=== PATIENT | female | born 1950 | race Caucasian/White ===

== ENCOUNTER → 2017-08-20 11:18 | Outpatient (CLI) | payer MEDICARE, OTHER, SELFPAY ==
[2017-08-20 12:37] LABS: Absolute Lymphocyte Count 1.17 X10^3/ul (0.83-4.51); Absolute Neutrophil Count 3.1 X10^3/uL (2.0-7.7); Basophil# 0.04 X10^3/uL; Basophil% 0.8 % (0-1); Eosinophil# 0.12 X10^3/uL; Eosinophils% 2.5 % (0-5); Hematocrit 42.3 % (37-47); Hemoglobin 14.3 g/dl (12.0-15.0); Lymphocyte # 1.17 X10^3/ul (4.0); Lymphocyte % 24.5 % (19-41); Mean Corp Hgb Conc 33.8 g/gl (32-36); Mean Corpuscular Hgb 32.6 pg (27.0-32.0); Mean Corpuscular Volume 96.6 fL (81-99); Mean Platelet Vol. 11.1 fl (6.2-12.0); Monocyte# 0.38 X10^3/uL; Neutrophil # 3.06 X10^3/uL (2.7-7.7); Neutrophil % 64.2 % (47-70); Platelet Count 208 K/mm3 (150-450); RBC Distribution Width CV 13.8 % (11.6-14.6); RBC Distribution Width SD 47.5 fl (35.1-43.9); Red Blood Count 4.38 M/mm3 (4.2-5.4); White Blood Count 4.8 K/mm3 (4.4-11.0)
[2017-08-20 12:38] LABS: POSITIVE COUNT NO; POSITIVE DIFFERENTIAL NO; POSITIVE MORPHOLOGY NO
[2017-08-20 12:58] LABS: ALB/GLOB Ratio 1.2 RATIO (0.9-2.4); AST(SGOT) 17 U/L (15-37); Alanine Aminotransfer ALT/SGPT 22 U/L (13-56); Albumin, Serum 3.9 g/dL (3.2-5.0); Alkaline Phosphatase 60 U/L (45-117); Anion Gap 8 (5-15); BUN 15 mg/dL (7-18); BUN/Creat Ratio 17.4 RATIO (10-20); Calcium,Total 8.6 mg/dL (8.5-10.1); Chloride 108 mmol/L (98-107); Creatinine, Serum 0.86 mg/dL (0.55-1.02); EST Glomerular Filtration Rate 70 mL/min (>60); Est Glom Filt Rate - Afr Amer 85 mL/min (>60); Globulin 3.2 g/dL (2.2-4.2); Glucose 78 mg/dL (74-106); Potassium 3.8 mmol/L (3.5-5.1); Protein, Total 7.1 g/dL (6.4-8.2); Sodium Level 143 mmol/L (136-145); Thyroid Stim Hormone (TSH) 0.45 uIU/mL (0.358-3.74)
[2017-08-20 13:10] LABS: Vitamin D,25 Hydroxy 81.1 ng/mL (29.95-100.01)
[2017-08-21 11:06] LABS: Hep C Antibodies <0.1 s/co ratio (0.0-0.9)
== END ==
PROVIDERS: Family Provider Family Medicine Geriatric Medicine; PCP Family Medicine Geriatric Medicine; Visit Provider Family Medicine Geriatric Medicine
DX: I10 Essential (primary) hypertension (principal); E55.9 Vitamin D deficiency, unspecified; Z13.89 Encounter for screening for other disorder
CPT/HCPCS: 36415; 80053; 82306; 84443; 85025; 86803

== ENCOUNTER → 2017-08-23 10:54 | Outpatient (CLI) | payer MEDICARE, OTHER, SELFPAY ==
--- NOTE | 2017-08-23 11:02 | BD_ITS ---
STUDY: DUAL ENERGY X-RAY ABSORPTIOMETRY / DXA REASON FOR EXAM: Female, 66 years old. The patient is postmenopausal. Loss of height. TECHNIQUE: Bone Mineral Density (BMD) measurements of lumbar spine and bilateral hips were obtained. COMPARISON: Comparison is made with prior examination dated January 05, 2011. FINDINGS: Lumbar Spine (L1-L4): g/cm2 (1.288) / T-score (0.7) / Z-score (2.3) Findings are suggestive of normal bone density with a low fracture risk. Left Femur Total: g/cm2 (0.747) / T-score (-2.1) / Z-score (-0.6) Left Femoral Neck: g/cm2 (0.751) / T-score (-2.1) / Z-score (0.6) Right Femur Total: g/cm2 (0.873) / T-score (-1.1) / Z-score (0.2) Right Femoral Neck: g/cm2 (0.859) / T-score (-1.3) / Z-score (0.2) There is approximately 60% loss of height of the L1 vertebrae. The T-Scores on the most recent prior examination were: Lumbar Spine (L1-L4): There has been improvement of bone density since the previous examination. Left Femur Total: which represents a worsening of 6.6%. Right Femur Total: which represents a worsening of 3.5%. BD/DXA BONE DENS W/VERT FX ASMT IMPRESSION: The patient is considered osteopenic as outlined below according to World Haim Organization (WHO) criteria with a moderate fracture risk. There has been worsening of bone density since the previous examination. Reference Information: The T-score is the number of standard deviations above or below the standard which is normal for young adults at their peak bone mineral density. The World Health Organization (WHO) interprets the T-scores as follows: Above -1 Normal bone density Between -1 and -2.5 Osteopenia Equal to / or below -2.5 Osteoporosis As a practical clinical guideline, osteopenia may be graded as follows: Mild -1 through -1.5 Moderate -1.6 through -2.0 Severe -2.1 through -2.4 The Z-score is the number of standard deviations above or below age-matched controls. A Z-score of less than -1.5 would be considered abnormal. References: 1. NIH Osteoporosis and Related Bone Diseases http://www.osteo.org 2. International Society for Clinical Densitometry http://www.iscd.org 3. National Osteoporosis Foundation http://www.nof.org Electronically Signed: Eddie Friedman MD at 9:24 EDT Tel [phone], Service support ,
== END ==
PROVIDERS: Family Provider Family Medicine Geriatric Medicine; PCP Family Medicine Geriatric Medicine; Visit Provider Family Medicine Geriatric Medicine
DX: Z78.0 Asymptomatic menopausal state (principal)
CPT/HCPCS: 77085

== ENCOUNTER 2017-11-05 10:47 | Day surgery (SDC) | payer MEDICARE, OTHER, SELFPAY ==
--- NOTE | 2017-11-05 | COLBX_PTH ---
PATIENT: XENA MESSER LOC: EN U#:[id number] AGE/SX: 66/F ROOM: RE11/05/[address]: Dr. Murray Lai MD : 1950 BED: DIS: 11/05/2017 SPEC #: [id number] RECD: 11/05/17 15:12 STATUS: JAMES RERandal #: [id number] NANDINI: 11/05/17 00:[address]: Murray Lai DEPT: SURGICAL PATHOLOGY RECD BY: Danilo Paniagua ENTERED: 11/06/17 08:21 SP TYPE: COLON BX OTHR DR: Dr. Clyde Sahu MD Tissues: COLON BIOPSY Procedures: Surgery Specimen Level IV HEADER OPERATION: Colonoscopy PRE-OP DIAGNOSIS: History colon polyps, hemorrhoids, diverticula of colon TISSUE SUBMITTED: Hepatic flexure polyp MICROSCOPIC DIAGNOSIS Hepatic flexure polyp, biopsy: Cauterized fragments of colonic mucosa with changes suggestive of hyperplastic polyp. SJ:gillian 11/07/17 COMMENT Correlation with clinical, endoscopic findings and appropriate follow up are necessary. MICROSCOPIC DESCRIPTION Slides are reviewed. GROSS DESCRIPTION Received in fixative is one container labeled with the patient's name and designated polyp at hepatic flexure. The specimen consists of multiple irregular fragments of light cary soft tissue mixed with fecal material that in aggregate measure 1 x 0.2 x 0.1 cm. The specimen is totally submitted in one cassette. / MATTHEW:gillian 11/06/17 TC:5 CPT: 76982
--- NOTE | 2017-11-05 06:56 | HP.PCM_ITS ---
History and Physical Date of Admission: 11/05/17 HISTORY AND PHYSICAL ? Kimmie Garcia [place] 1950 ? REFERRING PHYSICIAN: ~~Negar Mckeon,* ? CHIEF COMPLAINT: ~~colon consult ? HPI: The patient is a 66 year old female referred for endoscopy. ~Kimmie notes a personal history of colon polyps removed during her last colonoscopy on , and is due for 5-year repeat colonoscopy. ~She denies any change in bowel habits, weight changes, blood in stools, black tarry stools or abdominal pain. The patient ~notes no history of upper GI complaints. ? Patient's past medical history is significant for cervical dystonia. ~Of significant note patient was also found during last colonoscopy to have a very tortuous colon per Dr. Flanagan's operative note. ~The entire colon was visualized but this was with difficulty and patient notes recall and discomfort from that procedure. ? ? PAST MEDICAL HISTORY PAST MEDICAL HISTORY Diagnosis Date ? 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 treated in [place] by Dr. Baldomero Tesfaye ? Benign neoplasm of colon ? ? Disorder of bone and cartilage, unspecified ? ? Diverticulosis of colon (without mention of hemorrhage) ? ? Goiter, specified as simple ? ? Personal history of colonic polyps ? ? Colon polyps ? PMH - PAST MEDICAL HISTORY OF ? ? GI BLEED ? PMH - PAST MEDICAL HISTORY OF ? ? RLQ PAIN ? Unspecified hemorrhoids without mention of complication ? ? Hemorrhoids ? ? PAST SURGICAL HISTORY PAST SURGICAL HISTORY Procedure Laterality Date ? COLONOS W/REM POLYP SNARE ? 09/19/05 ? COLONOS W/REM POLYP SNARE ? 05/24/09 ? COLONOSCOP W/ OR W/O [facility] SPEC ? 06/14/2004 ? Colonoscopy ? ECHO GUIDE FOR BIOPSY ? 06/09/05 ? left- 10clock and 12oclock ? PAST SURGICAL HISTORY OF ? 1990 ? bladder tack ? THYROIDECTOMY ? CURRENT MEDICATIONS ? Current Outpatient Prescriptions: HYDROcodone-acetaminophen (NORCO) 5-325 mg per tablet Take 1 tablet by mouth. levothyroxine (LEVOXYL) 100 mcg tablet Take 1 tablet by mouth once daily. CLONAZEPAM 1 MG TAB Take 2-3 tabs ~as needed. MULTIVITAMIN TAB Take one(1) tablet daily. Cholecalciferol, Vitamin D3, 1,000 unit cap Takes 1 tablet daily. (Patient not taking: Reported on 08/22/2017 ) duloxetine hcl(CYMBALTA 60 MG CAP) Take one(1) capsule daily. HYDROCHLOROTHIAZIDE 25 MG TAB Take one(1) tablet daily. (Patient not taking: No sig reported) risedronate sodium(ACTONEL 35 MG TAB) take one tablet each week as directed (Patient not taking: No sig reported) GXMHOQNP-QBZCONRJAY-QE GLYCN-C 500 MG-400 MG CAP Take one(1) tablet two(2) times daily. evening primrose oil(EVENING PRIMROSE 500 MG CAP) Take one(1) tablet two(2) times daily. oxycodone hcl/acetaminophen(PERCOCET 5 MG-325 MG TAB) as necessary SOY ISOFLAVONE 100 MG CAP Take one(1) tablet two(2) times daily. ubidecarenone(COQ-10 100 MG CAP) Take two (2) by mouth once daily. RED YEAST RICE EXTRACT 600 MG CAP One tablet twice daily BLACK COHOSH 200 MG CAP Take one(1) tablet daily. CALCIUM 500 MG TAB Take one(1) tablet three times daily. FLAXSEED OIL 1,000 MG CAP Take one(1) tablet daily. ? No current facility-administered medications for this visit. ? ALLERGIES: Hayfever [Homeopathic Products]; Macrobid [Nitrofurantoin Monohyd/M- Cryst] ? PERSONAL HISTORY: SOCIAL HISTORY Social History ~~Marital status: ~~~~~~~~~~~~Spouse name: Garland Alvarez ~~~~~~~~ ~~Years of education: ~~~~~~~~~~~~~~~~Number of children: 1 ~~~~~~~~ ? 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 Social History Main Topics ~~Smoking status: Former Smoker ~~~~~~~~~~~~~~~~~~~~~~~~~~~~~~~~~~~~~~~~~~~~~~~~ ~~~~~~~~ ~~~~~Packs/day: 0.00 ~~~~~Years: 0.00 ~~~ ~~Alcohol use: Yes ~~~~~~~~ ~~~~~Comment: very rare ? FAMILY HISTORY: FAMILY HISTORY FAMILY HISTORY Problem Relation Age of Onset ? Cancer Father ? ? ? TESTICULAR ? Colon Cancer Paternal Grandfather ? ? Diabetes Paternal Grandmother ? ? Alzheimer's Disease Maternal Grandmother ? ? REVIEW OF SYMPTOMS: ~~The review of systems data was entered by the nurse and reviewed by me ? Nursing Notes: Regina Ling LPN ~08/22/2017 ~1:47 PM ~Signed REVIEW OF SYSTEMS: ~~~~~General:~~~The patient denies fatigue, denies weight loss, denies weight gain, denies feeling hot, and denies feelings of cold. ~~~~~Eyes: ~The patient denies glaucoma, denies eye injury/surgery, does not wear glasses or contacts. ~~~~~Ear/Nose/Throat: ~The patient denies allergies, denies hayfever, denies ear infections, and denies bloody noses. ~~~~~Cardiovascular: ~The patient denies chest pain, denies heart disease, denies high blood pressure,denies cardiac stent, denies prior heart attack, denies irregular heart beat, denies high cholesterol, ~denies poor circulation, denies heart failure, other cardiac issues, denies claudication, denies cold feet, denies peripheral arterial stent. ~~~~~Respiratory: ~The patient denies tuberculosis, denies pneumonia, denies frequent cough, denies pulmonary embolism, denies shortness of breath, and denies coughing up blood. ~~~~~Gastrointestinal: ~The patient denies difficulty swallowing, denies acid reflux, denies ulcers, denies vomiting, denies jaundice/hepatitis, denies gallbladder problems, denies black or tarry stools, denies hemorrhoids, denies bleeding from rectum, denies diverticulitis, denies constipation, denies diarrhea, denies loss of stool control, and denies hernias. ~~~~~Kidney/Bladder: ~The patient denies kidney stones, denies urine infections , and denies bloody urine. ~~~~~Skin: ~The patient denies a history of skin cancer, denies bleeding/ changing moles, and denies a history of skin rash. ~~~~~Neurologic: ~The patient denies a history of epilepsy/convulsions, denies headaches, denies head/spinal injuries, and denies stroke/TIA. ~~~~~Psychiatric: ~The patient denies psychiatric medications, denies depression , and denies voices, denies substance abuse. ~~~~~Endocrine: ~The patient denies thyroid disorders, denies diabetes, and denies hormonal problems. ~~~~~Hematologic: ~The patient denies a history of bruising, denies bleeding, and denies anemia, denies blood clots. ~~~~~Infections: ~The patient denies a history of measles and mumps, denies rheumatic fever, and denies sexually transmitted diseases. ~~~~~Musculoskeletal: ~The patient denies back pain/injury, denies back problems , denies sciatica, denies knee/foot trouble, denies arthritis, or denies gout. ? ? When was patient's last Mammogram screening? 04/2017 ? ~Last Colonoscopy: ~08/2012 ? Regina Ling LPN~ Angely Gage PA-C ? ~ PHYSICAL EXAMINATION: ? General: ~The patient is 66 year old female, well nourished, well hydrated in no acute distress. ~The patient is oriented to time, place, and person. ? VITALS: Blood pressure 152/70, pulse 88, height 168.9 cm (5' 6.5), weight 70.8 kg (156 lb).~Body mass index is 24.8 kg/m?.~ ? HEENT: ~Normal cephalic, ataumatic, pupils are equally round, sclera are anicteric, mucous membranes are moist, oropharynx is clear. ~Neck has no masses , asymmetry or lymphadenopathy. ~ ? Respiratory: ~Clear to auscultation and percussion. ~Normal respiratory excursion and pattern. ? Cardiac: ~Examination is regular rate and rhythm. ? Abdominal exam: ~Soft, nontender, ~with no palpable masses. ~No hepatosplenomegaly. ~No palpable hernias. ? Rectal exam: exam deferred ? Extremities: ~no clubbing, cyanosis or edema. ~No adenopathy. ? Other: ? LABORATORY VALUES: As Noted ? RADIOLOGIC STUDIES: ~As Noted ? ? Assessment ~ IMPRESSION: encounter for screening colonoscopy, tortuous/looping colon-plan for MAC ? PLAN: ~We will plan for screening colonoscopy with Monitored Anesthetic Care.~~~ We discussed the risks and benefits of the planned endoscopy. ~I have informed the patient that complications can occur including failure to complete the endoscopy and perforation. ~The patient had the opportunity to ask questions concerning the planned endoscopy. ~My staff has also explained the procedure to the patient in understandable terms and has given the patient printed material concerning the procedure. ~The patient freely consents to surgery. ? I plan to use golytely bowel preparation for endoscopy ? The patient has recall from their previous endoscopy performed under conscious sedation. ~I therefore plan to perform the procedure under monitored anesthetic care. ? Diagnoses: (Z12.11) Encounter for screening for malignant neoplasm of colon ~( primary encounter diagnosis) (Q43.8) Tortuous colon (Z86.010) Personal history of colonic polyps ? My findings have been communicated to Dr. Mckeon~via shared medical record. ~ This note will be forwarded to Dr. Clyde Sahu MD. ~~ Return to Clinic: The patient is instructed to follow-up with me 1 week post operatively. ? Angely Gage PA-C
[2017-11-05 11:20] VITALS: BP 141/98; PULSE 100; RESP 18; TEMP 36.4; O2SAT 100; BMI 24.3
--- NOTE | 2017-11-05 12:34 | OP.PCM_ITS ---
Report of Operation Date of Procedure: 11/05/17 Pre-Operative Diagnosis: PERSONAL HISTORY OF COLON POLYPS Post-Operative Diagnosis: COLON POLYP AT HEPATIC FLEXURE, OTHERWISE NORMAL Surgery/Procedure Performed:: COLONOSCOPY WITH SNARE POLYPECTOMY refrigerator cabinetmaker: None Type of Anesthesia:: MAC Anesthesiologist: Sujit Huynh - ASA2 Specimen's removed: HEPATIC FLEXURE POLYP - SMALL Description of Procedure: The patient was brought to the endoscopy suite. Sign in was performed verifying patient, site, planned procedure, critical nursing information, the patient was monitored with cardiac, pulse oximetric, and blood pressure monitoring devices. Monitored anesthetic care was provided for sedation. Following IV sedation the patient was positioned for colonoscopy. A digital rectal exam was performed which revealed no palpable abnormalities The video colonoscope was inserted and advanced to the cecum as verified by the ileocecal valve, cecal base anatomic features and palpation. the cecum, ascending colon appeared unremarkable. There was a small polyp at hepatic flexure. This was removed via snare polypectomy. The remainder of the transverse colon, splenic flexure, descending colon, rectosigmoid all appeared normal. The scope was retroflexed in the colon and this was unremarkable. The patient tolerated the procedure well and was brought to recovery in stable condition
[2017-11-05 12:35] VITALS: BP 123/70; BP 141/98; PULSE 85; RESP 16; TEMP 36.2; O2SAT 99
[2017-11-05 12:40] VITALS: BP 124/74; BP 141/98; PULSE 85; RESP 16; O2SAT 99
[2017-11-05 12:53] VITALS: BP 122/73; BP 141/98; PULSE 87; RESP 16; TEMP 36.2; O2SAT 99
[2017-11-05 13:25] VITALS: BP 141/98
== END 2017-11-05 13:26 | disposition home or self-care (01) ==
LOC: EN 10:48 → AC 10:49
PROVIDERS: Family Provider Family Medicine Geriatric Medicine; PCP Family Medicine Geriatric Medicine; Visit Provider Surgery
PROC: 0DJD8ZZ Inspection of Lower Intestinal Tract, Via Natural or Artificial Opening Endoscopic (ICD-10-PCS; CPT 45378; principal; 2017-11-05 11:55)
DX: Z12.11 Encounter for screening for malignant neoplasm of colon (principal); K63.5 Polyp of colon; Q43.8 Other specified congenital malformations of intestine; Z86.010 Personal history of colon polyps; Z87.891 Personal history of nicotine dependence
CPT/HCPCS: 45380; 88305; J7120

== ENCOUNTER → 2018-05-27 09:53 | Outpatient (CLI) | payer MEDICARE, OTHER, SELFPAY ==
--- NOTE | 2018-05-27 09:57 | BI_ITS ---
MAMMOGRAPHY - BILATERAL SCREENING REASON FOR EXAM: Female, 67 years old. Routine annual screening examination. PERTINENT HISTORY: Aunt with breast cancer. TECHNIQUE: Digital bilateral breast handy (3D mammographic acquisition) in the CC and MLO projections. 2-D mediolateral oblique (MLO) and craniocaudad (CC) views of both breasts were obtained. CAD: Full Field Digital Mammography with Computer Added Detection was performed. COMPARISON: Comparison is made with prior study dated 2017 and March 10, 2016. FINDINGS: Breast Composition: The breasts are heterogeneously dense, which may obscure small masses. There are no dominant masses or suspicious calcifications. No other significant abnormalities are identified. There has been no significant change since the prior study. BI/SCREENING MAMM (CAD), BILAT IMPRESSION: Stable bilateral screening mammogram. Yearly follow-up mammogram recommended. (A) ASSESSMENT CATEGORY: BIRADS Category 1: Negative. A letter regarding these results will be sent to the patient by the facility within 30 days. Approximately 10% of breast cancers are not detected by mammography. A normal mammogram should not delay biopsy of a clinically suspicious abnormality. [id number] Electronically Signed: Eddie Friedman MD at 12:53 EST , Service support ,
== END ==
PROVIDERS: Family Provider Family Medicine Geriatric Medicine; PCP Family Medicine Geriatric Medicine; Referring Provider Family Medicine Geriatric Medicine; Visit Provider Family Medicine Geriatric Medicine
DX: Z12.31 Encounter for screening mammogram for malignant neoplasm of breast (principal)
CPT/HCPCS: 77063; 77067

== ENCOUNTER → 2018-08-19 11:40 | Outpatient (CLI) | payer MEDICARE, OTHER, SELFPAY ==
[2018-07-11 11:54] VITALS: BMI 24.3
[2018-08-19 15:29] LABS: Absolute Lymphocyte Count 1.79 X10^3/ul (0.83-4.51); Absolute Neutrophil Count 2.9 X10^3/uL (2.0-7.7); Basophil# 0.04 X10^3/uL; Basophil% 0.8 % (0-1); Eosinophil# 0.17 X10^3/uL; Eosinophils% 3.2 % (0-5); Hematocrit 43.8 % (37-47); Hemoglobin 14.3 g/dl (12.0-15.0); Lymphocyte # 1.79 X10^3/ul (4.0); Mean Corp Hgb Conc 32.6 g/gl (32-36); Mean Corpuscular Hgb 30.4 pg (27.0-32.0); Mean Corpuscular Volume 93.2 fL (81-99); Monocyte# 0.39 X10^3/uL; Monocyte% 7.4 % (0-10); Neutrophil # 2.86 X10^3/uL (2.7-7.7); Neutrophil % 54.4 % (47-70); Platelet Count 244 K/mm3 (150-450); White Blood Count 5.3 K/mm3 (4.4-11.0)
[2018-08-19 15:37] LABS: POSITIVE COUNT NO; POSITIVE DIFFERENTIAL NO; POSITIVE MORPHOLOGY NO
[2018-08-19 15:40] LABS: ALB/GLOB Ratio 1.2 RATIO (0.9-2.4); AST(SGOT) 18 U/L (15-37); Alanine Aminotransfer ALT/SGPT 26 U/L (13-56); Albumin, Serum 3.7 g/dL (3.2-5.0); Alkaline Phosphatase 69 U/L (45-117); Anion Gap 6 (5-15); BUN 13 mg/dL (7-18); BUN/Creat Ratio 14.9 RATIO (10-20); Chloride 107 mmol/L (98-107); Cholesterol 138 mg/dL (200); Creatinine, Serum 0.87 mg/dL (0.55-1.02); EST Glomerular Filtration Rate 69 mL/min (>60); Est Glom Filt Rate - Afr Amer 84 mL/min (>60); Glucose 87 mg/dL (74-106); High Density Lipoprotein 40 mg/dL; Potassium 4.3 mmol/L (3.5-5.1); Protein, Total 6.7 g/dL (6.4-8.2); Sodium Level 140 mmol/L (136-145); Thyroid Stim Hormone (TSH) 1.06 uIU/mL (0.358-3.74); Triglycerides 78 mg/dL; Very Low Density Lipoprotein 16 mg/dL (5-40)
== END ==
PROVIDERS: Family Provider Family Medicine; PCP Family Medicine; Visit Provider Family Medicine
DX: E03.2 Hypothyroidism due to medicaments and other exogenous substances (principal); E55.9 Vitamin D deficiency, unspecified; E78.5 Hyperlipidemia, unspecified
CPT/HCPCS: 36415; 80053; 80061; 84443; 85025

== ENCOUNTER → 2019-05-28 11:30 | Outpatient (CLI) | payer MEDICARE, OTHER, SELFPAY ==
[2018-07-11 11:54] VITALS: BMI 24.3
--- NOTE | 2019-05-28 11:33 | BI_ITS ---
MAMMOGRAPHY - BILATERAL SCREENING REASON FOR EXAM: Female, 68 years old. Routine annual screening examination. PERTINENT HISTORY: Aunt with breast cancer. TECHNIQUE: Digital bilateral breast luz maria (3D mammographic acquisition) in the CC and MLO projections. 2-D mediolateral oblique (MLO) and craniocaudad (CC) views of both breasts were obtained. CAD: Full Field Digital Mammography with Computer Added Detection was performed. COMPARISON: Comparison is made with prior study dated May 27, 2018 and April 20, 2017. FINDINGS: Breast Composition: The breasts are heterogeneously dense, which may obscure small masses. There are no dominant masses or suspicious calcifications. No other significant abnormalities are identified. There has been no significant change since the prior study. BI/SCREEN MAMM (CAD) W/LUZ MARIA BILAT IMPRESSION: Stable bilateral screening mammogram. Yearly follow-up mammogram recommended. (A) ASSESSMENT CATEGORY: BIRADS Category 1: Negative. A letter regarding these results will be sent to the patient by the facility within 30 days. Approximately 10% of breast cancers are not detected by mammography. A normal mammogram should not delay biopsy of a clinically suspicious abnormality. [id number] Electronically Signed: Eddie Friedman, at 12:20 EST , Service support ,
== END ==
PROVIDERS: PCP Family Medicine; Referring Provider Family Medicine; Visit Provider Family Medicine
DX: Z12.31 Encounter for screening mammogram for malignant neoplasm of breast (principal)
CPT/HCPCS: 77063; 77067

== ENCOUNTER → 2019-09-10 10:34 | Outpatient (CLI) | payer MEDICARE, OTHER, SELFPAY ==
[2018-07-11 11:54] VITALS: BMI 24.3
[2019-09-10 12:52] LABS: Absolute Lymphocyte Count 1.32 X10^3/uL (0.83-4.51); Absolute Neutrophil Count 2.2 X10^3/uL (2.0-7.7); Basophil# 0.04 X10^3/uL; Eosinophil# 0.14 X10^3/uL; Eosinophils% 3.5 % (0-5); Hematocrit 39.7 % (37-47); Hemoglobin 12.9 g/dL (12.0-15.0); Lymphocyte # 1.32 X10^3/ul (4.0); Lymphocyte % 33.2 % (19-41); Mean Corp Hgb Conc 32.5 g/dL (32-36); Mean Corpuscular Hgb 31.4 pg (27.0-32.0); Mean Corpuscular Volume 96.6 fL (81-99); Mean Platelet Vol. 10.7 fl (6.2-12.0); Monocyte# 0.29 X10^3/uL; Monocyte% 7.3 % (0-10); NRBC Flagged by Analyzer 0 % (0-5); Neutrophil # 2.17 X10^3/uL (2.7-7.7); Neutrophil % 54.7 % (47-70); Platelet Count 213 K/mm3 (150-450); RBC Distribution Width CV 14.2 % (11.6-14.6); RBC Distribution Width SD 50.8 fl (35.1-43.9); Red Blood Count 4.11 M/mm3 (4.2-5.4)
[2019-09-10 13:53] LABS: ALB/GLOB Ratio 1.3 RATIO (0.9-2.4); AST(SGOT) 22 U/L (15-37); Alanine Aminotransfer ALT/SGPT 28 U/L (13-56); Albumin, Serum 3.6 g/dL (3.2-5.0); Alkaline Phosphatase 57 U/L (45-117); Anion Gap 8 (5-15); BUN 14 mg/dL (7-18); BUN/Creat Ratio 15.9 RATIO (10-20); Calcium,Total 8.7 mg/dL (8.5-10.1); Chloride 106 mmol/L (98-107); Cholesterol 175 mg/dL (200); Creatinine, Serum 0.88 mg/dL (0.55-1.02); EST Glomerular Filtration Rate 68 mL/min (>60); Est Glom Filt Rate - Afr Amer 83 mL/min (>60); Globulin 2.8 g/dL (2.2-4.2); Glucose 78 mg/dL (74-106); High Density Lipoprotein 62 mg/dL; Potassium 3.2 mmol/L (3.5-5.1); Protein, Total 6.4 g/dL (6.4-8.2); Sodium Level 140 mmol/L (136-145); Thyroid Stim Hormone (TSH) 0.29 uIU/mL (0.358-3.74); Triglycerides 60 mg/dL; Very Low Density Lipoprotein 12 mg/dL (5-40)
== END ==
LOC: LAB.FUTURE 10:35 → BFHLAB 10-23 14:36
PROVIDERS: PCP Family Medicine; Visit Provider Family Medicine
DX: E03.2 Hypothyroidism due to medicaments and other exogenous substances (principal); E55.9 Vitamin D deficiency, unspecified; E78.5 Hyperlipidemia, unspecified
CPT/HCPCS: 36415; 80053; 80061; 84443; 85025

== ENCOUNTER → 2019-10-27 15:21 | Outpatient (CLI) | payer MEDICARE, OTHER, SELFPAY ==
[2018-07-11 11:54] VITALS: BMI 24.3
== END ==
PROVIDERS: PCP Family Medicine; Visit Provider Family Medicine
DX: R19.7 Diarrhea, unspecified (principal)
CPT/HCPCS: 83630; 87177; 87209; 87493; 87506

== ENCOUNTER → 2019-12-11 10:23 | Outpatient (CLI) | payer MEDICARE, OTHER, SELFPAY ==
[2018-07-11 11:54] VITALS: BMI 24.3
[2019-12-11 12:44] LABS: Thyroid Stim Hormone (TSH) 0.16 uIU/mL (0.358-3.74)
== END ==
PROVIDERS: PCP Family Medicine; Visit Provider Family Medicine
DX: E03.2 Hypothyroidism due to medicaments and other exogenous substances (principal); T50.905A Adverse effect of unspecified drugs, medicaments and biological substances, initial encounter; R19.7 Diarrhea, unspecified
CPT/HCPCS: 36415; 84443

== ENCOUNTER → 2020-02-20 13:06 | Outpatient (CLI) | payer MEDICARE, OTHER, SELFPAY ==
[2018-07-11 11:54] VITALS: BMI 24.3
[2020-02-20 15:42] LABS: Free T3 2.3 pg/mL (2.18-3.98); Thyroid Stim Hormone (TSH) 0.46 uIU/mL (0.358-3.74)
== END ==
PROVIDERS: PCP Family Medicine; Visit Provider Family Medicine
DX: E03.9 Hypothyroidism, unspecified (principal)
CPT/HCPCS: 36415; 84439; 84443; 84481

== ENCOUNTER → 2020-05-31 13:43 | Outpatient (CLI) | payer MEDICARE, OTHER, SELFPAY ==
[2018-07-11 11:54] VITALS: BMI 24.3
--- NOTE | 2020-05-31 13:45 | BI_ITS ---
MAMMOGRAPHY - BILATERAL SCREENING REASON FOR EXAM: Female, 69 years old. Routine annual screening examination. PERTINENT HISTORY: Aunt with breast cancer. TECHNIQUE: Digital bilateral breast luz maria (3D mammographic acquisition) in the CC and MLO projections. 2-D mediolateral oblique (MLO) and craniocaudad (CC) views of both breasts were obtained. CAD: Full Field Digital Mammography with Computer Added Detection was performed. COMPARISON: Comparison is made with prior examination dated 05/28/2019 and 05/27/2018. FINDINGS: Breast Composition: The breasts are heterogeneously dense, which may obscure small masses. There are no dominant masses or suspicious calcifications. No other significant abnormalities are identified. There has been no significant change since the prior study. BI/SCRN MAMM (CAD)W/LUZ MARIA BILAT IMPRESSION: Stable bilateral screening mammogram. Yearly follow-up mammogram recommended. (A) ASSESSMENT CATEGORY: BIRADS Category 1: Negative. A letter regarding these results will be sent to the patient by the facility within 30 days. Approximately 10% of breast cancers are not detected by mammography. A normal mammogram should not delay biopsy of a clinically suspicious abnormality. [id number] Electronically Signed: Eddie Friedman MD at 14:35 EST , Service support ,
== END ==
PROVIDERS: PCP Family Medicine; Referring Provider Family Medicine; Visit Provider Family Medicine
DX: Z12.31 Encounter for screening mammogram for malignant neoplasm of breast (principal); Z80.3 Family history of malignant neoplasm of breast
CPT/HCPCS: 77063; 77067

== ENCOUNTER → 2020-09-09 12:18 | Outpatient (CLI) | payer MEDICARE, OTHER, SELFPAY ==
[2018-07-11 11:54] VITALS: BMI 24.3
[2020-09-09 15:21] LABS: Absolute Lymphocyte Count 1.39 X10^3/uL (0.83-4.51); Absolute Neutrophil Count 2.8 X10^3/uL (2.0-7.7); Basophil# 0.04 X10^3/uL; Basophil% 0.8 % (0-1); Eosinophil# 0.11 X10^3/uL; Eosinophils% 2.3 % (0-5); Hematocrit 41.9 % (37-47); Hemoglobin 13.5 g/dL (12.0-15.0); Lymphocyte # 1.39 X10^3/ul (0.83-4.51); Lymphocyte % 29.3 % (19-41); Mean Corp Hgb Conc 32.2 g/dL (32-36); Mean Corpuscular Volume 96.1 fL (81-99); Mean Platelet Vol. 10.7 fl (6.2-12.0); Monocyte# 0.36 X10^3/uL; Monocyte% 7.6 % (0-10); NRBC Flagged by Analyzer 0 % (0-5); Neutrophil # 2.84 X10^3/uL (2.7-7.7); Platelet Count 266 K/mm3 (150-450); RBC Distribution Width CV 14.2 % (11.6-14.6); RBC Distribution Width SD 50.3 fl (35.1-43.9); Red Blood Count 4.36 M/mm3 (4.2-5.4); White Blood Count 4.7 K/mm3 (4.4-11.0)
[2020-09-09 15:41] LABS: Vitamin D,25 Hydroxy 123.4 ng/mL
[2020-09-09 15:50] LABS: ALB/GLOB Ratio 1.2 RATIO (0.9-2.4); AST(SGOT) 17 U/L (15-37); Alanine Aminotransfer ALT/SGPT 25 U/L (13-56); Albumin, Serum 3.7 g/dL (3.2-5.0); Alkaline Phosphatase 59 U/L (45-117); Anion Gap 4 (5-15); BUN 20 mg/dL (7-18); BUN/Creat Ratio 23.7 RATIO (10-20); Chloride 109 mmol/L (98-107); Creatinine, Serum 0.84 mg/dL (0.55-1.02); EST Glomerular Filtration Rate 71 mL/min (>60); Est Glom Filt Rate - Afr Amer 86 mL/min (>60); Glucose 78 mg/dL (74-106); Protein, Total 6.7 g/dL (6.4-8.2); Sodium Level 140 mmol/L (136-145); T4 Free Direct 1.43 ng/dL (0.76-1.46); Thyroid Stim Hormone (TSH) 0.43 uIU/mL (0.358-3.74)
== END ==
PROVIDERS: PCP Family Medicine; Visit Provider Family Medicine
DX: E03.9 Hypothyroidism, unspecified (principal); E55.9 Vitamin D deficiency, unspecified; G24.9 Dystonia, unspecified
CPT/HCPCS: 36415; 80053; 82306; 84439; 84443; 85025

== ENCOUNTER 2021-05-13 00:47 | Inpatient (IN) | payer MEDICARE, OTHER, SELFPAY ==
[2021-05-13] VITALS (7 sets, daily range): BP systolic 113–139; BP diastolic 57–78; PULSE 85–94; RESP 15–18; TEMP 36.4–37.3; O2SAT 96–100; BMI 22.9
--- NOTE | 2021-05-13 00:55 | RAD_ITS ---
STUDY: X-RAY - PELVIS AND LEFT HIP REASON FOR EXAM: Female, 70 years old patient with acute fracture after unspecified trauma. TECHNIQUE: 3 views of the pelvis and hip. COMPARISON: Prior comparison studies are not available for review at this time. FINDINGS: There is a non-specific bowel gas pattern. There are multiple calcified phleboliths. There is diffuse demineralization of the osseous structures. The sacrum and iliac wings are obscured by bowel gas and/or stool. Normal bilateral superior and inferior pubic rami. There are degenerative changes of the pubic symphysis with articular narrowing and sclerosis. Normal bilateral ischial tuberosities. There is an acute displaced left subcapital femoral neck fracture. The distal fracture fragment is displaced proximally. Normal acetabulum. There is mild articular joint space narrowing of the hip. RAD/HIP, UNI W/ Pelvis 2-3 Views IMPRESSION: Acute displaced left-sided femoral neck fracture. Electronically Signed: Jenae Nam MD at 1:55 EST ,
--- NOTE | 2021-05-13 00:55 | RAD_ITS ---
STUDY: X-RAY CHEST REASON FOR EXAM: Female, 70 years old patient with chest injury after fall. TECHNIQUE: Single AP portable view of the chest. COMPARISON: Prior comparison studies are not available for review at this time. FINDINGS: The lungs are hyperexpanded. There is interstitial thickening present in both lungs. There is no demonstrated pleural abnormality. There is mild cardiac enlargement. Normal mediastinum and marilu. There is prominence of the pulmonary hilar arteries with peripheral pulmonary vascular congestion. There is atherosclerotic calcification of the aortic arch with tortuosity. Normal visualized thoracic spine. Normal visualized ribs, clavicles, and shoulders. There is no demonstrated abnormality of the visualized soft tissue structures of the upper abdomen. RAD/Chest 1 View (Portable) IMPRESSION: Cardiomegaly and mild pulmonary congestion. Electronically Signed: Jenae Nam MD at 1:52 EST ,
--- NOTE | 2021-05-13 00:56 | EKG12_ITS ---
Test Reason : FALL Blood Pressure : / mmHG Vent. Rate : 082 BPM Atrial Rate : 082 BPM P-R Int : 146 ms QRS Dur : 072 ms QT Int : 374 ms P-R-T Axes : 063 043 057 degrees QTc Int : 436 ms Normal sinus rhythm Normal ECG Confirmed by FRIEDA SANDOVAL, BORA ([id number]), visual effects editor JEWEL BAZAN ([id number]) on 05/16/2021 10:49:52 AM Referred By: Confirmed By:BORA MALAVE MD
--- NOTE | 2021-05-13 00:57 | EX.ED.DYSGE1 ---
HPI History of Present Illness Chief Complaint: Fall Informant: patient and EMS Narrative Narrative: 70-year-old female presenting to the emergency room with left hip pain. Patient states that she was doing her taxes and fell due to the paperwork. She states she is unable to bear weight on the left hip. She denies any other injuries. She has seen Dr. Conn in the past for rotator cuff repair. [facility] Medical History (Updated 05/13/21 @ 02:[address] Sanna Rea MD) Chronic insomnia Dystonia Former tobacco use History of goiter Hypothyroidism Home Medications clonazepam 2 mg PO QHS PRN PRN 11/01/17 [History Last Taken Unknown] levothyroxine 88 mcg PO DAILY 11/01/17 [History Last Taken 11/05/17 08:00 0800] multivitamin,hz-bbfk-[id number] 1 tab PO DAILY 07/11/18 [History Last Taken Unknown] Allergy/AdvReac Type Severity Reaction Status Date / Time nitrofurantoin Allergy Rash Verified 05/13/21 00:52 [From Macrobid] Family History (Updated 07/11/18 @ 11:38 by Ena Sepulveda) Father Cancer Brother Cancer Mother Alzheimer disease Surgical History (Updated 05/13/21 @ 01:[address] Sanna Rea MD) History of bladder surgery History of rotator cuff surgery History of thyroidectomy History of tonsillectomy History of tubal ligation Social History (Updated 05/13/21 @ 01:[address] Sanna Rea MD) housing: other details: Patient lives with her spouse who is wheelchair bound. She is his caregiver Smoking Status: Former smoker how long ago did patient quit smoking: Smoked age [age] years old, 1 ppd (15 pack year hx). alcohol intake: current alcohol intake frequency: holidays/special occasions only substance use type: does not use ROS ROS ED Constitutional Constitutional ED: Denies chills, fever(s) or weight loss Eyes Eyes: Denies change in vision or diplopia ENT ENT ED: Denies ear pain, rhinorrhea or sore throat Cardiovascular Cardiovascular: Denies chest pain, orthopnea, palpitations or racing heartbeat Respiratory/Chest Respiratory/Chest: Denies cough, dyspnea or orthopnea Gastrointestinal Gastrointestinal: Denies abdominal pain, diarrhea, nausea or vomiting Genitourinary Genitourinary ED: Denies dysuria, hematuria or urinary frequency Musculoskeletal Musculoskeletal: Denies arthralgias or myalgias Integumentary Denies abscess or rash Neurologic Neurologic: Denies headache(s) or weakness Psychiatric Psychiatric: Denies anxiety, depression, suicidal ideation or suicidal thoughts Endocrine Endocrinology: Denies polydipsia, polyphagia or polyuria Allergic/Immunologic Allergic/Immunologic ED: Denies mouth swelling, tongue swelling or urticaria EXAM Physical Exam Const Vital Signs: 05/13/21 00:49 05/13/21 00:53 Temperature 97.5 F L Temperature Source Temporal Pulse Rate 94 Respiratory Rate 16 Respiratory Effort Normal Non-Labored Blood Pressure 129/68 H Blood Pressure Mean 88 Pulse Ox 97 Oxygen Delivery Method Room Air Room Air Positive well nourished and well developed General Appearance ED: well developed HEENT Reports normocephalic, head/scalp atraumatic, TM's clear and moist mucous membranes Negative for trauma Tympanic Membrane ED: Yes TM's clear Eyes PERRL and EOMs intact bilaterally Neck no lymphadenopathy, supple and no JVD Resp normal respiratory effort and clear to auscultation bilaterally Cardio regular rate, regular rhythm and no murmurs GI normal to inspection, nondistended, normoactive bowel sounds and non-tender Palpation: soft Back/Spine no CVA tenderness and normal ROM Extremity Extremity Narrative: Left hip is tender to palpation. Positive logroll. Neurovascular intact distal. General Extremety ED: Negative for edema General Extremity: Negative for edema Neuro oriented x3 and CN's II-XII intact bilaterally Sensorium / Orientation: alert Motor Exam: strength 5/5 throughout Psych mental status grossly normal Mood & Affect: Negative for depressed or tearful Skin no rashes or lesions noted and no wounds MDM MDM MDM Narrative Medical decision making narrative: Patient received pain and nausea medications. My interpretation of the chest x-ray is no acute process. My interpretation of the left hip and pelvis films is an acute femoral neck fracture. Case will be discussed with orthopedics and with the hospitalist. Plan is admission. Lab Data Attestation: I reviewed the patient's lab results. Labs: Laboratory Results - last 24 hr 05/13/21 05/13/21 05/13/21 01:00 01:00 01:00 WBC 10.2 RBC 4.05 L Hgb 12.7 Hct 38.2 MCV 94.3 MCH 31.4 MCHC 33.2 RDW Std Deviation 51.1 H RDW Coeff of Deshawn 14.6 Plt Count 233 MPV 11.2 Immature Gran % (Auto) 0.300 Neut % (Auto) 81.7 H Lymph % (Auto) 12.0 L [place] % (Auto) 5.1 Eos % (Auto) 0.5 Baso % (Auto) 0.4 Absolute Neuts (auto) 8.3 H Absolute Lymphs (auto) 1.22 Nucleated RBC % 0 PT Cancelled INR Cancelled APTT Cancelled Sodium Cancelled Potassium Cancelled Chloride Cancelled Carbon Dioxide Cancelled Anion Gap Cancelled BUN Cancelled Creatinine Cancelled Estim Creat Clear Calc Cancelled Est GFR (MDRD) Af Amer Cancelled Est GFR (MDRD) Non-Af Cancelled BUN/Creatinine Ratio Cancelled Glucose Cancelled Calcium Cancelled Total Bilirubin Cancelled AST Cancelled ALT Cancelled Alkaline Phosphatase Cancelled Total Protein Cancelled Albumin Cancelled Globulin Cancelled Albumin/Globulin Ratio Cancelled 05/13/21 05/13/21 01:28 01:28 WBC RBC Hgb Hct MCV MCH MCHC RDW Std Deviation RDW Coeff of Deshawn Plt Count MPV Immature Gran % (Auto) Neut % (Auto) Lymph % (Auto) [place] % (Auto) Eos % (Auto) Baso % (Auto) Absolute Neuts (auto) Absolute Lymphs (auto) Nucleated RBC % PT 12.6 INR 1.0 APTT 25.0 Sodium 140 Potassium 3.5 Chloride 107 Carbon Dioxide 26.0 Anion Gap 7 BUN 22 H Creatinine 0.80 Estim Creat Clear Calc 69.36 Est GFR (MDRD) Af Amer 91 Est GFR (MDRD) Non-Af 75 BUN/Creatinine Ratio 27.4 H Glucose 98 Calcium 8.8 Total Bilirubin 0.60 AST 29 ALT 29 Alkaline Phosphatase 52 Total Protein 6.2 L Albumin 3.5 Globulin 2.7 Albumin/Globulin Ratio 1.3 Radiography Diagnostic Testing: Clinical Impression(s) from Imaging Studies Chest X-Ray 05/13/21 00:55 IMPRESSION: Cardiomegaly and mild pulmonary congestion. Electronically Signed: Jenae Nam MD at 1:52 EST Reading Location ID and State: [facility] / [place] , Service support , Hip/Pelvis X-Ray 05/13/21 00:55 IMPRESSION: Acute displaced left-sided femoral neck fracture. Electronically Signed: Jenae Nam MD at 1:55 EST , EKG Initial EKG: Attestation: I personally reviewed and interpreted this EKG as follows: Comments: Normal sinus rhythm with a ventricular rate of 82 bpm Discharge Plan Dx/Rx/DC Orders Clinical Impression: Fall, Closed fracture of neck of left femur Disposition Disposition: Acute Care [facility], [place]
[2021-05-13 01:09] LABS: Absolute Lymphocyte Count 1.22 X10^3/uL (0.83-4.51); Absolute Neutrophil Count 8.3 X10^3/uL (2.0-7.7); Basophil# 0.04 X10^3/uL; Basophil% 0.4 % (0-1); Eosinophil# 0.05 X10^3/uL; Eosinophils% 0.5 % (0-5); Hematocrit 38.2 % (37-47); Hemoglobin 12.7 g/dL (12.0-15.0); Lymphocyte # 1.22 X10^3/ul (0.83-4.51); Mean Corp Hgb Conc 33.2 g/dL (32-36); Mean Corpuscular Hgb 31.4 pg (27.0-32.0); Mean Corpuscular Volume 94.3 fL (81-99); Mean Platelet Vol. 11.2 fl (6.2-12.0); Monocyte# 0.52 X10^3/uL; Monocyte% 5.1 % (0-10); NRBC Flagged by Analyzer 0 % (0-5); Neutrophil # 8.32 X10^3/uL (2.7-7.7); Neutrophil % 81.7 % (47-70); Platelet Count 233 K/mm3 (150-450); RBC Distribution Width CV 14.6 % (11.6-14.6); RBC Distribution Width SD 51.1 fl (35.1-43.9); Red Blood Count 4.05 M/mm3 (4.2-5.4); White Blood Count 10.2 K/mm3 (4.4-11.0)
[2021-05-13] MEDS: Morphine 4 MG/ML Syringe IV (01:12)
[2021-05-13] MEDS: Ondansetron 4 MG/2 ML Vial IV (01:12)
[2021-05-13 01:42] LABS: Prothrombin Time (Protime)PT. 12.6 SECONDS (11.7-14.9)
--- NOTE | 2021-05-13 01:50 | HP.PCM.HOS_ITS ---
HPI - General General Date of Admission: 05/13/21 Date of Service: 05/13/21 Chief Complaint: Fall, L hip pain, intractable HPI Narrative The patient is a 70 y/o F w/ PMHx: Goiter s/p thyroidectomy with Hypothyroidism, Former tobacco use, Chronic insomnia, Hx Dystonia otherwise healthy and active who presents to the [facility] ED on 05/13/21 with history of working late on her taxes with several piles of paper on the floor and upon walking through the room she slipped on her tax papers and landed firmly on her left hip with immediately 10/10 pain, worse with movement, shorted and rotated prompting EMS call. She notes pain improved in the ED following pain regimen, currently rated 5/10. Work-up in the ED included T 97.5, heart rate 90, BP 120/78, respiratory rate 15, 97% room air, CBC with WBC 10.2, hemoglobin 12.7, platelet 233 with left shift, unremarkable coags, pending CMP upon presentation, pending type and screen per ED, chest x-ray with no acute cardiopulmonary findings however final read is pending, plain film of the left hip and pelvis with evidence of an acute left femoral neck fracture, EKG with sinus rhythm with no acute evidence of ischemia. In the ED patient ministered Zofran 4 mg IV x1 as well as morphine 4 mg IV x1. ED physician did contact patient's orthopedic surgeon, Dr. Conn. [facility] Medical History (Updated 05/13/21 @ 02:[address] Sanna Rea MD) Chronic insomnia Dystonia Former tobacco use History of goiter Hypothyroidism Home Medications clonazepam 2 mg PO QHS PRN PRN 11/01/17 [History Last Taken Unknown] levothyroxine 88 mcg PO DAILY 11/01/17 [History Last Taken 11/05/17 08:00 0800] multivitamin,[id number]-[id number] 1 tab PO DAILY 07/11/18 [History Last Taken Unknown] Allergy/AdvReac Type Severity Reaction Status Date / Time nitrofurantoin Allergy Rash Verified 05/13/21 00:52 [From Macrobid] Family History (Updated 07/11/18 @ 11:38 by Ena Sepulveda) Father Cancer Brother Cancer Mother Alzheimer disease Surgical History (Updated 05/13/21 @ 01:[address] Sanna Rea MD) History of bladder surgery History of rotator cuff surgery History of thyroidectomy History of tonsillectomy History of tubal ligation Social History (Updated 05/13/21 @ 01:[address] Sanna Rea MD) housing: other details: Patient lives with her spouse who is wheelchair bound. She is his caregiver Smoking Status: Former smoker how long ago did patient quit smoking: Smoked age [age] years old, 1 ppd (15 pack year hx). alcohol intake: current alcohol intake frequency: holidays/special occasions only substance use type: does not use ROS ROS Narrative Admission Review of Systems: CONSTITUTIONAL: No weight loss, fever, chills, + weakness or fatigue. HEENT: Eyes: No visual loss, blurred vision, double vision or yellow sclerae. Ears, Nose, Throat: No hearing loss, sneezing, congestion, runny nose or sore throat. SKIN: No rash or itching, lesions, wounds. CARDIOVASCULAR: No chest pain, chest pressure or chest discomfort, palpitations, edema, orthopnea, syncopal events. RESPIRATORY: No shortness of breath, cough or sputum, wheezing, hemoptysis. GASTROINTESTINAL: No anorexia, nausea, vomiting or diarrhea, abdominal pain, melena, BRBPR. GENITOURINARY: No dysuria, frequency, urgency or retention. NEUROLOGICAL: + Hx dystonia. No headache, dizziness, syncope, paralysis, ataxia, numbness or tingling in the extremities, focal weakness, change in bowel or bladder control, seizure. MUSCULOSKELETAL: + muscle, back pain, joint pain or stiffness. HEMATOLOGIC: No anemia, bleeding or bruising. LYMPHATICS: No enlarged nodes. No history of splenectomy. PSYCHIATRIC: No history of depression or anxiety. ENDOCRINOLOGIC: No reports of sweating, cold or heat intolerance. No polyuria or polydipsia. ALLERGIES: No history of asthma, hives, eczema or rhinitis. Vital Signs Vital Signs Vital Signs: 05/13/21 00:49 05/13/21 00:53 05/13/21 01:50 Temperature 97.5 F L 97.5 F L Temperature Source Temporal Temporal Pulse Rate 94 90 Respiratory Rate 16 15 Respiratory Effort Normal Non-Labored Blood Pressure 129/68 H 128/78 H Blood Pressure Mean 88 94 Pulse Ox 97 97 Oxygen Delivery Method Room Air Room Air Room Air Weight Weight: 155 lb 6.814 oz Body Mass Index (BMI) 22.9 Physical Exam Narrative Physical Examination: General: Awake, alert, oriented x 3 and cooperative, laying in the ED bed, notes pain improved following recent morphine. Skin: Normal color, normal turgor, no icterus, no cyanosis. HEENT: AT/NC, EOMI, PERRLA, MMM, no carotid bruits or JVD noted. Lungs: CTA bilaterally, moderate effort, mild decrease BL bases, no rales, ronchi or wheezing. Heart: Regular rate and rhythm; no gallop, rub audible. Abdomen: Soft, NTTP, ND, normal BS, no HSM. Extremities: No cyanosis, no clubbing, no edema, s/p fall with L hip fracture, externally rotated, shortened, peripheral pulses intact. Neurological: Patient awake, alert, oriented as noted, cognitive function intac t; pupils equally reactive to light and accommodation, cranial nerves II-XII grossly normal, moving all 4 extremities except limited LLE especially given fall w/ L hip fracture, accordingly strength severely globally decreased, sensation intact. Psychiatric: Affect appears fatigued, no acute evidence of depressive or anxiety feelings. Results Lab / Micro Data Result Diagrams: 05/13/21 01:00 05/13/21 01:28 Labs: Laboratory Results - last 24 hr 05/13/21 01:00: WBC 10.2, RBC 4.05 L, Hgb 12.7, Hct 38.2, MCV 94.3, MCH 31.4, MCHC 33.2, RDW Std Deviation 51.1 H, RDW Coeff of Deshawn 14.6, Plt Count 233, MPV 11.2, Immature Gran % (Auto) 0.300, Neut % (Auto) 81.7 H, Lymph % (Auto) 12.0 L, [place] % (Auto) 5.1, Eos % (Auto) 0.5, Baso % (Auto) 0.4, Absolute Neuts (auto) 8.3 H, Absolute Lymphs (auto) 1.22, Nucleated RBC % 0 05/13/21 01:00: PT Cancelled, INR Cancelled, APTT Cancelled 05/13/21 01:00: Sodium Cancelled, Potassium Cancelled, Chloride Cancelled, Carbon Dioxide Cancelled, Anion Gap Cancelled, BUN Cancelled, Creatinine Cancelled, Estim Creat Clear Calc Cancelled, Est GFR (MDRD) Af Amer Cancelled, Est GFR (MDRD) Non-Af Cancelled, BUN/Creatinine Ratio Cancelled, Glucose Cancelled, Calcium Cancelled, Total Bilirubin Cancelled, AST Cancelled, ALT Cancelled, Alkaline Phosphatase Cancelled, Total Protein Cancelled, Albumin Cancelled, Globulin Cancelled, Albumin/Globulin Ratio Cancelled 05/13/21 01:28: PT 12.6, INR 1.0, APTT 25.0 Assessment & Plan Assessment/Plan (1) Closed fracture of neck of left femur: QUALIFIERS: Encounter type: initial encounter Qualified Code(s): S72.002A - Fracture of unspecified part of neck of left femur, initial encounter for closed fracture (2) Fall: QUALIFIERS: Encounter type: initial encounter Qualified Code(s): W19.XXXA - Unspecified fall, initial encounter PLAN: The patient is a 70 y/o F w/ PMHx: Goiter s/p thyroidectomy with Hypothyroidism, Former tobacco use, Hx Dystonia otherwise healthy and active who presents to the [facility] ED on 05/13/21 with history of working late on her taxes with several piles of paper on the floor and upon walking through the room she slipped on her tax papers and landed firmly on her left hip with immediately 10/10 pain, worse with movement, shorted and rotated prompting EMS call. #1. General debility, L hip pain s/p mechanical fall w/ acute left femoral neck fracture: Orthopedic surgery consulted from ED. Will admit to [facility], maintain NPO afdter midnight for possible OR, continue gentle IVFs, umaña placement, monitor I/Os, frequent positioning, fall precautions, pain, anti-emetic regimen. PT/OT following operative intervention. CM consulted for discharge planning. Per NSQIP patient low risk for operative intervention given activity status, mi nimal medical history. EKG without acute findings. Agree with progression to OR. #2. Hx Dystonia: From records reported secondary to medications, but patient noted unclear etiology. #3. Hx Goiter s/p thyroidectomy w/ Hypothyroidism: Continue home synthroid regimen. #4. Former tobacco use: Encourage continued tobacco cessation. #5. Chronic insomnia: Will continue patient q HS klonopin; however, there are potentially better less addictive options, ie trazodone but will defer this to outpatient. #6. DVT Prophylaxis: SCDs, hold chemoprophylaxis for OR. Charges/Coding Visit Charges Inpatient E&M: 34010 Init Hosp L2
[2021-05-13 01:53] LABS: ALB/GLOB Ratio 1.3 RATIO (0.9-2.4); AST(SGOT) 29 U/L (15-37); Alanine Aminotransfer ALT/SGPT 29 U/L (13-56); Albumin, Serum 3.5 g/dL (3.2-5.0); Alkaline Phosphatase 52 U/L (45-117); Anion Gap 7 (5-15); BUN 22 mg/dL (7-18); BUN/Creat Ratio 27.4 RATIO (10-20); Calcium,Total 8.8 mg/dL (8.5-10.1); Chloride 107 mmol/L (98-107); EST Glomerular Filtration Rate 75 mL/min (>60); Est Glom Filt Rate - Afr Amer 91 mL/min (>60); Estimated Creatinine Clearance 69.36 ml/min; Globulin 2.7 g/dL (2.2-4.2); Glucose 98 mg/dL (74-106); Potassium 3.5 mmol/L (3.5-5.1); Protein, Total 6.2 g/dL (6.4-8.2); Sodium Level 140 mmol/L (136-145)
[2021-05-13] MEDS: 0.9% Normal Saline 1,000 ML 100 ML IV ×3 (05:05→22:11)
[2021-05-13 05:54] LABS: Absolute Lymphocyte Count 0.78 X10^3/uL (0.83-4.51); Basophil# 0.04 X10^3/uL; Basophil% 0.4 % (0-1); Eosinophil# 0.02 X10^3/uL; Eosinophils% 0.2 % (0-5); Hemoglobin 12.4 g/dL (12.0-15.0); Lymphocyte # 0.78 X10^3/ul (0.83-4.51); Lymphocyte % 8.4 % (19-41); Mean Corp Hgb Conc 33.5 g/dL (32-36); Mean Corpuscular Hgb 31.6 pg (27.0-32.0); Mean Corpuscular Volume 94.1 fL (81-99); Mean Platelet Vol. 10.7 fl (6.2-12.0); Monocyte# 0.51 X10^3/uL; Monocyte% 5.5 % (0-10); NRBC Flagged by Analyzer 0 % (0-5); Neutrophil # 7.96 X10^3/uL (2.7-7.7); Neutrophil % 85.2 % (47-70); Platelet Count 189 K/mm3 (150-450); RBC Distribution Width CV 14.6 % (11.6-14.6); RBC Distribution Width SD 51.1 fl (35.1-43.9); Red Blood Count 3.93 M/mm3 (4.2-5.4); White Blood Count 9.3 K/mm3 (4.4-11.0)
[2021-05-13 06:48] LABS: ALB/GLOB Ratio 1.3 RATIO (0.9-2.4); AST(SGOT) 20 U/L (15-37); Alanine Aminotransfer ALT/SGPT 25 U/L (13-56); Albumin, Serum 3.3 g/dL (3.2-5.0); Alkaline Phosphatase 50 U/L (45-117); Anion Gap 7 (5-15); BUN 17 mg/dL (7-18); BUN/Creat Ratio 23.7 RATIO (10-20); Calcium,Total 8.5 mg/dL (8.5-10.1); Chloride 107 mmol/L (98-107); Creatinine, Serum 0.72 mg/dL (0.55-1.02); EST Glomerular Filtration Rate 86 mL/min (>60); Est Glom Filt Rate - Afr Amer 104 mL/min (>60); Estimated Creatinine Clearance 47.78 ml/min; Globulin 2.6 g/dL (2.2-4.2); Glucose 132 mg/dL (74-106); Potassium 3.5 mmol/L (3.5-5.1); Protein, Total 5.9 g/dL (6.4-8.2); Sodium Level 139 mmol/L (136-145)
[2021-05-13 06:59] LABS: Thyroid Stim Hormone (TSH) 1.58 uIU/mL (0.358-3.74)
--- NOTE | 2021-05-13 07:12 | CON.PCM.OR_ITS ---
HPI Consult Data Date of Consult: 05/13/21 HPI Narrative HPI Narrative: XENA MESSER, is a 70 F who presents with left hip pain after a fall at home. She is a community, unassisted ambulator. She denies any antecedent hip pain or issues. She states that her hip did not start hurting until she hit the floor and broke it. She denies N/T/P. She denies LOC. [facility], [facility] Medical History Chronic insomnia Dystonia Former tobacco use History of goiter Hypothyroidism Home Medications clonazepam 2 mg PO QHS PRN PRN 11/01/17 [History Last Taken 05/12/21] levothyroxine 88 mcg PO DAILY 11/01/17 [History Last Taken 05/12/21] multivitamin,[id number]-eruf-utqiqrva 1 tab PO DAILY 07/11/18 [History Last Taken 05/12/21] Allergy/AdvReac Type Severity Reaction Status Date / Time nitrofurantoin Allergy Rash Verified 05/13/21 00:52 [From Macrobid] Family History (Updated 07/11/18 @ 11:38 by Ena Sepulveda) Father Cancer Brother Cancer Mother Alzheimer disease Surgical History History of bladder surgery History of rotator cuff surgery History of thyroidectomy History of tonsillectomy History of tubal ligation Social History (Updated 05/13/21 @ 01:[address] Sanna Rea MD) housing: other details: Patient lives with her spouse who is wheelchair bound. She is his caregiver Smoking Status: Former smoker how long ago did patient quit smoking: Smoked age [age] years old, 1 ppd (15 pack year hx). alcohol intake: current alcohol intake frequency: holidays/special occasions only substance use type: does not use Vital Signs Vital Signs Vital Signs: 05/13/21 00:49 05/13/21 00:53 05/13/21 01:50 Temperature 97.5 F L 97.5 F L Temperature Source Temporal Temporal Pulse Rate 94 90 Respiratory Rate 16 15 Respiratory Effort Normal Non-Labored Respiratory Depth Respiratory Pattern Blood Pressure 129/68 H 128/78 H Blood Pressure Mean 88 94 Blood Pressure Source Blood Pressure Position Blood Pressure Location Pulse Ox 97 97 Oxygen Delivery Method Room Air Room Air Room Air 05/13/21 02:36 05/13/21 02:52 Temperature 98.6 F Temperature Source Oral Pulse Rate 88 Respiratory Rate 18 Respiratory Effort Normal Non-Labored Respiratory Depth Normal Respiratory Pattern Normal Blood Pressure 113/57 L Blood Pressure Mean 75 Blood Pressure Source Monitor Blood Pressure Position Supine Blood Pressure Location Right Arm Pulse Ox 100 Oxygen Delivery Method Room Air Room Air Weight Weight: 138 lb 0.15 oz Body Mass Index (BMI) 22.9 Physical Exam Const alert, oriented x3 and no apparent distress General Appearance: cooperative HEENT head/scalp atraumatic Neck supple and no JVD Lymph Lymphatic: no lymphadenopathy noted Resp clear to auscultation bilaterally Cardio regular rate and regular rhythm Extremity normal capillary refill, no clubbing, cyanosis or edema and no calf tenderness Extremity Narrative: LLE painful at hip due to known fracture, slightly externally rotated Skin no rashes or lesions noted, no wounds and skin turgor normal Neuro no sensory deficits noted Lab / Micro Data Result Diagrams: 05/13/21 05:08 05/13/21 05:08 Labs: Laboratory Results - last 24 hr 05/13/21 01:00: WBC 10.2, RBC 4.05 L, Hgb 12.7, Hct 38.2, MCV 94.3, MCH 31.4, MCHC 33.2, RDW Std Deviation 51.1 H, RDW Coeff of Deshawn 14.6, Plt Count 233, MPV 11.2, Immature Gran % (Auto) 0.300, Neut % (Auto) 81.7 H, Lymph % (Auto) 12.0 L, [place] % (Auto) 5.1, Eos % (Auto) 0.5, Baso % (Auto) 0.4, Absolute Neuts (auto) 8.3 H, Absolute Lymphs (auto) 1.22, Nucleated RBC % 0 05/13/21 01:00: PT Cancelled, INR Cancelled, APTT Cancelled 05/13/21 01:00: Sodium Cancelled, Potassium Cancelled, Chloride Cancelled, Carbon Dioxide Cancelled, Anion Gap Cancelled, BUN Cancelled, Creatinine Cancelled, Estim Creat Clear Calc Cancelled, Est GFR (MDRD) Af Amer Cancelled, Est GFR (MDRD) Non-Af Cancelled, BUN/Creatinine Ratio Cancelled, Glucose Cancelled, Calcium Cancelled, Total Bilirubin Cancelled, AST Cancelled, ALT Cancelled, Alkaline Phosphatase Cancelled, Total Protein Cancelled, Albumin Cancelled, Globulin Cancelled, Albumin/Globulin Ratio Cancelled 05/13/21 01:00: Blood Type O NEGATIVE, Antibody Screen NEGATIVE 05/13/21 01:28: PT 12.6, INR 1.0, APTT 25.0 05/13/21 01:28: Sodium 140, Potassium 3.5, Chloride 107, Carbon Dioxide 26.0, Anion Gap 7, BUN 22 H, Creatinine 0.80, Estim Creat Clear Calc 69.36, Est GFR (MDRD) Af Amer 91, Est GFR (MDRD) Non-Af 75, BUN/Creatinine Ratio 27.4 H, Glucose 98, Calcium 8.8, Total Bilirubin 0.60, AST 29, ALT 29, Alkaline Ph osphatase 52, Total Protein 6.2 L, Albumin 3.5, Globulin 2.7, Albumin/Globulin Ratio 1.3 05/13/21 05:08: WBC 9.3, RBC 3.93 L, Hgb 12.4, Hct 37.0, MCV 94.1, MCH 31.6, MCHC 33.5, RDW Std Deviation 51.1 H, RDW Coeff of Deshawn 14.6, Plt Count 189, MPV 10.7, Immature Gran % (Auto) 0.300, Neut % (Auto) 85.2 H, Lymph % (Auto) 8.4 L, [place] % (Auto) 5.5, Eos % (Auto) 0.2, Baso % (Auto) 0.4, Absolute Neuts (auto) 8.0 H, Absolute Lymphs (auto) 0.78 L, Nucleated RBC % 0 05/13/21 05:08: Sodium 139, Potassium 3.5, Chloride 107, Carbon Dioxide 25.0, Anion Gap 7, BUN 17, Creatinine 0.72, Estim Creat Clear Calc 47.78, Est GFR (MDRD) Af Amer 104, Est GFR (MDRD) Non-Af 86, BUN/Creatinine Ratio 23.7 H, Glucose 132 H, Calcium 8.5, Total Bilirubin 0.80, AST 20, ALT 25, Alkaline Phosphatase 50, Total Protein 5.9 L, Albumin 3.3, Globulin 2.6, Albumin/Globulin Ratio 1.3 05/13/21 05:08: TSH 1.58 Micro: Microbiology 05/13/21 01:52 Nasal Secretion SARS-CoV-2 Antigen (Rapid) - Final Radiology Impression Chest X-Ray 05/13/21 00:55 IMPRESSION: Cardiomegaly and mild pulmonary congestion. Electronically Signed: Jenae Nam MD at 1:52 EST Reading Location ID and State: [facility] / [place] , Service support , Hip/Pelvis X-Ray 05/13/21 00:55 IMPRESSION: Acute displaced left-sided femoral neck fracture. Electronically Signed: Jenae Nam MD at 1:55 EST , Assessment & Plan Assessment/Plan (1) Fall: QUALIFIERS: Encounter type: initial encounter Qualified Code(s): W19.XXXA - Unspecified fall, initial encounter (2) Closed fracture of neck of left femur: QUALIFIERS: Encounter type: initial encounter Qualified Code(s): S72.002A - Fracture of unspecified part of neck of left femur, initial encounter for closed fracture PLAN: To OR at 7:30 AM on 05/14/2021 for hemiarthroplasty of the left hip. I reviewed the potential risks, benefits and complications of the surgery with her. She will likely need ECF/rehab placement afterwards.
[2021-05-13] MEDS: Levothyroxine 88 MCG Tablet PO (07:43)
--- NOTE | 2021-05-13 07:54 | PN.HOSP_ITS ---
Objective Data Objective Data Vital Signs: Vital Signs Temp Pulse Resp BP Pulse Ox 98.6 F 88 18 113/57 L 100 05/13/21 02:36 05/13/21 02:36 05/13/21 02:36 05/13/21 02:36 05/13/21 02:36 Oxygen Delivery Method Room Air Weight: 138 lb 0.15 oz Body Mass Index (BMI) 22.9 Intake & Output: Intake and Output for Last 24 Hours 05/11/21 05/12/21 05/13/21 23:59 23:59 23:59 Intake Total 0 / 0 Output Total 700 / 700 Balance -700 / -700 Lab / Micro Data Result Diagrams: 05/13/21 05:08 05/13/21 05:08 Labs: Laboratory Results - last 24 hr 05/13/21 01:00: WBC 10.2, RBC 4.05 L, Hgb 12.7, Hct 38.2, MCV 94.3, MCH 31.4, MCHC 33.2, RDW Std Deviation 51.1 H, RDW Coeff of Deshawn 14.6, Plt Count 233, MPV 11.2, Immature Gran % (Auto) 0.300, Neut % (Auto) 81.7 H, Lymph % (Auto) 12.0 L, Osborne % (Auto) 5.1, Eos % (Auto) 0.5, Baso % (Auto) 0.4, Absolute Neuts (auto) 8.3 H, Absolute Lymphs (auto) 1.22, Nucleated RBC % 0 05/13/21 01:00: PT Cancelled, INR Cancelled, APTT Cancelled 05/13/21 01:00: Sodium Cancelled, Potassium Cancelled, Chloride Cancelled, Carbon Dioxide Cancelled, Anion Gap Cancelled, BUN Cancelled, Creatinine Cancelled, Estim Creat Clear Calc Cancelled, Est GFR (MDRD) Af Amer Cancelled, Est GFR (MDRD) Non-Af Cancelled, BUN/Creatinine Ratio Cancelled, Glucose Cancelled, Calcium Cancelled, Total Bilirubin Cancelled, AST Cancelled, ALT Cancelled, Alkaline Phosphatase Cancelled, Total Protein Cancelled, Albumin Cancelled, Globulin Cancelled, Albumin/Globulin Ratio Cancelled 05/13/21 01:00: Blood Type O NEGATIVE, Antibody Screen NEGATIVE 05/13/21 01:28: PT 12.6, INR 1.0, APTT 25.0 05/13/21 01:28: Sodium 140, Potassium 3.5, Chloride 107, Carbon Dioxide 26.0, Anion Gap 7, BUN 22 H, Creatinine 0.80, Estim Creat Clear Calc 69.36, Est GFR (MDRD) Af Amer 91, Est GFR (MDRD) Non-Af 75, BUN/Creatinine Ratio 27.4 H, Glucose 98, Calcium 8.8, Total Bilirubin 0.60, AST 29, ALT 29, Alkaline Phosphatase 52, Total Protein 6.2 L, Albumin 3.5, Globulin 2.7, Albumin/Globulin Ratio 1.3 05/13/21 05:08: WBC 9.3, RBC 3.93 L, Hgb 12.4, Hct 37.0, MCV 94.1, MCH 31.6, MCHC 33.5, RDW Std Deviation 51.1 H, RDW Coeff of Deshawn 14.6, Plt Count 189, MPV 10.7, Immature Gran % (Auto) 0.300, Neut % (Auto) 85.2 H, Lymph % (Auto) 8.4 L, Osborne % (Auto) 5.5, Eos % (Auto) 0.2, Baso % (Auto) 0.4, Absolute Neuts (auto) 8.0 H, Absolute Lymphs (auto) 0.78 L, Nucleated RBC % 0 05/13/21 05:08: Sodium 139, Potassium 3.5, Chloride 107, Carbon Dioxide 25.0, Anion Gap 7, BUN 17, Creatinine 0.72, Estim Creat Clear Calc 47.78, Est GFR (MDRD) Af Amer 104, Est GFR (MDRD) Non-Af 86, BUN/Creatinine Ratio 23.7 H, Glucose 132 H, Calcium 8.5, Total Bilirubin 0.80, AST 20, ALT 25, Alkaline Phosphatase 50, Total Protein 5.9 L, Albumin 3.3, Globulin 2.6, Albumin/Globulin Ratio 1.3 05/13/21 05:08: TSH 1.58 Micro: Microbiology 05/13/21 01:52 Nasal Secretion SARS-CoV-2 Antigen (Rapid) - Final Radiography Diagnostic Testing: Radiology Impression Chest X-Ray 05/13/21 00:55 IMPRESSION: Cardiomegaly and mild pulmonary congestion. Electronically Signed: Jenae Nam MD at 1:52 EST Reading Location ID and State: [facility] / [place] , Service support , Hip/Pelvis X-Ray 05/13/21 00:55 IMPRESSION: Acute displaced left-sided femoral neck fracture. Electronically Signed: Jenae Nam MD at 1:55 EST , Assessment & Plan Assessment/Plan (1) Closed fracture of neck of left femur: QUALIFIERS: Encounter type: initial encounter Qualified Code(s): S72.002A - Fracture of unspecified part of neck of left femur, initial encounter for closed fracture (2) Fall: QUALIFIERS: Encounter type: initial encounter Qualified Code(s): W19.XXXA - Unspecified fall, initial encounter PLAN: The patient is a 70 y/o F with history of Goiter s/p thyroidectomy with Hypothyroidism, was admitted on 05/13/21 slip and fall resulting into left disability due to left hip fracture. #1. General debility, L hip pain s/p mechanical fall w/ acute left femoral neck fracture: Orthopedic surgery consulted from ED. Will admit to [facility], maintain NPO afdter midnight for possible OR, continue gentle IVFs, umaña placement, monitor I/Os, frequent positioning, fall precautions, pain, anti-emetic regimen. PT/OT following operative intervention. CM consulted for discharge planning. Per NSQIP patient low risk for operative intervention given activity status, minimal medical history. EKG without acute findings. Agree with progression to OR. #2. Hx Dystonia: From records reported secondary to medications, but patient n oted unclear etiology. #3. Hx Goiter s/p thyroidectomy w/ Hypothyroidism: Continue home synthroid regimen. #4. Former tobacco use: Encourage continued tobacco cessation. #5. Chronic insomnia: Will continue patient q HS klonopin; however, there are potentially better less addictive options, ie trazodone but will defer this to outpatient. #6. DVT Prophylaxis: SCDs, hold chemoprophylaxis for OR.
--- NOTE | 2021-05-13 08:51 | PCM.PN.HOSP ---
Documented by User: Elsy Day NP, MECHANICAL DESIGN ENGINEER [employer]ODUCTS-C 05/13/21 09:19 Subjective Subjective Patient seen and examined. Reports her pain is currently tolerable. Plan for OR in a.m. Denies other symptoms or complaints. Objective Data Objective Data Vital Signs: Vital Signs Temp Pulse Resp BP Pulse Ox 98.6 F 88 18 113/57 L 100 05/13/21 02:36 05/13/21 02:36 05/13/21 02:36 05/13/21 02:36 05/13/21 02:36 Oxygen Delivery Method Room Air Weight: 138 lb 0.15 oz Body Mass Index (BMI) 22.9 Intake & Output: Intake and Output for Last 24 Hours 05/11/21 05/12/21 05/13/21 23:59 23:59 23:59 Intake Total 0 / 0 Output Total 700 / 700 Balance -700 / -700 Lab / Micro Data Result Diagrams: 05/13/21 05:08 05/13/21 05:08 Labs: Laboratory Results - last 24 hr 05/13/21 01:00: WBC 10.2, RBC 4.05 L, Hgb 12.7, Hct 38.2, MCV 94.3, MCH 31.4, MCHC 33.2, RDW Std Deviation 51.1 H, RDW Coeff of Deshawn 14.6, Plt Count 233, MPV 11.2, Immature Gran % (Auto) 0.300, Neut % (Auto) 81.7 H, Lymph % (Auto) 12.0 L, [place] % (Auto) 5.1, Eos % (Auto) 0.5, Baso % (Auto) 0.4, Absolute Neuts (auto) 8.3 H, Absolute Lymphs (auto) 1.22, Nucleated RBC % 0 05/13/21 01:00: PT Cancelled, INR Cancelled, APTT Cancelled 05/13/21 01:00: Sodium Cancelled, Potassium Cancelled, Chloride Cancelled, Carbon Dioxide Cancelled, Anion Gap Cancelled, BUN Cancelled, Creatinine Cancelled, Estim Creat Clear Calc Cancelled, Est GFR (MDRD) Af Amer Cancelled, Est GFR (MDRD) Non-Af Cancelled, BUN/Creatinine Ratio Cancelled, Glucose Cancelled, Calcium Cancelled, Total Bilirubin Cancelled, AST Cancelled, ALT Cancelled, Alkaline Phosphatase Cancelled, Total Protein Cancelled, Albumin Cancelled, Globulin Cancelled, Albumin/Globulin Ratio Cancelled 05/13/21 01:00: Blood Type O NEGATIVE, Antibody Screen NEGATIVE 05/13/21 01:28: PT 12.6, INR 1.0, APTT 25.0 05/13/21 01:28: Sodium 140, Potassium 3.5, Chloride 107, Carbon Dioxide 26.0, Anion Gap 7, BUN 22 H, Creatinine 0.80, Estim Creat Clear Calc 69.36, Est GFR (MDRD) Af Amer 91, Est GFR (MDRD) Non-Af 75, BUN/Creatinine Ratio 27.4 H, Glucose 98, Calcium 8.8, Total Bilirubin 0.60, AST 29, ALT 29, Alkaline Phosphatase 52, Total Protein 6.2 L, Albumin 3.5, Globulin 2.7, Albumin/Globulin Ratio 1.3 05/13/21 05:08: WBC 9.3, RBC 3.93 L, Hgb 12.4, Hct 37.0, MCV 94.1, MCH 31.6, MCHC 33.5, RDW Std Deviation 51.1 H, RDW Coeff of Deshawn 14.6, Plt Count 189, MPV 10.7, Immature Gran % (Auto) 0.300, Neut % (Auto) 85.2 H, Lymph % (Auto) 8.4 L, [place] % (Auto) 5.5, Eos % (Auto) 0.2, Baso % (Auto) 0.4, Absolute Neuts (auto) 8.0 H, Absolute Lymphs (auto) 0.78 L, Nucleated RBC % 0 05/13/21 05:08: Sodium 139, Potassium 3.5, Chloride 107, Carbon Dioxide 25.0, Anion Gap 7, BUN 17, Creatinine 0.72, Estim Creat Clear Calc 47.78, Est GFR (MDRD) Af Amer 104, Est GFR (MDRD) Non-Af 86, BUN/Creatinine Ratio 23.7 H, Glucose 132 H, Calcium 8.5, Total Bilirubin 0.80, AST 20, ALT 25, Alkaline Phosphatase 50, Total Protein 5.9 L, Albumin 3.3, Globulin 2.6, Albumin/Globulin Ratio 1.3 05/13/21 05:08: TSH 1.58 Micro: Microbiology 05/13/21 01:52 Nasal Secretion SARS-CoV-2 Antigen (Rapid) - Final Radiography Diagnostic Testing: Radiology Impression Chest X-Ray 05/13/21 00:55 IMPRESSION: Cardiomegaly and mild pulmonary congestion. Electronically Signed: Jenae Nam MD at 1:52 EST Reading Location ID and State: [facility] / [place] , Service support , Hip/Pelvis X-Ray 05/13/21 00:55 IMPRESSION: Acute displaced left-sided femoral neck fracture. Electronically Signed: Jenae Nam MD at 1:55 EST , Physical Exam Const alert, oriented x3 and no apparent distress Orientation / Consciousness: awake, oriented to person, oriented to place and oriented to time HEENT normocephalic and moist oral mucous membranes Eyes PERRL, EOMs intact bilaterally and conjunctivae normal Neck no lymphadenopathy Resp normal respiratory effort and clear to auscultation bilaterally Cardio regular rate, regular rhythm and no murmurs Peripheral Pulses: pulses 2+ throughout GI normal to inspection, nondistended, normoactive bowel sounds, non-tender and non-distended Extremity normal to inspection Extremity Narrative: Left hip pain Skin no rashes or lesions noted Lesions: no lesions Rashes: no rashes Trauma: no lacerations or abrasions Neuro CN's II-XII intact bilaterally, no focal motor deficits, no sensory deficits noted and deep tendon reflexes 2+ bilaterally Psych mental status grossly normal and affect normal Assessment & Plan Assessment/Plan (1) Closed fracture of neck of left femur: QUALIFIERS: Encounter type: initial encounter Qualified Code(s): S72.002A - Fracture of unspecified part of neck of left femur, initial encounter for closed fracture PLAN: 1. Acute traumatic left femoral neck fracture secondary to mechanical fall with associated left hip pain and debility-patient cleared for OR. As needed pain regimen. PT/OT postoperatively. Case management consult for discharge planning. 2. History of dystonia-unclear etiology. 3. Hypothyroidism with history of goiter status post thyroidectomy-on Synthroid. 4. Former tobacco use-encouraged continued cessation. 5. Chronic insomnia-on Klonopin nightly. DVT prophylaxis-SCDs This patient was seen by JOSY Hinds under the supervision of Dr. Murcia. Documented by User: Dr. Dipak Murcia MD 05/13/21 15:41 Subjective Subjective Follow-up pain and disability due to left hip fracture. Patient complain of left hip pain mild 3-4/10 intensity. Left hip externally rotated. Objective Data Lab / Micro Data Result Diagrams: 05/13/21 05:08 05/13/21 05:08 Physical Exam Narrative General: Alert, Oriented x3, Cooperative HEENT: Atraumatic, PERRLA, EOMI, Normocephalic Oral: No Gingival or Mucosal Lesions/ Ulcerations Neck: Supple, No JVD, Negative Carotid Bruits Lungs: Air entry diminished in bilateral lung bases. No crepitation/rhonchi Cardiovascular: Regular rate, Regular Rhythm, Normal S1, Normal S2, No murmurs Abdomen: Bowel Sounds Present, Soft, Non Tender, Non-Distended : No renal angle tenderness. No suprapubic tenderness. Extremities: No edema, Capillary Refill Less than 3 Seconds Skin: No rashes, No breakdown Musculoskeletal: Left hip mild tenderness. Left hip externally rotated. ROM severely limited Neurological: Cranial nerves II-XII grossly intact, DTR 2+/4 Neuro grossly intact Psych/Mental Status: Normal Affect, Appropriate. Assessment & Plan Assessment/Plan (1) Closed fracture of neck of left femur: QUALIFIERS: Encounter type: initial encounter Qualified Code(s): S72.002A - Fracture of unspecified part of neck of left femur, initial encounter for closed fracture PLAN: This patient was seen in conjunction with MECHANICAL DESIGN ENGINEER PRODUCTSElsy. I have independently interviewed and examined the patient and reviewed pertinent history, examination findings, laboratory and plan of management. I have reviewed the note and agree with the documented findings with the few additional points. In brief, patient is admitted for left hip pain and disability due to left hip fracture. Patient is admitted to [facility]. Patient has closed left femoral neck fracture, most likely pathological, fall from standing height: Orthopedic surgeon is consulted. PT and OT. Incentive spirometry. Plan for surgery tomorrow AM. Perioperative surgical risk as per NSQIP low. EKG no acute finding. Patient has history of goiter status post thyroidectomy: Patient thyroid medication continued Patient that her comorbidities as mentioned above including dystonia, former tobacco use, chronic insomnia PT prophylaxis: On SCDs. Heparin 5000 subcutaneous 3 times daily I have discussed my assessment with Elsy RIOS and orders have been reviewed. Charges/Coding Visit Charges Inpatient E&M: 45544 Subs Hosp L2
[2021-05-13] MEDS: Multivitamins,Ther W-Minerals Tablet 1 TABLET PO (09:16)
[2021-05-13] MEDS: Famotidine 20 MG Tablet PO ×2 (09:16→23:27)
[2021-05-13] MEDS: Acetaminophen 325 MG Tablet 650 MG PO (09:16)
--- NOTE | 2021-05-13 10:15 | CASEMGMT ---
DELMA STRICKLAND Assessment: Face to Face with pt for initial transition planning/care coordination assessment. RN MARCO A introduced self and role at [facility], pt voices understanding and consents to assessment. Pt is A/O x4 and answers all questions appropriately at this time. Pt lying in bed, calm in no distress. Care providers, pharmacy, and demographics verified/updated. Admitting Dx: L hip fx PCP:Kian Sevilla Specialists:Brien neuro- pt states she has dystonia and she receives injections into her neck; rosales Conn [facility]erred [facility]acy: [facility] Insurance: MCR, Comm other Prescription Benefit: yes LW/HPOA: Pt denies having a LW/DPOA and denies need for info regarding AD. LNOK: Faisal Wei, Living Arrangements: Pt lives with in a two story house with 2 steps to enter in the front and none in the back. Pt reports she was I in ADL's prior to the fall. Transportation: Pt drives self and denies concerns with transportation. DME/HHC/SNF: She denies having any DME in the home for her, states her uses quite a bit. Denies previous HHC or SNF stays. Pt to have surgery at 0730 tomorrow. Pt states she is the primary cg for her . States he is dependent on her. He is working on getting assistance for himself. She did not know if he was calling family or private duty. Pt states discussed with her going to [facility] TCU unit or Rehab. She is open to this. Pt states no further concerns/needs. CM to follow. Advised pt to ask CM if any further question/concerns/needs arise, voices understanding. Pt Goal: [facility] TCU or Rehab, notified Karen BRAMBILA. Plan: [facility] TCU or Rehab
--- NOTE | 2021-05-13 11:04 | CASEMGMT ---
Social Work Note SW updated by RN CM that pt was spoken to about possibly TCU at discharge. PATTY placed a call to Anna with TCU/RU referral line and updated her. Anna would like to see how pt does with PT/OT after surgery. SW to contine to follow. Lala Brooke OPERATION SPECIALIST, BROKE BEATER OPERATOR
[2021-05-13] MEDS: Heparin Injection (Vial) 5,000 UNIT/ML VIAL 5000 UNIT SC (17:06)
[2021-05-13] MEDS: oxyCODONE 5 MG Tablet PO ×2 (17:44→22:10)
[2021-05-13] MEDS: clonazePAM 1 MG Tablet 2 MG PO (22:10)
[2021-05-14] MEDS: Cefazolin 2 GM in 0.9% Normal Saline 100 ML IV (07:56)
[2021-05-14] MEDS: TXA 1000mg in NS100 100ml (IVPB at Incision) 660 MG IV (08:12)
--- NOTE | 2021-05-14 08:12 | FEM_PTH ---
PATIENT: XENA MESSER LOC: [facility] U#:[id number] AGE/SX: 70/F ROOM: MO325 RE05/13/[address]: Dr. Maira Deluca DO : 1950 BED: 1 DIS: 05/16/2021 SPEC #: [id number] RECD: 05/16/21 10:20 STATUS: JAMES REQ #: [id number] NANDINI: 05/14/21 08:[address]: Chilango Conn DEPT: SURGICAL PATHOLOGY RECD BY: Skye Lam ENTERED: 05/16/21 10:51 SP TYPE: FEM HEAD OTHR DR: MD Dr. Elodia Slater MD Dr. Kathryn Lee, DO Dr. Michael Knapic, DO Tissues: Femoral region, NOS Procedures: Decalcification bone/plaque Surgery Specimen Level IV Comments: @ Ordering doctor for DEC edited from to DR.MKNAPI Carlisle by JEAN PIERRE at 05/17/21 0810 @ Ordering doctor for SUV edited from to DR.MKNAPI Carlisle by JEAN PIERRE at 05/17/21 0810 @ Submitting doctor edited from to DR.MKNAPI Carlisle by JEAN PIERRE at 05/17/21 0810 HEADER OPERATION: Left hip hemiarthroplasty PRE-OP DIAGNOSIS: Displaced subcapital fracture left hip TISSUE SUBMITTED: Left femoral head MICROSCOPIC DIAGNOSIS Left femoral head, total hip resection: Consistent with organizing fracture callus. AM:gillian 05/19/2021 MICROSCOPIC DESCRIPTION Slides are reviewed. GROSS DESCRIPTION Received is one container labeled with the patient's name and designated femoral head left. The specimen consists of a femoral head measuring 4 x 4 x 3.5 cm. The articular surface is smooth. Resection margin is irregular and hemorrhagic. Also present in the specimen container are multiple detached pieces of bone measuring in aggregate 6 x 5 x 2 cm. Also present in the container are multiple pieces of soft tissue measuring in aggregate 3 x 2.5 x 0.4 cm. Machine Spreader sections are submitted in three cassettes as follows: 1 - soft tissue, entirely submitted, 2 - detached pieces of bone, 3 - femoral head. Cassettes 2 & 3 are submitted after decalcification. / SJ:gillian 05/16/2021 TC:5 CPT: 44719, 04204
[2021-05-14] MEDS: TXA 1000mg in NS100 100ml (IVPB at Closure) 660 MG IV (09:01)
[2021-05-14] MEDS: Levothyroxine 88 MCG Tablet PO (11:30)
[2021-05-14] MEDS: Famotidine 20 MG Tablet PO ×2 (11:30→22:00)
[2021-05-14] MEDS: Acetaminophen 500 MG Tablet 1000 MG PO ×2 (14:00→22:00)
[2021-05-14] MEDS: Cefazolin 1 GM/50 ML BAG IV ×2 (15:00→23:00)
[2021-05-14] MEDS: Rivaroxaban 10 MG Tablet PO (17:00)
--- NOTE | 2021-05-14 17:44 | PN_ITS ---
SUBJECTIVE Patient seen and examined. Underwent OR this morning. Denies significant pain. Reports she feels tired. Amendable to rehab at discharge. 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 OBJECTIVE Physical Exam Const alert, oriented x3 and no apparent distress Orientation / Consciousness: awake, oriented to person, oriented to place and oriented to time HEENT normocephalic and moist oral mucous membranes Eyes PERRL, EOMs intact bilaterally and conjunctivae normal Neck no lymphadenopathy Resp normal respiratory effort and clear to auscultation bilaterally Cardio regular rate, regular rhythm and no murmurs Peripheral Pulses: pulses 2+ throughout GI normal to inspection, nondistended, normoactive bowel sounds, non-tender and non-distended Extremity normal to inspection Extremity Narrative: Left hip pain Skin no rashes or lesions noted Lesions: no lesions Rashes: no rashes Trauma: no lacerations or abrasions Neuro CN's II-XII intact bilaterally, no focal motor deficits, no sensory deficits noted and deep tendon reflexes 2+ bilaterally Psych mental status grossly normal and affect normal Vitals and lab data reviewed. Hemodynamically stable. ASSESSMENT/PLAN 1. Acute traumatic left femoral neck fracture secondary to mechanical fall with associated left hip pain and debility-S/P OR 05/14/21. As needed pain regimen. PT/OT. Case management consult for discharge planning. Ammendable to rehab at [place]. 2. History of dystonia-unclear etiology. 3. Hypothyroidism with history of goiter status post thyroidectomy-on Synthroid. 4. Former tobacco use-encouraged continued cessation. 5. Chronic insomnia-on Klonopin nightly. DVT prophylaxis-SCDs This patient was seen by JOSY Hinds under the supervision of Dr. Murcia. Patient denies any pain over the left hip joint. No chest pain or shortness of breath Physical exam findings: General: Alert, Oriented x3, Cooperative HEENT: Atraumatic, PERRLA, EOMI, Normocephalic Oral: No Gingival or Mucosal Lesions/ Ulcerations Neck: Supple, No JVD, Negative Carotid Bruits Lungs: Air entry equal in bilateral lung bases. No crepitation/rhonchi Cardiovascular: Regular rate, Regular Rhythm, Normal S1, Normal S2, No murmurs Abdomen: Bowel Sounds Present, Soft, Non Tender, Non-Distended : Dean catheter. Clear urine. No renal angle tenderness. No suprapubic tenderness. Extremities: No edema, Capillary Refill Less than 3 Seconds Skin: Left hip surgical dressing is dry. No hematoma Musculoskeletal: No Tenderness of left hip surgical site and other joints of Extremities Neurological: Cranial nerves II-XII grossly intact, DTR 2+/4 and Symmetrical, Neuro grossly intact Psych/Mental Status: Normal Affect, Appropriate. This patient was seen in conjunction with Elsy RIOS. I have independently interviewed and examined the patient and reviewed pertinent history, examination findings, laboratory and plan of management. I have reviewed the note and agree with the documented findings with the few additional points. In brief, patient is admitted for left femoral neck fracture from standing height probably pathological fracture. Patient had surgery on 05/14/2021. Pain management. DVT prophylaxis, Eliquis after 36 hours of surgery after adequate hemostasis. No hematoma palpable. Her comorbidities include dystonia, hypothyroidism and chronic insomnia as mentioned above. I have discussed my assessment with Elsy RIOS and orders have been reviewed. Total time of the visit includes total time spent in counseling or coordination of care, (more than 50% of the total time, spent in obtaining medical information from nurses and other ancillary care providers,explaining to the patient about labs, imaging, diagnosis and management), discussion with forestry consultant, review of labs and imaging is 30 minutes; I spent more than half time out of total time seen by PHOSPHORIC ACID SUPERVISOR and myself
[2021-05-14 19:04] LABS: Anion Gap 6 (5-15); BUN 12 mg/dL (7-18); BUN/Creat Ratio 17.5 RATIO (10-20); Calcium,Total 7.8 mg/dL (8.5-10.1); Chloride 114 mmol/L (98-107); Creatinine, Serum 0.69 mg/dL (0.55-1.02); EST Glomerular Filtration Rate 90 mL/min (>60); Est Glom Filt Rate - Afr Amer 109 mL/min (>60); Estimated Creatinine Clearance 47.78 ml/min; Glucose 103 mg/dL (74-106); Potassium 3.4 mmol/L (3.5-5.1); Sodium Level 144 mmol/L (136-145)
[2021-05-14 20:00] VITALS: BP 121/70; PULSE 92; RESP 16; TEMP 36.7; O2SAT 99
[2021-05-14 21:50] LABS: Absolute Neutrophil Count 4.9 X10^3/uL (2.0-7.7); Basophil# 0.04 X10^3/uL; Basophil% 0.6 % (0-1); Eosinophils% 1.5 % (0-5); Hematocrit 37.1 % (37-47); Hemoglobin 12.5 g/dL (12.0-15.0); Lymphocyte % 15.3 % (19-41); Mean Corp Hgb Conc 33.7 g/dL (32-36); Mean Corpuscular Hgb 31.7 pg (27.0-32.0); Mean Corpuscular Volume 94.2 fL (81-99); Monocyte# 0.51 X10^3/uL; Monocyte% 7.8 % (0-10); NRBC Flagged by Analyzer 0 % (0-5); Neutrophil # 4.89 X10^3/uL (2.7-7.7); Neutrophil % 74.6 % (47-70); Platelet Count 167 K/mm3 (150-450); RBC Distribution Width CV 14.8 % (11.6-14.6); Red Blood Count 3.94 M/mm3 (4.2-5.4); White Blood Count 6.6 K/mm3 (4.4-11.0)
[2021-05-14] MEDS: clonazePAM 1 MG Tablet 2 MG PO (22:00)
[2021-05-15] VITALS (7 sets, daily range): BP systolic 113–132; BP diastolic 63–83; PULSE 88–104; RESP 16–18; TEMP 36.7–37.2; O2SAT 95–99
[2021-05-15] MEDS: Acetaminophen 500 MG Tablet 1000 MG PO ×3 (05:34→21:20)
[2021-05-15] MEDS: Levothyroxine 88 MCG Tablet PO (05:34)
[2021-05-15] MEDS: Cefazolin 1 GM/50 ML BAG IV ×2 (06:07→07:00)
--- NOTE | 2021-05-15 06:25 | PN.ORTHO_ITS ---
Subjective Subjective Pt. reports feeling well with no pain. No N/T/P. Objective Data Objective Data Vital Signs: Vital Signs Temp Pulse Resp BP Pulse Ox 98.6 F 100 16 119/63 96 05/15/21 04:00 05/15/21 04:00 05/15/21 04:00 05/15/21 04:00 05/15/21 04:00 Oxygen Delivery Method Room Air Weight: 143 lb 4.807 oz Body Mass Index (BMI) 22.9 Intake & Output: Intake and Output for Last 24 Hours 05/13/21 05/14/21 05/15/21 23:59 23:59 23:59 Intake Total 2410.00 / 2410.00 0 / 0 Output Total 1250 / 1250 850 / 850 800 / 800 Balance 1160.00 / 1160.00 -850 / -850 -800 / -800 Lab / Micro Data Result Diagrams: 05/14/21 06:10 05/14/21 06:10 Labs: Laboratory Results - last 24 hr 05/14/21 06:10: WBC 6.6, RBC 3.94 L, Hgb 12.5, Hct 37.1, MCV 94.2, MCH 31.7, MCHC 33.7, RDW Std Deviation 52.0 H, RDW Coeff of Deshawn 14.8 H, Plt Count 167, MPV 10.0, Immature Gran % (Auto) 0.200, Neut % (Auto) 74.6 H, Lymph % (Auto) 15.3 L, [place] % (Auto) 7.8, Eos % (Auto) 1.5, Baso % (Auto) 0.6, Absolute Neuts (auto) 4.9, Absolute Lymphs (auto) 1.00, Nucleated RBC % 0 05/14/21 06:10: Sodium 144, Potassium 3.4 L, Chloride 114 H, Carbon Dioxide 24.0, Anion Gap 6, BUN 12, Creatinine 0.69, Estim Creat Clear Calc 47.78, Est GFR (MDRD) Af Amer 109, Est GFR (MDRD) Non-Af 90, BUN/Creatinine Ratio 17.5, Glucose 103, Calcium 7.8 L 05/14/21 06:50: APTT 30.0 Micro: Microbiology 05/13/21 01:52 Nasal Secretion SARS-CoV-2 Antigen (Rapid) - Final Physical Exam Const alert, oriented x3 and no apparent distress General Appearance: cooperative HEENT normocephalic Head and Scalp: atraumatic Extremity normal capillary refill, no clubbing, cyanosis or edema, no calf tenderness and no pedal edema Left Lower Extremity: hip joint inspection (WNL. Incision C/D/I) Neuro no sensory deficits noted Assessment & Plan Assessment/Plan (1) Closed fracture of neck of left femur: QUALIFIERS: Encounter type: initial encounter Qualified Code(s): S72.002A - Fracture of unspecified part of neck of left femur, initial encounter for closed fracture PLAN: Patient is POD #1 s/p hemiarthroplasty left hip and is stable. Will continue PT and case management for discharge planning
[2021-05-15 06:46] LABS: Absolute Lymphocyte Count 0.84 X10^3/uL (0.83-4.51); Absolute Neutrophil Count 5.2 X10^3/uL (2.0-7.7); Basophil# 0.03 X10^3/uL; Basophil% 0.4 % (0-1); Eosinophil# 0.08 X10^3/uL; Eosinophils% 1.2 % (0-5); Hematocrit 34.1 % (37-47); Hemoglobin 11.1 g/dL (12.0-15.0); Lymphocyte # 0.84 X10^3/ul (0.83-4.51); Lymphocyte % 12.5 % (19-41); Mean Corp Hgb Conc 32.6 g/dL (32-36); Mean Corpuscular Hgb 31.3 pg (27.0-32.0); Mean Corpuscular Volume 96.1 fL (81-99); Mean Platelet Vol. 10.4 fl (6.2-12.0); Monocyte# 0.57 X10^3/uL; Monocyte% 8.5 % (0-10); NRBC Flagged by Analyzer 0 % (0-5); Neutrophil # 5.17 X10^3/uL (2.7-7.7); Platelet Count 139 K/mm3 (150-450); RBC Distribution Width SD 53.1 fl (35.1-43.9); Red Blood Count 3.55 M/mm3 (4.2-5.4); White Blood Count 6.7 K/mm3 (4.4-11.0)
[2021-05-15 07:00] LABS: Anion Gap 4 (5-15); BUN 8 mg/dL (7-18); BUN/Creat Ratio 10.3 RATIO (10-20); Chloride 113 mmol/L (98-107); Creatinine, Serum 0.78 mg/dL (0.55-1.02); EST Glomerular Filtration Rate 78 mL/min (>60); Est Glom Filt Rate - Afr Amer 94 mL/min (>60); Estimated Creatinine Clearance 47.78 ml/min; Glucose 106 mg/dL (74-106); Potassium 3.4 mmol/L (3.5-5.1); Sodium Level 144 mmol/L (136-145)
--- NOTE | 2021-05-15 10:06 | PCM.PN.HOSP ---
Documented by User: Elsy Day NP, GAS APPLIANCE SERVICER HELPER-C 05/15/21 10:09 Subjective Subjective Patient seen and examined. Ambulating from bathroom to bed. Denies significant pain. Awaiting approval to TCU for rehab. Patient denies other symptoms or complaints. Objective Data Objective Data Vital Signs: Vital Signs Temp Pulse Resp BP Pulse Ox 98.0 F 88 18 113/69 99 05/15/21 08:00 05/15/21 08:00 05/15/21 08:00 05/15/21 08:00 05/15/21 08:00 Oxygen Delivery Method Room Air Weight: 143 lb 4.807 oz Body Mass Index (BMI) 22.9 Intake & Output: Intake and Output for Last 24 Hours 05/13/21 05/14/21 05/15/21 23:59 23:59 23:59 Intake Total 2410.00 / 2410.00 430 / 430 50 / 50 Output Total 1250 / 1250 850 / 850 800 / 800 Balance 1160.00 / 1160.00 -420 / -420 -750 / -750 Lab / Micro Data Result Diagrams: 05/15/21 06:24 05/15/21 06:24 Labs: Laboratory Results - last 24 hr 05/14/21 06:10: WBC 6.6, RBC 3.94 L, Hgb 12.5, Hct 37.1, MCV 94.2, MCH 31.7, MCHC 33.7, RDW Std Deviation 52.0 H, RDW Coeff of Deshawn 14.8 H, Plt Count 167, MPV 10.0, Immature Gran % (Auto) 0.200, Neut % (Auto) 74.6 H, Lymph % (Auto) 15.3 L, [place] % (Auto) 7.8, Eos % (Auto) 1.5, Baso % (Auto) 0.6, Absolute Neuts (auto) 4.9, Absolute Lymphs (auto) 1.00, Nucleated RBC % 0 05/14/21 06:10: Sodium 144, Potassium 3.4 L, Chloride 114 H, Carbon Dioxide 24.0, Anion Gap 6, BUN 12, Creatinine 0.69, Estim Creat Clear Calc 47.78, Est GFR (MDRD) Af Amer 109, Est GFR (MDRD) Non-Af 90, BUN/Creatinine Ratio 17.5, Glucose 103, Calcium 7.8 L 05/14/21 06:50: APTT 30.0 05/15/21 06:24: WBC 6.7, RBC 3.55 L, Hgb 11.1 L, Hct 34.1 L, MCV 96.1, MCH 31.3, MCHC 32.6, RDW Std Deviation 53.1 H, RDW Coeff of Deshawn 15.0 H, Plt Count 139 L, MPV 10.4, Immature Gran % (Auto) 0.400, Neut % (Auto) 77.0 H, Lymph % (Auto) 12.5 L, [place] % (Auto) 8.5, Eos % (Auto) 1.2, Baso % (Auto) 0.4, Absolute Neuts (auto) 5.2, Absolute Lymphs (auto) 0.84, Nucleated RBC % 0 05/15/21 06:24: Sodium 144, Potassium 3.4 L, Chloride 113 H, Carbon Dioxide 27.0, Anion Gap 4 L, BUN 8, Creatinine 0.78, Estim Creat Clear Calc 47.78, Est GFR (MDRD) Af Amer 94, Est GFR (MDRD) Non-Af 78, BUN/Creatinine Ratio 10.3, Glucose 106, Calcium 8.0 L Micro: Microbiology 05/13/21 01:52 Nasal Secretion SARS-CoV-2 Antigen (Rapid) - Final Physical Exam Const alert, oriented x3 and no apparent distress Orientation / Consciousness: awake, oriented to person, oriented to place and oriented to time HEENT normocephalic and moist oral mucous membranes Eyes PERRL, EOMs intact bilaterally and conjunctivae normal Neck no lymphadenopathy Resp normal respiratory effort and clear to auscultation bilaterally Cardio regular rate, regular rhythm and no murmurs Peripheral Pulses: pulses 2+ throughout GI normal to inspection, nondistended, normoactive bowel sounds, non-tender and non-distended Extremity normal to inspection Skin no rashes or lesions noted Lesions: no lesions Rashes: no rashes Trauma: no lacerations or abrasions Neuro CN's II-XII intact bilaterally, no focal motor deficits, no sensory deficits noted and deep tendon reflexes 2+ bilaterally Psych mental status grossly normal and affect normal Assessment & Plan Assessment/Plan (1) Closed fracture of neck of left femur: QUALIFIERS: Encounter type: initial encounter Qualified Code(s): S72.002A - Fracture of unspecified part of neck of left femur, initial encounter for closed fracture PLAN: 1. Acute traumatic left femoral neck fracture secondary to mechanical fall with associated left hip pain and debility-status post hemiarthroplasty left hip 05/14/2021. As needed pain regimen. PT/OT. Case management consult for discharge planning. Plan for TCU pending acceptance. On Xarelto for DVT prophylaxis per surgery. 2. History of dystonia-unclear etiology. 3. Hypothyroidism with history of goiter status post thyroidectomy-on Synthroid. 4. Former tobacco use-encouraged continued cessation. 5. Chronic insomnia-on Klonopin nightly. DVT prophylaxis-SCDs, Xarelto Discharge plan: Awaiting approval to TCU. This patient was seen by JOSY Hinds under the supervision of Dr. Murcia. Documented by User: Dr. Dipak Murcia MD 05/15/21 12:12 Subjective Subjective Seen and examined. Heart rate and blood pressure in normal range. Afebrile. No significant pain over operative site. Objective Data Lab / Micro Data Result Diagrams: 05/15/21 06:24 05/15/21 06:24 Physical Exam Narrative General: Alert, Oriented x3, Cooperative HEENT: Atraumatic, PERRLA, EOMI, Normocephalic Oral: No Gingival or Mucosal Lesions/ Ulcerations Neck: Supple, No JVD, Negative Carotid Bruits Lungs: Air entry diminished in bilateral lung bases. No crepitation/rhonchi Cardiovascular: Regular rate, Regular Rhythm, Normal S1, Normal S2, No murmurs Abdomen: Bowel Sounds Present, Soft, Non Tender, Non-Distended : No renal angle tenderness. No suprapubic tenderness. Extremities: No edema, Capillary Refill Less than 3 Seconds Skin: Left hip surgical wound dressing dry. Musculoskeletal: Left hip surgical dressing is dry. No hematoma or bleed. No significant tenderness. ROM restricted. Neurological: Cranial nerves II-XII grossly intact, DTR 2+/4 Neuro grossly intact Psych/Mental Status: Normal Affect, Appropriate. HEENT normocephalic and moist oral mucous membranes Eyes PERRL, EOMs intact bilaterally and conjunctivae normal Neck no lymphadenopathy Resp normal respiratory effort and clear to auscultation bilaterally Cardio regular rate, regular rhythm and no murmurs Peripheral Pulses: pulses 2+ throughout GI normal to inspection, nondistended, normoactive bowel sounds, non-tender and non-distended Extremity normal to inspection Skin no rashes or lesions noted Lesions: no lesions Rashes: no rashes Trauma: no lacerations or abrasions Neuro CN's II-XII intact bilaterally, no focal motor deficits, no sensory deficits noted and deep tendon reflexes 2+ bilaterally Psych mental status grossly normal and affect normal Assessment & Plan Assessment/Plan (1) Closed fracture of neck of left femur: QUALIFIERS: Encounter type: initial encounter Qualified Code(s): S72.002A - Fracture of unspecified part of neck of left femur, initial encounter for closed fracture PLAN: This patient was seen in conjunction with Elsy RIOS. I have independently interviewed and examined the patient and reviewed pertinent history, examination findings, laboratory and plan of management. I have reviewed the note and agree with the documented findings with the few additional points. In brief, patient is admitted for left femoral neck fracture from standing height probably pathological fracture. Patient had surgery on 05/14/2021. Pain management. DVT prophylaxis, No hematoma palpable or bruise/bleeding. Patient is started on rivaroxaban 10 mg daily Mild drop in hemoglobin 11.1 from 12.5 not appreciable for significant anemia. Mild anemia from acute blood loss. Her comorbidities include dystonia, hypothyroidism and chronic insomnia as mentioned above. Discharge plan: SNF, TCU I have discussed my assessment with Elsy RIOS and orders have been reviewed. Total time of the visit includes total time spent in counseling or coordination of care, (more than 50% of the total time, spent in obtaining medical information from nurses and other ancillary care providers,explaining to the patient about labs, imaging, diagnosis and management), discussion with marketing sales consultant, review of labs and imaging is 30 minutes; I spent more than half time out of total time seen by GAS APPLIANCE SERVICER HELPER and myself Charges/Coding Visit Charges Inpatient E&M: 21483 Subs Hosp L2
[2021-05-15] MEDS: Polyethylene Glycol 3350 17 GM PACKET PO (11:46)
[2021-05-15] MEDS: Multivitamins,Ther W-Minerals Tablet 1 TABLET PO (11:46)
[2021-05-15] MEDS: Famotidine 20 MG Tablet PO ×2 (11:47→21:20)
[2021-05-15] MEDS: Potassium Chloride Oral Tablet 20 MEQ PO (11:49)
[2021-05-15] MEDS: Bisacodyl 5 MG Tablet PO (11:49)
[2021-05-15] MEDS: Rivaroxaban 10 MG Tablet PO (14:18)
[2021-05-15] MEDS: 0.9% Saline Lock 10 ML Syringe IV (21:21)
[2021-05-16 04:21] VITALS: BP 123/65; PULSE 93; RESP 18; TEMP 36.7; O2SAT 97
[2021-05-16] MEDS: Levothyroxine 88 MCG Tablet PO (05:56)
[2021-05-16] MEDS: Acetaminophen 500 MG Tablet 1000 MG PO ×2 (05:56→13:15)
[2021-05-16 06:54] LABS: Absolute Lymphocyte Count 0.81 X10^3/uL (0.83-4.51); Absolute Neutrophil Count 5.4 X10^3/uL (2.0-7.7); Basophil# 0.03 X10^3/uL; Basophil% 0.4 % (0-1); Eosinophil# 0.13 X10^3/uL; Eosinophils% 1.8 % (0-5); Hematocrit 33.7 % (37-47); Lymphocyte # 0.81 X10^3/ul (0.83-4.51); Lymphocyte % 11.4 % (19-41); Mean Corp Hgb Conc 32.6 g/dL (32-36); Mean Corpuscular Hgb 31.3 pg (27.0-32.0); Mean Corpuscular Volume 95.7 fL (81-99); Mean Platelet Vol. 10.4 fl (6.2-12.0); Monocyte# 0.64 X10^3/uL; NRBC Flagged by Analyzer 0 % (0-5); Neutrophil # 5.44 X10^3/uL (2.7-7.7); Platelet Count 171 K/mm3 (150-450); RBC Distribution Width SD 53.4 fl (35.1-43.9); Red Blood Count 3.52 M/mm3 (4.2-5.4); White Blood Count 7.1 K/mm3 (4.4-11.0)
[2021-05-16 07:19] LABS: Anion Gap 4 (5-15); BUN 10 mg/dL (7-18); BUN/Creat Ratio 15.2 RATIO (10-20); Calcium,Total 8.1 mg/dL (8.5-10.1); Chloride 112 mmol/L (98-107); Creatinine, Serum 0.66 mg/dL (0.55-1.02); EST Glomerular Filtration Rate 95 mL/min (>60); Est Glom Filt Rate - Afr Amer 115 mL/min (>60); Estimated Creatinine Clearance 47.78 ml/min; Glucose 102 mg/dL (74-106); Potassium 3.5 mmol/L (3.5-5.1); Sodium Level 143 mmol/L (136-145)
[2021-05-16 08:01] VITALS: BP 128/57; PULSE 104; RESP 19; TEMP 36.6; O2SAT 100
[2021-05-16] MEDS: Multivitamins,Ther W-Minerals Tablet 1 TABLET PO (08:11)
[2021-05-16 09:44] VITALS: O2SAT 94
--- NOTE | 2021-05-16 10:15 | TREXTCAR_ITS ---
Diet 05/15/21 07:55 Diet: Regular - General Is pt able to select menu?: Yes Routine Orders/Code Status Enema Type: Fleetz Enema Frequency: Daily PRN Suppository Type: Dulcolax 10mg Suppository Frequency: Daily PRN Wound(s) Left Hip: Wound Type: Surgical Incision Suggestions for Active Care Change Position every (hours): 2 Times a day to sit in chair: 3 Therapies Weight Bearing: Weight bearing as tolerated Extremity Affected:: Left Lower Physical Therapy: Eval and Treat Occupational Therapy: Eval and Treat Problem/Diagnosis (1) Closed fracture of neck of left femur: Status: Acute Allergies/Procedures Done in Hospital Allergies nitrofurantoin [From Macrobid] Allergy (Verified 05/13/21 00:52) Rash Procedures: None Type of Care/Length of Stay Estimated LOS: Convalescent Care Less Than 30 days Type of Care Needed: Skilled Rehab Potential: Good Prognosis: Good Additional Orders/Day of Discharge H&P will serve as current which was dated: 05/13/21 Day of Discharge: 05/16/21 Discharge Plan Admission Admit Date/Time: 05/13/21 01:35 Primary Reason for Your Visit: Acute traumatic left femoral neck fracture Attending Provider: Maira Deluca Primary Care Provider: Elodia Sevilla Consulting Providers: Chilango Conn Discharge Orders/Prescriptions Prescriptions: New acetaminophen 500 mg Tablet 1,000 mg PO TID Qty: 0 RF: 0 oxycodone 5 mg Tablet 5 - 10 mg PO Q6H PRN PRN (Reason: Pain Score 1-10) Qty: 0 RF: 0 Xarelto 10 mg Tablet 10 mg PO DAILY@DINNER Qty: 0 RF: 0 Continued Complete Multivitamin tablet 1 tab PO DAILY RF: 0 clonazepam 1 MG tablet 2 mg PO QHS PRN PRN (Reason: Sleep) RF: 0 levothyroxine 100 MCG tablet 88 mcg PO DAILY RF: 0 Florajen Digestion 15 billion cell Capsule 1 cap PO QHS RF: 0 Referrals / Follow Up: Elodia Sevilla MD [Primary Care Provider] - In 1 Week Chilango Conn DO [STAFF PHYSICIAN] - Within 2 Weeks Disposition Disposition (needs filled in before D/C Order can be placed): Residential Facility
--- NOTE | 2021-05-16 10:26 | PCM.DC.SUM ---
Documented by User: Elsy Day NP, IOS SOFTWARE ENGINEER-C 05/16/21 10:31 Providers Date of Admission: 05/13/21 Date of Discharge: 05/16/21 Primary Care Physician: Dr. Elodia Sevilla MD Consultations 05/13/21 02:35 Consult: Orthopedics Routine Consulting Provider: Chilango Conn Reason for Consult: L hip fracture, fall EMERGENT Consult: No MD Notified: Yes Date Notified: 05/13/21 Time Notified: 01:49 Method of Notification: called per ED. Reason For Visit: LEFT HIP FRACTURE Diagnosis Discharge Diagnosis (1) Closed fracture of neck of left femur: Status: Acute Code(s): S72.002A - Fracture of unspecified part of neck of left femur, initial encounter for closed fracture Qualifiers: Encounter type: initial encounter Qualified Code(s): S72.002A - Fracture of unspecified part of neck of left femur, initial encounter for closed fracture Medications at Discharge Home Medications clonazepam 2 mg PO QHS PRN PRN 11/01/17 multivitamin,[id number] 1 tab PO DAILY 07/11/18 Florajen Digestion 1 cap PO QHS 05/13/21 acetaminophen 1,000 mg PO TID 05/16/21 levothyroxine 88 mcg PO DAILY 05/16/21 oxycodone 5 - 10 mg PO Q6H PRN PRN #0 tab 05/16/21 rivaroxaban [Xarelto] 10 mg PO DAILY@DINNER 05/16/21 Hospital Course Operations - (Left hip hemiarthroplasty) Procedures None Summary of Care Provided Hospital Course: Patient is a 70-year-old female admitted 05/13/2021 due to intractable left hip pain following fall. 1. Acute traumatic left femoral neck fracture secondary to mechanical fall with associated left hip pain and debility-status post hemiarthroplasty left hip 05/14/2021. As needed pain regimen. PT/OT. On Xarelto for DVT prophylaxis per surgery. TCU fpr rehab at [place]. Follow up with ortho in two weeks. 2. History of dystonia-unclear etiology. Resolved. 3. Hypothyroidism with history of goiter status post thyroidectomy-on Synthroid. 4. Former tobacco use-encouraged continued cessation. 5. Chronic insomnia-on Klonopin nightly. Physical Exam Const alert, oriented x3 and no apparent distress Orientation / Consciousness: awake, oriented to person, oriented to place and oriented to time HEENT normocephalic and moist oral mucous membranes Eyes PERRL, EOMs intact bilaterally and conjunctivae normal Neck no lymphadenopathy Resp normal respiratory effort and clear to auscultation bilaterally Cardio regular rate, regular rhythm and no murmurs Peripheral Pulses: pulses 2+ throughout GI normal to inspection, nondistended, normoactive bowel sounds, non-tender and non-distended Extremity normal to inspection Skin no rashes or lesions noted Lesions: no lesions Rashes: no rashes Trauma: no lacerations or abrasions Neuro CN's II-XII intact bilaterally, no focal motor deficits, no sensory deficits noted and deep tendon reflexes 2+ bilaterally Psych mental status grossly normal and affect normal Patient seen and examined prior to discharge. Physical assessment as noted above. Patient is stable for discharge with follow up recommendations as noted above. This patient was seen by JOSY Hinds under the supervision of Dr. Deluca. Weight / BMI Weight Weight: 140 lb 10.479 oz Body Mass Index (BMI) 22.9 ABG / Lab / Microbiology Data Result Diagrams: 05/16/21 06:16 05/16/21 06:16 Laboratory: Laboratory Results - last 24 hr 05/16/21 06:16: Sodium 143, Potassium 3.5, Chloride 112 H, Carbon Dioxide 27.0, Anion Gap 4 L, BUN 10, Creatinine 0.66, Estim Creat Clear Calc 47.78, Est GFR (MDRD) Af Amer 115, Est GFR (MDRD) Non-Af 95, BUN/Creatinine Ratio 15.2, Glucose 102, Calcium 8.1 L 05/16/21 06:16: WBC 7.1, RBC 3.52 L, Hgb 11.0 L, Hct 33.7 L, MCV 95.7, MCH 31.3, MCHC 32.6, RDW Std Deviation 53.4 H, RDW Coeff of Deshawn 15.0 H, Plt Count 171, MPV 10.4, Immature Gran % (Auto) 0.400, Neut % (Auto) 77.0 H, Lymph % (Auto) 11.4 L, [place] % (Auto) 9.0, Eos % (Auto) 1.8, Baso % (Auto) 0.4, Absolute Neuts (auto) 5.4, Absolute Lymphs (auto) 0.81 L, Nucleated RBC % 0 Microbiology: Microbiology 05/13/21 01:52 Nasal Secretion SARS-CoV-2 Antigen (Rapid) - Final Meaningful Use Info Meaningful Use Diagnoses (Choose all that apply): None applicable Discharge Plan Admission Admit Date/Time: 05/13/21 01:35 Primary Reason for Your Visit: Acute traumatic left femoral neck fracture Attending Provider: Maira Deluca Primary Care Provider: Elodia Sevilla Consulting Providers: Chilango Conn Discharge Orders/Prescriptions Prescriptions: New oxycodone 5 mg Tablet 5 - 10 mg PO Q6H PRN PRN (Reason: Pain Score 1-10) Qty: 0 RF: 0 Continued Complete Multivitamin tablet 1 tab PO DAILY RF: 0 clonazepam 1 MG tablet 2 mg PO QHS PRN PRN (Reason: Sleep) RF: 0 Florajen Digestion 15 billion cell Capsule 1 cap PO QHS RF: 0 No Action levothyroxine 88 mcg Tablet 88 mcg PO DAILY RF: 0 acetaminophen 500 mg tablet 1,000 mg PO TID RF: 0 Xarelto 10 mg tablet 10 mg PO DAILY@DINNER RF: 0 Referrals / Follow Up: Elodia Sevilla MD [Primary Care Provider] - In 1 Week Chilango Conn DO [STAFF PHYSICIAN] - Within 2 Weeks Disposition Disposition (needs filled in before D/C Order can be placed): Inpatient Rehab Unit/Facility Documented by User: Dr. Maira Deluca DO 05/16/21 16:48 Providers Date of Admission: 05/13/21 Reason For Visit: LEFT HIP FRACTURE Medications at Discharge Home Medications clonazepam 2 mg PO QHS PRN PRN 11/01/17 multivitamin,iw-ahpq-hhcrgxmd 1 tab PO DAILY 07/11/18 Florajen Digestion 1 cap PO QHS 05/13/21 acetaminophen 1,000 mg PO TID 05/16/21 levothyroxine 88 mcg PO DAILY 05/16/21 oxycodone 5 - 10 mg PO Q6H PRN PRN #0 tab 05/16/21 rivaroxaban [Xarelto] 10 mg PO DAILY@DINNER 05/16/21 Hospital Course Operations total hip replacement Summary of Care Provided Minutes Spent on Discharge: 41 Hospital Course: Mrs. Wei is a 70-year-old female who presented to the emergency department [facility] after suffering a mechanical fall where she slipped on her tax papers and landed firmly on her left hip. She reported that she immediately had 10 out of 10 pain in her hip that was worse with movement and her left hip was shortened and externally rotated which prompted an EMS call. In the emergency department her pain was improved. Her vital signs were stable and lab work-up was unremarkable. A plain film of her left hip and pelvis showed an acute left femoral neck fracture. An EKG was performed and was in normal sinus rhythm without any acute evidence of acute ischemia. The ER physician did talk to Dr. Boyd from orthopedic surgery and she was taken to the OR at 7:30 AM on 05/14/2021 where a left hemiarthroplasty was performed. She was maintained on a ME pain medication and was placed on Xarelto for DVT prophylaxis per orthopedic surgery. Physical therapy and Occupational Therapy evaluated the patient during her hospital course. 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 She is weightbearing as tolerated on that left hip. She is due for a dressing change in 8 days and may shower on 05/18/2021. Staple removal is planned for 05/26/2021 and she is to follow-up with Dr. Conn's physician planning assistant in 2 weeks. She was discharged on 05/16/2021 in stable condition to acute rehab. Patient had a recent vitamin D level on 09/09/2020 and was found to be 123.4. I would recommend an outpatient DEXA scan after discharge. Discharge diagnoses: Acute traumatic left femoral neck fracture secondary to mechanical fall Left hip hemiarthroplasty History of dystonia Hypothyroidism Chronic insomnia History of tobacco abuse Physical Exam Const alert, oriented x3, no apparent distress, average body habitus, healthy appearing and well nourished General Appearance: cooperative, comfortable, well kempt and well developed Orientation / Consciousness: awake Exam Limitations: no limitations HEENT normocephalic, head/scalp atraumatic and moist oral mucous membranes Resp normal respiratory effort, no retractions, no use of accessory muscles and clear to auscultation bilaterally Cardio regular rate, regular rhythm, S1 normal heart sound, S2 normal heart sound, no murmurs, no rub, no gallops, no clicks and no JVD GI normal to inspection, nondistended, normoactive bowel sounds, soft to palpation, non-tender and non-distended Extremity no clubbing, cyanosis or edema Skin Skin Narrative: L hip incision is clean and dry Neuro oriented x3, CN's II-XII intact bilaterally, moves all extremities and no focal motor deficits Sensorium / Orientation: awake and alert Speech: speech normal ABG / Lab / Microbiology Data Result Diagrams: 05/16/21 06:16 05/16/21 06:16 Discharge Plan Admission Admit Date/Time: 05/13/21 01:35 Primary Reason for Your Visit: Acute traumatic left femoral neck fracture Attending Provider: Maira Deluca Primary Care Provider: Elodia Sevilla Consulting Providers: Chilango Conn Discharge Orders/Prescriptions Prescriptions: New oxycodone 5 mg Tablet 5 - 10 mg PO Q6H PRN PRN (Reason: Pain Score 1-10) Qty: 0 RF: 0 Continued Complete Multivitamin tablet 1 tab PO DAILY RF: 0 clonazepam 1 MG tablet 2 mg PO QHS PRN PRN (Reason: Sleep) RF: 0 Florajen Digestion 15 billion cell Capsule 1 cap PO QHS RF: 0 No Action levothyroxine 88 mcg Tablet 88 mcg PO DAILY RF: 0 acetaminophen 500 mg tablet 1,000 mg PO TID RF: 0 Xarelto 10 mg tablet 10 mg PO DAILY@DINNER RF: 0 Referrals / Follow Up: Elodia Sevilla MD [Primary Care Provider] - In 1 Week Chilango Conn DO [STAFF PHYSICIAN] - Within 2 Weeks Disposition Disposition (needs filled in before D/C Order can be placed): Inpatient Rehab Unit/Facility Charges/Coding Visit Charges Inpatient E&M: 15972 SNF Disch >30 Min
[2021-05-16] MEDS: Famotidine 20 MG Tablet PO (10:45)
[2021-05-16] MEDS: Bisacodyl 5 MG Tablet PO (10:45)
[2021-05-16] MEDS: Polyethylene Glycol 3350 17 GM PACKET PO (10:45)
--- NOTE | 2021-05-16 11:38 | PCM.DC ---
Discharge Instructions Diet Discharge Diet: No restrictions Activity Discharge Activity: Return to Normal Activity Dressing / Incision Call your doctor if you observe: Shortness of breath, Dizziness and Chest pain Follow Up Care Test Results: Test results from this visit will be discussed in further detail at your follow-up appointment, if applicable. Discharge Plan Admission Admit Date/Time: 05/13/21 01:35 Primary Reason for Your Visit: Acute traumatic left femoral neck fracture Attending Provider: Maira Deluca Primary Care Provider: Elodia Sevilla Consulting Providers: Chilango Conn Discharge Orders/Prescriptions Prescriptions: New acetaminophen 500 mg Tablet 1,000 mg PO TID Qty: 0 RF: 0 oxycodone 5 mg Tablet 5 - 10 mg PO Q6H PRN PRN (Reason: Pain Score 1-10) Qty: 0 RF: 0 Xarelto 10 mg Tablet 10 mg PO DAILY@DINNER Qty: 0 RF: 0 Continued Complete Multivitamin tablet 1 tab PO DAILY RF: 0 clonazepam 1 MG tablet 2 mg PO QHS PRN PRN (Reason: Sleep) RF: 0 levothyroxine 100 MCG tablet 88 mcg PO DAILY RF: 0 Florajen Digestion 15 billion cell Capsule 1 cap PO QHS RF: 0 Referrals / Follow Up: Elodia Sevilla MD [Primary Care Provider] - In 1 Week Chilango Conn DO [STAFF PHYSICIAN] - Within 2 Weeks Disposition Disposition (needs filled in before D/C Order can be placed): Inpatient Rehab Unit/Facility
--- NOTE | 2021-05-16 12:03 | CASEMGMT ---
Social Work Note Pt to discharge today. PATTY placed a call to Anna with [facility]. [facility] is able to accept pt. SW in to speak with pt. PATTY introduced self and role at [facility]. Pt is alert and orientated. PATTY spoke with pt about differences between [facility] and [facility]. Pt is agreeable to [facility]. PATTY informed pt that she will discharge to [facility] today. Pt states understanding. PATTY asked pt about her 's care at home. Pt states she has someone that is able to provide some care to pt's while she is at [facility]. PATTY updated physician. RN updated. Plan: [facility] today Lala Brooke CHAIRMAN, PILOT CAPTAIN
--- NOTE | 2021-05-16 12:11 | PCM.PN.ORT ---
Subjective Subjective Patient lying in bed watching TV. Patient states pain is very well managed. Patient states she is feeling very well. She states she is ready to be discharged to rehab. Patient denies chest pain, shortness of breath, calf pain, nausea vomiting. Patient has no other complaints at this time. Objective Data Objective Data Vital Signs: Vital Signs Temp Pulse Resp BP Pulse Ox 97.8 F 104 H 19 H 128/57 H 94 05/16/21 08:01 05/16/21 08:01 05/16/21 08:01 05/16/21 08:01 05/16/21 09:44 Oxygen Delivery Method Room Air Weight: 63.8 kg Body Mass Index (BMI) 22.9 Intake & Output: Intake and Output for Last 24 Hours 05/14/21 05/15/21 05/16/21 23:59 23:59 23:59 Intake Total 430 / 430 600 / 600 400 / 400 Output Total 850 / 850 800 / 800 Balance -420 / -420 -200 / -200 400 / 400 Lab / Micro Data Result Diagrams: 05/16/21 06:16 05/16/21 06:16 Labs: Laboratory Results - last 24 hr 05/16/21 06:16: Sodium 143, Potassium 3.5, Chloride 112 H, Carbon Dioxide 27.0, Anion Gap 4 L, BUN 10, Creatinine 0.66, Estim Creat Clear Calc 47.78, Est GFR (MDRD) Af Amer 115, Est GFR (MDRD) Non-Af 95, BUN/Creatinine Ratio 15.2, Glucose 102, Calcium 8.1 L 05/16/21 06:16: WBC 7.1, RBC 3.52 L, Hgb 11.0 L, Hct 33.7 L, MCV 95.7, MCH 31.3, MCHC 32.6, RDW Std Deviation 53.4 H, RDW Coeff of Deshawn 15.0 H, Plt Count 171, MPV 10.4, Immature Gran % (Auto) 0.400, Neut % (Auto) 77.0 H, Lymph % (Auto) 11.4 L, [place] % (Auto) 9.0, Eos % (Auto) 1.8, Baso % (Auto) 0.4, Absolute Neuts (auto) 5.4, Absolute Lymphs (auto) 0.81 L, Nucleated RBC % 0 Micro: Microbiology 05/13/21 01:52 Nasal Secretion SARS-CoV-2 Antigen (Rapid) - Final Physical Exam Narrative Exam patient is lying in bed alert oriented. Patient in no respiratory distress, speaking in full sentences. Patient has no calf tenderness. Patient has good motion of the hip with minimal discomfort. Patient good full extension of the knee. Patient's vitals were reviewed and noted. Patient is afebrile. Const alert and oriented x3 Eyes PERRL Neuro CN's II-XII intact bilaterally Psych mental status grossly normal Assessment & Plan Assessment/Plan (1) Closed fracture of neck of left femur: QUALIFIERS: Encounter type: initial encounter Qualified Code(s): S72.002A - Fracture of unspecified part of neck of left femur, initial encounter for closed fracture PLAN: 1. Continue all pain medications as prescribed 2. Continue postop anticoagulation as directed by medicine 3. Encourage incentive spirometry 4. Change dressing in 8 days 5. Remove josafat 05/26/2021 6. Shower to 7. Ice to surgical area 8. Ambulate with walker, weight-bear as tolerated 9. Follow-up in 2 weeks with Maxime Paris PA-C
--- NOTE | 2021-05-16 12:16 | DCINST_ITS ---
Discharge Instructions Diet Discharge Diet: No restrictions Activity Discharge Activity: May Not Drive, May Shower and Use Walker May shower in (days): 3 May resume sexual activity in: No Restrictions Ice area for (Minutes): 30 (every hour while awake.) Weight Bearing Status: Weight bearing as tolerated Keep extremity elevated above heart level: Operative Extremity Dressing / Incision Call your doctor if your incision/area has: Continuous Slow Oozing, Sudden Increased Bleeding, Increased Pain/ Swelling, Increased Redness and Foul Smelling Discharge Call your doctor if you observe: Shortness of breath, Dizziness and Chest pain Change Dressing in: leave in place till F/U Remove Dressing in: leave in place till F/U Additional Dressing/Incision Instructions:: Change dressing in 8 days. Staple removal on 05/26/2021 Follow Up Care Please Follow Up With: Maxime Paris PA-C When: Please call [phone] to schedule a follow up appointment. Test Results: Test results from this visit will be discussed in further detail at your follow-up appointment, if applicable. Discharge Plan Admission Admit Date/Time: 05/13/21 01:35 Primary Reason for Your Visit: Acute traumatic left femoral neck fracture Attending Provider: Maira Deluca Primary Care Provider: Elodia Sevilla Consulting Providers: Chilango Conn Discharge Orders/Prescriptions Prescriptions: New acetaminophen 500 mg Tablet 1,000 mg PO TID Qty: 0 RF: 0 oxycodone 5 mg Tablet 5 - 10 mg PO Q6H PRN PRN (Reason: Pain Score 1-10) Qty: 0 RF: 0 Xarelto 10 mg Tablet 10 mg PO DAILY@DINNER Qty: 0 RF: 0 Continued Complete Multivitamin tablet 1 tab PO DAILY RF: 0 clonazepam 1 MG tablet 2 mg PO QHS PRN PRN (Reason: Sleep) RF: 0 levothyroxine 100 MCG tablet 88 mcg PO DAILY RF: 0 Florajen Digestion 15 billion cell Capsule 1 cap PO QHS RF: 0 Referrals / Follow Up: Elodia Sevilla MD [Primary Care Provider] - In 1 Week Chilango Conn DO [STAFF PHYSICIAN] - Within 2 Weeks Disposition Disposition (needs filled in before D/C Order can be placed): Inpatient Rehab U nit/Facility
[2021-05-16 13:08] VITALS: BP 120/74; PULSE 99; RESP 16; TEMP 37; O2SAT 96
== END 2021-05-16 14:20 | DRG 522 ==
LOC: ED 01:49 → MS3 01:55
PROVIDERS: Anesthesiology; Internal Medicine; Orthopaedic Surgery; Admitting Provider Family Medicine; Emergency Provider Emergency Medicine; PCP Family Medicine; Visit Provider Internal Medicine
PROC: 0SRS0JA Replacement of Left Hip Joint, Femoral Surface with Synthetic Substitute, Uncemented, Open Approach (ICD-10-PCS; CPT 27125; principal; 2021-05-14 07:10)
DX: S72.002A Fracture of unspecified part of neck of left femur, initial encounter for closed fracture (principal); D62 Acute posthemorrhagic anemia; G24.9 Dystonia, unspecified; E03.9 Hypothyroidism, unspecified; W01.0XXA Fall on same level from slipping, tripping and stumbling without subsequent striking against object, initial encounter; Z87.891 Personal history of nicotine dependence; Z79.01 Long term (current) use of anticoagulants; G47.00 Insomnia, unspecified
CPT/HCPCS: 36415; 71045; 73502; 80048; 80053; 84443; 85025; 85610; 85730; 86850; 86900; 86901; 87426; 88305; 88307; 88311; 93005; 97110; 97116; 97162; 97166; 97530; 97535; 99251; 99285; J7030; J7050; A4216; G0463; J2405

== ENCOUNTER 2021-05-16 14:30 | Inpatient (IN) | payer MEDICARE, OTHER, SELFPAY ==
[2021-05-16 14:42] VITALS: BP 128/64; PULSE 98; RESP 16; TEMP 36.9; O2SAT 98
--- NOTE | 2021-05-16 14:42 | HP.PCM_ITS ---
HPI - General General Date of Admission: 05/16/21 HPI Narrative XENA MESSER, is a 70 YO F with a PMH of Hypothyroidism (hx of thyroidectomy for goiter), tobacco dependence in remission, Chronic insomnia and dystonia who presented to the ED at [facility] on 05/13/21 after a fall at home. She was complaining of Left hip pain. Plain films in the emergency department showed an acute left femoral neck fracture. She was admitted to the hospital and Dr. Conn was consulted. She was taken to surgery on 05/14/2021 and underwent left hip hemiarthroplasty by Dr. Conn. She was seen by PT/OT and acute rehab was recommended. She was transferred to the acute inpt rehab unit at [facility] on 05/16/21 for >3H of therapy daily to restore function at or near her prior level of function. Posterior surgical approach. All lab from the acute hospital stay was reviewed. HGB dropped to 11 after s urgery from 12.5 in the ED. Calcium is low at 8.1 and there was no albumin done. Vitamin D consistently WNL. She is on Xarelto 10 mg daily for DVT prophylaxis. The last bone density on record is from 2018 and at that time she was diagnosed with osteopenia. There is a 60% loss of vertebral height in L1 likely secondary to a vertebral compression fracture. Currently she is taking OTC calcium and Vitamin D [facility] Medical History (Updated 05/16/21 @ 16:[address] Amy Griffiths, ) Chronic insomnia Chronic prescription benzodiazepine use Dystonia Former tobacco use History of colon polyps History of goiter Hypothyroidism Osteopenia Vertebral fracture, pathological Home Medications clonazepam 2 mg PO QHS PRN PRN 11/01/17 [History Last Taken 05/12/21] multivitamin,bs-hmrf-[id number] 1 tab PO DAILY 07/11/18 [History Last Taken 05/12/21] Florajen Digestion 1 cap PO QHS 05/13/21 [History Last Taken Unknown] acetaminophen 1,000 mg PO TID 05/16/21 [History Last Taken Unknown] levothyroxine 88 mcg PO DAILY 05/16/21 [History Last Taken Unknown] oxycodone 5 - 10 mg PO Q6H PRN PRN #0 tab 05/16/21 [Rx Last Taken Unknown] rivaroxaban [Xarelto] 10 mg PO DAILY@DINNER 05/16/21 [History Last Taken Unknown] Allergy/AdvReac Type Severity Reaction Status Date / Time nitrofurantoin Allergy Rash Verified 05/13/21 00:52 [From Macrobid] Family History Father Cancer Brother Cancer Mother Alzheimer disease Surgical History (Updated 05/16/21 @ 16:[address] Amy Griffiths, DO) History of bladder surgery History of hemiarthroplasty of right hip History of rotator cuff surgery History of thyroidectomy History of tonsillectomy History of tubal ligation Social History housing: other details: Patient lives with her spouse who is wheelchair bound. She is his caregiver Smoking Status: Former smoker how long ago did patient quit smoking: Smoked age [age] years old, 1 ppd (15 pack year hx). alcohol intake: current alcohol intake frequency: holidays/special occasions only substance use type: does not use ROS Constitutional Constitutional: Denies anorexia, change in weight, chills, fatigue, fever(s), night sweats or weakness Eyes Eyes: Denies blurry vision, change in vision, eye pain or loss of vision ENT HEENT: Reports dry mouth; Denies abnormal hearing, dysphagia, headache(s), hearing loss, nasal congestion or sore throat Cardiovascular Cardiovascular: Denies chest pain, dyspnea on exertion, edema, lightheadedness, orthopnea, palpitations, paroxysmal nocturnal dyspnea or syncope Respiratory/Chest Respiratory/Chest: Denies cough, dyspnea, shortness of breath at rest, shortness of breath with exertion or wheezing Gastrointestinal Gastrointestinal: Reports constipation; Denies abdominal pain, diarrhea, dyspepsia, hematemesis, hematochezia, nausea or vomiting Genitourinary Genitourinary: Denies dysuria, hematuria, nocturia, urinary frequency, urinary hesitancy, urinary incontinence or urinary urgency Musculoskeletal Musculoskeletal: Reports other Details: 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 The dystonia likely caused the jerking she had after taking the narcotic post op ; Denies back pain, joint pain, joint swelling or neck pain Integumentary Integumentary: Reports dry skin; Denies jaundice, rash or sores Neurologic Neurologic: Denies confusion, disequilibrium, dizziness, focal weakness, headache(s), paresthesias, seizures or tremor(s) Psychiatric Psychiatric: Denies anxiety, depression, homicidal ideation or suicidal ideation Endocrine Endocrinology: Denies change in body appearance, polydipsia or polyuria Hematologic/Lymphatic Hematologic/Lymphatic: Denies easy bleeding, easy bruising or lymphadenopathy Allergic/Immunologic Allergic/Immunologic: Denies rhinitis, eczemia or asthma Physical Exam Const alert, oriented x3 and no apparent distress Constitutional Narrative: Making good eye contact, appropriate General Appearance: cooperative, comfortable, well kempt and well developed HEENT normocephalic HEENT Narrative: Dry mucous membranes. The lips are dry/chapped. No fissures in the lips yet. Face and Sinus: face symmetric Mouth: dry mucous membranes Eyes PERRL, EOMs intact bilaterally, conjunctivae normal and no scleral icterus General Eye: normal appearance of both eyes Neck no lymphadenopathy, supple, no JVD and no carotid bruits Resp normal respiratory effort, no use of accessory muscles and clear to auscultation bilaterally Resp Narrative: Not tachypneic and no conversational dyspnea. Cardio regular rate, regular rhythm, S1 normal heart sound, S2 normal heart sound, no murmurs, no rub and no gallops Cardio Narrative: The resting HR is a little high and I suspect this is due to dehydration. GI soft to palpation and non-tender GI Narrative: No guarding with palpation. Mild distension and increased tympany in the lower quadrants. No abd bruit Extremity no clubbing, cyanosis or edema Extremity Narrative: Negative Jay's and Kasandra's signs. DP and PT pulses are 2+ BL. Radial pulses are s+ BL. Both feet are warm to the touch. Skin Skin Narrative: No rashes, no skin breakdown. there is no erythema around the bandage on the L hip and the dressing is dry. Neuro oriented x3, CN's II-XII intact bilaterally and no focal motor deficits Neuro Narrative: No dystonic movements when I examined her. Motor Exam: strength 5/5 throughout Psych affect normal Psych Narrative: Appropriate, making good eye contact. Able to stay on topic and focus. No flight of ideas. Does not appear anxious or depressed. Conversant and relating well to staff. Assessment & Plan Assessment/Plan (1) Physical debility: (2) Fall: QUALIFIERS: Encounter type: initial encounter Qualified Code(s): W19.XXXA - Unspecified fall, initial encounter (3) Closed fracture of neck of left femur: QUALIFIERS: Encounter type: initial encounter Qualified Code(s): S72.002A - Fracture of unspecified part of neck of left femur, initial encounter for closed fracture (4) History of hemiarthroplasty of right hip: (5) Osteopenia: (6) Hypocalcemia: (7) Dystonia: (8) Chronic insomnia: (9) Anemia due to blood loss, acute: (10) Chronic prescription benzodiazepine use: PLAN: PLAN PT for gait stability OT for ADL's Analgesics as needed - She is currently on scheduled Tylenol and she has no pain at this time. Bowel protocol Fall precautions Assess for Anxiety/Depression GI prophylaxis not necessary - she is asymptomatic and she has no hx of PUD DVT prophylaxis with Xarelto 10 mg p.o. daily for 1 month Follow up with Dr. Conn, Dr. Sevilla and neurology following DC from Rehab All lab from today was personally reviewed. Will check a MAG, Phos, PTH and an albumin Start calcium plus vitamin D supplement Obtain a list of medications and a problem list from Dr. Bolton Unit Exclusion This patient is an acute care inpatient being housed in the excluded unit because of capacity issues related to the disaster or emergency.: Yes Charges/Coding Visit Charges Inpatient E&M: 55514 Init Hosp L2
[2021-05-16 14:45] VITALS: BMI 23.3
[2021-05-16 15:01] VITALS: BP 128/64; PULSE 98; RESP 16; TEMP 36.9; O2SAT 98
--- NOTE | 2021-05-16 15:07 | REHABEVAL_ITS ---
Admission Information Primary Diagnosis:: Physical debility secondary to recent left femoral neck fracture. Status post R hemiarthroplasty. Status Changes from Prescreening?: No changes Identified Actual Problem List:: Falls, Skin Intergrity, Pain, ALteration in Cmfrt, Bowel, Constipation, Alteration in Sleep, Mobility Impaired, Self Care Deficit, Fluid Change-Dehydration and Alteration-Leisure Activ. Potential Problem List:: DVT, Bleeding, Infection, UTI, Aspiration, Falls, Skin Integrity and Depression Risk of Complications DVT: LMWH and ANASTASIA Hose Bleeding: Monitor Lab Values, Nursing to Teach Precautions for anti-coagulation therapy., Wound, if applicable, to be assessed every shift. and Stroke patients assessed for lethargy or change in status. Infection: Clinical Staff to Monitor for S/S of infection: and S/S of infection include fever, redness, warmth, etc. Urinary Tract Infection: Monitor for frequency, burning, discomfort, or incont inence. and Nursing will obtain urine sample for urinalysis and C&S when ordered. Aspiration: Clinical staff will monitor for coughing, drooling, congestion., Speech will evaluate swallowing and dsyphasia. and Nursing will monitor patient swallowing during meals. Falls: Patient will be evaluated for Fall Precautions and Patient will be placed on Fall Precautions as indicated per protocol. Skin Breakdown: Nursing will assess skin daily using assessment tool. and Nursing will place on Skin Breakdown Precautions as indicated. Pain: Clinical staff will assess patient's pain level per protocol., Medications will be given, if needed, and the pain level reassessed. and Other methods: Massage, distraction, decrease stimulus, etc. used PRN. Plan of Care Patient requires physician specializing in physical medicine and rehab oversight to provide close medical supervision of rehab issues including: Pain Management, Sleep Problems, Bowel and Bladder, Medical and co-morbidity Management, DVT prophylaxis, Rehabilitation Leadership and Coordination of treatment team Patient needs Physical Therapy: For a minimum of 1 hour and At least 5 out of 7 days Patient needs Physical Therapy to improve:: Mobility, Strengthening, Transfers, Stretching, ROM, Endurance, Stairs, Gait and Balance Patient needs Occupational Therapy: For a minimum of 1 hour and At least 5 out of 7 days Patient needs Occupational Therapy to improve ADL's incl.: Eating, Grooming, Bathing, Dressing, Toileting, Toilet transfers, Community Reintegration, Higher functioning activities, Household tasks, Adaptive Equipment, Splinting and Other activities as determined Patient requires 24/7 Rehabilitation Nursing for: Pain Issues, Identifying and preventing risk factors, Monitoring and reporting current medical conditions, Assisting with ambulation, transfer, and all ADL's, Teaching patients about disease process and medications, Family teaching, Providing safe environment, Bowel and Bladder Issues, Skin integrity and Medication Management Patient needs Continuous Process Tanner [employer]ary Drum/ Case Management for: Discharge Planning, Arranging Home Equipment or Services and Family Interventions Patient needs Dietary and Nutrition Services for: Adequate Nutrition, Nutritional Supplements and Nutritional Education Goals Patient will remain: free from falls and or injury at time of discharge. Patient will perform bed mobility at: MOD I level of assist. Patient will complete transfers from bed to chair at: MOD I level of assist. Patient will ambulate: - (She will ambulate 300 feet with the least restrictive device at mod I on various surfaces To allow her to return home.) Patient will complete upper body dressing at: MOD I level of assist. (She will demonstrate lower body dressing tasks at a set up/supervision level with use of assistive equipment while adhering to her total hip replacement precautions) Patient will complete lower body dressing at: MOD I level of assist. (She will demonstrate lower body dressing tasks at JAS with the use of assistive equipment while adhering to THR precautions) Patient will complete toileting at: MOD I level of assist. Patient will perform bathing at: MOD I level of assist. (She will demonstrate transfer on and off a shower chair with use of a grab bar and perform bathing tasks at mod I) Patient will complete grooming at: MOD I level of assist. Patient will complete home management skills at: MOD I level of assist. Patient will achieve: - (2 steps with no HR's and with the least restrictive device at standby assist to allow access to the home.) Patient will have pain level of: of 3 or less Patient's skin will: remain intact Patient will receive: adequate nutrition. Discharge Planning Pt Prognosis for Sig. Practical Improv. w/in Reasonable Time: Good Estimated Length of stay (days): 10 Anticipated D/C Destination: Home with Outpt Therapy Was Preadmission Assessment Accurate?: Yes
[2021-05-16] MEDS: Rivaroxaban 10 MG Tablet PO (16:20)
[2021-05-16 16:47] LABS: Albumin, Serum 2.5 g/dL (3.2-5.0); Magnesium 2.3 mg/dL (1.6-2.6); Phosphorus 2.3 mg/dL (2.5-4.9)
[2021-05-16 16:53] LABS: PTHIN 45.6 pg/mL (18.4-80.1)
[2021-05-16] MEDS: Magnesium Hydroxide 30 ML UDC PO (17:49)
[2021-05-16 19:41] VITALS: BP 116/70; PULSE 88; RESP 16; TEMP 36.9; O2SAT 98
[2021-05-16 19:55] VITALS: O2SAT 98
--- NOTE | 2021-05-16 20:04 | CPS ---
pt has IS from on MS3 admission, new IS was not given
[2021-05-16] MEDS: Acetaminophen 500 MG Tablet 1000 MG PO (22:10)
[2021-05-16] MEDS: Senna/Docusate Sodium 1 Tablet 2 TABLET PO (22:10)
[2021-05-16] MEDS: clonazePAM 0.5 MG Tablet 2 MG PO (22:10)
[2021-05-16] MEDS: 0.9% Saline Lock 10 ML Syringe IV (22:15)
[2021-05-17] MEDS: Acetaminophen 500 MG Tablet 1000 MG PO ×3 (06:34→22:32)
[2021-05-17] MEDS: Levothyroxine 88 MCG Tablet PO (06:35)
[2021-05-17] MEDS: Bisacodyl 10 MG Suppository RC (06:42)
[2021-05-17 07:26] VITALS: O2SAT 98
[2021-05-17 07:30] VITALS: BP 139/82; PULSE 89; RESP 16; TEMP 36; O2SAT 99
[2021-05-17] MEDS: Multivitamins,Ther W-Minerals Tablet 1 TABLET PO (08:19)
[2021-05-17] MEDS: Calcium Carbonate 500 MG Tablet PO ×2 (08:19→17:01)
[2021-05-17] MEDS: Cholecalciferol (VIT D3) 25 MCG TABLET (1,000 UNITS) PO (08:19)
[2021-05-17] MEDS: Senna/Docusate Sodium 1 Tablet 2 TABLET PO (09:06)
--- NOTE | 2021-05-17 11:40 | CASEMGMT ---
Social Work Met with patient for initial assessment. Explained Medicare will approve days for stay. Those days will be provided to her likely on her Team day, . The goal is for pt to return home with . However, is disabled, has foot drop, uses electric w/c. Pt is 's primary caregiver, and they do not have family nearby to assist. Currently, neighbors are pitching in to help with IADLs for while pt is admitted. Discussed code status. Pt wishes to be DNR-CCA, no intubation. Nursing notified. Pt does not have advanced directives and denied wanting to complete any. SW offered ongoing assistance. Will continue to follow. SHIRLEY LoyaW
--- NOTE | 2021-05-17 15:44 | PCM.PN.BLA ---
Progress Note Afebrile VSS- Blood pressure is within normal limits and the heart rate has come down some to 89 with oral hydration. Maintaining appropriate oxygen saturation on RA Discussed with nursing - Nursing reports that she has a rash on the R buttock and and the L groin and buttock. She told them she gets occasional herpes on the R buttock and she uses Abreva. she has never taken an oral antiviral and it always goes away with Abreva. Reviewed the PT/OT/ST notes Medication list reviewed. All lab was personally reviewed. Phosphorus is low at 2.3.The albumin is 2.5 and the calcium corrected for hypoalbuminemia is 9.3 which is within normal limits. The PTH is within normal limits. The rash on the R buttock is sore and hurts when she lies on it. The hip pain is controlled with Tylenol 1 GM TID. She denies calf pain, SOB, CP, palpitations, lightheadedness. she is no longer constipated...had a few large BM's. She denies abdominal pain. No cough and no ST. Physical Exam Const alert, oriented x3 and no apparent distress Constitutional Narrative: pleasant. General Appearance: cooperative, comfortable, well kempt and well developed Chest Chest: symmetrical chest wall rise Resp clear to auscultation bilaterally Effort and Inspection: able to speak in complete sentences Cardio regular rate, regular rhythm, no murmurs and no gallops GI normal to inspection, nondistended, normoactive bowel sounds and soft to palpation GI Narrative: No guarding with palpation today and it is less distended and tympanic. Still with a little tympany in the lower quadrants. Extremity normal capillary refill, no calf tenderness and no pedal edema Extremity Narrative: intact sensation in both feet. Skin Skin Narrative: There is a localized red rash with vesicles and a few scabs on the R buttock. She has a different rash involving the Left groin and extending laterally at the hip which is reddened and has satellite lesions that is consistent with yeast. General Skin Exam: no breakdown Neuro no focal motor deficits and no sensory deficits noted Assessment & Plan Assessment/Plan (1) Herpes dermatitis: (2) Intertrigo: (3) Closed fracture of neck of left femur: QUALIFIERS: Encounter type: initial encounter Qualified Code(s): S72.002A - Fracture of unspecified part of neck of left femur, initial encounter for closed fracture (4) Osteopenia: (5) Anemia due to blood loss, acute: PLAN: 1. Zovirax to the herpetic dermatitis on the R buttock. 2. Nystatin powder to the intertrigo Left groin 3. Continue therapy Visit Charges Inpatient E&M: 26137 Subs Hosp L2
[2021-05-17] MEDS: Rivaroxaban 10 MG Tablet PO (17:01)
[2021-05-17 21:58] VITALS: BP 126/75; PULSE 97; RESP 17; TEMP 36.4; O2SAT 100
[2021-05-17] MEDS: Acyclovir 5% Tube 1 APPLIC TOPICAL (22:00)
[2021-05-17] MEDS: clonazePAM 0.5 MG Tablet 2 MG PO (22:24)
[2021-05-17] MEDS: Nystatin Powder 15gm Bottle 1 APPLIC TOPICAL (22:31)
[2021-05-17] MEDS: 0.9% Saline Lock 10 ML Syringe IV (22:45)
--- NOTE | 2021-05-18 04:24 | NURSING ---
Reviewed and agree with Joshua ORTIZ on her assessment and handoff.
[2021-05-18] MEDS: Levothyroxine 88 MCG Tablet PO (06:21)
[2021-05-18] MEDS: Acetaminophen 500 MG Tablet 1000 MG PO ×3 (06:21→20:02)
[2021-05-18] MEDS: Acyclovir 5% Tube 1 APPLIC TOPICAL ×5 (07:23→20:03)
[2021-05-18] MEDS: Calcium Carbonate 500 MG Tablet PO ×2 (08:05→17:53)
[2021-05-18] MEDS: Senna/Docusate Sodium 1 Tablet 2 TABLET PO (08:05)
[2021-05-18] MEDS: Nystatin Powder 15gm Bottle 1 APPLIC TOPICAL ×2 (08:05→20:02)
[2021-05-18] MEDS: Multivitamins,Ther W-Minerals Tablet 1 TABLET PO (08:05)
[2021-05-18] MEDS: Cholecalciferol (VIT D3) 25 MCG TABLET (1,000 UNITS) PO (08:06)
[2021-05-18 09:04] VITALS: BP 146/83; PULSE 96; RESP 18; TEMP 36.6; O2SAT 95
[2021-05-18] MEDS: Rivaroxaban 10 MG Tablet PO (17:53)
[2021-05-18] MEDS: clonazePAM 0.5 MG Tablet 2 MG PO (20:05)
[2021-05-18 22:45] VITALS: BP 126/62; PULSE 105; RESP 16; TEMP 36.9; O2SAT 97
--- NOTE | 2021-05-19 03:45 | NURSING ---
Reviewed and agree with [employer]CE documentation and assessment charting.
[2021-05-19] MEDS: Acetaminophen 500 MG Tablet 1000 MG PO ×3 (04:24→21:51)
[2021-05-19] MEDS: Acyclovir 5% Tube 1 APPLIC TOPICAL ×5 (04:25→21:50)
[2021-05-19] MEDS: Levothyroxine 88 MCG Tablet PO (04:25)
[2021-05-19] MEDS: Calcium Carbonate 500 MG Tablet PO ×2 (07:35→16:52)
[2021-05-19] MEDS: Multivitamins,Ther W-Minerals Tablet 1 TABLET PO (07:35)
[2021-05-19 08:00] VITALS: O2SAT 99
[2021-05-19 08:47] VITALS: BP 141/77; PULSE 103; RESP 17; TEMP 36.5; O2SAT 99
[2021-05-19] MEDS: Senna/Docusate Sodium 1 Tablet 2 TABLET PO (09:43)
[2021-05-19] MEDS: Cholecalciferol (VIT D3) 25 MCG TABLET (1,000 UNITS) PO (09:43)
[2021-05-19] MEDS: Nystatin Powder 15gm Bottle 1 APPLIC TOPICAL ×2 (09:59→21:51)
--- NOTE | 2021-05-19 14:00 | CASEMGMT ---
Social Work IDT met with patient for Team meeting. Discussed patient's progress in PT/OT and nursing. Pt progressing well. Explained Medicare approved 10 days with DC 05/26. IDT and pt agreeable and will be ready to DC home. Pt requesting HHC. Provided [facility] list with Medicare ratings and data. Pt requesting [facility] PT/OT. Referral made. Pt has family that can transport. No DME needs identified. Plan: DC home with 05/26, [facility] PT/OT SHIRLEY Loya
[2021-05-19] MEDS: Rivaroxaban 10 MG Tablet PO (16:52)
--- NOTE | 2021-05-19 18:51 | PCM.PN.BLA ---
Progress Note Altagracia was seen on team rounds today. Her was not available to participate by phone. Afebrile VSS Maintaining appropriate oxygen saturation on RA Oral intake is approximately 1300 cc daily. She was encouraged to increase her fluid intake. Her resting heart rate is in the high normal range. Discussed with nursing - no problems that need addressed Reviewed the PT/OT notes Medication list reviewed. She denies dizziness, lightheadedness, chest pain, shortness of breath, calf pain, dysuria, nausea/vomiting/abdominal pain and pain in the area of the herpes simplex outbreak. ALert and OX3 NAD sitting in the recliner at the bed side and looks comfortable Lungs - CTA HRRR, no gallop and no MM abd is soft, ND and NT with NL BS's no ankle edema, has some edema of the Left thigh The incision is intact with no erythema and no DC. The herpes simplex rash on the R buttock has no vesicles and she has dried scabs now. Impression 1. Left hip fracture from a fall - S/P L hemiarthroplasty on 05/14/[address] Conn 2. herpes simplex lesion on the R buttock - has dried up with Zovirax cream 3. osteopenia - continue Calcium and Vitamin D supplementation 4. Continue therapy Visit Charges Inpatient E&M: 94428 [facility] Hosp L1
[2021-05-19 19:35] VITALS: PULSE 90; RESP 16; O2SAT 98
[2021-05-19 21:16] VITALS: BP 141/77; PULSE 103; RESP 17; TEMP 36.5; O2SAT 99
[2021-05-19] MEDS: clonazePAM 0.5 MG Tablet 2 MG PO (21:52)
--- NOTE | 2021-05-20 03:34 | NURSING ---
Reviewed and agreed with documentation and assessment charting.
[2021-05-20] MEDS: Acetaminophen 500 MG Tablet 1000 MG PO ×3 (06:06→19:56)
[2021-05-20] MEDS: Levothyroxine 88 MCG Tablet PO (06:07)
[2021-05-20] MEDS: Acyclovir 5% Tube 1 APPLIC TOPICAL ×2 (06:07→09:22)
[2021-05-20] MEDS: Multivitamins,Ther W-Minerals Tablet 1 TABLET PO (07:48)
[2021-05-20] MEDS: Calcium Carbonate 500 MG Tablet PO ×2 (07:48→17:15)
[2021-05-20 07:50] VITALS: BP 128/77; PULSE 94; RESP 16; TEMP 36.8; O2SAT 97
[2021-05-20] MEDS: Cholecalciferol (VIT D3) 25 MCG TABLET (1,000 UNITS) PO (09:22)
[2021-05-20] MEDS: Senna/Docusate Sodium 1 Tablet 2 TABLET PO (09:22)
--- NOTE | 2021-05-20 11:25 | PCM.PN.BLA ---
Progress Note Afebrile Resting heart rate is still in the upper limits of normal and patient admits to being anxious. She is maintaining appropriate oxygen saturation on room air Blood pressure is controlled Oral intake is good. Nursing reports that she has a new area on the mons Pubis that has a rash. Altagracia denies pain in the R buttock and also denies pain of the pubic lesion. She has no myalgias and no F/C/S. She gets these rashes periodically and states she has self diagnosed herself as having Herpes. She does get cold sores. She generally uses Zovirax ointment and they resolve. She denies any burning with urination. She has never had a primary genital herpes infection. she has never had shingles and she has had a Zostavax vaccine in the past. The patchy lesion on the R buttock has dried up and is scabbed right now. there is an area on the mons pubis that has a few small pustules.......difficult to say whether they are pustules or vesicles. There is no erythema around the area and there is no pain. The yeast infection/intertrigo of the Left groin/thigh has resolved. She has a resolving bruise on the left buttock. Impressions 1. Herpes simplex infection - new lesion today.....likely related to the stress of the fracture/surgery/pain and not being at home. Will DC the Acyclovir topical and start PO Acyclovir. Check a HSV 1 and HSV 2 IgG Visit Charges Inpatient E&M: 69281 [facility] Hosp L1
[2021-05-20] MEDS: Acyclovir 200 MG Capsule PO ×3 (13:16→19:57)
[2021-05-20] MEDS: Rivaroxaban 10 MG Tablet PO (17:15)
[2021-05-20 19:16] VITALS: BP 108/60; PULSE 77; RESP 17; TEMP 36.2; O2SAT 97
[2021-05-20 19:30] VITALS: PULSE 77; RESP 17; O2SAT 97
[2021-05-20] MEDS: Nystatin Powder 15gm Bottle 1 APPLIC TOPICAL (19:57)
[2021-05-20] MEDS: clonazePAM 0.5 MG Tablet 2 MG PO (21:30)
--- NOTE | 2021-05-21 03:42 | NURSING ---
Reviewed and agree with R D INTERN documentation and assessment charting.
[2021-05-21] MEDS: Levothyroxine 88 MCG Tablet PO (04:41)
[2021-05-21] MEDS: Acyclovir 200 MG Capsule PO ×5 (04:41→20:43)
[2021-05-21] MEDS: Acetaminophen 500 MG Tablet 1000 MG PO ×3 (04:41→20:43)
[2021-05-21] MEDS: Calcium Carbonate 500 MG Tablet PO ×2 (07:50→17:02)
[2021-05-21] MEDS: Multivitamins,Ther W-Minerals Tablet 1 TABLET PO (07:50)
[2021-05-21 08:59] VITALS: BP 127/77; PULSE 89; RESP 16; TEMP 36.5; O2SAT 97
[2021-05-21] MEDS: Cholecalciferol (VIT D3) 25 MCG TABLET (1,000 UNITS) PO (09:38)
[2021-05-21] MEDS: Rivaroxaban 10 MG Tablet PO (17:02)
[2021-05-21 20:05] VITALS: BP 125/84; PULSE 91; RESP 18; TEMP 36.4; O2SAT 98
[2021-05-21] MEDS: clonazePAM 0.5 MG Tablet 2 MG PO (20:44)
[2021-05-22] MEDS: Levothyroxine 88 MCG Tablet PO (05:40)
[2021-05-22] MEDS: Acetaminophen 500 MG Tablet 1000 MG PO ×3 (05:40→21:02)
[2021-05-22] MEDS: Acyclovir 200 MG Capsule PO ×5 (05:40→21:02)
[2021-05-22] MEDS: Nystatin Powder 15gm Bottle 1 APPLIC TOPICAL (07:42)
[2021-05-22] MEDS: Cholecalciferol (VIT D3) 25 MCG TABLET (1,000 UNITS) PO (07:47)
[2021-05-22] MEDS: Calcium Carbonate 500 MG Tablet PO ×2 (07:47→18:36)
[2021-05-22] MEDS: Multivitamins,Ther W-Minerals Tablet 1 TABLET PO (07:47)
[2021-05-22 09:13] LABS: HSV 2 IgG 5.34 index (0.00-0.90)
[2021-05-22 09:58] VITALS: BP 142/79; PULSE 88; RESP 16; TEMP 36.3
[2021-05-22] MEDS: Rivaroxaban 10 MG Tablet PO (18:37)
[2021-05-22 19:39] VITALS: BP 113/57; PULSE 93; RESP 16; TEMP 35.9; O2SAT 95
[2021-05-22] MEDS: clonazePAM 0.5 MG Tablet 2 MG PO (21:03)
[2021-05-23] MEDS: Acetaminophen 500 MG Tablet 1000 MG PO ×3 (06:23→21:25)
[2021-05-23] MEDS: Acyclovir 200 MG Capsule PO ×5 (06:23→21:24)
[2021-05-23] MEDS: Levothyroxine 88 MCG Tablet PO (06:23)
[2021-05-23] MEDS: Multivitamins,Ther W-Minerals Tablet 1 TABLET PO (07:30)
[2021-05-23] MEDS: Cholecalciferol (VIT D3) 25 MCG TABLET (1,000 UNITS) PO (07:30)
[2021-05-23] MEDS: Calcium Carbonate 500 MG Tablet PO ×2 (07:30→18:30)
[2021-05-23] MEDS: Nystatin Powder 15gm Bottle 1 APPLIC TOPICAL ×2 (07:31→21:23)
[2021-05-23] MEDS: Senna/Docusate Sodium 1 Tablet 2 TABLET PO ×2 (07:32→21:24)
[2021-05-23 09:03] VITALS: BP 137/77; PULSE 93; RESP 12; TEMP 36.5; O2SAT 96
[2021-05-23] MEDS: Rivaroxaban 10 MG Tablet PO (18:30)
--- NOTE | 2021-05-23 18:44 | NURSING ---
Left message with PCP office to make discharge appt and no call back yet.
--- NOTE | 2021-05-23 18:52 | PCM.PN.BLA ---
Progress Note Afebrile VSS Maintaining appropriate oxygen saturation on RA Oral intake is good Discussed with nursing - no problems that need addressed Reviewed the PT/OT notes Medication list reviewed. She tells me that the lesions on the R buttock and the mons pubis have resolved. She has no pain. She denies shortness of breath, cough, sore throat, chest pain, palpitations, calf pain, nausea/vomiting/abdominal pain, dysuria. She is sleeping well and her bowels are moving normally. Physical Exam Const alert, oriented x3 and no apparent distress HEENT moist oral mucous membranes Resp clear to auscultation bilaterally Cardio regular rate, regular rhythm and no gallops GI normal to inspection, nondistended, normoactive bowel sounds and soft to palpation Extremity no calf tenderness and no pedal edema Skin Skin Narrative: the areaa on the mons pubis and the R buttock and the R side of the anal cleft are all dry and scabbed with no erythematous base and no DC. Assessment & Plan Assessment/Plan (1) History of left hip hemiarthroplasty: (2) Herpes dermatitis: (3) Physical debility: (4) Closed left hip fracture: PLAN: 1. Continue the Acyclovir 5X's a day for a total of 10 days 2. Plan DC on Sunday 3. Continue therapy 4. Recommend a DEXA following DC since she has not had one since 2018 Visit Charges Inpatient E&M: 25105 [facility] Hosp L2
[2021-05-23 20:29] VITALS: BP 129/85; PULSE 91; RESP 16; TEMP 36.5; O2SAT 99
[2021-05-23] MEDS: clonazePAM 0.5 MG Tablet 2 MG PO (21:24)
[2021-05-24] MEDS: Levothyroxine 88 MCG Tablet PO (05:01)
[2021-05-24] MEDS: Acyclovir 200 MG Capsule PO ×5 (05:01→21:18)
[2021-05-24] MEDS: Acetaminophen 500 MG Tablet 1000 MG PO ×3 (05:01→21:16)
[2021-05-24] MEDS: Cholecalciferol (VIT D3) 25 MCG TABLET (1,000 UNITS) PO (07:55)
[2021-05-24] MEDS: Multivitamins,Ther W-Minerals Tablet 1 TABLET PO (07:55)
[2021-05-24] MEDS: Calcium Carbonate 500 MG Tablet PO ×2 (07:55→17:01)
[2021-05-24 08:32] VITALS: BP 143/77; PULSE 100; RESP 18; TEMP 36.6; O2SAT 99
[2021-05-24] MEDS: Nystatin Powder 15gm Bottle 1 APPLIC TOPICAL (09:59)
--- NOTE | 2021-05-24 13:49 | NURSING ---
Patient scheduled tylenol switched to PRN due to patient constant report of no pain and request to take less tylenol.
[2021-05-24] MEDS: Rivaroxaban 10 MG Tablet PO (17:01)
[2021-05-24 21:10] VITALS: BP 138/73; PULSE 91; RESP 16; TEMP 36.5; O2SAT 99
[2021-05-24] MEDS: clonazePAM 0.5 MG Tablet 2 MG PO (21:17)
[2021-05-25] MEDS: Levothyroxine 88 MCG Tablet PO (05:32)
[2021-05-25] MEDS: Acyclovir 200 MG Capsule PO ×5 (05:32→20:46)
[2021-05-25] MEDS: Multivitamins,Ther W-Minerals Tablet 1 TABLET PO (07:38)
[2021-05-25] MEDS: Calcium Carbonate 500 MG Tablet PO ×2 (07:38→16:25)
[2021-05-25] MEDS: Cholecalciferol (VIT D3) 25 MCG TABLET (1,000 UNITS) PO (07:39)
[2021-05-25 07:54] VITALS: BP 130/79; PULSE 88; RESP 16; TEMP 36.4; O2SAT 96
--- NOTE | 2021-05-25 14:51 | PCM.DC ---
Discharge Instructions Diet Discharge Diet: No restrictions Activity Discharge Activity: May Not Drive, May Shower and Use Walker (or a cane) May shower in (days): 1 Ice area for (Minutes): 15 Weight Bearing Status: Weight bearing as tolerated Lifting Restrictions: 5 lbs Keep extremity elevated above heart level: Left Leg Dressing / Incision Call your doctor if your incision/area has: Continuous Slow Oozing, Increased Pain/ Swelling, Increased Redness and Foul Smelling Discharge Call your doctor if you observe: Fever of 101 or Higher, Shortness of breath, Chest pain, Increased palpitations (irregular heartbeat) and Uncontrolled pain Suture Line Care: Avoid Pulling/Pushing and Avoid Pinching/Bending Cleanse incision/area with: Soap & Water Additional Dressing/Incision Instructions:: OK to leave the incision open to air or you can cover with a dry dressing if desired. Follow Up Care Please Follow Up With: Chilango Conn DO Test Results: Test results from this visit will be discussed in further detail at your follow-up appointment, if applicable. Pending Tests Upon Discharge: none Discharge Plan Admission Admit Date/Time: 05/16/21 14:30 Primary Reason for Your Visit: debility Attending Provider: Amy Griffiths Primary Care Provider: Elodia Sevilla Consulting Providers: Chilango Conn Instructions Additional Instructions / Restrictions: 1. Remember to keep the hip precautions....... No flexing of the hip greater than 90 degrees, Do not cross your legs and No twisting. Until there is more healing/scarring if you do not adhere to the precautions the hip may dislocate. 2. Ice the hip 10-15 minutes after exercise and PRN for pain control. 3. Do the exercises given to you by the therapists at least once a day. 4. Elevate the Left leg when you are sitting in a chair to help with swelling. 5. You have done great in rehab and you will be fine at home. Remember your job at this time is to take care of YOU......make yourself a priority. 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 6. You had a bone density in 2018 that shows you have bone loss. On that study you also had a 60% loss of height of the first lumbar vertebrae and this is usually due to a compression fracture. It is time to have another bone density study called a DEXA. You can discuss this with Dr. Sevilla. 7. It was a pleasure to meet you. If you have any questions after you leave rehab please feel free to call me Office [phone] Cell - [phone] Discharge Orders/Prescriptions Prescriptions: New acetaminophen 500 mg Tablet 1,000 mg PO Q6H PRN PRN (Reason: Pain Score 1-10) Qty: 0 RF: 0 oxycodone 5 mg Tablet 5 - 10 mg PO Q6H PRN PRN (Reason: Pain Score 1-10) 7 Days Qty: 14 RF: 0 calcium carbonate 200 mg calcium (500 mg) Tablet,Chewable 500 mg PO BIDCM Qty: 0 RF: 0 acyclovir 200 mg Capsule 200 mg PO 5X/DAY Qty: 15 RF: 0 cholecalciferol (vitamin D3) 25 mcg (1,000 unit) Tablet 25 mcg PO DAILY Qty: 30 RF: 0 Continued Complete Multivitamin tablet 1 tab PO DAILY RF: 0 clonazepam 1 MG tablet 2 mg PO QHS PRN PRN (Reason: Sleep) RF: 0 Florajen Digestion 15 billion cell Capsule 1 cap PO QHS RF: 0 Xarelto 10 mg tablet 10 mg PO DAILY@DINNER 8 Days Qty: 0 RF: 0 Discontinued oxycodone 5 mg Tablet 5 - 10 mg PO Q6H PRN PRN (Reason: Pain Score 1-10) Qty: 0 RF: 0 acetaminophen 500 mg tablet 1,000 mg PO TID RF: 0 No Action levothyroxine 88 mcg Tablet 88 mcg PO DAILY RF: 0 Referrals / Follow Up: Elodia Sevilla MD [Primary Care Provider] - 06/03/21 11:00 am Chilango Conn DO [STAFF PHYSICIAN] - 05/31/21 10:15 am Disposition Disposition (needs filled in before D/C Order can be placed): Home Health Service
[2021-05-25] MEDS: Rivaroxaban 10 MG Tablet PO (16:28)
--- NOTE | 2021-05-25 17:30 | PCM.DC.SUM ---
Providers Date of Admission: 05/16/21 Date of Discharge: 05/26/21 Primary Care Physician: MD Dr. Chilango Coats Reason For Visit: LEFT HIP FRACTURE Diagnosis Discharge Diagnosis (1) Closed fracture of neck of left femur: Status: Resolved Code(s): S72.002A - Fracture of unspecified part of neck of left femur, initial encounter for closed fracture Qualifiers: Encounter type: initial encounter Qualified Code(s): S72.002A - Fracture of unspecified part of neck of left femur, initial encounter for closed fracture (2) History of left hip hemiarthroplasty: Status: Acute Code(s): Z96.642 - Presence of left artificial hip joint (3) Physical debility: Status: Acute Code(s): R53.81 - Other malaise (4) Osteopenia: Status: Chronic Code(s): M85.80 - Other specified disorders of bone density and structure, unspecified site (5) Herpes dermatitis: Status: Resolved Code(s): B00.89 - Other herpesviral infection (6) Intertrigo: Status: Resolved Code(s): L30.4 - Erythema intertrigo (7) Anemia due to blood loss, acute: Status: Acute Code(s): D62 - Acute posthemorrhagic anemia Plan: DC home with [facility]. Will follow up with Dr. Conn and Dr. Elodia Sevilla. Medications at Discharge Home Medications clonazepam 2 mg PO QHS PRN PRN 11/01/17 multivitamin,na-hdya-emndoffw 1 tab PO DAILY 07/11/18 Florajen Digestion 1 cap PO QHS 05/13/21 levothyroxine 88 mcg PO DAILY 05/16/21 Xarelto 10 mg PO DAILY@DINNER 8 Days #0 tab 05/25/21 acetaminophen 1,000 mg PO Q6H PRN PRN #0 tab 05/25/21 acyclovir 200 mg PO 5X/DAY #15 cap 05/25/21 calcium carbonate 500 mg PO BIDCM #0 tab 05/25/21 cholecalciferol (vitamin D3) 25 mcg PO DAILY #30 tab 05/25/21 oxycodone 5 - 10 mg PO Q6H PRN PRN 7 Days #14 tab 05/25/21 Hospital Course Operations - (Left hip hemiarthroplasty by Dr. Conn on 05/14/21. Posterior approach.) Procedures None Summary of Care Provided Minutes Spent on Discharge: 35 Hospital Course: XENA MESSER, is a 70 YO F with a PMH of Hypothyroidism (hx of thyroidectomy for goiter), tobacco dependence in remission, Chronic insomnia, osteopenia, chronic Klonopin use and dystonia who presented to the ED at [facility] on 05/13/21 after a fall at home. She was complaining of Left hip pain. Plain films in the emergency department showed an acute left femoral neck fracture. She was admitted to the hospital and Dr. Conn was consulted. She was taken to surgery on 05/14/2021 and underwent left hip hemiarthroplasty by Dr. Conn. She was seen by PT/OT and acute rehab was recommended. She was transferred to the acute inpt rehab unit at [facility] on 05/16/21 for >3H of therapy daily to restore function at or near her prior level of function. Pain was adequately controlled with scheduled Tylenol at presentation to rehab and she never needed to take a narcotic. She did not have a vitamin D level in the hospital but, review of prior labs shows the vitamin D level has been good and she takes calcium and Vitamin D supplementation chronically. She has not had a bone density scan since 2018 and this showed osteopenia and a 60% loss of height of L1 more likely than not due to a compression fracture in the past. While in rehab she developed a patchy area of vesicles on the R buttock and told me that she has had this in the past and she applies Abreva and it goes away. Zovirax ointment was ordered and it started to dry up but, then another area appeared on the mons Pubis. This is likely due to the stress of the fracture then the surgery then pain and finally she was stressed out in rehab for the first few days. She was transitioned to oral acyclovir 5 times daily for 10 days. At the time of discharge the 2 patchy areas were dry and scabbed over. She denied pain at DC. 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 She denied any hx of a primary genital infection. She has had Zostavax in the past. She did very well in therapy and prior to DC she could ascend/descend 20 steps with 2 HR's at SBA. She was able to do 15 sit to stands in 30 sec. She was able to ambulate 300' with a ST cane on various surfaces at [facility]. She was independent with eating and modified independent with grooming, bathing, upper and lower body dressing, toilet transfer and toileting and bath/shower transfer. She was discharged home with [facility] for PT/OT on 05/26/21. She needed no DME at [place]. she will follow up with Dr. Conn on 05/31/21 and she will also F/U cece Dr. Sevilla. I recommended to [facility] that she ask Dr. Sevilla about obtaining another DEXA since she has not had one since 2018. She refused the RX for Oxycodone. She will resume the calcium and Vitamin D she has at home. The josafat were removed from the hip incision on the day of DC. She is able to recite her hip precautions to me at the time of DC. Physical Exam Const alert, oriented x3, no apparent distress and healthy appearing General Appearance: cooperative, comfortable, well kempt and well developed HEENT moist oral mucous membranes Eyes PERRL and EOMs intact bilaterally Neck no lymphadenopathy General: trachea midline Resp normal respiratory effort, normal air movement and clear to auscultation bilaterally Resp Narrative: able to speak in full sentences Effort and Inspection: Negative for uses accessory muscles Auscultation: Negative for rales, rhonchi or wheezes Cardio regular rate, regular rhythm, S1 normal heart sound, S2 normal heart sound, no murmurs, no rub and no gallops Cardio Narrative: no ectopy Palpation: normal PMI GI normal to inspection, nondistended, normoactive bowel sounds and soft to palpation Extremity General Extremity: Negative for clubbing, cyanosis or edema Skin Skin Narrative: The herpes simplex rash on the R buttock and the mons pubis is only a few purplish macules now. No vesicles and no eschars. Neuro CN's II-XII intact bilaterally, no focal motor deficits and no sensory deficits noted Motor Exam: strength 5/5 throughout Psych affect normal Appearance: appropriate Weight / BMI Weight Weight: 136 lb 3.931 oz Body Mass Index (BMI) 23.3 D/C Instructions Discharge Diet: No restrictions May shower in (days): 1 Ice area for (Minutes): 15 Weight Bearing Status: Weight bearing as tolerated Keep extremity elevated above heart level: Left Leg Call your doctor if your incision/area has: Continuous Slow Oozing, Increased Pain/ Swelling, Increased Redness and Foul Smelling Discharge Call your doctor if you observe: Fever of 101 or Higher, Shortness of breath, Chest pain, Increased palpitations (irregular heartbeat) and Uncontrolled pain Suture Line Care: Avoid Pulling/Pushing and Avoid Pinching/Bending Cleanse incision/area with: Soap & Water Additional Dressing/Incision Instructions: OK to leave the incision open to air or you can cover with a dry dressing if desired. Pending Tests Upon Discharge: none Please Follow Up With: Chilango Conn, DO Meaningful Use Info Meaningful Use Diagnoses (Choose all that apply): None applicable Discharge Plan Admission Admit Date/Time: 05/16/21 14:30 Primary Reason for Your Visit: debility Attending Provider: Amy Griffiths Primary Care Provider: Elodia Sevilla Consulting Providers: Chilango Conn Instructions Additional Instructions / Restrictions: 1. Remember to keep the hip precautions....... No flexing of the hip greater than 90 degrees, Do not cross your legs and No twisting. Until there is more healing/scarring if you do not adhere to the precautions the hip may dislocate. 2. Ice the hip 10-15 minutes after exercise and PRN for pain control. 3. Do the exercises given to you by the therapists at least once a day. 4. Elevate the Left leg when you are sitting in a chair to help with swelling. 5. You have done great in rehab and you will be fine at home. Remember your job at this time is to take care of YOU......make yourself a priority. You need to balance exercise and rest to allow the bone to heal correctly so that you do not have longterm problems with ambulating. 6. You had a bone density in 2018 that shows you have bone loss. On that study you also had a 60% loss of height of the first lumbar vertebrae and this is usually due to a compression fracture. It is time to have another bone density study called a DEXA. You can discuss this with Dr. Sevilla. 7. It was a pleasure to meet you. If you have any questions after you leave rehab please feel free to call me Office [phone] cell - [phone] Discharge Orders/Prescriptions Prescriptions: New acetaminophen 500 mg Tablet 1,000 mg PO Q6H PRN PRN (Reason: Pain Score 1-10) Qty: 0 RF: 0 oxycodone 5 mg Tablet 5 - 10 mg PO Q6H PRN PRN (Reason: Pain Score 1-10) 7 Days Qty: 14 RF: 0 calcium carbonate 200 mg calcium (500 mg) Tablet,Chewable 500 mg PO BIDCM Qty: 0 RF: 0 acyclovir 200 mg Capsule 200 mg PO 5X/DAY Qty: 15 RF: 0 cholecalciferol (vitamin D3) 25 mcg (1,000 unit) Tablet 25 mcg PO DAILY Qty: 30 RF: 0 Continued Complete Multivitamin tablet 1 tab PO DAILY RF: 0 clonazepam 1 MG tablet 2 mg PO QHS PRN PRN (Reason: Sleep) RF: 0 Florajen Digestion 15 billion cell Capsule 1 cap PO QHS RF: 0 Xarelto 10 mg tablet 10 mg PO DAILY@DINNER 8 Days Qty: 0 RF: 0 Discontinued oxycodone 5 mg Tablet 5 - 10 mg PO Q6H PRN PRN (Reason: Pain Score 1-10) Qty: 0 RF: 0 acetaminophen 500 mg tablet 1,000 mg PO TID RF: 0 No Action levothyroxine 88 mcg Tablet 88 mcg PO DAILY RF: 0 Referrals / Follow Up: Elodia Sevilla MD [Primary Care Provider] - 06/03/21 11:00 am Chilango Conn DO [STAFF PHYSICIAN] - 05/31/21 10:15 am Disposition Disposition (needs filled in before D/C Order can be placed): Home Health Service Charges/Coding Visit Charges Inpatient E&M: 39252 Disch Hosp
[2021-05-25 19:03] VITALS: BP 118/69; PULSE 96; RESP 18; TEMP 36.2; O2SAT 98
[2021-05-25] MEDS: clonazePAM 0.5 MG Tablet 2 MG PO (20:46)
[2021-05-26] MEDS: Acyclovir 200 MG Capsule PO ×2 (05:08→07:56)
[2021-05-26] MEDS: Levothyroxine 88 MCG Tablet PO (05:08)
[2021-05-26] MEDS: Cholecalciferol (VIT D3) 25 MCG TABLET (1,000 UNITS) PO (07:56)
[2021-05-26] MEDS: Calcium Carbonate 500 MG Tablet PO (07:56)
[2021-05-26] MEDS: Multivitamins,Ther W-Minerals Tablet 1 TABLET PO (07:56)
[2021-05-26 08:01] VITALS: BP 130/75; PULSE 93; RESP 12; TEMP 36.8; O2SAT 97
--- NOTE | 2021-05-26 13:47 | NURSING ---
pt discharged home via car transport with neighbor. discharge instructions given and pt denies questions or concerns.
== END 2021-05-26 13:50 | disposition home health service (06) | DRG 560 ==
PROVIDERS: Admitting Provider Internal Medicine; PCP Family Medicine; Visit Provider Internal Medicine
DX: S72.002D Fracture of unspecified part of neck of left femur, subsequent encounter for closed fracture with routine healing (principal); B00.89 Other herpesviral infection; E89.0 Postprocedural hypothyroidism; G24.9 Dystonia, unspecified; W19.XXXD Unspecified fall, subsequent encounter; L30.4 Erythema intertrigo; F32.A Depression, unspecified; F51.04 Psychophysiologic insomnia; Z96.642 Presence of left artificial hip joint; Z87.891 Personal history of nicotine dependence; M85.80 Other specified disorders of bone density and structure, unspecified site; Z79.01 Long term (current) use of anticoagulants; Z79.899 Other long term (current) drug therapy; Z79.890 Hormone replacement therapy
CPT/HCPCS: 36415; 82040; 83735; 83970; 84100; 86695; 86696; 97110; 97116; 97162; 97166; 97530; 97535; 97802; A4216

== ENCOUNTER 2021-06-16 14:58 | Outpatient (CLI) | payer MEDICARE, OTHER, SELFPAY ==
--- NOTE | 2021-06-16 15:01 | BI_ITS ---
MAMMOGRAPHY - BILATERAL SCREENING REASON FOR EXAM: Female, 70 years old. Routine annual screening examination. PERTINENT HISTORY: Aunt with breast cancer. TECHNIQUE: Digital bilateral breast luz maria (3D mammographic acquisition) in the CC and MLO projections. 2-D mediolateral oblique (MLO) and craniocaudad (CC) views of both breasts were obtained. CAD: Full Field Digital Mammography with Computer Added Detection was performed. COMPARISON: Comparison is made with prior study dated 05/31/2020 and 05/28/2019 FINDINGS: Breast Composition: The breasts are heterogeneously dense, which may obscure small masses. Focal collection of microcalcifications seen in the upper lateral aspect of the left breast. This was not present on prior examination. The patient will be recalled for additional views including magnification spot views. No other significant abnormalities are identified. BI/SCRN MAMM (CAD)W/LUZ MARIA BILAT IMPRESSION: Focal microcalcifications in the anterior upper lateral aspect of the left breast. The patient will be recalled for additional views including compression spot views. Recall Side: Left Breast ASSESSMENT CATEGORY: BIRADS Category 0: Incomplete. Need additional imaging evaluation. A letter regarding these results will be sent to the patient by the facility within 30 days. Approximately 10% of breast cancers are not detected by mammography. A normal mammogram should not delay biopsy of a clinically suspicious abnormality. [id number] Electronically Signed: Eddie Friedman MD at 8:54 EST ,
--- NOTE | 2021-06-16 15:03 | BD_ITS ---
STUDY: DUAL ENERGY X-RAY ABSORPTIOMETRY / DXA REASON FOR EXAM: Female, 70 years old. Z78.0. Patient is postmenopausal. TECHNIQUE: Bone Mineral Density (BMD) measurements of lumbar spine and right hip were obtained. COMPARISON: Comparison is made with prior study dated 08/23/2017. FINDINGS: Lumbar Spine (L1-L4): g/cm2 (1.110) / T-score (0.3) / Z-score (2.4) Findings are suggestive of normal bone density with a low fracture risk. Right Femur Total: g/cm2 (0.762) / T-score (-1.5) / Z-score (0.0) Right Femoral Neck: g/cm2 (0.742) / T-score (-1.0) / Z-score (0.8) The T-Scores on the most recent prior examination were: Lumbar Spine (L1-L4): There has been worsening of bone density since the previous examination. Right Femur Total: which represents a worsening of 6%. BD/Dexa Bone Density Study IMPRESSION: The patient is considered osteopenic as outlined below according to World Haim Organization (WHO) criteria with a low fracture risk. There has been worsening of bone density since the previous examination. Reference Information: The T-score is the number of standard deviations above or below the standard which is normal for young adults at their peak bone mineral density. The World Health Organization (WHO) interprets the T-scores as follows: Above -1 Normal bone density Between -1 and -2.5 Osteopenia Equal to / or below -2.5 Osteoporosis As a practical clinical guideline, osteopenia may be graded as follows: Mild -1 through -1.5 Moderate -1.6 through -2.0 Severe -2.1 through -2.4 The Z-score is the number of standard deviations above or below age-matched controls. A Z-score of less than -1.5 would be considered abnormal. References: 1. NIH Osteoporosis and Related Bone Diseases www osteo.org 2. International Society for Clinical Densitometry www iscd.org 3. National Osteoporosis Foundation www nof.org Electronically Signed: Eddie Friedman MD at 13:55 EST ,
== END 2021-06-16 23:59 | disposition home or self-care (01) ==
LOC: OPBD 15:00
PROVIDERS: PCP Family Medicine; Visit Provider Family Medicine
DX: Z12.31 Encounter for screening mammogram for malignant neoplasm of breast (principal); R92.0 Mammographic microcalcification found on diagnostic imaging of breast; Z13.820 Encounter for screening for osteoporosis; S72.002D Fracture of unspecified part of neck of left femur, subsequent encounter for closed fracture with routine healing; Z78.0 Asymptomatic menopausal state
CPT/HCPCS: 77063; 77067; 77080

== ENCOUNTER 2021-06-22 14:28 | Outpatient (CLI) | payer MEDICARE, OTHER, SELFPAY ==
--- NOTE | 2021-06-22 14:30 | BI_ITS ---
MAMMOGRAPHY - UNILATERAL DIAGNOSTIC: LEFT BREAST REASON FOR EXAM: Female, 70 years old. Abnormal screening mammogram. PERTINENT HISTORY: Aunt with breast cancer. TECHNIQUE: Compression spot views of the left breast were obtained in the mediolateral oblique and craniocaudad projections. CAD: Full Field Digital Mammography with Computer Added Detection was performed. COMPARISON: Comparison is made with prior study dated 06/16/2021. FINDINGS: Breast Composition: The breasts are heterogeneously dense, which may obscure small masses. The cluster microcalcifications are once again visualized. Biopsy recommended. No other significant abnormalities are identified. BI/DIAG MAMM W/CAD, UNILAT IMPRESSION: Focal cluster microcalcification is seen in the upper lateral aspect of the left breast. Biopsy recommended. ASSESSMENT CATEGORY: BIRADS Category 4: Suspicious - Biopsy Should Be Considered. A letter regarding these results will be sent to the patient by the facility within 30 days. Approximately 10% of breast cancers are not detected by mammography. A normal mammogram should not delay biopsy of a clinically suspicious abnormality. Electronically Signed: Eddie Friedman MD at 15:01 EST ,
== END 2021-06-22 23:59 | disposition home or self-care (01) ==
LOC: OPBI 14:28
PROVIDERS: PCP Family Medicine; Visit Provider Family Medicine
DX: R92.0 Mammographic microcalcification found on diagnostic imaging of breast (principal)
CPT/HCPCS: 77065

== ENCOUNTER 2021-06-29 09:25 | Outpatient (CLI) | payer MEDICARE, OTHER, SELFPAY ==
--- NOTE | 2021-06-29 09:40 | BRBX_PTH ---
PATIENT: XENA MESSER LOC: [facility] U#:[id number] AGE/SX: 70/F ROOM: RE06/29/[address]: Dr. Georgia Montenegro MD : 1950 BED: DIS: 06/29/2021 SPEC #: [id number] RECD: 06/29/21 10:30 STATUS: JAMES REQ #: [id number] NANDINI: 06/29/21 09:[address]: Georgia Montenegro DEPT: SURGICAL PATHOLOGY RECD BY: Skye Lam ENTERED: 06/29/21 11:26 SP TYPE: BREAST BX OTHR DR: Dr. 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 AM:gillian 06/30/2021 MICROSCOPIC DESCRIPTION Slides are reviewed. GROSS DESCRIPTION Received is one container labeled with the patient's name and not further designated. The specimen consists of multiple irregular and elongated fragments of yellow-cary tissue that in aggregate measure 4 x 3 x 0.2 cm. The specimen is totally submitted in two cassettes. / AM:gillian 06/29/2021 TC:5 CPT: 15907
--- NOTE | 2021-06-29 10:15 | OP.PCM_ITS ---
Report of Operation Date of Procedure: 06/29/21 Pre-Operative Diagnosis: Left breast upper outer quadrant microcalcifications Post-Operative Diagnosis: Same Surgery/Procedure Performed:: Stereotactic biopsy of the left breast upper outer quadrant Surgeon: Georgia Montenegro Type of Anesthesia: Local Specimen's removed: 1. Microcalcifications upper outer quadrant left breast Description of Procedure: Procedure: Left stereotactic core biopsy Indications: 70 year-old female with microcalcifications in the upper outer quadrant of the left breast. Risk benefits were discussed the patient and she elected to proceed with stereotactic core biopsy with clip placement Description of procedure: Patient was brought into the mammography suite and laid prone on the stereotactic table. A timeout was completed verifying correct patient, procedure, site, specially, prior to beginning procedure. The left breast was prepped and draped in usual sterile fashion and using local anesthesia was obtained with 1% lidocaine with epi. Patient's left breast was positioned and placed into compression. Initial film showed calcifications are in the center of the compression paddle. 15? views were then taken. The calcifications were localized. The left breast was prepped draped in usual sterile fashion. An 8-gauge mammotome was set up according to the digital coor dinates. The tract of the mammotome was anesthetized with local anesthesia and an incision was made with the 11 blade scalpel at the entry site. The mammotome was advanced to the prefire state. Pre-prior films were checked and verified. The mammotome was fired. Post fire films were also checked and verified. Biopsies were taken from 9:00 to 2:00. The specimen was x-rayed and all the calcifications were within the specimen. Mammotome Petite clip was placed at the 12 o'clock position. The mammotome was removed from the breast. An additional films were taken which showed that targeted calcifications were removed and a clip was in place. Pressure was held for hemostasis. Once hemostasis was assured the wound was dressed with Steri-Strips and OpSite. Patient also underwent a 2 view mammography. The patient tolerated the procedure well and was discharged from the mammography suite good condition. Complications none
== END 2021-06-29 23:59 | disposition home or self-care (01) ==
PROVIDERS: PCP Family Medicine; Referring Provider Surgery; Visit Provider Surgery
DX: R92.8 Other abnormal and inconclusive findings on diagnostic imaging of breast (principal)
CPT/HCPCS: 19082; 19081; 88305; J7050

== ENCOUNTER → 2021-09-21 | Outpatient (CLI) | payer MEDICARE, OTHER, SELFPAY ==
[2021-09-21 15:17] LABS: Absolute Lymphocyte Count 1.36 X10^3/uL (0.83-4.51); Absolute Neutrophil Count 3.2 X10^3/uL (2.0-7.7); Basophil# 0.05 X10^3/uL; Eosinophil# 0.07 X10^3/uL; Eosinophils% 1.4 % (0-5); Hematocrit 41.5 % (37-47); Hemoglobin 13.7 g/dL (12.0-15.0); Lymphocyte # 1.36 X10^3/ul (0.83-4.51); Lymphocyte % 27.2 % (19-41); Mean Corpuscular Hgb 31.4 pg (27.0-32.0); Mean Corpuscular Volume 95.2 fL (81-99); Mean Platelet Vol. 10.4 fl (6.2-12.0); Monocyte# 0.33 X10^3/uL; Monocyte% 6.6 % (0-10); NRBC Flagged by Analyzer 0 % (0-5); Neutrophil # 3.17 X10^3/uL (2.7-7.7); Neutrophil % 63.4 % (47-70); Platelet Count 218 K/mm3 (150-450); RBC Distribution Width CV 14.7 % (11.6-14.6); RBC Distribution Width SD 52.1 fl (35.1-43.9); Red Blood Count 4.36 M/mm3 (4.2-5.4)
[2021-09-21 15:48] LABS: ALB/GLOB Ratio 1.3 RATIO (0.9-2.4); AST(SGOT) 20 U/L (15-37); Alanine Aminotransfer ALT/SGPT 23 U/L (13-56); Albumin, Serum 3.9 g/dL (3.2-5.0); Alkaline Phosphatase 66 U/L (45-117); Anion Gap 5 (5-15); BUN 16 mg/dL (7-18); BUN/Creat Ratio 18.9 RATIO (10-20); Calcium,Total 9.3 mg/dL (8.5-10.1); Chloride 106 mmol/L (98-107); Cholesterol 171 mg/dL (200); Creatinine, Serum 0.85 mg/dL (0.55-1.02); EST Glomerular Filtration Rate 71 mL/min (>60); Est Glom Filt Rate - Afr Amer 85 mL/min (>60); Glucose 87 mg/dL (74-106); High Density Lipoprotein 62 mg/dL; Potassium 3.7 mmol/L (3.5-5.1); Protein, Total 6.9 g/dL (6.4-8.2); Sodium Level 140 mmol/L (136-145); T4 Free Direct 1.55 ng/dL (0.76-1.46); Thyroid Stim Hormone (TSH) 1.09 uIU/mL (0.358-3.74); Triglycerides 52 mg/dL; Very Low Density Lipoprotein 10 mg/dL (5-40)
[2021-09-21 16:32] LABS: Vitamin D,25 Hydroxy 91.6 ng/mL
== END | disposition home or self-care (01) ==
LOC: MTLAB 13:42
PROVIDERS: PCP Family Medicine; Referring Provider Family Medicine; Visit Provider Family Medicine
DX: E03.9 Hypothyroidism, unspecified (principal); E55.9 Vitamin D deficiency, unspecified; G24.9 Dystonia, unspecified
CPT/HCPCS: 36415; 80053; 80061; 82306; 84439; 84443; 85025

== ENCOUNTER → 2022-11-07 | Outpatient (CLI) | payer MEDICARE, OTHER, SELFPAY ==
[2022-11-07 15:32] LABS: Absolute Lymphocyte Count 1.32 X10^3/uL (0.83-4.51); Basophil# 0.08 X10^3/uL; Basophil% 1.6 % (0-1); Eosinophil# 0.23 X10^3/uL; Eosinophils% 4.6 % (0-5); Hematocrit 44.3 % (37-47); Hemoglobin 14.2 g/dL (12.0-15.0); Lymphocyte # 1.32 X10^3/ul (0.83-4.51); Lymphocyte % 26.5 % (19-41); Mean Corp Hgb Conc 32.1 g/dL (32-36); Mean Corpuscular Hgb 31.7 pg (27.0-32.0); Mean Corpuscular Volume 98.9 fL (81-99); Mean Platelet Vol. 10.9 fl (6.2-12.0); Monocyte# 0.33 X10^3/uL; Monocyte% 6.6 % (0-10); NRBC Flagged by Analyzer 0 % (0-5); Neutrophil # 3.02 X10^3/uL (2.7-7.7); Neutrophil % 60.5 % (47-70); Platelet Count 229 K/mm3 (150-450); RBC Distribution Width CV 14.2 % (11.6-14.6); RBC Distribution Width SD 51.8 fl (35.1-43.9); Red Blood Count 4.48 M/mm3 (4.2-5.4)
[2022-11-07 15:58] LABS: Vitamin D,25 Hydroxy 71.6 ng/mL
[2022-11-07 15:59] LABS: ALB/GLOB Ratio 1.2 RATIO (0.9-2.4); AST(SGOT) 24 U/L (15-37); Alanine Aminotransfer ALT/SGPT 25 U/L (13-56); Albumin, Serum 3.9 g/dL (3.2-5.0); Alkaline Phosphatase 68 U/L (45-117); Anion Gap 4 (5-15); BUN 17 mg/dL (7-18); BUN/Creat Ratio 20.7 RATIO (10-20); Calcium,Total 9.3 mg/dL (8.5-10.1); Chloride 109 mmol/L (98-107); Cholesterol 170 mg/dL (200); Creatinine, Serum 0.82 mg/dL (0.55-1.02); EST Glomerular Filtration Rate 73 mL/min (>60); Est Glom Filt Rate - Afr Amer 88 mL/min (>60); Globulin 3.2 g/dL (2.2-4.2); Glucose 88 mg/dL (74-106); High Density Lipoprotein 73 mg/dL; Protein, Total 7.1 g/dL (6.4-8.2); Sodium Level 141 mmol/L (136-145); T4 Free Direct 1.27 ng/dL (0.76-1.46); Thyroid Stim Hormone (TSH) 1.54 uIU/mL (0.358-3.74); Triglycerides 56 mg/dL; Very Low Density Lipoprotein 11 mg/dL (5-40)
== END | disposition home or self-care (01) ==
LOC: MTLAB 13:09
PROVIDERS: PCP Family Medicine; Referring Provider Family Medicine; Visit Provider Family Medicine
DX: E03.9 Hypothyroidism, unspecified (principal); E55.9 Vitamin D deficiency, unspecified; G24.9 Dystonia, unspecified
CPT/HCPCS: 36415; 80053; 80061; 82306; 84439; 84443; 85025

== ENCOUNTER 2023-01-23 12:36 | Day surgery (SDC) | payer MEDICARE, OTHER, SELFPAY ==
[2023-01-23 13:09] VITALS: BP 126/66; PULSE 73; RESP 16; TEMP 36.2; O2SAT 100; BMI 21.0
[2023-01-23] MEDS: Lactated Ringers 1,000 ML 15 ML IV (13:16)
--- NOTE | 2023-01-23 13:48 | HP.PCM_ITS ---
HPI - General General Date of Admission: 01/23/23 Date of Service: 01/23/23 Chief Complaint: Screening colonoscopy HPI Narrative XENA MESSER, is a 72 F who presents today for surveillance colonoscopy. She had a colonoscopy approximately 5 years ago and had 1 polyp removed. She does not have any abdominal pain. She denies any chest pain or shortness of breath. She denies any weakness. Overall she is in very good health. [facility] Medical History (Updated 01/17/23 @ 13:13 by Nury Ardon) Chronic insomnia Chronic prescription benzodiazepine use Dystonia Former smoker Former tobacco use History of colon polyps History of goiter Hypothyroidism Osteopenia Vertebral fracture, pathological Wears glasses Home Medications clonazepam 1 mg tablet 2 mg PO QHS PRN PRN Sleep 11/01/17 [History Last Taken 05/12/21] multivitamin,ou-fafv-tlwyxdry (Complete Multivitamin tablet) 1 tab PO DAILY supplement 07/11/18 [History Last Taken 05/12/21] L.acidophilus-B.animalis-B.longum 15 billion cell capsule (Florajen Digestion) 1 cap PO QHS digestion 05/13/21 [History Last Taken Unknown] levothyroxine 88 mcg tablet 88 mcg PO DAILY thyroid 05/16/21 [History Last Taken Unknown] acetaminophen 500 mg tablet 1,000 mg (2 x 500 mg) PO Q6H PRN PRN Pain Score 1-10 #0 tabs 05/25/21 [Rx Last Taken Unknown] calcium carbonate 200 mg calcium (500 mg) chewable tablet 500 mg (2.5 x 200 mg calcium (500 mg)) PO BIDCM #0 tabs 05/25/21 [Rx Last Taken Unknown] cholecalciferol (vitamin D3) 25 mcg (1,000 unit) tablet 25 mcg PO DAILY #30 tabs 05/25/21 [Rx Last Taken Unknown] ascorbic acid (vitamin C) 500 mg tablet 500 mg PO DAILY 11/29/22 [History Last Taken Unknown] coenzyme Q10 75 mg capsule (Ultra CoQ10) 75 mg PO DAILY 11/29/22 [History Last Taken Unknown] magnesium oxide 400 mg PO DAILY 11/29/22 [History Last Taken Unknown] omega 2-hzm-xpz-fish oil 300 mg-1,000 mg capsule (Fish Oil) 1 cap PO DAILY 11/29/22 [History Last Taken Unknown] red yeast rice 600 mg capsule 600 mg PO DAILY 11/29/22 [History Last Taken Unknown] turmeric 400 mg capsule 400 mg PO DAILY 11/29/22 [History Last Taken Unknown] zinc gluconate 30 mg tablet 30 mg PO DAILY 11/29/22 [History Last Taken Unknown] Allergy/AdvReac Type Severity Reaction Status Date / Time nitrofurantoin Allergy Rash Verified 01/23/23 13:06 [From Macrobid] Family History (Updated 11/29/22 @ 10:44 by Lizbeth Lei) Father Cancer CVA (cerebral vascular accident) Brother Cancer Mother Alzheimer disease Grandfather Colon cancer Surgical History History of bladder surgery History of left hip hemiarthroplasty History of rotator cuff surgery History of thyroidectomy History of tonsillectomy History of tubal ligation Hx of colonoscopy Hx of left breast biopsy Social History (Updated 11/29/22 @ 10:45 by Lizbeth Lei) household members: spouse housing: other details: Patient lives with her spouse who is wheelchair bound. She is his caregiver current occupational status: retired Smoking Status: Former smoker how long ago did patient quit smoking: Smoked age 15-31 years old, 1 ppd (15 pack year hx). alcohol intake: current alcohol intake frequency: holidays/special occasions only substance use type: does not use ROS Constitutional Constitutional: Denies anorexia, change in weight, chills, fatigue, fever(s), night sweats or weakness Eyes Eyes: Denies blurry vision, change in vision, eye pain or loss of vision ENT HEENT: Reports dry mouth; Denies abnormal hearing, dysphagia, headache(s), hearing loss, nasal congestion or sore throat Cardiovascular Cardiovascular: Denies chest pain, dyspnea on exertion, edema, lightheadedness, orthopnea, palpitations, paroxysmal nocturnal dyspnea or syncope Respiratory/Chest Respiratory/Chest: Denies cough, dyspnea, shortness of breath at rest, shortness of breath with exertion or wheezing Gastrointestinal Gastrointestinal: Reports constipation; Denies abdominal pain, diarrhea, dyspepsia, hematemesis, hematochezia, nausea or vomiting Genitourinary Genitourinary: Denies dysuria, hematuria, nocturia, urinary frequency, urinary h esitancy, urinary incontinence or urinary urgency Musculoskeletal Musculoskeletal: Reports other Details: 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 The dystonia likely caused the jerking she had after taking the narcotic post op ; Denies back pain, joint pain, joint swelling or neck pain Integumentary Integumentary: Reports dry skin; Denies jaundice, rash or sores Neurologic Neurologic: Denies confusion, disequilibrium, dizziness, focal weakness, headache(s), paresthesias, seizures or tremor(s) Psychiatric Psychiatric: Denies anxiety, depression, homicidal ideation or suicidal ideation Endocrine Endocrinology: Denies change in body appearance, polydipsia or polyuria Hematologic/Lymphatic Hematologic/Lymphatic: Denies easy bleeding, easy bruising or lymphadenopathy Allergic/Immunologic Allergic/Immunologic: Denies rhinitis, eczemia or asthma Vital Signs Vital Signs Vital Signs: 01/23/23 13:09 01/23/23 13:09 Temperature 97.2 F L Temperature Source Temporal Pulse Rate 73 Respiratory Rate 16 Respiratory Pattern Normal Blood Pressure 126/66 H Blood Pressure Mean 86 Blood Pressure Source Monitor Blood Pressure Position Semi-Fowlers Blood Pressure Location Left Arm Pulse Ox 100 Oxygen Delivery Method Room Air Weight Weight: 134 lb 7.712 oz Body Mass Index (BMI) 21.0 Physical Exam Const alert, oriented x3, no apparent distress and healthy appearing General Appearance: cooperative, comfortable, well kempt and well developed HEENT moist oral mucous membranes Eyes PERRL and EOMs intact bilaterally Neck no lymphadenopathy General: trachea midline Resp normal respiratory effort, normal air movement and clear to auscultation bilaterally Resp Narrative: able to speak in full sentences Effort and Inspection: Negative for uses accessory muscles Auscultation: Negative for rales, rhonchi or wheezes Cardio regular rate, regular rhythm, S1 normal heart sound, S2 normal heart sound, no murmurs, no rub and no gallops Cardio Narrative: no ectopy Palpation: normal PMI GI normal to inspection, nondistended, normoactive bowel sounds and soft to palpation Extremity General Extremity: Negative for clubbing, cyanosis or edema Skin Skin Narrative: The herpes simplex rash on the R buttock and the mons pubis is only a few purplish macules now. No vesicles and no eschars. Neuro CN's II-XII intact bilaterally, no focal motor deficits and no sensory deficits noted Motor Exam: strength 5/5 throughout Psych affect normal Appearance: appropriate Assessment & Plan Assessment/Plan (1) Encounter for screening for malignant neoplasm of colon: PLAN: Plan She was explained alternatives, risk, benefits include not withstanding bleeding, infection, sepsis, perforation, need for emergent surgery and . She will have an ASA of 2.
[2023-01-23 14:20] VITALS: BP 100/58; BP 126/66; PULSE 74; RESP 18; TEMP 36.2; O2SAT 98
--- NOTE | 2023-01-23 14:23 | OP.CCLET_ITS ---
01/23/2023 Elodia Sevilla [place] [id number] [address] Re : Colonoscopy procedure for Ava Wei Dear Dr. Sevilla This procedure was performed on Monday, January 23, 2023. My impressions and recommendations are as follows: Impressions : - Diverticulosis in the recto-sigmoid colon, in the sigmoid colon and in the transverse colon. - No specimens collected. Recommendations : - Discharge patient to home. - Resume previous diet. - Continue present medications. - Repeat colonoscopy in 5 years for surveillance. My findings are described in the full procedure note, which is enclosed. If I can be of further assistance, please feel free to contact me at . Sincerely, Carlos Friend, 01/23/2023 2:23:15 PM This report has been signed electronically.
--- NOTE | 2023-01-23 14:23 | OP.COLON_ITS ---
Patient Name: Ava Wei Procedure Date: 01/23/2023 1:49 PM Date of : 1950 Age: 72 Procedure: Colonoscopy Indications: High risk colon cancer surveillance: Personal history of colonic polyps Providers: Carlos Murguia DO Referring MD: Elodia Sevilla Medicines: Monitored Anesthesia Care Patient Profile: This is a 72 year old female. Refer to note in patient chart for documentation of history and physical. Last Colonoscopy: 5 years ago. Complications: No immediate complications. Procedure: Pre-Anesthesia Assessment: - Prior to the procedure, a History and Physical was performed, and patient medications and allergies were reviewed. The patient is competent. The risks and benefits of the procedure and the sedation options and risks were discussed with the patient. All questions were answered and informed consent was obtained. Patient identification and proposed procedure were verified by the physician in the pre-procedure area. Mental Status Examination: alert and oriented. Airway Examination: normal oropharyngeal airway and neck mobility. Respiratory Examination: clear to auscultation. CV Examination: normal. Prophylactic Antibiotics: The patient does not require prophylactic antibiotics. Prior Anticoagulants: The patient has taken no anticoagulant or antiplatelet agents. ASA Grade Assessment: II - A patient with mild systemic disease. After reviewing the risks and benefits, the patient was deemed in satisfactory condition to undergo the procedure. The anesthesia plan was to use monitored anesthesia care (MAC). Immediately prior to administration of medications, the patient was re-assessed for adequacy to receive sedatives. The heart rate, respiratory rate, oxygen saturations, blood pressure, adequacy of pulmonary ventilation, and response to care were monitored throughout the procedure. The physical status of the patient was re-assessed after the procedure. After I obtained informed consent, the scope was passed under direct vision. Throughout the procedure, the patient's blood pressure, pulse, and oxygen saturations were monitored continuously. The was introduced through the anus and advanced to the cecum, identified by appendiceal orifice and ileocecal valve. The colonoscopy was performed without difficulty. The patient tolerated the procedure well. The quality of the bowel preparation was adequate. The ileocecal valve, appendiceal orifice, and rectum were photographed. Scope In: 2:00:52 PM Scope Withdrawal Time 0 hours 9 minutes 22 seconds Scope Out: 2:16:11 PM Total Procedure Duration Time 0 hours 15 minutes 19 seconds Findings: The perianal and digital rectal examinations were normal. Multiple small-mouthed diverticula were found in the recto-sigmoid colon, sigmoid colon and transverse colon. Impression: - Diverticulosis in the recto-sigmoid colon, in the sigmoid colon and in the transverse colon. - No specimens collected. Recommendation: - Discharge patient to home. - Resume previous diet. - Continue present medications. - Repeat colonoscopy in 5 years for surveillance. Procedure Code(s): --- Professional --- G0105, Colorectal cancer screening; colonoscopy on individual at high risk CPT copyright 2021 [employer]. All rights reserved. The codes documented in this report are preliminary and upon video poker floorman review may be revised to meet current compliance requirements. Carlos Murguia DO 01/23/2023 2:23:15 PM This report has been signed electronically. Number of Addenda: 0 Note Initiated On: 01/23/2023 1:49 PM
[2023-01-23 14:25] VITALS: BP 126/66; BP 98/64; PULSE 78; RESP 18; O2SAT 99
[2023-01-23 14:30] VITALS: BP 126/66; BP 97/75; PULSE 74; RESP 18; O2SAT 100
[2023-01-23 14:35] VITALS: BP 107/72; BP 126/66; PULSE 70; RESP 18; TEMP 36.4; O2SAT 100
[2023-01-23 14:43] VITALS: BP 126/66
== END 2023-01-23 15:11 | disposition home or self-care (01) ==
LOC: EN 12:39 → AC 12:43
PROVIDERS: PCP Family Medicine; Referring Provider Family Medicine; Visit Provider Internal Medicine Gastroenterology
PROC: 0DJD8ZZ Inspection of Lower Intestinal Tract, Via Natural or Artificial Opening Endoscopic (ICD-10-PCS; CPT 45378; principal; 2023-01-23 13:40)
DX: Z12.11 Encounter for screening for malignant neoplasm of colon (principal); K57.30 Diverticulosis of large intestine without perforation or abscess without bleeding; Z87.891 Personal history of nicotine dependence; Z86.010 Personal history of colon polyps; E03.9 Hypothyroidism, unspecified
CPT/HCPCS: G0105; J7120; J2405

== ENCOUNTER → 2023-12-11 | Outpatient (CLI) | payer MEDICARE, OTHER, SELFPAY ==
[2023-12-11 15:20] LABS: Absolute Lymphocyte Count 1.63 X10^3/uL (0.83-4.51); Absolute Neutrophil Count 3.7 X10^3/uL (2.0-7.7); Basophil# 0.07 X10^3/uL; Basophil% 1.2 % (0-1); Eosinophil# 0.13 X10^3/uL; Eosinophils% 2.2 % (0-5); Hematocrit 40.9 % (37-47); Lymphocyte # 1.63 X10^3/ul (0.83-4.51); Lymphocyte % 27.2 % (19-41); Mean Corp Hgb Conc 31.8 g/dL (32-36); Mean Corpuscular Hgb 30.7 pg (27.0-32.0); Mean Corpuscular Volume 96.7 fL (81-99); Mean Platelet Vol. 10.5 fl (6.2-12.0); Monocyte# 0.42 X10^3/uL; NRBC Flagged by Analyzer 0 % (0-5); Neutrophil # 3.74 X10^3/uL (2.7-7.7); Neutrophil % 62.2 % (47-70); Platelet Count 237 K/mm3 (150-450); Red Blood Count 4.23 M/mm3 (4.2-5.4)
[2023-12-11 15:42] LABS: Vitamin D,25 Hydroxy 72.7 ng/mL
[2023-12-11 16:14] LABS: ALB/GLOB Ratio 1.3 RATIO (0.9-2.4); AST(SGOT) 22 U/L (15-37); Alanine Aminotransfer ALT/SGPT 33 U/L (13-56); Albumin, Serum 3.8 g/dL (3.2-5.0); Alkaline Phosphatase 75 U/L (45-117); Anion Gap 7 (5-15); BUN 16 mg/dL (7-18); BUN/Creat Ratio 19.6 RATIO (10-20); Calcium,Total 9.6 mg/dL (8.5-10.1); Chloride 108 mmol/L (98-107); Cholesterol 182 mg/dL (200); Creatinine, Serum 0.82 mg/dL (0.55-1.02); EST Glomerular Filtration Rate 73 mL/min (>60); Est Glom Filt Rate - Afr Amer 89 mL/min (>60); Glucose 76 mg/dL (74-106); High Density Lipoprotein 75 mg/dL; Potassium 3.5 mmol/L (3.5-5.1); Protein, Total 6.8 g/dL (6.4-8.2); Sodium Level 142 mmol/L (136-145); Triglycerides 63 mg/dL; Very Low Density Lipoprotein 13 mg/dL (5-40)
== END | disposition home or self-care (01) ==
LOC: LAB.FUTURE 13:56 → BFHLAB 13:57
PROVIDERS: PCP Family Medicine; Referring Provider Family Medicine; Visit Provider Family Medicine
DX: E03.9 Hypothyroidism, unspecified (principal); E55.9 Vitamin D deficiency, unspecified; G24.9 Dystonia, unspecified
CPT/HCPCS: 36415; 80053; 80061; 82306; 84439; 84443; 85025

== ENCOUNTER → 2023-12-21 | Outpatient (CLI) | payer MEDICARE, OTHER, SELFPAY ==
--- NOTE | 2023-12-21 11:59 | BI_ITS ---
MAMMOGRAPHY - BILATERAL SCREENING REASON FOR EXAM: Female, 73 years old. Routine annual screening examination. PERTINENT HISTORY: Aunt with breast cancer. History of prior left stereotactic breast biopsy. TECHNIQUE: Digital bilateral breast luz maria (3D mammographic acquisition) in the CC and MLO projections. 2-D mediolateral oblique (MLO) and craniocaudad (CC) views of both breasts were obtained. CAD: Full Field Digital Mammography with Computer Added Detection was performed. COMPARISON: Comparison is made with prior study June 16, 2021 and May 31, 2020. FINDINGS: Breast Composition: The breasts are heterogeneously dense, which may obscure small masses. There are no dominant masses or suspicious calcifications. A tissue clip marker seen along the anterior upper lateral aspect of the left breast. The previously seen calcifications at that site have been removed. No other significant abnormalities are identified. BI/SCRN MAMM (CAD)W/LUZ MARIA BILAT IMPRESSION: Status post stereotactic breast biopsy of the calcifications in the anterior upper lateral aspect of the left breast. Yearly follow-up mammogram recommended. (A) ASSESSMENT CATEGORY: BIRADS Category 2: Benign. A letter regarding these results will be sent to the patient by the facility within 30 days. Approximately 10% of breast cancers are not detected by mammography. A normal mammogram should not delay biopsy of a clinically suspicious abnormality. [id number] Electronically Signed: Eddie Friedman MD at 13:23 EDT ,
== END | disposition home or self-care (01) ==
LOC: OPBI 11:57
PROVIDERS: PCP Family Medicine; Referring Provider Family Medicine; Visit Provider Family Medicine
DX: Z12.31 Encounter for screening mammogram for malignant neoplasm of breast (principal); Z80.3 Family history of malignant neoplasm of breast
CPT/HCPCS: 77063; 77067

== ENCOUNTER → 2024-01-24 | Outpatient (CLI) | payer MEDICARE, OTHER, SELFPAY ==
--- NOTE | 2024-01-24 13:54 | RAD_ITS ---
STUDY: X-RAY - RIGHT SHOULDER REASON FOR EXAM: Female, 73 years old. SHOULDER PAIN TECHNIQUE: 4 view(s) of the shoulder. COMPARISON: None. FINDINGS: There is moderate degenerative arthrosis of the glenohumeral articulation. Normal acromioclavicular joint. Normal acromion. Normal humeral head and visualized proximal humerus. The soft tissue structures are unremarkable. There is no demonstrated fracture. Normal visualized pulmonary apex. RAD/Shoulder min 2 Views IMPRESSION: No acute fracture or dislocation. Prominent degenerative changes of the glenohumeral joint. Electronically Signed: Lincoln Prince MD at 14:32 EDT ,
== END | disposition home or self-care (01) ==
PROVIDERS: PCP Family Medicine; Referring Provider Family Medicine; Visit Provider Family Medicine
DX: M75.80 Other shoulder lesions, unspecified shoulder (principal)
CPT/HCPCS: 73030

== ENCOUNTER → 2024-12-10 | Outpatient (CLI) | payer MEDICARE, OTHER, SELFPAY ==
[2024-12-10 18:04] LABS: Hematocrit 40.2 % (37-47); Hemoglobin 13.4 g/dL (12.0-15.0); Immature Granulocytes Count 0.010 X10^3/uL (0.0-0.0); Mean Corp Hgb Conc 33.3 g/dL (32-36); Mean Corpuscular Volume 94.1 fL (81-99); Mean Platelet Vol. 10.5 fl (6.2-12.0); NRBC Flagged by Analyzer 0 % (0-5); Platelet Count 203 K/mm3 (150-450); RBC Distribution Width CV 14.7 % (11.6-14.6); RBC Distribution Width SD 51.3 fl (35.1-43.9); Red Blood Count 4.27 M/mm3 (4.2-5.4); White Blood Count 5.2 K/mm3 (4.4-11.0)
[2024-12-10 18:22] LABS: AST(SGOT) 21 U/L (<=31); Alanine Aminotransfer ALT/SGPT 19 U/L (<=34); Albumin, Serum 4.3 g/dL (3.4-4.8); Alkaline Phosphatase 77 U/L (35-104); Anion Gap 11 (5-15); BUN 13 mg/dL (4-19); BUN/Creat Ratio 15.9 RATIO (10-20); Calcium,Total 9.5 mg/dL (7.6-11.0); Carbon Dioxide 24.4 mmol/L (21.0-32.0); Chloride 107 mmol/L (98-108); Globulin 2.2 g/dL (2.2-4.2); Glucose 87 mg/dL (70-99); Potassium 3.9 mmol/L (3.3-5.1); Vitamin D,25 Hydroxy 86.5 ng/mL (30-100)
--- OUTSIDE RECORDS SUMMARY | 2024-12-10 22:52 | XMS RPT_ITS | CCD ---
Author Organization [facility] Care Team Providers Care Rabbit Dresser Name Role Phone Dr. Elodia Sevilla Primary Care Provider Dr. Haim Bearden Emergency Provider Dr. Sanna Rea Admit Provider Dr. Sanna Rea Attending Provider Dr. Sanna Rea Other Provider Shay PIGMENT MIXER, PIGMENT MIXER-C Elsy Attending Provider Dr. Fermín Persaud Other Provider Dr. Dipak Murcia Attending Provider Dr. Dipak Murcia Other Provider Semenmelodie, Dr. Amy Fitzgerald Admit Provider Semenmelodie, Dr. Amy Fitzgerald Other Provider Dr. Maira Deluca Attending Provider Aye, Dr. Amy Fitzgerald Attending Provider Dr. Elodia Sevilla Referring Provider Dr. Georgia Montenegro Attending Provider Dr. Georgia Montenegro Referring Provider Dr. Georgia Montenegro Other Provider Dr. Elodia Sevilla Primary Care Provider MD AVIS BOYCE Emergency Provider MD ELODIA SEVILLA Primary Care Provider ELODIA SEVILLA Primary Care Unavailable AVIS BOYCE Attending Unavailable Julia Sevilla MDh Primary Care Provider Elodia Sevilla MD Primary Care Provider ANGELY GAGE Attending Unavailable AMARI, ЕЛЕНА CHI Primary Care Unavailable ELODIA SEVILLA Primary Care Unavailable Elodia Sevilla MD Primary Care Provider [phone] Elodia Sevilla Attending Unavailable Di Elodia Primary Care Unavailable Elodia Sevilla Referring Unavailable Elodia Sevilla Attending Unavailable Di Elodia Primary Care Unavailable Elodia Sevilla Referring Unavailable Elodia Sevilla Attending Unavailable Di Elodia Primary Care Unavailable Elodia Sevilla Referring Unavailable CYNTHIA PETERS Attending Unavailable DI ELODIA Primary Care Unavailable CYNTHIA PETERS Attending Unavailable ELODIA SEVILLA Primary Care Unavailable CYNTHIA PETERS Attending Unavailable DI ELODIA Primary Care Unavailable CYNTHIA PETERS Attending Unavailable ELODIA SEVILLA Primary Care Unavailable Allergies Allergy Classification Reported Allergen(s) Allergy Type Date of Onset Reaction(s) Facility (20 sources) Nitrofurantoin Drug Allergy 8 [facility] (2 sources) NITROFURANTOIN, MACROCRYSTALS / Nitrofurantoin, Monohydrate; Translations: [NITROFURANTOIN MONOHYD/M-CRYST] Drug Allergy 8 [facility] Work Phone: (2 sources) Homeopathic Products; Translations: [HOMEOPATHIC PRODUCTS] Propensity to adverse reactions 9 [facility] Work Phone: (1 source) Nitrofurantoin Drug Allergy 3 [facility] Repository Medications Current Medications Medication Drug Class(es) Dates Sig (Normalized) Sig (Original) acetaminophen 500 mg oral tablet (9 sources) Start: 05-25-2021 take 1000 mg by mouth every six hours as needed Acetaminophen Active 1000 MG PO EVERY 6 HOURS NEEDED 0 May 25, 2021 4:46pm Start: 05-16-2021 End: 05-25-2021 take 1000 mg by mouth three times daily Acetaminophen Discontinued 1000 MG PO THREE TIMES A DAY May 16, 2021 3:54pm May 25, 2021 4:47pm bifidobacterium animalis [id number] unt / bifidobacterium longum [id number] unt / lactobacillus acidophilus [id number] unt oral capsule (3 sources) Start: 05-13-2021 L.Acidoph-B.Animalis-B.Longu m (Florajen Digestion) 15 billion cell Capsule Active 1 CAP PO AT BEDTIME May 13, 2021 10:15am calcium carbonate 500 mg chewable tablet (3 sources) Start: 05-25-2021 take 500 mg by mouth twice daily at mealtime Calcium Carbonate Active 500 MG PO TWICE DAILY WITH MEALS May 25, 2021 4:48pm cholecalciferol 0.025 mg oral tablet (20 sources) Vitamin D Start: 05-25-2021 take 25 ug by mouth once daily Cholecalciferol (Vitamin D3) Active 25 MCG PO DAILY May 25, 2021 4:48pm Cholecalciferol (Vitamin D) 50 MCG (1999 UT) capsule Take by mouth. Active clonazePAM 1 mg oral tablet (20 sources) Benzodiazepine Start: 10-18-2024 clonazePAM (Kl onoPIN) 1 MG tablet Indications: Cervical dystonia TAKE TWO TABLETS BY MOUTH EVERY EVENING NEEDED FOR SPASM Do not start before October 18, 2024. 60 tablet 5 10/18/2024 Active Start: 10-18-2024 clonazePAM (Kl onoPIN) 1 MG tablet Indications: Cervical dystonia TAKE TWO TABLETS BY MOUTH EVERY EVENING NEEDED FOR SPASM Do not start before October 18, 2024. 60 tablet 5 10/18/2024 Active Start: 04-28-2024 End: 09-29-2024 clonazePAM (KlonoPIN) 1 MG t ablet Indications: Cervical dystonia TAKE TWO TABLETS BY MOUTH EVERY EVENING NEEDED FOR SPASM Do not start before April 28, 2024. 60 tablet 5 04/28/2024 09/29/2024 Discontinued (Reorder) Start: 04-28-2024 clonazePAM (Kl onoPIN) 1 MG tablet Indications: Cervical dystonia TAKE TWO TABLETS BY MOUTH EVERY EVENING NEEDED FOR SPASM Do not start before April 28, 2024. 60 tablet 5 04/28/2024 Active Start: 03-30-2024 End: 01-10-2025 clonazePAM (KlonoPIN) 1 MG t ablet Indications: Cervical dystonia TAKE TWO TABLETS BY MOUTH EVERY EVENING NEEDED FOR SPASM Do not start before March 30, 2024. 60 tablet 5 03/30/2024 04/25/2024 Discontinued (Reorder) Start: 03-30-2024 clonazePAM (Kl onoPIN) 1 MG tablet Indications: Cervical dystonia TAKE TWO TABLETS BY MOUTH EVERY EVENING NEEDED FOR SPASM Do not start before March 30, 2024. 60 tablet 5 03/30/2024 Active Start: 10-29-2023 End: 03-25-2024 clonazePAM (KlonoPIN) 1 MG t ablet Indications: Cervical dystonia TAKE TWO TABLETS BY MOUTH EVERY EVENING NEEDED FOR SPASM Do not start before October 29, 2023. 60 tablet 5 10/29/2023 03/25/2024 Discontinued (Reorder) Start: 10-29-2023 clonazePAM (Kl onoPIN) 1 MG tablet Indications: Cervical dystonia TAKE TWO TABLETS BY MOUTH EVERY EVENING NEEDED FOR SPASM Do not start before October 29, 2023. 60 tablet 5 10/29/2023 Active Start: 10-27-2022 End: 10-22-2023 take 2 tablets by mouth once daily in the evening as needed for muscle spasms clonazePAM (KlonoPIN) 1 MG tablet Indications: Cervical dystonia TAKE TWO TABLETS BY MOUTH EVERY EVENING NEEDED FOR SPASM 60 tablet 5 04/02/2023 10/22/2023 Discontinued (Reorder) Start: 10-23-2021 End: 10-25-2022 take 2 tablets by mouth once daily in the evening as needed for muscle spasms clonazePAM (KlonoPIN) 1 MG tablet Indications: Cervical dystonia TAKE TWO TABLETS BY MOUTH EVERY EVENING NEEDED FOR SPASM 60 tablet 5 04/28/2022 10/25/2022 Active Start: 11-01-2017 take 2 mg by mouth a t bedtime as needed Clonazepam Active 2 MG PO AT BEDTIME NEEDED November 01, 2017 9:42am Start: 04-01-2007 CLONAZEPAM 1 M G TAB Take 2-3 tabs as needed. 0 04/01/2007 Active Comment on above: Take 2-3 tabs as nee ded. Lactobacillus acidophilus (20 sources) Lactobacillus (P ROBIOTIC ACIDOPHILUS PO) Take by mouth. Active Lactobacillus (P ROBIOTIC ACIDOPHILUS PO) Take by mouth. 0 Active levothyroxine sodium 0.088 mg oral tablet (20 sources) l-Thyroxine Start: 05-16-2021 levothyroxine (Synthroid, Levoxyl) 88 MCG tablet 03/16/2022 Active Start: 11-21-2011 End: 01-01-2023 take 1 tablet by mouth once daily levothyroxine (LEVOXYL) 100 mcg tablet Take 1 tablet by mouth once daily. 0 11/21/2011 01/01/2023 Discontinued Comment on above: Take 1 tablet by derrek th once daily. Multiple Vitamin (multivitamin) tablet (20 sources) take 1 tablet by mouth once daily Multiple Vitamin (multivitamin) tablet Take 1 tablet by mouth daily. Active take 1 tablet by mouth once basim y Multiple Vitamin (multivitamin) tablet Take 1 tablet by mouth daily. 0 Active Multivitamin,Rq-Xskp-Wtnibzo s (Complete Multivitamin) tablet (3 sources) Start: 07-11-2018 take 1 tablet by mouth once daily Multivitamin,Ae-Ybtx-Wfswttxb (Complete Multivitamin) tablet Active 1 TABLET PO DAILY July 11, 2018 11:19am Start: 07-11-2018 take 1 tablet by derrek once daily Multivitamin,La-Zjop-Auewldzp (Complete Multivitamin) tablet Active 1 TABLET PO DAILY July 11, 2018 12:00am omega-3 acid ethyl esters (group home) 1000 mg oral capsule (20 sources) omega-3 acid eth yl esters (Lovaza) 1 g capsule Take 1 g by mouth 2 times daily. Active predniSONE 10 mg oral tablet (1 source) Start: 01-01-2023 End: 01-08-2023 take 4 tablets by mouth once daily, then take 2 tablets by mouth once daily, then take 1 tablet by mouth once daily predniSONE (DELTASONE) 10 mg tablet Indications: Rash Take 4 tablets by mouth once daily for 3 days, THEN 2 tablets once daily for 3 days, THEN 1 tablet once daily for 1 day. Take with food.. 19 tablet 0 01/01/2023 01/08/2023 Active Comment on above: Take 4 tablets by mo cox branson once daily for 3 days, THEN 2 tablets once daily for 3 days, THEN 1 tablet once daily for 1 day. Take with food.. Completed/Discontinued Medications Medication Drug Class(es) Dates Sig (Normalized) Sig (Original) acetaminophen 325 mg / HYDROcodone bitartrate 5 mg oral tablet (4 sources) Opioid Agonist Start: 11-01-2017 End: 07-11-2018 take 2 tablets by mouth every four hours as needed Hydrocodone-Acetami nophen Discontinued 2 TABLET PO EVERY 4 HOURS NEEDED November 01, 2017 9:42am July 11, 2018 11:18am Start: 07-30-2017 End: 01-01-2023 take 1 tablet by mouth once HYDROcodone-acetaminophen (NORCO) 5-325 mg per tablet Take 1 tablet by mouth. 0 07/30/2017 01/01/2023 Discontinued Comment on above: Take 1 tablet by derrek th. acetaminophen 325 mg / oxyCODONE hydrochloride 5 mg oral tablet (1 source) Opioid Agonist Start: 2008 End: 2022 oxycodone hcl/acetaminophen(PERCOC ET 5 MG-325 MG TAB) as necessary 0 09/15/2008 01/01/2023 Discontinued Comment on above: as necessary acyclovir 200 mg oral capsule (3 sources) Herpesvirus Nucleoside Analog DNA Polymerase Inhibitor, Herpes Simplex Virus Nucleoside Analog DNA Polymerase Inhibitor, Herpes Zoster Virus Nucleoside Analog DNA Polymerase Inhibitor Start: 2021 End: 2021 take 200 mg by mouth five times daily Acyclovir Discontinued 200 MG PO 5 TIMES DAILY May 25, 2021 4:48pm June 27, 2021 2:25pm Black Cohosh Extract (1 source) Start: 2005 End: 2022 BLACK COHOSH 200 MG CAP Take one(1) tablet daily. 0 09/20/2005 01/01/2023 Discontinued Comment on above: Take one(1) tablet d aily. onabotulinumtoxina 200 unt injection (20 sources) Acetylcholine Release Inhibitor Start: 2024 End: 2024 onabotulinumtoxinA (Botox) injection 200 Units Start: 10-29-2024 End: 10-29-2024 inject 200 [IU] by intramuscular injection once 200 Units, IntraMUSCular, Once, On Sun10/29/24 at 1500, For 1 dose Start: 07-30-2024 End: 07-30-2024 onabotulinumtoxinA (Botox) i njection 300 Units Start: 07-30-2024 End: 07-30-2024 inject 300 [IU] by intramuscular injection once 300 Units, IntraMUSCular, Once, On Sun07/30/24 at 1600, For 1 dose Start: 07-30-2024 End: 07-30-2024 onabotulinumtoxinA (Botox) i njection 300 Units Start: 07-30-2024 End: 07-30-2024 inject 300 [IU] by intramuscular injection once 300 Units, IntraMUSCular, Once, On Sun07/30/24 at 1600, For 1 dose Start: 07-30-2024 End: 07-30-2024 onabotulinumtoxinA (Botox) i njection 300 Units Start: 07-30-2024 End: 07-30-2024 inject 300 [IU] by intramuscular injection once 300 Units, IntraMUSCular, Once, On Sun07/30/24 at 1600, For 1 dose Start: 07-30-2024 onabotulinumto xinA (Botox) injection 300 Units Start: 05-02-2024 End: 05-02-2024 onabotulinumtoxinA (Botox) i njection 300 Units Start: 05-02-2024 End: 05-02-2024 inject 300 [IU] by intramuscular injection once 300 Units, IntraMUSCular, Once, On Sun05/02/24 at 1345, For 1 dose Start: 02-01-2024 End: 02-01-2024 onabotulinumtoxinA (Botox) i njection 300 Units Start: 02-01-2024 End: 02-01-2024 inject 300 [IU] by intramuscular injection once 300 Units, IntraMUSCular, Once, On Sun02/01/24 at 1345, For 1 dose Start: 02-01-2024 End: 02-01-2024 onabotulinumtoxinA (Botox) i njection 300 Units Start: 02-01-2024 End: 02-01-2024 inject 300 [IU] by intramuscular injection once 300 Units, IntraMUSCular, Once, On Sun02/01/24 at 1345, For 1 dose Start: 02-01-2024 onabotulinumto xinA (Botox) injection 300 Units Start: 11-02-2023 End: 11-02-2023 onabotulinumtoxinA (Botox) i njection 300 Units Start: 11-02-2023 End: 11-02-2023 inject 300 [IU] by intramuscular injection once 300 Units, IntraMUSCular, Once, On Sun11/02/23 at 1215, For 1 dose Start: 08-01-2023 End: 08-01-2023 onabotulinumtoxinA (Botox) i njection 300 Units Start: 05-02-2023 End: 05-02-2023 onabotulinumtoxinA (Botox) i njection 300 Units Start: 01-26-2023 End: 01-26-2023 onabotulinumtoxinA (Botox) i njection 300 Units Start: 07-28-2022 End: 07-28-2022 onabotulinumtoxinA (Botox) i njection 300 Units Start: 07-28-2022 End: 07-28-2022 onabotulinumtoxinA (Botox) i njection 300 Units Start: 04-28-2022 End: 04-28-2022 onabotulinumtoxinA (Botox) i njection 300 Units Start: 04-28-2022 End: 04-28-2022 onabotulinumtoxinA (Botox) i njection 300 Units Calcium (1 source) Phosphate Binder, Calcium Start: 09-20-2005 CALCIUM 500 MG TAB Take one(1) tablet three times daily. 0 09/20/2005 Active Comment on above: Take one(1) tablet t hree times daily. cephalexin 500 mg oral capsule (3 sources) Cephalosporin Antibacterial Start: 07-11-2018 End: 07-21-2018 take 500 mg by mouth three times daily Cephalexin Discontinued 500 MG PO THREE TIMES A DAY 30 July 11, 2018 11:54am July 21, 2018 12:07am DULoxetine 60 mg delayed release oral capsule (1 source) Serotonin and Norepinephrine Reuptake Inhibitor Start: 03-29-2009 End: 01-01-2023 duloxetine hcl(CYMBALTA 60 MG CAP) Take one(1) capsule daily. 0 03/29/2009 01/01/2023 Discontinued Comment on above: Take one(1) capsule daily. evening primrose oil 500 mg oral capsule (1 source) Start: 09-15-2008 End: 01-01-2023 evening primrose oil(EVENING PRIMROSE 500 MG CAP) Take one(1) tablet two(2) times daily. 0 09/15/2008 01/01/2023 Discontinued Comment on above: Take one(1) tablet t wo(2) times daily. FIBER-CAPS, PSYLLIUM HUSK, ORAL (1 source) take 1 tablet by mouth once daily FIBER-CAPS, PSYLLIUM HUSK, ORAL Take 1 tablet by mouth once daily. 0 Active Comment on above: Take 1 tablet by derrek th once daily. flaxseed oil-omega 3,6,9 1,300 mg-845 mg -117 mg-117 mg cap (1 source) take 3 tablets by mouth once daily flaxseed oil-omega 3,6,9 1,300 mg-845 mg -117 mg-117 mg cap Take 3 tablets by mouth once daily. 0 Active Comment on above: Take 3 tablets by mo ut once daily. [id number]-BR GLYCN-C 500 MG-400 MG CAP (1 source) Start: 03-15-2009 End: 01-01-2023 ECQPUSBU-[id number]-CQ GLYCN-C 500 MG-400 MG CAP Take one(1) tablet two(2) times daily. 0 03/15/2009 01/01/2023 Discontinued Comment on above: Take one(1) tablet t wo(2) times daily. hydroCHLOROthiazide 25 mg oral tablet (1 source) Thiazide Diuretic Start: 03-29-2009 End: 01-01-2023 HYDROCHLOROTHIAZIDE 25 MG TAB Take one(1) tablet daily. 90 4 03/29/2009 01/01/2023 Discontinued Comment on above: Take one(1) tablet d aily. linseed oil 1000 mg oral capsule (1 source) Start: 08-14-2005 End: 01-01-2023 FLAXSEED OIL 1,000 MG CAP Take one(1) tablet daily. 0 08/14/2005 01/01/2023 Discontinued Comment on above: Take one(1) tablet d aily. magnesium oxide 200 mg magnesium chew (1 source) take 200 mg by mouth once daily magnesium oxide 200 mg magnesium chew Take 200 mg by mouth once daily. 0 Active Comment on above: Take 200 mg by mouth once daily. MULTIVITAMIN TAB (1 source) Start: 03-17-2005 MULTIVITAMIN TAB Take one(1) tablet daily. 0 03/17/2005 Active Comment on above: Take one(1) tablet d aily. oxyCODONE hydrochloride 5 mg oral tablet (6 sources) Opioid Agonist Start: 05-16-2021 End: 06-27-2021 take 5-10 mg by mouth every six hours as needed Oxycodone Discontinued 5 - 10 MG PO EVERY 6 HOURS NEEDED 14 May 25, 2021 June 27, 2021 2:25pm red yeast rice 600 mg oral capsule (1 source) Start: 10-03-2007 RED YEAST RICE EXTRACT 600 MG CAP One tablet twice daily 0 10/03/2007 Active Comment on above: One tablet twice gerri ly risedronate sodium 35 mg oral tablet (1 source) Start: 03-29-2009 End: 01-01-2023 risedronate sodium(ACTONEL 35 MG TAB) take one tablet each week as directed 15 4 03/29/2009 01/01/2023 Discontinued Comment on above: take one tablet each week as directed rivaroxaban 10 mg oral tablet (9 sources) Factor Xa Inhibitor Start: 05-16-2021 End: 06-27-2021 take 1 tablet by mouth once daily at dinner Rivaroxaban (Xarelto) 10 mg tablet Discontinued 10 MG PO DAILY@DINNER 0 May 25, 2021 4:53pm June 27, 2021 2:26pm soy protein isolate 100 mg oral capsule (1 source) Start: 09-15-2008 End: 01-01-2023 SOY ISOFLAVONE 100 MG CAP Take one(1) tablet two(2) times daily. 0 09/15/2008 01/01/2023 Discontinued Comment on above: Take one(1) tablet t wo(2) times daily. ubidecarenone 100 mg oral capsule (1 source) Start: 09-15-2008 take 2 capsules by mouth once daily ubidecarenone(COQ-10 100 MG CAP) Take two (2) by mouth once daily. 0 09/15/2008 Active Comment on above: Take two (2) by mout h once daily. Problems Active Problems Problem Classification Problem Date Documented Date Episodic/Chronic Acute posthemorrhagic anemia (4 sources) Acute posthemorrhagic anemia; Translations: [Acute posthemorrhagic anemia] Episodic Diverticulosis and diverticulitis (1 source) Diverticulosis of colon; Translations: [Diverticulosis of large intestine without perforation or abscess without bleeding] 09-19-2005 Chronic E Codes: Fall (5 sources) Fall; Translations: [Unspecified fall, initial encounter] Episodic Fracture of neck of femur (hip) (9 sources) Closed fracture of neck of femur; Translations: [Fracture of unspecified part of neck of left femur, initial encounter for closed fracture] Episodic Fracture of upper limb (7 sources) Closed fracture of clavicle; Translations: [Fracture of unspecified part of right clavicle, initial encounter for closed fracture] 01-14-2022 Episodic Malaise and fatigue (4 sources) Asthenia; Translations: [Other malaise] Episodic Open wounds of head; neck; and trunk (14 sources) Facial laceration ; Translations: [Laceration without foreign body of other part of head, initial encounter] 01-14-2022 Episodic Other and unspecified benign neoplasm (1 source) Benign neoplasm of colon; Translations: [Benign neoplasm of colon, unspecified] 09-19-2005 Episodic Other bone disease and musculoskeletal deformities (1 source) Disorder of skeletal system; Translations: [Disorder of bone, unspecified] 03-17-2005 Episodic Other connective tissue disease (3 sources) History of repair of hip joint; Translations: [Presence of left artificial hip joint] 05-25-2021 Chronic Other connective tissue disease (1 source) Presence of left artificial hip joint; Translations: [Hip joint replacement] Chronic Other connective tissue disease (1 source) Other shoulder lesions, unspecified shoulder; Translations: [Other shoulder lesions, unspecified shoulder] Onset: 02-13-2024 Episodic Other hereditary and degenerative nervous system conditions (20 sources) Isolated cervical dystonia; 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 Other hereditary and degenerative nervous system conditions (2 sources) Spasmodic torticollis; Translations: [Spasmodic torticollis] Onset: 07-30-2024 Chronic Other inflammatory condition of skin (3 sources) Intertrigo; Translations: [Erythema intertrigo] 06-03-2021 Episodic Other inflammatory condition of skin (1 source) Erythema intertrigo; Translations: [Other specified erythematous conditions] Episodic Other injuries and conditions due to external causes (7 sources) Closed injury of head; Translations: [Unspecified injury of head, initial encounter] 01-14-2022 Episodic Other screening for suspected conditions (not mental disorders or infectious disease) (6 sources) Mammography abnormal; Translations: [Other abnormal and inconclusive findings on diagnostic imaging of breast] Onset: 01-10-2024 Episodic Other skin disorders (1 source) Eruption; Translations: [Rash and other nonspecific skin eruption] 01-01-2023 Episodic Pathological fracture (3 sources) Pathological fracture of vertebra; Translations: [Pathological fracture, other site, initial encounter for fracture] 05-25-2021 Episodic Thyroid disorders (5 sources) Hypothyroidism; Translations: [Hypothyroidism, unspecified] Onset: 12-21-2023 05-16-2021 Chronic Unclassified (2 sources) Procedure; Translations: [Procedure] Onset: 10-29-2024 Viral infection (4 sources) Herpesvirus infection; Translations: [Other herpesviral infection] Episodic Past or Other Problems Problem Classification Problem Date Documented Da te Episodic/Chronic Nonmalignant breast conditions (1 source) Breast lump; Translations: [Unspecified lump in unspecified breast] Onset: 06-06-2005 06-06-2005 Episodic Other and unspecified benign neoplasm (1 source) History of polyp of colon; Translations: [Personal history of colonic polyps] Onset: 05-24-2009 05-24-2009 Episodic Results Test Name Value Interpretation Reference Range Facility Progress Noteon 10-29-2024 Progress Note Administrations This Visit onabotulinumtoxin A (BOTOX) injection 200 Units Admin Date 10/29/24 Action Given Dose 300 Units Route IntraMUSCular Site Other Administered By Cynthia Peters MD Ordering Provider: Cynthia Peters MD [facility]: 9091-6604-68 x3 Lot#: [id number] [id number] Artist Mannequin Coloring: Allergan Patient Supplied? No [facility] 36on 09-29-2024 36 Requested Prescripti ons Signed Prescriptions Disp Refills clonazePAM (KlonoPIN) 1 MG tablet 60 tablet 5 Sig: TAKE TWO TABLETS BY MOUTH EVERY EVENING NEEDED FOR SPASM Do not start before October 18, 2024. Authorizing Provider: ELSY GARCIA [place] pharmacy report ([facility] [place]) reviewed and found to be consistent with prescriptions. Patient has been adherent to prescribed therapy. [facility] 36 See pending Rx if appropriate. Next appt: 10/29/2024 Last filled: 04/28/2024 Progress Noteon 07-30-2024 Progress Note Administrations This Visit onabotulinumtoxin A (BOTOX) injection 200 Units Admin Date 07/30/2024 Action Given Dose 300 Units Route IntraMUSCular Site Other Administered By [facility] Ordering Provider: Cynthia Peters MD [facility]:[id number] x3 Lot#: [id number] Artist Mannequin Coloring: allergan Patient Supplied?: No, buy and bill Progress Noteon 05-02-2024 Progress Note Administrations This Visit onabotulinumtoxin A (BOTOX) injection 200 Units Admin Date 05/02/2024 Action Given Dose 300 Units Route IntraMUSCular Site Other Administered By [facility] Ordering Provider: Cynthia Peters MD [facility]:[id number] x3 Lot#: [id number] [id number] Artist Mannequin Coloring: Allergan Patient Supplied?: No, buy and bill 36on 04-25-2024 36 Requested Prescripti ons Signed Prescriptions Disp Refills clonazePAM (KlonoPIN) 1 MG tablet 60 tablet 5 Sig: TAKE TWO TABLETS BY MOUTH EVERY EVENING NEEDED FOR SPASM Do not start before April 28, 2024. Authorizing Provider: ELSY GARCIA pharmacy report ([facility]) reviewed and found to be consistent with prescriptions. Patient has been adherent to prescribed therapy. [place] [id number] See pending Rx if appropriate Next appt: 05/02/2024 36 Medication name: clonazePAM (KlonoPIN) 1 MG tablet Medication dosage: 1 mg (Miligrams Monthly quantity needed: 60 How many day supply requestin days Medication route: As directed Medication administration time(s): TAKE TWO TABLETS BY MOUTH EVERY EVENING NEEDED FOR SPASM If taking medication PRN, reason for taking medication: N/A If this is a controlled substance do you receive this or any other controlled medication from any other doctor or facility: N/A Ordering provider: BRIANA Castañeda CNP Date of last office visit: 02/01/24 Date of next office visit: 05/02/24 Date of last refill: (see medication tab): 03/30/24 Updated/Validated preferred pharmacy: Yes Patient instructed to contact the pharmacy prior to picking up the medication: Yes [place] [address]on 03-25-2024 36 Requested Prescripti ons Signed Prescriptions Disp Refills clonazePAM (KlonoPIN) 1 MG tablet 60 tablet 5 Sig: TAKE TWO TABLETS BY MOUTH EVERY EVENING NEEDED FOR SPASM Do not start before March 30, 2024. Authorizing Provider: ELSY GARCIA pharmacy report ([facility] [place]) reviewed and found to be consistent with prescriptions. Patient has been adherent to prescribed therapy. 36 See pending Rx if appropriate Next appt: 05/02/2024 Progress Noteon 02-01-2024 Progress Note Administrations This Visit onabotulinumtoxin A (BOTOX) injection 300 Units Admin Date 02/01/24 Action Given Dose 300 Units Route [facility] Other Administered By Cynthia Peters MD Ordering Provider: Cynthia Peters MD NDC: [phone] Lot#: [id number] Artist Mannequin Coloring: Allergan Patient Supplied?: No Shoulder min 2 Viewson 01-23 Shoulder min 2 Views [facility] Imaging Services [address] [place] [address] [id number] Shoulder min 2 Views MR#: [id number] Acct: [id number] Name: AVA MESSER Rep #: [id number] : 1950 F 73 From: Lincoln sandhu MD PCP: Dr. Elodia Sevilla MD Status: REG CL Study: Shoulder min 2 Views Date of Exam: 01/24/24 Exam# [id number] Ordering [place]: [place] [id number] STUDY: X-RAY - RIGHT SHOULDER REASON FOR EXAM: Female, 73 years old. SHOULDER PAIN TECHNIQUE: 4 view(s) of the shoulder. COMPARISON: None. FINDINGS: There is moderate degenerative arthrosis of the glenohumeral articulation. Normal acromioclavicular joint. Normal acromion. Normal humeral head and visualized proximal humerus. The soft tissue structures are unremarkable. There is no demonstrated fracture. Normal visualized pulmonary apex. RAD/Shoulder min 2 Views IMPRESSION: No acute fracture or dislocation. Prominent degenerative changes of the glenohumeral joint. Electronically Signed: Lincoln Prince MD at 14:32 EDT , CC: Dr. Elodia Sevilla MD Oil Winterizer: Signed Normal [facility] SCRN MAMM (CAD)W/LUZ MARIA BILATo n 12-21-2023 SCRN MAMM (CAD)W/LUZ MARIA BILAT [facility] Imaging Services [address] [place] [address] [id number] SCRN MAMM (CAD)W/LUZ MARIA BILAT MR#: [id number] Acct: [id number] Name: AVA MESSER Rep #: [id number] : 1950 F 73 From: Eddie cordero MD PCP: Dr. Elodia Sevilla MD Status: [facility] Study: SCRN MAMM (CAD)W/LUZ MARIA BILAT Date of Exam: 10/07 Exam# [id number] Ordering Dr: Elodia [place] [id number] MAMMOGRAPHY - BILATERAL SCREENING REASON FOR EXAM: Female, 73 years old. Routine annual screening examination. PERTINENT HISTORY: Aunt with breast cancer. History of prior left stereotactic breast biopsy. TECHNIQUE: Digital bilateral breast luz maria (3D mammographic acquisition) in the CC and MLO projections. 2-D mediolateral oblique (MLO) and craniocaudad (CC) views of both breasts were obtained. CAD: Full Field Digital Mammography with Computer Added Detection was performed. COMPARISON: Comparison is made with prior study June 16, 2021 and May 31, 2020. FINDINGS: Breast Composition: The breasts are heterogeneously dense, which may obscure small masses. There are no dominant masses or suspicious calcifications. A tissue clip marker seen along the anterior upper lateral aspect of the left breast. The previously seen calcifications at that site have been removed. No other significant abnormalities are identified. BI/SCRN MAMM (CAD)W/LUZ MARIA BILAT IMPRESSION: Status post stereotactic breast biopsy of the calcifications in the anterior upper lateral aspect of the left breast. Yearly follow-up mammogram recommended. (A) ASSESSMENT CATEGORY: BIRADS Category 2: Benign. A letter regarding these results will be sent to the patient by the facility within 30 days. Approximately 10% of breast cancers are not detected by mammography. A normal mammogram should not delay biopsy of a clinically suspicious abnormality. [id number] Electronically Signed: Eddie Friedman MD at 13:23 EDT Reading Location ID and State: [address] [place] [address] , Service support , CC: Dr. Elodia Sevilla MD Oil Winterizer: Signed Normal [facility] CBC W/Diff, Automatedon 08-2 Absolute Lymph 1.63 X10 3/uL Normal 0.83-4.51 [facility] Comment on above: Performed By: #### L 506.0400, L501.9520, L100.0100, L500.4100, L500.4050, L506.1000 #### [facility] [address] [place], [place], [address] Absolute Neut 3.7 X10 3/uL Normal 2.0-7.7 [facility] Comment on above: Performed By: #### L 506.0400, L501.9520, L100.0100, L500.4100, L500.4050, L506.1000 #### [facility] [address] [place], [address] Basophils/100 WBC (Bld) 1.2 % High 0-1 [facility] Comment on above: Performed By: #### L 506.0400, L501.9520, L100.0100, L500.4100, L500.4050, L506.1000 #### [facility] [address] [place], [address] Eosinophils/100 WBC (Bld) 2.2 % Normal 0-5 [facility] Comment on above: Performed By: #### L 506.0400, L501.9520, L100.0100, L500.4100, L500.4050, L506.1000 #### [facility] [address] [place], [address] Erythrocyte distribution width (RBC) [Ratio] 15.0 % High 11.6-14.6 [facility] Comment on above: Performed By: #### L 506.0400, L501.9520, L100.0100, L500.4100, L500.4050, L506.1000 #### [facility] [address] [place], [address] Hematocrit (Bld) [Volume fraction] 40.9 % Normal 37-47 [facility] Comment on above: Performed By: #### L 506.0400, L501.9520, L100.0100, L500.4100, L500.4050, L506.1000 #### [facility] [address] [place], [address] Hemoglobin (Bld) [Mass/Vol] 13.0 g/dL Normal 12.0-15.0 [facility] Comment on above: Performed By: #### L 506.0400, L501.9520, L100.0100, L500.4100, L500.4050, L506.1000 #### [facility] [address] [place], [address] IG% 0.200 Normal 0.0-0.9 [facility] Comment on above: Result Comment: IG% - Immature Granulocytes (promyelocytes, myelocytes and metamyelocytes) > 1% indicates that a LEFT SHIFT is Present. Performed By: #### L 506.0400, L501.9520, L100.0100, L500.4100, L500.4050, L506.1000 #### [facility] [address] [place], [address] Lymphocytes/100 WBC (Bld) 27.2 % Normal 19-41 [facility] Comment on above: Performed By: #### L 506.0400, L501.9520, L100.0100, L500.4100, L500.4050, L506.1000 #### [facility] [address] [place], [address] MCH (RBC) [Entitic mass] 30.7 pg Normal 27.0-32.0 [facility] Comment on above: Performed By: #### L 506.0400, L501.9520, L100.0100, L500.4100, L500.4050, L506.1000 #### [facility] [address] [place], [address] MCHC (RBC) [Mass/Vol] 31.8 g/dL Low 32-[address] [facility] Comment on above: Performed By: #### L 506.0400, L501.9520, L100.0100, L500.4100, L500.4050, L506.1000 #### [facility] [address] [place], [address] MCV (RBC) [Entitic vol] 96.7 fL Normal 81-99 [facility] Comment on above: Performed By: #### L 506.0400, L501.9520, L100.0100, L500.4100, L500.4050, L506.1000 #### [facility] [address] [place], [address] Monocytes/100 WBC (Bld) 7.0 % Normal 0-10 [facility] Comment on above: Performed By: #### L 506.0400, L501.9520, L100.0100, L500.4100, L500.4050, L506.1000 #### [facility] [address] [place], [address] Neutrophils/100 WBC (Bld) 62.2 % Normal 47-70 [facility] Comment on above: Performed By: #### L 506.0400, L501.9520, L100.0100, L500.4100, L500.4050, L506.1000 #### [facility] [address] [place], [address] Nucleated RBC (Bld) [#/Vol] 0 10*3/uL Normal 0-5 [facility] Comment on above: Performed By: #### L 506.0400, L501.9520, L100.0100, L500.4100, L500.4050, L506.1000 #### [facility] [address] [place], [address] Platelet mean volume (Bld) [Entitic vol] 10.5 fL Normal 6.2-12.0 [facility] Comment on above: Performed By: #### L 506.0400, L501.9520, L100.0100, L500.4100, L500.4050, L506.1000 #### [facility] [address] [place], [address] Platelets (Bld) [#/Vol] 237 10*3/uL Normal 150-450 [facility] Comment on above: Performed By: #### L 506.0400, L501.9520, L100.0100, L500.4100, L500.4050, L506.1000 #### [facility] [address] [place], [address] RBC (Bld) [#/Vol] 4.23 10*6/uL Normal 4.2-5.4 [facility] Comment on above: Performed By: #### L 506.0400, L501.9520, L100.0100, L500.4100, L500.4050, L506.1000 #### [facility] [address] [place], [address] RDW SD 53.0 fl High 35.1-43.9 [facility] Comment on above: Performed By: #### L 506.0400, L501.9520, L100.0100, L500.4100, L500.4050, L506.1000 #### [facility] [address] [place], [address] WBC (Bld) [#/Vol] 6.0 10*3/uL Normal 4.4-11.0 [facility] Comment on above: Performed By: #### L 506.0400, L501.9520, L100.0100, L500.4100, L500.4050, L506.1000 #### [facility] [address] [place], [address] Comprehensive [facility] 12-11-2023 Albumin [Mass/Vol] 3.8 g/dL Normal 3.2-5.0 [facility] Comment on above: Performed By: #### L 506.0400, L501.9520, L100.0100, L500.4100, L500.4050, L506.1000 #### [facility] [address] [place], [address] Albumin/Globulin [Mass ratio] 1.3 {ratio} Normal 0.9-2.4 [facility] Comment on above: Performed By: #### L 506.0400, L501.9520, L100.0100, L500.4100, L500.4050, L506.1000 #### [facility] [address] [place], [address] ALK P 75 U/L Normal 45-117 [facility] Comment on above: Performed By: #### L 506.0400, L501.9520, L100.0100, L500.4100, L500.4050, L506.1000 #### [facility] [address] [place], [address] ALT [Catalytic activity/Vol] 33 U/L Normal 13-56 [facility] Comment on above: Performed By: #### L 506.0400, L501.9520, L100.0100, L500.4100, L500.4050, L506.1000 #### [facility] [address] [place], [address] AST [Catalytic activity/Vol] 22 U/L Normal 15-37 [facility] Comment on above: Performed By: #### L 506.0400, L501.9520, L100.0100, L500.4100, L500.4050, L506.1000 #### [facility] [address] [place], [address] Bilirubin [Mass/Vol] 1.50 mg/dL High 0.20-1.00 [facility] Comment on above: Result Comment: For patients on eltrombopag therapy, use of Dimension [place] TBIL is not recommended. Performed By: #### L 506.0400, L501.9520, L100.0100, L500.4100, L500.4050, L506.1000 #### [facility] [address] [place], [address] BUN/CRE 19.6 RATIO Normal 10-20 [facility] Comment on above: Performed By: #### L 506.0400, L501.9520, L100.0100, L500.4100, L500.4050, L506.1000 #### [facility] [address] [place], [address] CA,Total 9.6 mg/dL Normal 8.5-10.1 [facility] Comment on above: Performed By: #### L 506.0400, L501.9520, L100.0100, L500.4100, L500.4050, L506.1000 #### [facility] [address] [place], [address] Chloride [Moles/Vol] 108 mmol/L High 98-107 [facility] Comment on above: Performed By: #### L 506.0400, L501.9520, L100.0100, L500.4100, L500.4050, L506.1000 #### [facility] [address] [place], [address] CO2 [Moles/Vol] 27.0 mmol/L Normal 21.0-32.0 [facility] Comment on above: Performed By: #### L 506.0400, L501.9520, L100.0100, L500.4100, L500.4050, L506.1000 #### [facility] [address] [place], [address] Creatinine [Mass/Vol] 0.82 mg/dL Normal 0.55-1.[address] [facility] Comment on above: Result Comment: The validity of the calculated GFR GFRAA in patients over 70 years has not been determined. Clinical correlation is essential. Performed By: #### L 506.0400, L501.9520, L100.0100, L500.4100, L500.4050, L506.1000 #### [facility] [address] [place], [address] EST GFR - AA 89 mL/min Normal >60 [facility] Comment on above: Result Comment: Afri can Ghanaian GFR Calc Performed By: #### L 506.0400, L501.9520, L100.0100, L500.4100, L500.4050, L506.1000 #### [facility] [address] [place], [address] GAP 7 Normal 5-15 [facility] Comment on above: Performed By: #### L 506.0400, L501.9520, L100.0100, L500.4100, L500.4050, L506.1000 #### [facility] [address] [place], [address] GFR/1.73 sq M.predicted among non-blacks MDRD (S/P/Bld) [Vol rate/Area] 73 mL/min/{1.73_m2} Normal >60 [facility] Comment on above: Result Comment: Non- GFR Calc Performed By: #### L 506.0400, L501.9520, L100.0100, L500.4100, L500.4050, L506.1000 #### [facility] [address] [place], [address] Globulin (S) [Mass/Vol] 3.0 g/dL Normal 2.2-4.2 [facility] Comment on above: Performed By: #### L 506.0400, L501.9520, L100.0100, L500.4100, L500.4050, L506.1000 #### [facility] [address] [place], [address] Glucose [Mass/Vol] 76 mg/dL Normal 74-106 [facility] Comment on above: Performed By: #### L 506.0400, L501.9520, L100.0100, L500.4100, L500.4050, L506.1000 #### [facility] [address] [place], [address] Potassium [Moles/Vol] 3.5 mmol/L Normal 3.5-5.[address] [facility] Comment on above: Performed By: #### L 506.0400, L501.9520, L100.0100, L500.4100, L500.4050, L506.1000 #### [facility] [address] [place], [address] Sodium [Moles/Vol] 142 mmol/L Normal 136-145 [facility] Comment on above: Performed By: #### L 506.0400, L501.9520, L100.0100, L500.4100, L500.4050, L506.1000 #### [facility] [address] [place], [address] T PROT 6.8 g/dL Normal 6.4-8.2 [facility] Comment on above: Performed By: #### L 506.0400, L501.9520, L100.0100, L500.4100, L500.4050, L506.1000 #### [facility] [address] [place], [address] Urea nitrogen [Mass/Vol] 16 mg/dL Normal 7-18 [facility] Comment on above: Performed By: #### L 506.0400, L501.9520, L100.0100, L500.4100, L500.4050, L506.1000 #### [facility] [address] [place], [address] Lipid Profileon 12-11-2023 Cholesterol [Mass/Vol] 182 mg/dL Normal 200 [facility] Comment on above: Result Comment: <200 mg/dL Desirable 200-240 mg/dL Borderline >240 mg/dL High Risk Performed By: #### L 506.0400, L501.9520, L100.0100, L500.4100, L500.4050, L506.1000 #### [facility] [address] [place], [address] Cholesterol in HDL [Mass/Vol] 75 mg/dL Normal [facility] Comment on above: Result Comment: The drugs N-Acetylcysteine and Metamizole may falsely depress this assay. Reference Range HDL <40 mg/dL Low HDL Cholesterol HDL >or= 60 mg/dL High HDL Cholesterol Performed By: #### L 506.0400, L501.9520, L100.0100, L500.4100, L500.4050, L506.1000 #### [facility] [address] [place], [address] Cholesterol in LDL [Mass/Vol] 94 mg/dL Normal 0-130 [facility] Comment on above: Performed By: #### L 506.0400, L501.9520, L100.0100, L500.4100, L500.4050, L506.1000 #### [facility] [address] [place], [address] Cholesterol in VLDL [Mass/Vol] 13 mg/dL Normal 5-40 [facility] Comment on above: Performed By: #### L 506.0400, L501.9520, L100.0100, L500.4100, L500.4050, L506.1000 #### [facility] [address] [place], [address] Triglyceride [Mass/Vol] 63 mg/dL Normal [facility] Comment on above: Result Comment: The drugs N-Acetylcysteine and Metamizole may falsely depress this assay. Serum Triglycerides Reference Interval Normal <150 mg/dL Borderline high 150 - 199 mg/dL High 200 - 499 mg/dL Very High > or = 500 mg/dL Performed By: #### L 506.0400, L501.9520, L100.0100, L500.4100, L500.4050, L506.1000 #### [facility] [address] [place], [address] T4 Free Directon 12-11-2023 T4 FREE DIRECT 1.30 ng/dL Normal 0.76-1.46 [facility] Comment on above: Performed By: #### L 506.0400, L501.9520, L100.0100, L500.4100, L500.4050, L506.1000 #### [facility] [address] [place], [address] Thyroid Stim Hormone (TSH)on 12-11-2023 TSH 1.050 uIU/mL Normal 0.358-3.740 [facility] Comment on above: Performed By: #### L 506.0400, L501.9520, L100.0100, L500.4100, L500.4050, L506.1000 #### [facility] [address] [place], [place], [address] Vitamin D,25 Hydroxyon 12-10 Vitamin D 25-OH 72.7 ng/mL Normal [facility] Comment on above: Result Comment: Oralia min D 25(OH) Status Range Deficiency <20 ng/mL (50nmol/L) Insufficiency 20 - 30 ng/mL (50 - 75 nmol/L) Sufficiency 30 - 100 ng/mL (75 - 250 nmol/L) Toxicity >100 ng/mL (>250 nmol/L) Performed By: #### L 506.0400, L501.9520, L100.0100, L500.4100, L500.4050, L506.1000 #### [facility] [address], [address] CNOVon 01-01-2023 CNOV Office Visit (UCWSTR ) RODERICK MESSER ([id number]) 1950 F Date Time Provider Department 01/01/23 1:45 PM AGUSTÍN JAY [facility] During your visit today, we recorded the following information about you: Temperature Pulse Respiration Blood pressure 98.4 degrees 84/minute 16/minute 124/66 Weight 60.3 kg Agustín Jay MD 01/01/2023 2:08 PM Signed Patient presents with: Rash: all over x 3 days HPI: Rash: Location: body, arms, neck; mostly on waist to thighs Duration: 4 days. Pruritis: Yes Pain: No Change: spreading Bleeding/ulceration/bli ster/pustule: red Contacts with rash: No Exposure: No new soaps, detergents, fabric softeners, lotions. Outdoor exposure[place], thinks she used the bathroom after petting her dog. Change in medication: no. Recent illness: No. Treatment: benadryl cream, aloe MEDICATIONS: levothyroxine (SYNTHROID) 88 mcg tablet flaxseed oil-omega 3,6,9 1,300 mg-845 mg -117 mg-117 mg cap Take 3 tablets by mouth once daily. magnesium oxide 200 mg magnesium chew Take 200 mg by mouth once daily. FIBER-CAPS, PSYLLIUM HUSK, ORAL Take 1 tablet by mouth once daily. ubidecarenone(COQ-10 100 MG CAP) Take two (2) by mouth once daily. RED YEAST RICE EXTRACT 600 MG CAP One tablet twice daily CLONAZEPAM 1 MG TAB Take 2-3 tabs as needed. CALCIUM 500 MG TAB Take one(1) tablet three times daily. MULTIVITAMIN TAB Take one(1) tablet daily. ALLERGIES: ALLERGIES Allergen Reactions Hayfever [Homeopath* Macrobid [Nitrofura* Red Spots/Rash VITALS: BP 124/66 Pulse 84 Temp 36.9 ?C (98.4 ?F) Resp 16 Wt 60.3 kg (133 lb) SpO2 98% BMI 21.47 kg/m? PHYSICAL EXAM: GEN: pleasant, no acute distress, alert SKIN: faint patches of slightly raised erythema on the arms, 5cm faint erythematous slightly indurated patch at the thyroid cartilage. Confluent erythema from lower torso to upper thighs. ASSESSMENT/PLAN: 1. Rash - ICD9: 782.1, ICD10: R21 - PREDNISONE 10 MG TABLET taper. She reports normal sugar levels with routine medical care. She has tolerated prednisone in the past for poison iwona. Follow up with worsening rash or failure to improve. Agustín Jay MD Allergies As of Date: 01/01/2023 Noted Allergy Reaction HAYFEVER (HOMEOPATHIC PRODUCTS) 03/29/2009 MACROBID (NITROFURANTOIN MONOHYD/*10/03/2007 Comments: Red Spots/Rash Date Reviewed: 11/07/2022 Reviewed by: Angely Gage PA-C - Fully Assessed Reason for Visit: Rash [1087] Cmt: all over x 3 days Primary Visit Diagnosis:Rash [R21] Order(s):predniSONE (DELTASONE) 10 mg tabletTake 4 tablets by mouth once daily for 3 days, THEN 2 tablets once daily for 3 days, THEN 1 tablet once daily for 1 day. Take with food..Disp: 19 tabletRfl: 0 Prescriptions as of 01/01/2023 - levothyroxine (SYNTHROID) 88 mcg tablet - predniSONE (DELTASONE) 10 mg tablet Take 4 tablets by mouth once daily for 3 days, THEN 2 tablets once daily for 3 days, THEN 1 tablet once daily for 1 day. Take with food.. - flaxseed oil-omega 3,6,9 1,300 mg-845 mg -117 mg-117 mg cap Take 3 tablets by mouth once daily. - magnesium oxide 200 mg magnesium chew Take 200 mg by mouth once daily. - FIBER-CAPS, PSYLLIUM HUSK, ORAL Take 1 tablet by mouth once daily. - ubidecarenone(COQ-10 100 MG CAP) Take two (2) by mouth once daily. - RED YEAST RICE EXTRACT 600 MG CAP One tablet twice daily - CLONAZEPAM 1 MG TAB Take 2-3 tabs as needed. - CALCIUM 500 MG TAB Take one(1) tablet three times daily. - MULTIVITAMIN TAB Take one(1) tablet daily. Meds Comments as of 08/10/2006: All medications have been reviewed today. 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 Take with food.. Medications Discontinued During This Encounter Prescriptions - HYDROcodone-acetaminoph en (NORCO) 5-325 mg per tablet (Discontinued) Reported on 11/07/2022 - duloxetine hcl(CYMBALTA 60 MG CAP) (Discontinued) Reported on 11/07/2022 - HYDROCHLOROTHIAZIDE 25 MG TAB (Discontinued) No sig reported - risedronate sodium(ACTONEL 35 MG TAB) (Discontinued) No sig reported - [id number] GLYCN-C 500 MG-400 MG CAP (Discontinued) Reported on 11/07/2022 - evening primrose oil(EVENING PRIMROSE 500 MG CAP) (Discontinued) Reported on 11/07/2022 - oxycodone hcl/acetaminophen(PERCO CET 5 MG-325 MG TAB) (Discontinued) Reported (more content not included)... Normal [facility] Absolute lymphocyte countOrd ered By: Elodia Sevilla on 11-07-2022 Lymphocytes Auto (Unsp spec) [#/Vol] 1.32 10*3/uL 0.83-4.51 [facility] Basophil percentageOrdered B y: Elodia Sevilla on 11-07-2022 Basophils/100 WBC (Bld) 1.6 % 0-1 [facility] Bilirubin [Mass/Vol] 1.50 mg/dL 0.20-1.00 [facility] Comment on above: For patients on eltr ombopag therapy, use of Dimension [place] TBIL is not recommended. Chloride [Moles/Vol] 109 mmol/L 98-107 [facility] Cholesterol [Mass/Vol] 170 mg/dL <200 [facility] Comment on above: <200 mg/dL Desirable 200-240 mg/dL Borderline >240 mg/dL High Risk Eosinophils/100 WBC (Bld) 4.6 % 0-5 [facility] Glucose [Mass/Vol] 88 mg/dL 74-106 [facility] Neutrophils (Bld) [#/Vol] 3.0 10*3/uL 2.0-7.7 [facility] Neutrophils/100 WBC (Bld) 60.5 % 47-70 [facility] Potassium [Moles/Vol] 4.0 mmol/L 3.5-5.[address] [facility] Protein [Mass/Vol] 7.1 g/dL 6.4-8.2 [facility] Sodium [Moles/Vol] 141 mmol/L 136-145 [facility] Triglyceride [Mass/Vol] 56 mg/dL <199 [facility] Comment on above: The drugs N-Acetylcy steine and Metamizole may falsely depress this assay.Serum Triglycerides Reference Interval Normal <150 mg/dL Borderline high 150 - 199 mg/dL High 200 - 499 mg/dL Very High > or = 500 mg/dL WBC (Bld) [#/Vol] 5.0 10*3/uL 4.4-11.0 [facility] Blood erythrocytes count (nu mber/volume)Ordered By: Elodia Sevilla on 11-07-2022 RBC (Bld) [#/Vol] 4.48 10*6/uL 4.2-5.4 [facility] Blood hemoglobin measurement (mass/volume)Ordered By: Elodia Sevilla on 11-07-2022 Hemoglobin (Bld) [Mass/Vol] 14.2 g/dL 12.0-15.0 [facility] Blood lymphocytes/100 leukoc ytesOrdered By: Elodia Sevilla on 11-07-2022 Lymphocytes/100 WBC (Bld) 26.5 % 19-41 [facility] Blood monocytes/100 leukocyt esOrdered By: Elodia Sevilla on 11-07-2022 Monocytes/100 WBC (Bld) 6.6 % 0-10 [facility] Blood platelet mean volumeOr dered By: Elodia Sevilla on 11-07-2022 Platelet mean volume (Bld) [Entitic vol] 10.9 fL 6.2-12.0 [facility] CNOVon 11-07-2022 CNOV Office Visit (GENSWS ) RODERICK MESSER ([id number]) 1950 F Date Time Provider Department 11/07/22 2:00 PM ANGELY GAGE During your visit today, we recorded the following information about you: Temperature Pulse Blood pressure Weight 97.4 degrees 106/minute 118/68 60.8 kg Height 1.676 m Angely Gage PA-C 11/07/2022 2:24 PM Signed HISTORY AND PHYSICAL Roderick Messer 1950 REFERRING PHYSICIAN: No ref. provider found CHIEF COMPLAINT: Consult (COLONOSCOPY) HPI: The patient is a 71 year old female referred for endoscopy. Roderick notes no colon complaints. Patient denies any change in bowel habits, weight changes, blood in stools, black tarry stools or abdominal pain. Denies family history of colon issues. The patient notes no upper GI complaints. Roderick has undergone prior endoscopy. Last colonoscopy was done by Dr. Lai 11/05/17 at [facility] under MAC with removal of polyp. Patient noted on previous colonoscopy procedures to have a very tortuous colon and had noted recall with conscious sedation. 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 Repeat in 5 years due to prior TVA and adenomatous polyps COLSC FLX W/RMVL OF TUMOR POLYP LESION SNARE TQ 09/19/05 COLSC FLX W/RMVL OF TUMOR POLYP LESION SNARE TQ 05/24/09 PAST SURGICAL HISTORY OF 1990 bladder tack THYROIDECTOMY TOTAL/COMPLETE US GUIDANCE NEEDLE PLACEMENT IMG LUZ MARIA 06/09/05 left- 10clock and 12oclock Current Outpatient Medications Medication Sig HYDROcodone-acetaminoph en (NORCO) 5-325 mg per tablet Take 1 tablet by mouth. levothyroxine (LEVOXYL) 100 mcg tablet Take 1 tablet by mouth once daily. duloxetine hcl(CYMBALTA 60 MG CAP) Take one(1) capsule daily. HYDROCHLOROTHIAZIDE 25 MG TAB Take one(1) tablet daily. (Patient not taking: No sig reported) risedronate sodium(ACTONEL 35 MG TAB) take one tablet each week as directed (Patient not taking: No sig reported) [id number] GLYCN-C 500 MG-400 MG CAP Take one(1) tablet two(2) times daily. evening primrose oil(EVENING PRIMROSE 500 MG CAP) Take one(1) tablet two(2) times daily. oxycodone hcl/acetaminophen(PERCO CET 5 MG-325 MG TAB) as necessary SOY ISOFLAVONE 100 MG CAP Take one(1) tablet two(2) times daily. ubidecarenone(COQ-10 100 MG CAP) Take two (2) by mouth once daily. RED YEAST RICE EXTRACT 600 MG CAP One tablet twice daily CLONAZEPAM 1 MG TAB Take 2-3 tabs as needed. BLACK COHOSH 200 MG CAP Take one(1) tablet daily. CALCIUM 500 MG TAB Take one(1) tablet three times daily. FLAXSEED OIL 1,000 MG CAP Take one(1) tablet daily. MULTIVITAMIN TAB Take one(1) tablet daily. No current facility-administered medications for this visit. ALLERGIES: Hayfever [Homeopathic Products] and Macrobid [Nitrofurantoin Monohyd/M-Cryst] PERSONAL HISTORY: Social History Tobacco Use Smoking status: Former Smokeless tobacco: Never Vaping Use Vaping Use: Never used Substance Use Topics Alcohol use: Yes Comment: very rare Drug use: Never FAMILY HISTORY: FAMILY HISTORY Problem Relation Age of Onset Alzheimer's Disease Mother Cancer Father TESTICULAR Alzheimer's Disease Maternal Grandmother Diabetes Paternal Grandmother Colon Cancer Paternal Grandfather REVIEW OF SYMPTOMS: The review of systems data was entered by the nurse and reviewed by me Nursing Notes: Laureen Zapata LPN 11/07/2022 2:07 PM Signed REVIEW OF SYSTEMS: General: The patient denies fatigue, denies weight loss, denies weight gain, denies feeling hot, and denies feelings of cold. Eyes: The patient denies glaucoma, denies eye injury/surgery, does not wear glasses or contacts. Ear/Nose/Throat: The patient NOTES allergies, denies hayfever, denies ear infections, and denies bloody noses. Cardiovascular: The patient denies chest pain, denies heart disease, denies high blood pressure,denies cardiac stent, denies prior heart attack, denies irregular heart beat, denies high cholesterol, denies poor circulation, denies heart failure, other cardiac issues, denies claudication, denies cold feet, denies peripheral arterial stent. Respiratory: The patient denies tuberculosis, denies pneumonia, denies frequent cough, denies pulmonary embolism, denies shortness of taina (more content not included)... Normal [facility] Determination of erythrocyte mean corpuscular volume (MCV)Ordered By: Elodia Sevilla on 11-07-2022 MCV (RBC) [Entitic vol] 98.9 fL 81-99 [facility] Hematocrit Auto (Bld) [Volum e fraction]Ordered By: Elodia Sevilla on 11-07-2022 Hematocrit (Bld) [Volume fraction] 44.3 % 37-47 [facility] Laboratory - Chemistry and C hemistry - challengeOrdered By: Elodia Sevilla on 11-07-2022 ALP [Catalytic activity/Vol] 68 U/L 45-117 [facility] ALT [Catalytic activity/Vol] 25 U/L 13-56 [facility] CO2 [Moles/Vol] 28.0 mmol/L 21.0-32.0 [facility] Free T4 [Mass/Vol] 1.27 ng/dL 0.76-1.46 [facility] Globulin (S) [Mass/Vol] 3.2 g/dL 2.2-4.2 [facility] Urea nitrogen/Creatinine [Mass ratio] 20.7 mg/mg 10-20 [facility] Laboratory - Hematology and Cell countsOrdered By: Elodia Sevilla on 11-07-2022 Erythrocyte distribution width (RBC) [Entitic vol] 51.8 fL 35.1-43.9 [facility] Erythrocyte distribution width (RBC) [Ratio] 14.2 % 11.6-14.6 [facility] Immature granulocytes/100 WBC (Bld) 0.200 % 0.0-0.9 [facility] Comment on above: IG% - Immature Granu locytes (promyelocytes, myelocytes and metamyelocytes) > 1% indicates that a LEFT SHIFT is Present. MCH (RBC) [Entitic mass] 31.7 pg 27.0-32.0 [facility] Nucleated RBC/100 WBC (Bld) [Ratio] 0 % 0-5 [facility] MCHC Auto (RBC) [Mass/Vol]Or dered By: Elodia Sevilla on 11-07-2022 MCHC (RBC) [Mass/Vol] 32.1 g/dL 32-[address] [facility] No Panel InformationOrdered By: Elodia Sevilla on 11-07-2022 Estimated GFR (MDRD) Amer 88 mL/min >60 [facility] Comment on above: GFR Calc Estimated GFR (MDRD) Non-Af Amer 73 mL/min >60 [facility] Comment on above: Non- GFR Calc Thyroid Stimulating Hormone (TSH) 1.54 uIU/mL 0.358-3.74 [facility] Vitamin D 25-Hydroxy 71.6 ng/mL [facility] Comment on above: Vitamin D 25(OH) Sta tus Range Deficiency <20 ng/mL (50nmol/L) Insufficiency 20 - 30 ng/mL (50 - 75 nmol/L) Sufficiency 30 - 100 ng/mL (75 - 250 nmol/L) Toxicity >100 ng/mL (>250 nmol/L) Platelets bldOrdered By: Clifford Sevilla on 11-07-2022 Platelets (Bld) [#/Vol] 229 10*3/uL 150-450 [facility] Serum or plasma albumin rupinder urement (mass/volume)Ordered By: Elodia Sevilla on 11-07-2022 Albumin [Mass/Vol] 3.9 g/dL 3.2-5.0 [facility] Serum or plasma albumin/glob ulin mass ratioOrdered By: Elodia Sevilla on 11-07-2022 Albumin/Globulin [Mass ratio] 1.2 {ratio} 0.9-2.4 [facility] Serum or plasma calcium rupinder urement (mass/volume)Ordered By: Elodia Sevilla on 11-07-2022 Calcium [Mass/Vol] 9.3 mg/dL 8.5-10.1 [facility] Serum or plasma cholesterol in HDL measurement (mass/volume)Ordered By: Elodia Sevilla on 11-07-2022 Cholesterol in HDL [Mass/Vol] 73 mg/dL >40 [facility] Comment on above: The drugs N-Acetylcy steine and Metamizole may falsely depress this assay. Reference Range HDL <40 mg/dL Low HDL Cholesterol HDL >or= 60 mg/dL High HDL Cholesterol Serum or plasma cholesterol in VLDL measurement (mass/volume)Ordered By: Elodia Sevilla on 11-07-2022 Cholesterol in VLDL [Mass/Vol] 11 mg/dL 5-40 [facility] Serum or plasma creatinine m easurement (mass/volume)Ordered By: Elodia Sevilla on 11-07-2022 Creatinine [Mass/Vol] 0.82 mg/dL 0.55-1.[address] [facility] Comment on above: The validity of the calculated GFR & GFRAA in patients over 70 years has not been determined. Clinical correlation is essential. Serum or plasma low density lipoprotein (LDL) cholesterol measurement (mass/volume)Ordered By: Elodia Sevilla on 11-07-2022 Cholesterol in LDL [Mass/Vol] 86 mg/dL 0-130 [facility] Serum or plasma urea nitroge n measurement (mass/volume)Ordered By: Elodia Sevilla on 11-07-2022 Urea nitrogen [Mass/Vol] 17 mg/dL 7-18 [facility] Thin prep Papanicolaou smear with manual screeningOrdered By: Elodia Sevilla on 11-07-2022 Thin prep Papanicolaou smear with manual screening 24 U/L 15-37 [facility] Thin prep Papanicolaou smear with manual screening 4 5-[address] [facility] [address] BRAIN WOon 01-14-2022 CT BRAIN WO EXAMINATION: CT OF THE HEAD WITHOUT CONTRAST 01/13/2022 10:36 pm TECHNIQUE: CT of the head was performed without the administration of intravenous contrast. Automated exposure control, iterative reconstruction, and/or weight based adjustment of the mA/kV was utilized to reduce the radiation dose to as low as reasonably achievable. COMPARISON: None. HISTORY: ORDERING SYSTEM PROVIDED HISTORY: trauma FINDINGS: BRAIN/VENTRICLES: There is no acute intracranial hemorrhage, mass effect or midline shift. No abnormal extra-axial fluid collection. The hermosillo-white differentiation is maintained without evidence of an acute infarct. There is no evidence of hydrocephalus. Periventricular white matter changes consistent chronic microvascular disease. ORBITS: The visualized portion of the orbits demonstrate no acute abnormality. SINUSES: Mild pansinus mucosal thickening. SOFT TISSUES/SKULL: No acute fractures. Right parietal scalp hematoma. IMPRESSION: No acute intracranial abnormality. Right parietal scalp hematoma. 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 PATIENT WAS WALKING AT [facility] AND TRIPPED AND FELL FRONTWARDS IN MIDWAY AND HIT HEAD AND RIGHT SHOULDER. PATIENT DENIES LOC. A OX3 Time Seen by Provider: 01/13/22 21:26 Source: Patient Mode of Transport: [facility] - History of Present Illness Initial Comments: Patient was walking at the [facility], she tripped on the pavement or gravel and fell face first into the ground. There were no prodromal symptoms. She was feeling fine prior to this. She hit her head, she is amnestic to a certain part of the event but no definite loss of consciousness. She also injured her right shoulder. [id number]. No numbness or tingling or weakness in the right upper extremity, she denies injury or pain elsewhere. Last tetanus shot unknown, she did injure her right scalp and face. He is healthy she takes no prescriptions or anticoagulant/antiplate let including [id number] medications. MD Complaint: fall Onset/Timin -: minutes(s) - Related Data Allergies Allergy/AdvReac Type Severity Reaction Status Date / Time No Known Allergies Allergy Unverified 01/13/22 20:54 Review of System - Recent travel Recent travel outside [place] No reported travel outside [place] - Constitutional Constitutional: Absent: chills, fever - Eyes Both Eyes (ROS): Present: no symptoms reported. Absent: blurred vision, drainage, foreign body sensation, vision change - Nose,Throat,Mouth Nose (ROS): Absent: congestion, pain Throat: Absent: pain, swelling, discharge Mouth: Present: other (Right scalp and forehead/facial pain, no other areas of facial pain). Absent: pain, swelling - Respiratory Respiratory: Absent: cough, short of breath, wheezing - CV Cardiology: Absent: chest pain, edema - GI Gastrointestinal/Abdomi nal: Absent: abdominal pain, diarrhea, nausea, vomiting - Genitourinary Symptoms: Absent: dysuria, hematuria - Neuro Neurological: Present: headache. Absent: numbness, paresthesia, weakness - Muskuloskeletal Musculoskeletal: Present: see HPI (Right shoulder pain). Absent: back pain, joint pain, joint swelling - Integumentary Skin: Absent: lesions, rash - Allergic/Immunologic Immunological/Allergic: Present: no symptoms reported - Hematologic Hematologic/Lymphatic: Absent: easy bleeding, easy bruising, swollen glands - Endocrine Endocrine: Present: no symptoms reported - Psychiatric Psychiatric: Absent: Depressed, Suicidal Thoughts - All Others/Exceptions All Other Systems: Reviewed and Negative Except Where Noted in Documentation ED PMH/Social HX/Family HX - Respiratory Hx Respiratory Disorders: No - Cardiovascular Hx Cardiac Disorders: No - Neurological Hx Neurological Disorder: Yes Other Neuro PMH: DYSTONIA - Gastrointestinal Hx Gastrointestinal Disorders: No - Genitourinary Hx Genitourinary Disorders: No - Musculoskeletal Hx Musculoskeletal Disorders: Yes Other MS PMH: RIGHT HIP SURGERY - Reproductive ?: No Hx Reproductive Disorders: No - Psychological Hx Psychosocial Problems: No - HEENT Hx Ear, Nose Throat Disorders: Yes Other HEENT PMH: THYROID AND PARATHYROID REMOVED - Social History Able to Read: Yes Able to Write: Yes Smoking Status: Never Smoked Hx Chewing Tobacco Use: No Alcohol Use: Never Any recreational drug use reported?: No Feels Threatened In Home Environment: No Feels Threatened In a Relationship: No - [place]/Gender ID What is your current Gender Identity? Choose all that Apply: Female Define your Sexual Orientation?: Straight/Heterosexual - [place]-Suicide Severity Rating Scale 1) Wish to be :: No 2) Suicidal Thoughts:: No 6) Suicidal Behavior Question (A): LIFETIME: No 6) Suicidal Behavior Question (B): PAST 3 MONTHS: No General Exam - General Limitations: Complains of: no limitations Constitutional: Present: Well developed, Well nourished, well hydrated, Non-toxic - Head Head exam: Present: normocephalic, other (Tenderness and abrasions/lacerations right parietal/temporal scalp in addition to the right superior orbital brim/temporal forehead. No crepitance, depression, hematoma.) - Eye Eye exam: Present: normal apperance, normal accomodation, EOMI Pupils: Present: PERRL - ENT ENT exam: Present: normal orophraynx, TMs clear w/ good light reflex, mucous membranes moist, No Nasal Discharg (more content not included)... Normal [facility] RIGHT SHOULDER MIN 2Von 10-0 RIGHT SHOULDER MIN 2V EXAMINATION: TWO XRAY VIEWS OF THE RIGHT SHOULDER 01/13/2022 10:12 pm COMPARISON: None. HISTORY: ORDERING SYSTEM PROVIDED HISTORY: fall/injury FINDINGS: Glenohumeral joint is normally aligned. Overlapping midclavicular fracture. No abnormal periarticular calcifications. The AC joint is unremarkable in appearance. Large medial humeral neck osteophyte. Visualized lung is unremarkable. IMPRESSION: Overlapping midclavicular fracture. Normal [facility] Absolute lymphocyte counton 09-21-2021 Lymphocytes Auto (Unsp spec) [#/Vol] 1.36 10*3/uL 0.83-4.51 [facility] Work Phone: Basophil percentageon 2021 Basophils/100 WBC (Bld) 1.0 % 0-1 [facility] Work Phone: Bilirubin [Mass/Vol] 1.20 mg/dL 0.20-1.00 [facility] Work Phone: Comment on above: For patients on eltr ombopag therapy, use of Dimension [place] TBIL is not recommended. Chloride [Moles/Vol] 106 mmol/L 98-107 [facility] Work Phone: Cholesterol [Mass/Vol] 171 mg/dL <200 [facility] Work Phone: Comment on above: <200 mg/dL Desirable 200-240 mg/dL Borderline >240 mg/dL High Risk Eosinophils/100 WBC (Bld) 1.4 % 0-5 [facility] Work Phone: Glucose [Mass/Vol] 87 mg/dL 74-106 [facility] Work Phone: Neutrophils (Bld) [#/Vol] 3.2 10*3/uL 2.0-7.7 [facility] Work Phone: Neutrophils/100 WBC (Bld) 63.4 % 47-70 [facility] Work Phone: Potassium [Moles/Vol] 3.7 mmol/L 3.5-5.[address] [facility] Work Phone: Protein [Mass/Vol] 6.9 g/dL 6.4-8.2 [facility] Work Phone: Sodium [Moles/Vol] 140 mmol/L 136-145 [facility] Work Phone: Triglyceride [Mass/Vol] 52 mg/dL [facility] Work Phone: Comment on above: The drugs N-Acetylcy steine and Metamizole may falsely depress this assay.Serum Triglycerides Reference Interval Normal <150 mg/dL Borderline high 150 - 199 mg/dL High 200 - 499 mg/dL Very High > or = 500 mg/dL WBC (Bld) [#/Vol] 5.0 10*3/uL 4.4-11.0 [facility] Work Phone: Blood erythrocytes count (nu mber/volume)on 09-21-2021 RBC (Bld) [#/Vol] 4.36 10*6/uL 4.2-5.4 [facility] Work Phone: [phone] Blood hemoglobin measurement (mass/volume)on 09-21-2021 Hemoglobin (Bld) [Mass/Vol] 13.7 g/dL 12.0-15.0 [facility] Work Phone: [phone] Blood lymphocytes/100 leukoc yteson 09-21-2021 Lymphocytes/100 WBC (Bld) 27.2 % 19-41 [facility] Work Phone: [phone] Blood monocytes/100 leukocyt eson 09-21-2021 Monocytes/100 WBC (Bld) 6.6 % 0-10 [facility] Work Phone: Blood platelet mean volumeon 09-21-2021 Platelet mean volume (Bld) [Entitic vol] 10.4 fL 6.2-12.0 [facility] Work Phone: [phone] Determination of erythrocyte mean corpuscular volume (MCV)on 09-21-2021 MCV (RBC) [Entitic vol] 95.2 fL 81-99 [facility] Work Phone: [phone] Hematocrit Auto (Bld) [Volum e fraction]on 09-21-2021 Hematocrit (Bld) [Volume fraction] 41.5 % 37-47 [facility] Work Phone: [phone] Laboratory - Chemistry and C hemistry - challengeon 09-21-2021 ALP [Catalytic activity/Vol] 66 U/L 45-117 [facility] Work Phone: ALT [Catalytic activity/Vol] 23 U/L 13-56 [facility] Work Phone: [phone] CO2 [Moles/Vol] 29.0 mmol/L 21.0-32.0 [facility] Work Phone: [phone] Free T4 [Mass/Vol] 1.55 ng/dL 0.76-1.46 [facility] Work Phone: [phone] Globulin (S) [Mass/Vol] 3.0 g/dL 2.2-4.2 [facility] Work Phone: [phone] Urea nitrogen/Creatinine [Mass ratio] 18.9 mg/mg 10-20 [facility] Work Phone: [phone] Laboratory - Hematology and Cell countson 09-21-2021 Erythrocyte distribution width (RBC) [Entitic vol] 52.1 fL 35.1-43.9 [facility] Work Phone: [phone] Erythrocyte distribution width (RBC) [Ratio] 14.7 % 11.6-14.6 [facility] Work Phone: [phone] Immature granulocytes/100 WBC (Bld) 0.400 % 0.0-0.9 [facility] Work Phone: [phone] Comment on above: IG% - Immature Granu locytes (promyelocytes, myelocytes and metamyelocytes) > 1% indicates that a LEFT SHIFT is Present. MCH (RBC) [Entitic mass] 31.4 pg 27.0-32.0 [facility] Work Phone: Nucleated RBC/100 WBC (Bld) [Ratio] 0 % 0-5 [facility] Work Phone: [phone] MCHC Auto (RBC) [Mass/Vol]on 09-21-2021 MCHC (RBC) [Mass/Vol] 33.0 g/dL 32-[address] [facility] Work Phone: No Panel Informationon 09-21 Estimated GFR (MDRD) Amer 85 mL/min >60 [facility] Work Phone: [phone] Comment on above: GFR Calc Estimated GFR (MDRD) Non-Af Amer 71 mL/min >60 [facility] Work Phone: [phone] Comment on above: Non- GFR Calc Thyroid Stimulating Hormone (TSH) 1.09 uIU/mL 0.358-3.74 [facility] Work Phone: Vitamin D 25-Hydroxy 91.6 ng/mL [facility] Work Phone: Comment on above: Vitamin D 25(OH) Sta tus Range Deficiency <20 ng/mL (50nmol/L) Insufficiency 20 - 30 ng/mL (50 - 75 nmol/L) Sufficiency 30 - 100 ng/mL (75 - 250 nmol/L) Toxicity >100 ng/mL (>250 nmol/L) Platelets bldon 09-21-2021 Platelets (Bld) [#/Vol] 218 10*3/uL 150-450 [facility] Work Phone: Serum or plasma albumin rupinder urement (mass/volume)on 09-21-2021 Albumin [Mass/Vol] 3.9 g/dL 3.2-5.0 [facility] Work Phone: Serum or plasma albumin/glob ulin mass ratioon 09-21-2021 Albumin/Globulin [Mass ratio] 1.3 {ratio} 0.9-2.4 [facility] Work Phone: Serum or plasma calcium rupinder urement (mass/volume)on 09-21-2021 Calcium [Mass/Vol] 9.3 mg/dL 8.5-10.1 [facility] Work Phone: Serum or plasma cholesterol in HDL measurement (mass/volume)on 09-21-2021 Cholesterol in HDL [Mass/Vol] 62 mg/dL [facility] Work Phone: Comment on above: The drugs N-Acetylcy steine and Metamizole may falsely depress this assay. Reference Range HDL <40 mg/dL Low HDL Cholesterol HDL >or= 60 mg/dL High HDL Cholesterol Serum or plasma cholesterol in VLDL measurement (mass/volume)on 09-21-2021 Cholesterol in VLDL [Mass/Vol] 10 mg/dL 5-40 [facility] Work Phone: Serum or plasma creatinine m easurement (mass/volume)on 09-21-2021 Creatinine [Mass/Vol] 0.85 mg/dL 0.55-1.[address] [facility] Work Phone: Comment on above: The validity of the calculated GFR & GFRAA in patients over 70 years has not been determined. Clinical correlation is essential. Serum or plasma low density lipoprotein (LDL) cholesterol measurement (mass/volume)on 09-21-2021 Cholesterol in LDL [Mass/Vol] 99 mg/dL 0-130 [facility] Work Phone: Serum or plasma urea nitroge n measurement (mass/volume)on 09-21-2021 Urea nitrogen [Mass/Vol] 16 mg/dL 7-18 [facility] Work Phone: Thin prep Papanicolaou smear with manual screeningon 09-21-2021 Thin prep Papanicolaou smear with manual screening 20 U/L 15-37 [facility] Work Phone: Thin prep Papanicolaou smear with manual screening 5 5-15 [facility] Work Phone: No Panel Informationon 05-20 Herpes Simplex Virus I IgG Antibody 53.90 index [facility] Work Phone: Comment on above: Negative <0.91 Equiv ocal 0.91 - 1.09 Positive >1.09 Note: Negative indicates no antibodies detected to HSV-1. Equivocal may suggest early infection. If clinically appropriate, retest at later date. Positive indicates antibodies detected to HSV-1. Serum herpes simplex virus 2 antibody assay by immunoassay (units/volume)on 05-20-2021 HSV 2 Ab IA Qn (S) 5.34 index [facility] Work Phone: Comment on above: Negative <0.91 Equiv ocal 0.91 - 1.09 Positive >1.09 Note: Negative indicates no HSV-2 antibodies detected. Positive indicates HSV-2 antibodies detected. Equivocal and low positive HSV-2 screens (Index 0.91-5.00) may be false positive and are reflexed to supplemental testing in accordance with CDC guidelines.Performed at: [facility] [employer] [id number] Director: Matt Peña PhD, Phone: [phone] Absolute lymphocyte counton 01-31-2022 Lymphocytes Auto (Unsp spec) [#/Vol] 0.81 10*3/uL 0.83-4.51 [facility] Work Phone: Basophil percentageon 2021 Basophil percentage 2.3 mg/dL 2.5-4.9 [facility] Work Phone: Basophils/100 WBC (Bld) 0.4 % 0-1 [facility] Work Phone: Chloride [Moles/Vol] 112 mmol/L 98-107 [facility] Work Phone: Eosinophils/100 WBC (Bld) 1.8 % 0-5 [facility] Work Phone: Glucose [Mass/Vol] 102 mg/dL 74-106 [facility] Work Phone: Comment on above: Fasting Glucose resu lt from 100 to 125 mg/dL suggests IMPAIRED HOMEOSTASIS per A.D.A. criteria. Neutrophils (Bld) [#/Vol] 5.4 10*3/uL 2.0-7.7 [facility] Work Phone: Neutrophils/100 WBC (Bld) 77.0 % 47-70 [facility] Work Phone: Potassium [Moles/Vol] 3.5 mmol/L 3.5-5.[address] [facility] Work Phone: Sodium [Moles/Vol] 143 mmol/L 136-145 [facility] Work Phone: WBC (Bld) [#/Vol] 7.1 10*3/uL 4.4-11.0 [facility] Work Phone: Blood erythrocytes count (nu mber/volume)on 05-16-2021 RBC (Bld) [#/Vol] 3.52 10*6/uL 4.2-5.4 [facility] Work Phone: Blood hemoglobin measurement (mass/volume)on 05-16-2021 Hemoglobin (Bld) [Mass/Vol] 11.0 g/dL 12.0-15.0 [facility] Work Phone: Blood lymphocytes/100 leukoc yteson 05-16-2021 Lymphocytes/100 WBC (Bld) 11.4 % 19-41 [facility] Work Phone: Blood monocytes/100 leukocyt eson 05-16-2021 Monocytes/100 WBC (Bld) 9.0 % 0-10 [facility] Work Phone: Blood platelet mean volumeon 05-16-2021 Platelet mean volume (Bld) [Entitic vol] 10.4 fL 6.2-12.0 [facility] Work Phone: Determination of erythrocyte mean corpuscular volume (MCV)on 05-16-2021 MCV (RBC) [Entitic vol] 95.7 fL 81-99 [facility] Work Phone: [phone] Hematocrit Auto (Bld) [Volum e fraction]on 05-16-2021 Hematocrit (Bld) [Volume fraction] 33.7 % 37-47 [facility] Work Phone: Laboratory - Chemistry and C hemistry - challengeon 05-16-2021 CO2 [Moles/Vol] 27.0 mmol/L 21.0-32.0 [facility] Work Phone: Magnesium [Mass/Vol] 2.3 mg/dL 1.6-2.6 [facility] Work Phone: [phone] Urea nitrogen/Creatinine [Mass ratio] 15.2 mg/mg 10-20 [facility] Work Phone: Laboratory - Hematology and Cell countson 05-16-2021 Erythrocyte distribution width (RBC) [Entitic vol] 53.4 fL 35.1-43.9 [facility] Work Phone: [phone] Erythrocyte distribution width (RBC) [Ratio] 15.0 % 11.6-14.6 [facility] Work Phone: [phone] Immature granulocytes/100 WBC (Bld) 0.400 % 0.0-0.9 [facility] Work Phone: Comment on above: IG% - Immature Granu locytes (promyelocytes, myelocytes and metamyelocytes) > 1% indicates that a LEFT SHIFT is Present. MCH (RBC) [Entitic mass] 31.3 pg 27.0-32.0 [facility] Work Phone: [phone] Nucleated RBC/100 WBC (Bld) [Ratio] 0 % 0-5 [facility] Work Phone: [phone] MCHC Auto (RBC) [Mass/Vol]on 05-16-2021 MCHC (RBC) [Mass/Vol] 32.6 g/dL 32-[address] [facility] Work Phone: [phone] No Panel Informationon 05-16 Estimated Creatinine Clearance Calc 47.78 ml/min [facility] Work Phone: [phone] Estimated GFR (MDRD) Amer 115 mL/min >60 [facility] Work Phone: Comment on above: GFR Calc Estimated GFR (MDRD) Non-Af Amer 95 mL/min >60 [facility] Work Phone: [phone] Comment on above: Non- GFR Calc Parathyroid Hormone (Intact) 45.6 pg/mL 18.4-80.1 [facility] Work Phone: [phone] Platelets bldon 05-16-2021 Platelets (Bld) [#/Vol] 171 10*3/uL 150-450 [facility] Work Phone: [phone] Serum or plasma albumin rupinder urement (mass/volume)on 05-16-2021 Albumin [Mass/Vol] 2.5 g/dL 3.2-5.0 [facility] Work Phone: [phone] Serum or plasma calcium rupinder urement (mass/volume)on 05-16-2021 Calcium [Mass/Vol] 8.1 mg/dL 8.5-10.1 [facility] Work Phone: [phone] Serum or plasma creatinine m easurement (mass/volume)on 05-16-2021 Creatinine [Mass/Vol] 0.66 mg/dL 0.55-1.[address] [facility] Work Phone: [phone] Comment on above: The validity of the calculated GFR & GFRAA in patients over 70 years has not been determined. Clinical correlation is essential. Serum or plasma urea nitroge n measurement (mass/volume)on 05-16-2021 Urea nitrogen [Mass/Vol] 10 mg/dL 7-18 [facility] Work Phone: Thin prep Papanicolaou smear with manual screeningon 05-16-2021 Thin prep Papanicolaou smear with manual screening 4 5-15 [facility] Work Phone: [phone] Laboratory - Coagulationon 0 05-14-2021 aPTT Coag (Bld) [Time] 30.0 s 24.1-36.2 [facility] Work Phone: [phone] Basophil percentageon 2021 Bilirubin [Mass/Vol] 0.80 mg/dL 0.20-1.00 [facility] Work Phone: Comment on above: For patients on eltr ombopag therapy, use of Dimension [place] TBIL is not recommended. Protein [Mass/Vol] 5.9 g/dL 6.4-8.2 [facility] Work Phone: INR in Blood by Coagulation assayon 05-13-2021 INR Coag (Bld) [Relative time] 1.0 {INR} [facility] Work Phone: [phone] Laboratory - Chemistry and C hemistry - challengeon 05-13-2021 ALP [Catalytic activity/Vol] 50 U/L 45-117 [facility] Work Phone: [phone] ALT [Catalytic activity/Vol] 25 U/L 13-56 [facility] Work Phone: [phone] Globulin (S) [Mass/Vol] 2.6 g/dL 2.2-4.2 [facility] Work Phone: Laboratory - Coagulationon 0 05-13-2021 PT Coag (PPP) [Time] 12.6 s 11.7-14.9 [facility] Work Phone: No Panel Informationon 05-13 Thyroid Stimulating Hormone (TSH) 1.58 uIU/mL 0.358-3.74 [facility] Work Phone: SARS-CoV-2 Antigen (Rapid) [facility] Work Phone: Serum or plasma albumin rupinder urement (mass/volume)on 05-13-2021 Albumin [Mass/Vol] 3.3 g/dL 3.2-5.0 [facility] Work Phone: Serum or plasma albumin/glob ulin mass ratioon 05-13-2021 Albumin/Globulin [Mass ratio] 1.3 {ratio} 0.9-2.4 [facility] Work Phone: Thin prep Papanicolaou smear with manual screeningon 05-13-2021 Thin prep Papanicolaou smear with manual screening 20 U/L 15- [facility] Work Phone: Vital Signs Date Time Vital Sign Value Performing Clinician Facility 10-29-2024 14:32-0400 Body height 170.2 cm Cynthia Peters MD Work Phone: [facility] 10-29-2024 14:32-0400 Body mass index (BMI) [Ratio] 21.46 kg/m2 Cynthia Peters MD Work Phone: [facility] 10-29-2024 14:32-0400 Body temperature 97.7 [degF] Cynthia Peters MD Work Phone: [facility] 10-29-2024 14:32-0400 Body weight 62.14 kg Cynthia Peters MD Work Phone: [facility] 10-29-2024 14:32-0400 Diastolic blood pressure 81 mm[Hg] Cynthia Peters MD Work Phone: [facility] 10-29-2024 14:32-0400 Heart rate 79 /min Cynthia Peters MD Work Phone: [facility] 10-29-2024 14:32-0400 Systolic blood pressure 130 mm[Hg] Cynthia Peters MD Work Phone: [facility] 07-30-2024 14:53-0400 Body height 170.2 cm Cynthia Peters MD Work Phone: [employer] [facility] 07-30-2024 14:53-0400 Body mass index (BMI) [Ratio] 21.46 kg/m2 Cynthia Peters MD Work Phone: [facility] 07-30-2024 14:53-0400 Body weight 62.14 kg Cynthia Peters MD Work Phone: [facility] 05-02-2024 13:16-0500 Body height 170.2 cm Cynthia Peters MD Work Phone: [employer] [facility] 05-02-2024 13:16-0500 Body mass index (BMI) [Ratio] 21.46 kg/m2 Cynthia Peters MD Work Phone: [employer] [facility] 05-02-2024 13:16-0500 Body weight 62.14 kg Cynthia Peters MD Work Phone: [facility] 02-01-2024 13:41-0400 Body height 170.2 cm Cynthia Peters MD Work Phone: [employer] [facility] 02-01-2024 13:41-0400 Body mass index (BMI) [Ratio] 21.46 kg/m2 Cynthia Peters MD Work Phone: [employer] [facility] 02-01-2024 13:41-0400 Body weight 62.14 kg Cynthia Peters MD Work Phone: [facility] 02-01-2024 13:41-0400 Diastolic blood pressure 84 mm[Hg] Cynthia Peters MD Work Phone: [employer] [facility] 02-01-2024 13:41-0400 Systolic blood pressure 122 mm[Hg] Cynthia Peters MD Work Phone: [facility] 11-02-2023 11:27-0400 Body height 170.2 cm Cynthia Peters MD Work Phone: [employer] [facility] 11-02-2023 11:27-0400 Body mass index (BMI) [Ratio] 21.46 kg/m2 Cynthia Peters MD Work Phone: [facility] 11-02-2023 11:27-0400 Body temperature 97.59 [degF] Cynthia Peters MD Work Phone: [facility] 11-02-2023 11:27-0400 Body weight 62.14 kg Cynthia Peters MD Work Phone: [facility] 11-02-2023 11:27-0400 Diastolic blood pressure 82 mm[Hg] Cynthia Peters MD Work Phone: [facility] 11-02-2023 11:27-0400 Heart rate 84 /min Cynthia Peters MD Work Phone: [facility] 11-02-2023 11:27-0400 Systolic blood pressure 136 mm[Hg] Cynthia Peters MD Work Phone: [facility] 08-01-2023 14:01-0400 Diastolic blood pressure 76 mm[Hg] Cynthia Peters MD Work Phone: [facility] 08-01-2023 14:01-0400 Heart rate 85 /min Cynthia Peters MD Work Phone: [facility] 08-01-2023 14:01-0400 Systolic blood pressure 112 mm[Hg] Cynthia Peters MD Work Phone: [facility] 05-02-2023 14:04-0500 Body height 170.2 cm Cynthia Peters MD Work Phone: [facility] 05-02-2023 14:04-0500 Body mass index (BMI) [Ratio] 20.83 kg/m2 Cynthia Peters MD Work Phone: [facility] 05-02-2023 14:04-0500 Body temperature 97.3 [degF] Cynthia Peters MD Work Phone: [employer] [facility] 05-02-2023 14:04-0500 Body weight 60.33 kg Cynthia Peters MD Work Phone: [facility] 05-02-2023 14:04-0500 Diastolic blood pressure 75 mm[Hg] Cynthia Peters MD Work Phone: [facility] 05-02-2023 14:04-0500 Heart rate 77 /min Cynthia Peters MD Work Phone: [facility] 05-02-2023 14:04-0500 Systolic blood pressure 146 mm[Hg] Cynthia Peters MD Work Phone: [facility] 01-26-2023 14:24-0400 Body height 170.2 cm Cynthia Peters MD Work Phone: [facility] 01-26-2023 14:24-0400 Body mass index (BMI) [Ratio] 20.83 kg/m2 Cynthia Peters MD Work Phone: [facility] 01-26-2023 14:24-0400 Body temperature 97.5 [degF] Cynthia Peters MD Work Phone: [facility] 01-26-2023 14:24-0400 Body weight 60.33 kg Cynthia Peters MD Work Phone: [facility] 01-26-2023 14:24-0400 Diastolic blood pressure 83 mm[Hg] Cynthia Peters MD Work Phone: [facility] 01-26-2023 14:24-0400 Heart rate 79 /min Cynthia Peters MD Work Phone: [facility] 01-26-2023 14:24-0400 Systolic blood pressure 138 mm[Hg] Cynthia Peters MD Work Phone: [facility] 01-01-2023 13:49-0400 Body temperature 98.4 [degF] Agustín Jay MD Work Phone: [facility] 01-01-2023 13:49-0400 Body weight 60.33 kg Agustín Jay MD Work Phone: [facility] 01-01-2023 13:49-0400 Diastolic blood pressure 66 mm[Hg] Agustín Jay MD Work Phone: [facility] 01-01-2023 13:49-0400 Heart rate 84 /min Agustín Jay MD Work Phone: [facility] 01-01-2023 13:49-0400 Respiratory rate 16 /min Agustín Jay MD Work Phone: [facility] 01-01-2023 13:49-0400 SaO2% (BldA) [Mass fraction] 98 % Agustín Jay MD Work Phone: [facility] 01-01-2023 13:49-0400 Systolic blood pressure 124 mm[Hg] Agustín Jay MD Work Phone: [facility] 07-28-2022 14:21-0400 Diastolic blood pressure 84 mm[Hg] Cynthia Peters MD Work Phone: [facility] 07-28-2022 14:21-0400 Heart rate 84 /min Cynthia Peters MD Work Phone: [facility] 07-28-2022 14:21-0400 Systolic blood pressure 160 mm[Hg] Cynthia Peters MD Work Phone: [facility] 04-28-2022 13:39-0500 Body height 170.2 cm Cynthia Peters MD Work Phone: [facility] 04-28-2022 13:39-0500 Body mass index (BMI) [Ratio] 20.83 kg/m2 Cynthia Peters MD Work Phone: [facility] 04-28-2022 13:39-0500 Body temperature 96.91 [degF] Cynthia Peters MD Work Phone: [facility] 04-28-2022 13:39-0500 Body weight 60.33 kg Cynthia Peters MD Work Phone: [facility] 04-28-2022 13:39-0500 Diastolic blood pressure 83 mm[Hg] Cynthia Peters MD Work Phone: [facility] 04-28-2022 13:39-0500 Heart rate 86 /min Cynthia Peters MD Work Phone: [facility] 04-28-2022 13:39-0500 Systolic blood pressure 140 mm[Hg] Cynthia Peters MD Work Phone: [facility] 01-14-2022 00:34-0400 Diastolic blood pressure 60 mm[Hg] MD AVIS BOYCE Work Phone: [facility] 01-14-2022 00:34-0400 Heart rate 85 /min MD AVIS BOYCE Work Phone: [facility] 01-14-2022 00:34-0400 Respiratory rate 20 /min MD AVIS BOYCE Work Phone: [facility] 01-14-2022 00:34-0400 SaO2% (BldA) [Mass fraction] 99 % MD AVIS BOYCE Work Phone: [facility] 01-14-2022 00:34-0400 Systolic blood pressure 130 mm[Hg] MD AVIS BOYCE Work Phone: [facility] 01-13-2022 20:45-0400 Body height 170.18 cm MD AVIS BOYCE Work Phone: [facility] 01-13-2022 20:45-0400 Body temperature 97.6 [degF] MD AVIS BOYCE Work Phone: [facility] 01-13-2022 20:45-0400 Body weight 58.97 kg MD AVIS BOYCE Work Phone: [facility] 06-27-2021 14:24-0400 Body height 166.[address] Elodia Sevilla Work Phone: [facility] Work Phone: 06-27-2021 14:24-0400 Body mass index (BMI) [Ratio] 22.1 kg/m2 Dr. Elodia Sevilla Work Phone: [facility] Work Phone: 06-27-2021 14:24-0400 Body temperature 98.1 [degF] Dr. Elodia Sevilla Work Phone: [facility] Work Phone: 06-27-2021 14:24-0400 Body weight 61.[address] Elodia Sevilla Work Phone: [facility] Work Phone: 06-27-2021 14:24-0400 Diastolic blood pressure 74 mm[Hg] Dr. Elodia Sevilla Work Phone: [facility] Work Phone: 06-27-2021 14:24-0400 Heart rate 87 /min Dr. Elodia Sevilla Work Phone: [facility] Work Phone: 06-27-2021 14:24-0400 Respiratory rate 16 /min Dr. Elodia Sevilla Work Phone: [facility] Work Phone: 06-27-2021 14:24-0400 SaO2% (BldA) [Mass fraction] 98 % Dr. Elodia Sevilla Work Phone: [facility] Work Phone: 06-27-2021 14:24-0400 Systolic blood pressure 113 mm[Hg] Dr. Elodia Sevilla Work Phone: [facility] Work Phone: 05-26-2021 07:01-0500 Body temperature 98.2 [degF] Dr. Elodia Sevilla Work Phone: [facility] Work Phone: 05-26-2021 07:01-0500 Diastolic blood pressure 75 mm[Hg] Dr. Elodia Sevilla Work Phone: [facility] Work Phone: 05-26-2021 07:01-0500 Heart rate 93 /min Dr. Elodia Sevilla Work Phone: [facility] Work Phone: 05-26-2021 07:01-0500 Respiratory rate 12 /min Dr. Elodia Sevilla Work Phone: [facility] Work Phone: 05-26-2021 07:01-0500 SaO2% (BldA) [Mass fraction] 97 % Dr. Elodia Sevilla Work Phone: [facility] Work Phone: 05-26-2021 07:01-0500 Systolic blood pressure 130 mm[Hg] Dr. Elodia Sevilla Work Phone: [facility] Work Phone: 05-23-2021 10:42-0500 Body weight 61.[address] Elodia Sevilla Work Phone: [facility] Work Phone: 05-16-2021 13:45-0500 Body mass index (BMI) [Ratio] 23.3 kg/m2 Dr. Elodia Sevilla Work Phone: [facility] Work Phone: 05-16-2021 12:08-0500 Body temperature 98.6 [degF] Dr. Elodia Sevilla Work Phone: [facility] Work Phone: 05-16-2021 12:08-0500 Diastolic blood pressure 74 mm[Hg] Dr. Elodia Sevilla Work Phone: [facility] Work Phone: 05-16-2021 12:08-0500 Heart rate 99 /min Dr. Elodia Sevilla Work Phone: [facility] Work Phone: 05-16-2021 12:08-0500 Respiratory rate 16 /min Dr. Elodia Sevilla Work Phone: [facility] Work Phone: 05-16-2021 12:08-0500 SaO2% (BldA) [Mass fraction] 96 % Dr. Elodia Sevilla Work Phone: [facility] Work Phone: 05-16-2021 12:08-0500 Systolic blood pressure 120 mm[Hg] Dr. Elodia Sevilla Work Phone: [facility] Work Phone: 05-16-2021 04:59-0500 Body weight 63.[address] Elodia Sevilla Work Phone: [facility] Work Phone: 05-13-2021 01:52-0500 Body mass index (BMI) [Ratio] 22.9 kg/m2 Dr. Elodia Sevilla Work Phone: [facility] Work Phone: Encounters Encounter Date Encounter Type Care Provider Facility Start: 10-29-2024 End: 10-29-2024 ambulatory [facility] Start: 10-29-2024 End: 10-29-2024 Patient encounter procedure Cynthia Peters MD Work Phone: [facility] Comment on above: Cervical dystonia (P rimary Dx) Start: 09-29-2024 End: 09-29-2024 Refill Elsy Garcia WILL CALL CLERK - DIRECTOR [employer] Work Phone: [facility] Comment on above: Cervical dystonia Start: 07-30-2024 End: 07-30-2024 Patient encounter procedure Cynthia Peters MD Work Phone: [facility] Comment on above: Cervical dystonia (P rimary Dx) Start: 07-30-2024 End: 07-30-2024 ambulatory [facility] Start: 05-02-2024 End: 05-02-2024 Patient encounter procedure Cynthia Peters MD Work Phone: [facility] Comment on above: Cervical dystonia (P rimary Dx) Start: 05-02-2024 End: 05-02-2024 ambulatory [facility] Start: 04-25-2024 End: 04-25-2024 Refill Elsy Celaya CNP Work Phone: [facility] Comment on above: Cervical dystonia Start: 03-25-2024 End: 03-25-2024 Refill Josette Michael RN [facility] Comment on above: Cervical dystonia Start: 02-01-2024 End: 02-01-2024 Patient encounter procedure Cynthia Peters MD Work Phone: [facility] Comment on above: Cervical dystonia (P rimary Dx) Start: 02-01-2024 End: 02-01-2024 ambulatory [facility] Start: 01-24-2024 End: 01-24-2024 ambulatory [facility] Facility:[facility] Start: 12-21-2023 End: 12-21-2023 ambulatory [facility] Facility:[facility] Start: 12-11-2023 End: 12-11-2023 ambulatory [facility] Facility:[facility] Start: 11-02-2023 End: 11-02-2023 Patient encounter procedure Cynthia Peters MD Work Phone: [facility] Comment on above: Cervical dystonia (P rimary Dx) Start: 10-31-2023 End: 10-31-2023 Telephone encounter Cynthia Peters MD Work Phone: [facility] Comment on above: Reschedule Start: 10-22-2023 End: 10-23-2023 Refill Josette Michael RN [facility] Comment on above: Cervical dystonia Start: 08-01-2023 End: 08-01-2023 Patient encounter procedure Cynthia Peters MD Work Phone: [facility] Comment on above: Cervical dystonia (P rimary Dx) Start: 05-02-2023 End: 05-02-2023 Patient encounter procedure Cynthia Peters MD Work Phone: [facility] Comment on above: Cervical dystonia (P rimary Dx) Start: 04-02-2023 Refill Cynthia sheridan MD Work Phone: [facility] Comment on above: Cervical dystonia Start: 01-26-2023 End: 01-26-2023 Patient encounter procedure Cynthia Peters MD Work Phone: [facility] Comment on above: Cervical dystonia (P rimary Dx) Start: 01-01-2023 End: 01-01-2023 ambulatory ELODIA SEVILLA Facility:[facility] Start: 01-01-2023 End: 01-01-2023 Patient encounter procedure Agustín Jay MD Work Phone: [facility] Comment on above: Rash (Primary Dx) Start: 11-07-2022 End: 11-07-2022 ambulatory [facility] Work Phone: Start: 11-07-2022 End: 11-07-2022 Patient encounter procedure [facility] Work Phone: Start: 07-28-2022 End: 07-28-2022 Patient encounter procedure Cynthia Peters MD Work Phone: [facility] Comment on above: Cervical dystonia (P rimary Dx) Start: 04-28-2022 End: 04-28-2022 Patient encounter procedure Cynthia Peters MD Work Phone: [facility] [place] Comment on above: Cervical dystonia (P rimary Dx) Start: 01-13-2022 End: 01-14-2022 Emergency department patient visit ELODIA SEVILLA Facility: Start: 01-13-2022 End: 01-14-2022 Emergency department patient visit MD AVIS BOYCE Work Phone: [facility] Start: 09-21-2021 End: 09-21-[address] Elodia Sevilla Work Phone: [facility] Start: 06-29-2021 Non-patient / Non-visit Dr. Elodia Sevilla Work Phone: [facility] Start: 06-29-2021 End: 06-29-[address] Elodia Sevilla Work Phone: [facility]-Breast Imaging - Biopsy/Stero Start: 06-27-2021 End: 06-27-[address] Elodia Sevilla Work Phone: [facility] Start: 06-22-2021 End: 06-22-[address] Elodia Sevilla Work Phone: [facility]-Outpatient Breast Imaging Start: 06-16-2021 End: 06-16-[address] Elodia Sevilla Work Phone: [facility]-Outpatient Bone Densitometry Start: 05-25-2021 Non-patient / Non-visit Dr. Elodia Sevilla Work Phone: [facility] Start: 05-23-2021 Non-patient / Non-visit Dr. Elodia Sevilla Work Phone: [facility] Start: 05-20-2021 Non-patient / Non-visit Dr. Elodia Sevilla Work Phone: [facility] Start: 05-19-2021 Non-patient / Non-visit Dr. Elodia Sevilla Work Phone: [facility] Start: 05-17-2021 Non-patient / Non-visit Dr. Elodia Sevilla Work Phone: [facility] Start: 05-16-2021 Non-patient / Non-visit Dr. Elodia Sevilla Work Phone: [facility] Start: 05-16-2021 End: 05-26-2021 Evaluation and management of inpatient Dr. Elodia Sevilla Work Phone: [facility]Rehab Unit Start: 05-15-2021 Non-patient / Non-visit Dr. Elodia Sevilla Work Phone: [facility] Start: 05-14-2021 Non-patient / Non-visit Dr. Elodia Sevilla Work Phone: [facility] Start: 05-13-2021 Non-patient / Non-visit Dr. Elodia Sevilla Work Phone: [facility] Start: 05-13-2021 End: 05-16-2021 Evaluation and management of inpatient Dr. Elodia Sevilla Work Phone: [facility]-Medical Surgical 3 Procedures Date Procedure Procedure Detail Performing Clinician Start: 01-13-2022 CT of brain without contrast MD AVIS BOYCE Work Phone: Start: 01-13-2022 Plain X-ray of right shoulder MD AVIS BOYCE Work Phone: Start: 06-29-[address] Wayne Sevilla Work Phone: Start: 06-22-[address] Elodia Sevilla Work Phone: Start: 06-16-2021 Dual energy X-ray absorptiometry Dr. Elodia Sevilla Work Phone: Start: 06-16-2021 End: 06-16-[address] Elodia Sevilla Work Phone: Start: 05-14-2021 Primary uncemented hemiarthroplasty of hip Dr. Elodia Sevilla Work Phone: Start: 05-13-2021 SARS-CoV-2 Antigen (Rapid) Dr. Elodia Sevilla Work Phone: Start: 05-13-2021 Plain chest X-ray Dr. Kian Sevilla Work Phone: Start: 05-13-2021 Plain x-ray of pelvi s and lower extremity Dr. Elodia Sevilla Work Phone: Start: 11-05-2017 Colonoscopy Agustín tavarez MD Work Phone: Start: 08-14-2015 Lipid 1996 panel - S clementina or Plasma Agustín Jay MD Work Phone: Plan of Treatment Date Care Activity Detail Author Start: 11-29-2026 RSV Immunization for Adults (1 - 1-dose 75+ series) RSV Immunization for Adults (1 - 1-dose 75+ series) [facility] Start: 07-26-2025 DTaP/Tdap/Td Vaccines (2 - Td or Tdap) DTaP/Tdap/Td Vaccines (2 - Td or Tdap) [facility] Start: 01-30-2025 End: 01-30-2025 Patient encounter procedure 01/30/2025 2:00 PM EDT Procedure Visit [address] [place] [address] Cynthia Peters MD [address] [place] [address] [place] [address] [facility] Start: 12-15-2024 Influenza vaccination [facility] Start: 10-29-2024 End: 10-29-2024 Patient encounter procedure 10/29/2024 2:15 PM EDT Procedure Visit [facility] [address] [place] [phone] Cynthia Peters MD [address] [facility] [place] [address] [facility] Start: 07-30-2024 End: 07-30-2024 Patient encounter procedure 07/30/2024 2:30 PM EDT Procedure Visit [facility] [address] [place] [phone] Cynthia Peters MD [address] [place] [address] [place] [address] [facility] Start: 05-02-2024 End: 05-02-2024 Patient encounter procedure 05/02/2024 1:30 PM EST Procedure Visit [facility] [address] [place] [phone] Cynthia Peters MD [address] [place] [address] [place] [address] [facility] Start: 02-01-2024 End: 02-01-2024 Patient encounter procedure 02/01/2024 1:30 PM EDT Procedure Visit [facility] [address] [place] [address] [place] [phone] Cynthia Peters MD [address] [place] [address] [place] [address] [facility] Start: 12-16-2023 COVID-19 Vaccine () COVID-19 Vaccine () [facility] Start: 12-16-2023 COVID-19 Vaccine ( season) COVID-19 Vaccine () [facility] Start: 12-16-2023 Influenza vaccination [facility] Start: 11-02-2023 End: 11-02-2023 Patient encounter procedure 11/02/2023 11:30 AM EDT Procedure Visit [facility] [address] [place] [address] [place] [address] Cynthia Peters MD [address] [facility] [place] [address] [facility] Start: 10-31-2023 End: 10-31-2023 Patient encounter procedure 10/31/2023 2:30 PM EDT Procedure Visit [facility] [address] [place] [address] [place] [phone] Cynthia Peters MD [address] [facility] [place] [address] [facility] Start: 08-01-2023 End: 08-01-2023 Patient encounter procedure 08/01/2023 2:00 PM EDT Procedure Visit [facility] [address] [place] [address] Cynthia Peters MD [address] [facility] [place] [address] [facility] Start: 05-02-2023 End: 05-02-2023 Patient encounter procedure 05/02/2023 2:00 PM EST Procedure Visit [facility] [address] [place] [phone] Cynthia Peters MD [address] [facility] [place] [address] [facility] Start: 09-01-2023 COVID-19 Vaccine ( season) COVID-19 Vaccine () [facility] Start: 12-15-2022 Influenza vaccination [facility] Start: 11-05-2022 Colonoscopy Colonoscopy [facility] [place] [facility] Start: 11-05-2022 Colorectal Cancer Screening Colorectal Cancer Screening [facility] [place] [facility] Start: 10-27-2022 End: 10-27-2022 Patient encounter procedure 10/27/2022 Procedure Visit Neurology Cynthia Peters MD [address] [place] [address] [place] [address] [facility] Start: 07-28-2022 End: 07-28-2022 Patient encounter procedure 07/28/2022 Procedure Visit Neurology Cynthia Peters MD [address] [place] [address] [place] [address] [facility] [place] Start: 06-16-2022 Screening for malignant neoplasm of breast Mammogram [facility] Start: 04-16-2022 Advance Directive Discussion Advance Directive Discussion [facility] [place] [facility] Start: 04-16-2022 Depression Assessment Depression Assessment [facility] [place] [facility] Start: 12-15-2021 Influenza vaccination Influenza Vaccine (#1) [facility] Start: 06-29-2021 Bx breast w/device 1st lesion stereotactic guid BX BREAST 1ST LESION [facility] Work Phone: Start: 06-29-2021 Bx breast w/device addl lesion stereotact guid BX BREAST ADD LESION [facility] Work Phone: Start: 04-18-2021 COVID-19 Vaccine (3 - Booster for Adri series) COVID-19 Vaccine (3 - Booster for Adri series) [facility] Start: 04-18-2021 COVID-19 Vaccine (4 - Booster for Adri series) COVID-19 Vaccine (4 - Booster for Adri series) [facility] Start: 08-13-2020 Lipid 1996 panel - Serum or Plasma Lipid Screening [facility] [place] [facility] Start: 08-13-2018 Diabetes Screening Diabetes Screening [facility] Start: 11-29-2016 Bone Density Screening Bone Density Screening [facility] Start: 11-29-2016 Pneumococcal Vaccine: 65+ (1 - PCV) Pneumococcal Vaccine: 65+ (1 - PCV) [facility] Start: 11-29-2016 Pneumococcal Vaccine: 65+ Years (1 - PCV) Pneumococcal Vaccine: 65+ Years (1 - PCV) [facility] Start: 11-29-2016 Pneumococcal Vaccine: 65+ Years (1 of 1 - PCV) Pneumococcal Vaccine: 65+ Years (1 of 1 - PCV) [facility] Start: 11-20-2012 Fecal Occult Blood Fecal Occult Blood [facility] [place] [facility] Start: 2011 RSV Immunization aged 60 or older (1 - 1-dose 60+ series) RSV Immunization aged 60 or older (1 - 1-dose 60+ series) [facility] Start: 06-14-2009 SIGMOIDOSCOPY SIGMOIDOSCOPY [facility] [place] [facility] Start: 08-09-2007 Mammography Mammogram Screening [facility] Start: 11-29-2001 Pneumococcal Vaccine: 50+ Years (1 of 1 - PCV) Pneumococcal Vaccine: 50+ Years (1 of 1 - PCV) [facility] Start: 11-29-2001 Shingrix Vaccine (1 of 2) Shingrix Vaccine (1 of 2) [facility] Start: 11-29-1996 Cologuard (FIT-DNA) Cologuard (FIT-DNA) [facility] Start: 11-29-[address] COLONOGRAPHY [facility] Start: 1991 Screening for malignant neoplasm of breast Mammogram [facility] Start: 11-29-1970 Urine microalbumin profile DTaP,Tdap,Td Vaccine (1 - Tdap) [facility] Start: 11-29-1969 Hepatitis C screening Hepatitis C Screening [facility] Start: 11-29-1969 Hepatitis C Screening Hepatitis C Screening [facility] Start: 1963 Depression Screening Depression Screening [facility] Start: 1950 Hepatitis B Vaccines (1 of 3 - 3-dose series) Hepatitis B Vaccines (1 of 3 - 3-dose series) [facility] Start: 1950 Medicare Annual Wellness (AWV) Medicare Annual Wellness (AWV) [facility] Start: 1950 Screening for malignant neoplasm of colon [facility] Start: 1951 Screening for osteoporosis Bone Density Scan [facility] Start: 1950 Thyroid stimulating hormone measurement TSH Level [facility] Patient Education [facility] Work Phone: Patient referral [facility] Work Phone: Immunizations Immunization Date Immunization Notes Care Provider Fa cility 12-19-2020 Covid (Moderna) Dr. Elodia venegas Work Phone: [facility] 06-26-2020 Adri SARS-CoV-2 Vaccination Cynthia Peters MD Work Phone: [facility] 06-18-2020 Covid ([employer] [employer]) Dr. Elodia Sevilla Work Phone: [facility] 02-26-2015 influenza virus vaccine, unspecified formulation Cynthia Peters MD Work Phone: [facility] 03-29-2009 novel [id number], all formulations Agustín Jay MD Work Phone: [facility] [place] Work Phone: Payers Date Payer Category Payer Self-pay [id number] 2017 Medicare [id number] 2016 Unknown [id number] 2006 Medicare [id number] 2006 Medicare supplementa l policy (as second payer) [facility] MEDICARE SUPPLE[facility] [id number] 2006 Unknown [id number] 2006 Medicare [id number] 2006 Unknown [id number] Unknown [facility] [id number] Unknown [id number] Unknown [id number] Unknown [id number] Unknown [id number] Social History Date Type Detail Facility Start: 06-27-2021 Tobacco smoking stat [facility] Unknown if ever smoked [facility] Start: 11-01-2017 Cigarettes [facility] Start: 1950 Sex Assigned At Female C [facility] Start: 01-14-2022 Tobacco smoking stat [facility] Never smoked tobacco (finding) [facility] Start: 01-14-2022 Never [facility] Start: 01-14-2022 No [facility] Start: 11-07-2022 End: 11-02-2023 Tobacco smoking status NHIS Ex-smoker [facility] [place] [facility] Start: 10-13-1966 End: 10-13-1981 History of tobacco use Current smoker [facility] Start: 10-13-1966 End: 10-13-1981 History of tobacco use Cigarette Smoker [facility] Start: 04-04-2022 End: 10-29-2024 Alcohol intake Ex-drinker (finding) [facility] Start: 04-18-2022 End: 07-28-2022 Exposure to SARS-CoV-2 (event) Not sure [facility] Start: 11-07-2022 End: 11-02-2023 Tobacco use and exposure Smokeless tobacco non-user [facility] Start: 01-01-2023 End: 05-02-2023 Alcohol intake Current drinker of alcohol (finding) [facility] Start: 01-01-2023 End: 10-29-2024 History of Social function [facility] Start: 01-01-2023 End: 10-29-2024 Tobacco use panel [facility] National Score (1-100), lower number is lower risk 57 [facility] Start: 1950 Sex Assigned At Not on file C [facility] Start: 02-03-2022 Gender identity Identifies as female gender (finding) [facility] Start: 11-14-2021 Sex Female (finding) [facility] Medical Equipment Procedure Code Equipment Code Equipment Original Text Equipment Identifier Dates Primary uncemented hemiarthroplasty of hip 127 NECK ANGLE HIP STEM FDA Start: 05-14-2021 Primary uncemented hemiarthroplasty of hip FEMORAL HEAD FDA Start: 05-14-2021 Primary uncemented hemiarthroplasty of hip UNIVERSAL HEAD BIPOLAR COMPONE FDA Start: 05-14-2021 Primary uncemented hemiarthroplasty of hip 127 NECK ANGLE HIP STEM FDA Start: 05-14-2021 Primary uncemented hemiarthroplasty of hip FEMORAL HEAD FDA Start: 05-14-2021 Primary uncemented hemiarthroplasty of hip UNIVERSAL HEAD BIPOLAR COMPONE FDA Start: 05-14-2021 Primary uncemented hemiarthroplasty of hip 127 NECK ANGLE HIP STEM FDA Start: 05-14-2021 Primary uncemented hemiarthroplasty of hip FEMORAL HEAD FDA Start: 05-14-2021 Primary uncemented hemiarthroplasty of hip UNIVERSAL HEAD BIPOLAR COMPONE FDA Start: 05-14-2021 Functional Status Date Assessment Result Facility 05-26-2021 Functional status Activity Ability Indepe ndent [facility] Work Phone: 05-24-2021 Functional status Ambulates [facility] Work Phone: 05-21-2021 Functional status Tolerates Activity Fair [facility] Work Phone: 05-16-2021 Functional status Ambulates [facility] Work Phone: Mental Status Date Assessment Result Facility 01-14-2022 Cognitive function Level Of Cons ciousness Awake;Alert;Appropriate;Follow s Commands [facility] Work Phone: 01-13-2022 Cognitive function Arousable To Name [facility] Work Phone: 05-26-2021 Cognitive function Awake;Alert;A ppropriate;Follow s Commands [facility] Work Phone: 05-25-2021 Cognitive function Voice/Name [facility] Work Phone: 05-15-2021 Cognitive function Demonstrates ability to follow instructions/comprehend [facility] Work Phone: 05-14-2021 Cognitive function Appropriate;Cooperativ e [facility] Work Phone: Clinical Notes 01-13-2022 to 10-29-2024 Cynthia Peters MD - 10/29/2024 2:15 PM EDTMelibhavik Gonzalez MA - 10/29/2024 2:15 PM EDTTelephone Encounter - Elsy Garcia APRN - DOM - 09/29/2024 1:12 PM EDTPreston Krishna RN - 07/28/2022 2:00 PM EDT Note Date & Type Note Facility 10-29-2024 History of Present illness Narrative DEPARTMENT OF NEUROLOGY BOTOX PROCEDURE NOTE FOR CERVICAL DYSTONIA : 1950 Diagnosis: Cervical dystonia [G24.3] Procedure: Botox injections into the cervical muscles. All the injections were performed under EMG monitoring. Prior to procedure risks, benefits, alternatives, and potential side effects were reviewed with patient. Specifically reviewed possible risk of temporary muscle weakness. All questions were answered, patient expressed understanding, verbal consent given for procedure. yes numbing spray applied/removed. Botox was injected with the parameters below: With the patient in sitting position, she received Botox injections in the neck muscles. Patient receive the following doses: With the patient in sitting position, she received Botox injections in the neck muscles. Patient receive the following doses: 1. Right trapezius 50 units. 2. Left trapezius 40 units. 3. Right splenius capitis 50 units. 4. Left splenius capitis 60 units. 5. Right sternocleidomastoideus 70 units 6. Left sternocleidomastoideus 30 units. Total units injected 300 units. Units discarded 0 units. Comments: Patient reports that her cervical dystonia remains stable with the botox injections. Patient has approximately 75% improvement. Patient denied any side effect from medication. Her pain appears to be well controlled. Patient denied any significant neck spasms in the posterior cervical muscles. [x] Pt tolerated procedure well. Pt advised to avoid exercise or strenuous physical activity for 24 hours. Post treatment expectations reviewed in detail. Cynthia Peters MD Administrations This Visit onabotulinumtoxin A (BOTOX) injection 200 Units Admin Date 10/29/24 Action Given Dose 300 Units Route IntraMUSCular Site Other Administered By Cynthia Peters MD Ordering Provider: Cynthia Peters MD [facility]: [id number] [id number] Lot#: [id number] [id number] Artist Mannequin Coloring: Allergan Patient Supplied? No documented in this encounter [facility] 10-29-2024 Note DEPARTMENT OF NEUROL OGY BOTOX PROCEDURE NOTE FOR CERVICAL DYSTONIA : 1950 Diagnosis: Cervical dystonia [G24.3] Procedure: Botox injections into the cervical muscles. All the injections were performed under EMG monitoring. Prior to procedure risks, benefits, alternatives, and potential side effects were reviewed with patient. Specifically reviewed possible risk of temporary muscle weakness. All questions were answered, patient expressed understanding, verbal consent given for procedure. yes numbing spray applied/removed. Botox was injected with the parameters below: With the patient in sitting position, she received Botox injections in the neck muscles. Patient receive the following doses: With the patient in sitting position, she received Botox injections in the neck muscles. Patient receive the following doses: 1. Right trapezius 50 units. 2. Left trapezius 40 units. 3. Right splenius capitis 50 units. 4. Left splenius capitis 60 units. 5. Right sternocleidomastoideus 70 units 6. Left sternocleidomastoideus 30 units. Total units injected 300 units. Units discarded 0 units. Comments: Patient reports that her cervical dystonia remains stable with the botox injections. Patient has approximately 75% improvement. Patient denied any side effect from medication. Her pain appears to be well controlled. Patient denied any significant neck spasms in the posterior cervical muscles. [x] Pt tolerated procedure well. Pt advised to avoid exercise or strenuous physical activity for 24 hours. Post treatment expectations reviewed in detail. Cynthia Peters MD [facility] 09-29-2024 Telephone encounter Note Requested Prescriptions Signed Prescriptions Disp Refills clonazePAM (KlonoPIN) 1 MG tablet 60 tablet 5 Sig: TAKE TWO TABLETS BY MOUTH EVERY EVENING NEEDED FOR SPASM Do not start before October 18, 2024. Authorizing Provider: ELSY GARCIA [place] pharmacy report ([facility]) reviewed and found to be consistent with prescriptions. Patient has been adherent to prescribed therapy. [facility] 09-29-2024 Miscellaneous Notes Requested Prescriptions Signed Prescriptions Disp Refills clonazePAM (KlonoPIN) 1 MG tablet 60 tablet 5 Sig: TAKE TWO TABLETS BY MOUTH EVERY EVENING NEEDED FOR SPASM Do not start before October 18, 2024. Authorizing Provider: ELSY GARCIA [place] pharmacy report ([facility]) reviewed and found to be consistent with prescriptions. Patient has been adherent to prescribed therapy. See pending Rx if appropriate. Next appt: 10/29/2024 Last filled: 04/28/2024 documented in this encounter [facility] 09-29-2024 Telephone encounter Note See pending Rx if appropriate. Next appt: 10/29/2024 Last filled: 04/28/2024 [facility] 07-30-2024 History of Present illness Narrative DEPARTMENT OF NEUROLOGY BOTOX PROCEDURE NOTE FOR CERVICAL DYSTONIA : 1950 Diagnosis: Cervical dystonia [G24.3] Procedure: Botox injections into the cervical muscles. All the injections were performed under EMG monitoring. Prior to procedure risks, benefits, alternatives, and potential side effects were reviewed with patient. Specifically reviewed possible risk of temporary muscle weakness. All questions were answered, patient expressed understanding, verbal consent given for procedure. yes numbing spray applied/removed. Botox was injected with the parameters below: With the patient in sitting position, she received Botox injections in the neck muscles. Patient receive the following doses: With the patient in sitting position, she received Botox injections in the neck muscles. Patient receive the following doses: 1. Right trapezius 50 units. 2. Left trapezius 40 units. 3. Right splenius capitis 50 units. 4. Left splenius capitis 60 units. 5. Right sternocleidomastoideus 70 units 6. Left sternocleidomastoideus 30 units. Total units injected 300 units. Units discarded 0 units. Comments: Patient reports that her cervical dystonia remains stable with the botox injections. Patient has approximately 75% improvement. Patient denied any side effect from medication. Her pain appears to be well controlled. Patient denied any significant neck spasms in the posterior cervical muscles. [x] Pt tolerated procedure well. Pt advised to avoid exercise or strenuous physical activity for 24 hours. Post treatment expectations reviewed in detail. Cynthia Peters MD documented in this encounter [facility] 07-30-2024 History of Present illness Narrative DEPARTMENT OF NEUROLOGY BOTOX PROCEDURE NOTE FOR CERVICAL DYSTONIA : 1950 Diagnosis: Cervical dystonia [G24.3] Procedure: Botox injections into the cervical muscles. All the injections were performed under EMG monitoring. Prior to procedure risks, benefits, alternatives, and potential side effects were reviewed with patient. Specifically reviewed possible risk of temporary muscle weakness. All questions were answered, patient expressed understanding, verbal consent given for procedure. yes numbing spray applied/removed. Botox was injected with the parameters below: With the patient in sitting position, she received Botox injections in the neck muscles. Patient receive the following doses: With the patient in sitting position, she received Botox injections in the neck muscles. Patient receive the following doses: 1. Right trapezius 50 units. 2. Left trapezius 40 units. 3. Right splenius capitis 50 units. 4. Left splenius capitis 60 units. 5. Right sternocleidomastoideus 70 units 6. Left sternocleidomastoideus 30 units. Total units injected 300 units. Units discarded 0 units. Comments: Patient reports that her cervical dystonia remains stable with the botox injections. Patient has approximately 75% improvement. Patient denied any side effect from medication. Her pain appears to be well controlled. Patient denied any significant neck spasms in the posterior cervical muscles. [x] Pt tolerated procedure well. Pt advised to avoid exercise or strenuous physical activity for 24 hours. Post treatment expectations reviewed in detail. Cynthia Peters MD Administrations This Visit onabotulinumtoxin A (BOTOX) injection 200 Units Admin Date 07/30/2024 Action Given Dose 300 Units Route IntraMUSCular Site Other Administered By [facility] Ordering Provider: Cynthia Peters MD [facility]:[id number] x3 Lot#: [id number] [id number] Artist Mannequin Coloring: allergan Patient Supplied?: No, buy and bill documented in this encounter [facility] 07-30-2024 Note DEPARTMENT OF NEUROL OGY BOTOX PROCEDURE NOTE FOR CERVICAL DYSTONIA : 1950 Diagnosis: Cervical dystonia [G24.3] Procedure: Botox injections into the cervical muscles. All the injections were performed under EMG monitoring. Prior to procedure risks, benefits, alternatives, and potential side effects were reviewed with patient. Specifically reviewed possible risk of temporary muscle weakness. All questions were answered, patient expressed understanding, verbal consent given for procedure. yes numbing spray applied/removed. Botox was injected with the parameters below: With the patient in sitting position, she received Botox injections in the neck muscles. Patient receive the following doses: With the patient in sitting position, she received Botox injections in the neck muscles. Patient receive the following doses: 1. Right trapezius 50 units. 2. Left trapezius 40 units. 3. Right splenius capitis 50 units. 4. Left splenius capitis 60 units. 5. Right sternocleidomastoideus 70 units 6. Left sternocleidomastoideus 30 units. Total units injected 300 units. Units discarded 0 units. Comments: Patient reports that her cervical dystonia remains stable with the botox injections. Patient has approximately 75% improvement. Patient denied any side effect from medication. Her pain appears to be well controlled. Patient denied any significant neck spasms in the posterior cervical muscles. [x] Pt tolerated procedure well. Pt advised to avoid exercise or strenuous physical activity for 24 hours. Post treatment expectations reviewed in detail. Cynthia Peters MD [facility] 05-02-2024 History of Present illness Narrative DEPARTMENT OF NEUROLOGY BOTOX PROCEDURE NOTE FOR CERVICAL DYSTONIA : 1950 Diagnosis: Cervical dystonia [G24.3] Procedure: Botox injections into the cervical muscles. All the injections were performed under EMG monitoring. Prior to procedure risks, benefits, alternatives, and potential side effects were reviewed with patient. Specifically reviewed possible risk of temporary muscle weakness. All questions were answered, patient expressed understanding, verbal consent given for procedure. yes numbing spray applied/removed. Botox was injected with the parameters below: With the patient in sitting position, she received Botox injections in the neck muscles. Patient receive the following doses: With the patient in sitting position, she received Botox injections in the neck muscles. Patient receive the following doses: 1. Right trapezius 50 units. 2. Left trapezius 40 units. 3. Right splenius capitis 50 units. 4. Left splenius capitis 60 units. 5. Right sternocleidomastoideus 70 units 6. Left sternocleidomastoideus 30 units. Total units injected 300 units. Units discarded 0 units. Comments: Patient reports that her cervical dystonia remains stable with the botox injections. Patient has approximately 75% improvement. Patient denied any side effect from medication. Her pain appears to be well controlled. Patient denied any significant neck spasms in the posterior cervical muscles. [x] Pt tolerated procedure well. Pt advised to avoid exercise or strenuous physical activity for 24 hours. Post treatment expectations reviewed in detail. Cynthia Peters MD Administrations This Visit onabotulinumtoxin A (BOTOX) injection 200 Units Admin Date 05/02/2024 Action Given Dose 300 Units Route IntraMUSCular Site Other Administered By [facility] Ordering Provider: Cynthia Peters MD [facility]:[id number] x3 Lot#: [id number] x3 Artist Mannequin Coloring: Aller[employer] Patient Supplied?: No, buy and bill documented in this encounter [facility] 05-02-2024 Note DEPARTMENT OF NEUROL OGY BOTOX PROCEDURE NOTE FOR CERVICAL DYSTONIA : 1950 Diagnosis: Cervical dystonia [G24.3] Procedure: Botox injections into the cervical muscles. All the injections were performed under EMG monitoring. Prior to procedure risks, benefits, alternatives, and potential side effects were reviewed with patient. Specifically reviewed possible risk of temporary muscle weakness. All questions were answered, patient expressed understanding, verbal consent given for procedure. yes numbing spray applied/removed. Botox was injected with the parameters below: With the patient in sitting position, she received Botox injections in the neck muscles. Patient receive the following doses: With the patient in sitting position, she received Botox injections in the neck muscles. Patient receive the following doses: 1. Right trapezius 50 units. 2. Left trapezius 40 units. 3. Right splenius capitis 50 units. 4. Left splenius capitis 60 units. 5. Right sternocleidomastoideus 70 units 6. Left sternocleidomastoideus 30 units. Total units injected 300 units. Units discarded 0 units. Comments: Patient reports that her cervical dystonia remains stable with the botox injections. Patient has approximately 75% improvement. Patient denied any side effect from medication. Her pain appears to be well controlled. Patient denied any significant neck spasms in the posterior cervical muscles. [x] Pt tolerated procedure well. Pt advised to avoid exercise or strenuous physical activity for 24 hours. Post treatment expectations reviewed in detail. Cynthia Peters MD [facility] 04-25-2024 Telephone encounter Note Requested Prescriptions Signed Prescriptions Disp Refills clonazePAM (KlonoPIN) 1 MG tablet 60 tablet 5 Sig: TAKE TWO TABLETS BY MOUTH EVERY EVENING NEEDED FOR SPASM Do not start before April 28, 2024. Authorizing Provider: ELSY GARCIA pharmacy report ([facility]) reviewed and found to be consistent with prescriptions. Patient has been adherent to prescribed therapy. [facility] 04-25-2024 Miscellaneous Notes Requested Prescriptions Signed Prescriptions Disp Refills clonazePAM (KlonoPIN) 1 MG tablet 60 tablet 5 Sig: TAKE TWO TABLETS BY MOUTH EVERY EVENING NEEDED FOR SPASM Do not start before April 28, 2024. Authorizing Provider: ELSY GARCIA pharmacy report ([facility]) reviewed and found to be consistent with prescriptions. Patient has been adherent to prescribed therapy. See pending Rx if appropriate Next appt: 05/02/2024 Medication name: clonazePAM (KlonoPIN) 1 MG tablet Medication dosage: 1 mg (Miligrams Monthly quantity needed: 60 How many day supply requestin days Medication route: As directed Medication administration time(s): TAKE TWO TABLETS BY MOUTH EVERY EVENING NEEDED FOR SPASM If taking medication PRN, reason for taking medication: N/A If this is a controlled substance do you receive this or any other controlled medication from any other doctor or facility: N/A Ordering provider: BRIANA Castañeda CNP Date of last office visit: 02/01/24 Date of next office visit: 05/02/24 Date of last refill: (see medication tab): 03/30/24 Updated/Validated preferred pharmacy: Yes Patient instructed to contact the pharmacy prior to picking up the medication: Yes documented in this encounter [facility] 04-25-2024 Telephone encounter Note See pending Rx if appropriate Next appt: 05/02/2024 [facility] 04-25-2024 Telephone encounter Note Medication name: clonazePAM (KlonoPIN) 1 MG tablet Medication dosage: 1 mg (Miligrams Monthly quantity needed: 60 How many day supply requestin days Medication route: As directed Medication administration time(s): TAKE TWO TABLETS BY MOUTH EVERY EVENING NEEDED FOR SPASM If taking medication PRN, reason for taking medication: N/A If this is a controlled substance do you receive this or any other controlled medication from any other doctor or facility: N/A Ordering provider: BRIANA Castañeda CNP Date of last office visit: 02/01/24 Date of next office visit: 05/02/24 Date of last refill: (see medication tab): 03/30/24 Updated/Validated preferred pharmacy: Yes Patient instructed to contact the pharmacy prior to picking up the medication: Yes [facility] 03-25-2024 Telephone encounter Note Requested Prescriptions Signed Prescriptions Disp Refills clonazePAM (KlonoPIN) 1 MG tablet 60 tablet 5 Sig: TAKE TWO TABLETS BY MOUTH EVERY EVENING NEEDED FOR SPASM Do not start before March 30, 2024. Authorizing Provider: ELSY GARCIA [place] pharmacy report ([facility] [place]) reviewed and found to be consistent with prescriptions. Patient has been adherent to prescribed therapy. [facility] 03-25-2024 Miscellaneous Notes Requested Prescriptions Signed Prescriptions Disp Refills clonazePAM (KlonoPIN) 1 MG tablet 60 tablet 5 Sig: TAKE TWO TABLETS BY MOUTH EVERY EVENING NEEDED FOR SPASM Do not start before March 30, 2024. Authorizing Provider: ELSY GARCIA [place] pharmacy report ([facility] [place]) reviewed and found to be consistent with prescriptions. Patient has been adherent to prescribed therapy. See pending Rx if appropriate Next appt: 05/02/2024 documented in this encounter [facility] 03-25-2024 Telephone encounter Note See pending Rx if appropriate Next appt: 05/02/2024 [facility] 02-01-2024 History of Present illness Narrative DEPARTMENT OF NEUROLOGY BOTOX PROCEDURE NOTE FOR CERVICAL DYSTONIA : 1950 Diagnosis: Cervical dystonia [G24.3] Procedure: Botox injections into the cervical muscles. All the injections were performed under EMG monitoring. Prior to procedure risks, benefits, alternatives, and potential side effects were reviewed with patient. Specifically reviewed possible risk of temporary muscle weakness. All questions were answered, patient expressed understanding, verbal consent given for procedure. yes numbing spray applied/removed. Botox was injected with the parameters below: With the patient in sitting position, she received Botox injections in the neck muscles. Patient receive the following doses: With the patient in sitting position, she received Botox injections in the neck muscles. Patient receive the following doses: 1. Right trapezius 50 units. 2. Left trapezius 40 units. 3. Right splenius capitis 50 units. 4. Left splenius capitis 60 units. 5. Right sternocleidomastoideus 70 units 6. Left sternocleidomastoideus 30 units. Total units injected 300 units. Units discarded 0 units. Comments: Patient reports that her cervical dystonia remains stable with the botox injections. Patient has approximately 75% improvement. Patient denied any side effect from medication. Her pain appears to be well controlled. Patient denied any significant neck spasms in the posterior cervical muscles. [x] Pt tolerated procedure well. Pt advised to avoid exercise or strenuous physical activity for 24 hours. Post treatment expectations reviewed in detail. Cynthia Peters MD Administrations This Visit onabotulinumtoxin A (BOTOX) injection 300 Units Admin Date 02/01/24 Action Given Dose 300 Units Route IntraMUSCular Site Other Administered By Cynthia Peters MD Ordering Provider: Cynthia Peters MD [facility]: [id number] Lot#: [id number] Artist Mannequin Coloring: [employer]er[employer] Patient Supplied?: No documented in this encounter [facility] 02-01-2024 History of Present illness Narrative DEPARTMENT OF NEUROLOGY BOTOX PROCEDURE NOTE FOR CERVICAL DYSTONIA : 1950 Diagnosis: Cervical dystonia [G24.3] Procedure: Botox injections into the cervical muscles. All the injections were performed under EMG monitoring. Prior to procedure risks, benefits, alternatives, and potential side effects were reviewed with patient. Specifically reviewed possible risk of temporary muscle weakness. All questions were answered, patient expressed understanding, verbal consent given for procedure. yes numbing spray applied/removed. Botox was injected with the parameters below: With the patient in sitting position, she received Botox injections in the neck muscles. Patient receive the following doses: With the patient in sitting position, she received Botox injections in the neck muscles. Patient receive the following doses: 1. Right trapezius 50 units. 2. Left trapezius 40 units. 3. Right splenius capitis 50 units. 4. Left splenius capitis 60 units. 5. Right sternocleidomastoideus 70 units 6. Left sternocleidomastoideus 30 units. Total units injected 300 units. Units discarded 0 units. Comments: Patient reports that her cervical dystonia remains stable with the botox injections. Patient has approximately 75% improvement. Patient denied any side effect from medication. Her pain appears to be well controlled. Patient denied any significant neck spasms in the posterior cervical muscles. [x] Pt tolerated procedure well. Pt advised to avoid exercise or strenuous physical activity for 24 hours. Post treatment expectations reviewed in detail. Cynthia Peters MD Administrations This Visit onabotulinumtoxin A (BOTOX) injection 300 Units Admin Date 02/01/24 Action Given Dose 300 Units Route IntraMUSCular Site Other Administered By Cynthia Peters MD Ordering Provider: Cynthia Peters MD [facility]: [id number] Lot#: [id number] Artist Mannequin Coloring: [employer]er[employer] Patient Supplied?: No documented in this encounter [facility] 02-01-2024 Note DEPARTMENT OF NEUROL OGY BOTOX PROCEDURE NOTE FOR CERVICAL DYSTONIA : 1950 Diagnosis: Cervical dystonia [G24.3] Procedure: Botox injections into the cervical muscles. All the injections were performed under EMG monitoring. Prior to procedure risks, benefits, alternatives, and potential side effects were reviewed with patient. Specifically reviewed possible risk of temporary muscle weakness. All questions were answered, patient expressed understanding, verbal consent given for procedure. yes numbing spray applied/removed. Botox was injected with the parameters below: With the patient in sitting position, she received Botox injections in the neck muscles. Patient receive the following doses: With the patient in sitting position, she received Botox injections in the neck muscles. Patient receive the following doses: 1. Right trapezius 50 units. 2. Left trapezius 40 units. 3. Right splenius capitis 50 units. 4. Left splenius capitis 60 units. 5. Right sternocleidomastoideus 70 units 6. Left sternocleidomastoideus 30 units. Total units injected 300 units. Units discarded 0 units. Comments: Patient reports that her cervical dystonia remains stable with the botox injections. Patient has approximately 75% improvement. Patient denied any side effect from medication. Her pain appears to be well controlled. Patient denied any significant neck spasms in the posterior cervical muscles. [x] Pt tolerated procedure well. Pt advised to avoid exercise or strenuous physical activity for 24 hours. Post treatment expectations reviewed in detail. Cynthia Peters MD [facility] 11-02-2023 History of Present illness Narrative Administrations This Visit onabotulinumtoxin A (BOTOX) injection 00 Units Admin Date 11/02/23 Action Given Dose 300 Units Route IntraMUSCular Site Other Administered By Cynthia Peters MD Ordering Provider: Cynthia Peters MD [facility]: [id number] Lot#: [id number] Artist Mannequin Coloring: Allergan Patient Supplied?: No DEPARTMENT OF NEUROLOGY BOTOX PROCEDURE NOTE FOR CERVICAL DYSTONIA : 1950 Diagnosis: Cervical dystonia [G24.3] Procedure: Botox injections into the cervical muscles. All the injections were performed under EMG monitoring. Prior to procedure risks, benefits, alternatives, and potential side effects were reviewed with patient. Specifically reviewed possible risk of temporary muscle weakness. All questions were answered, patient expressed understanding, verbal consent given for procedure. yes numbing spray applied/removed. Botox was injected with the parameters below: With the patient in sitting position, she received Botox injections in the neck muscles. Patient receive the following doses: With the patient in sitting position, she received Botox injections in the neck muscles. Patient receive the following doses: 1. Right trapezius 50 units. 2. Left trapezius 40 units. 3. Right splenius capitis 50 units. 4. Left splenius capitis 60 units. 5. Right sternocleidomastoideus 70 units 6. Left sternocleidomastoideus 30 units. Total units injected 300 units. Units discarded 0 units. Comments: Patient reports that her cervical dystonia remains stable with the botox injections. Patient has approximately 75% improvement. Patient denied any side effect from medication. Her pain appears to be well controlled. Patient denied any significant neck spasms in the posterior cervical muscles. [x] Pt tolerated procedure well. Pt advised to avoid exercise or strenuous physical activity for 24 hours. Post treatment expectations reviewed in detail. Cynthia Peters MD documented in this encounter [facility] 10-31-2023 Telephone encounter Note Patient r/s November 01 at 11:30am [facility] 10-31-2023 Miscellaneous Notes Patient r/s November 01 at 11:30am Name of caller: Ava Contact phone number: [phone] Relationship to Patient: patient Provider: Cynthia Peters MD Practice: [facility] Chief Complaint/Reason for Call: Patient is requesting a call back to reschedule botox procedure. Please advise. Best time of day caller can be reached: Any Patient advised that office/PCP has 24-48 business hours to return their call: N/A documented in this encounter [facility] 10-31-2023 Telephone encounter Note Name of caller: Ava Contact phone number: [phone] Relationship to Patient: patient Provider: Cynthia Peters MD Practice: [facility] Chief Complaint/Reason for Call: Patient is requesting a call back to reschedule botox procedure. Please advise. Best time of day caller can be reached: Any Patient advised that office/PCP has 24-48 business hours to return their call: N/A [facility] 10-23-2023 Telephone encounter Note Requested Prescriptions Signed Prescriptions Disp Refills clonazePAM (KlonoPIN) 1 MG tablet 60 tablet 5 Sig: TAKE TWO TABLETS BY MOUTH EVERY EVENING NEEDED FOR SPASM Do not start before October 29, 2023. Authorizing Provider: ELSY GARCIA [place] pharmacy report ([facility] [place]) reviewed and found to be consistent with prescriptions. Patient has been adherent to prescribed therapy. [facility] 10-23-2023 Miscellaneous Notes Requested Prescriptions Signed Prescriptions Disp Refills clonazePAM (KlonoPIN) 1 MG tablet 60 tablet 5 Sig: TAKE TWO TABLETS BY MOUTH EVERY EVENING NEEDED FOR SPASM Do not start before October 29, 2023. Authorizing Provider: ELSY GARCIA pharmacy report ([facility] [place]) reviewed and found to be consistent with prescriptions. Patient has been adherent to prescribed therapy. See pending Rx if appropriate Next appt: 10/31/2023 Last refill: 1950 documented in this encounter [facility] 10-22-2023 Telephone encounter Note See pending Rx if appropriate Next appt: 10/31/2023 Last refill: 1950 [facility] 08-01-2023 History of Present illness Narrative DEPARTMENT OF NEUROLOGY BOTOX PROCEDURE NOTE FOR CERVICAL DYSTONIA : 1950 Diagnosis: Cervical dystonia [G24.3] Procedure: Botox injections into the cervical muscles. All the injections were performed under EMG monitoring. Prior to procedure risks, benefits, alternatives, and potential side effects were reviewed with patient. Specifically reviewed possible risk of temporary muscle weakness. All questions were answered, patient expressed understanding, verbal consent given for procedure. yes numbing spray applied/removed. Botox was injected with the parameters below: With the patient in sitting position, she received Botox injections in the neck muscles. Patient receive the following doses: With the patient in sitting position, she received Botox injections in the neck muscles. Patient receive the following doses: 1. Right trapezius 50 units. 2. Left trapezius 40 units. 3. Right splenius capitis 50 units. 4. Left splenius capitis 60 units. 5. Right sternocleidomastoideus 70 units 6. Left sternocleidomastoideus 30 units. Total units injected 300 units. Units discarded 0 units. Comments: Patient reports that her cervical dystonia remains stable with the botox injections. Patient has approximately 75% improvement. Patient denied any side effect from medication. Her pain appears to be well controlled. Patient denied any significant neck spasms in the posterior cervical muscles. [x] Pt tolerated procedure well. Pt advised to avoid exercise or strenuous physical activity for 24 hours. Post treatment expectations reviewed in detail. CYNTHIA PETERS MD Administrations This Visit onabotulinumtoxin A (BOTOX) injection 200 Units Admin Date 08/01/2023 Action Given Dose 300 Units Route IntraMUSCular Site Other Administered By [facility] Ordering Provider: Cynthia Peters MD [facility]:[id number] x3 Lot#: [id number] x2, [id number] Artist Mannequin Coloring: [employer] Patient Supplied?: No, Buy and bill documented in this encounter [facility] 05-02-2023 History of Present illness Narrative DEPARTMENT OF NEUROLOGY BOTOX PROCEDURE NOTE FOR CERVICAL DYSTONIA : 1950 Diagnosis: Cervical dystonia [G24.3] Procedure: Botox injections into the cervical muscles. All the injections were performed under EMG monitoring. Prior to procedure risks, benefits, alternatives, and potential side effects were reviewed with patient. Specifically reviewed possible risk of temporary muscle weakness. All questions were answered, patient expressed understanding, verbal consent given for procedure. yes numbing spray applied/removed. Botox was injected with the parameters below: With the patient in sitting position, she received Botox injections in the neck muscles. Patient receive the following doses: With the patient in sitting position, she received Botox injections in the neck muscles. Patient receive the following doses: 1. Right trapezius 50 units. 2. Left trapezius 40 units. 3. Right splenius capitis 50 units. 4. Left splenius capitis 60 units. 5. Right sternocleidomastoideus 70 units 6. Left sternocleidomastoideus 30 units. Total units injected 300 units. Units discarded 0 units. Comments: Patient reports that her cervical dystonia remains stable with the botox injections. Patient have approximately 75% improvement. Patient denied any side effect from medication. Her pain appears to be well controlled. Patient denied any significant neck spasms in the posterior cervical muscles. [x] Pt tolerated procedure well. Pt advised to avoid exercise or strenuous physical activity for 24 hours. Post treatment expectations reviewed in detail. CYNTHIA PETERS MD Administrations This Visit onabotulinumtoxin A (BOTOX) injection 300 Units Admin Date 05/02/2023 Action Given Dose 300 Units Route IntraMUSCular Site Other Administered By [facility] Ordering Provider: Cynthia Peters MD [facility]:[id number] x3 Lot#: [id number] x2, [id number] Artist Mannequin Coloring: [employer]ergan Patient Supplied?: No, buy and bill documented in this encounter [facility] 04-02-2023 Telephone encounter Note Requested Prescriptions Signed Prescriptions Disp Refills clonazePAM (KlonoPIN) 1 MG tablet 60 tablet 5 Sig: TAKE TWO TABLETS BY MOUTH EVERY EVENING NEEDED FOR SPASM Authorizing Provider: ELSY GARCIA [place] pharmacy report ([facility]) reviewed and found to be consistent with prescriptions. Patient has been adherent to prescribed therapy. [facility] 04-02-2023 Miscellaneous Notes Requested Prescriptions Signed Prescriptions Disp Refills clonazePAM (KlonoPIN) 1 MG tablet 60 tablet 5 Sig: TAKE TWO TABLETS BY MOUTH EVERY EVENING NEEDED FOR SPASM Authorizing Provider: ELSY GARCIA [place] pharmacy report ([facility]) reviewed and found to be consistent with prescriptions. Patient has been adherent to prescribed therapy. documented in this encounter [facility] 01-26-2023 History of Present illness Narrative DEPARTMENT OF NEUROLOGY BOTOX PROCEDURE NOTE FOR CERVICAL DYSTONIA Patient: Ava Messer : 1950 Diagnosis: Cervical dystonia [G24.3] Procedure: Botox injections into the cervical muscles. All the injections were performed under EMG monitoring. Prior to procedure risks, benefits, alternatives, and potential side effects were reviewed with patient. Specifically reviewed possible risk of temporary muscle weakness. All questions were answered, patient expressed understanding, verbal consent given for procedure. yes numbing spray applied/removed. Botox was injected with the parameters below: With the patient in sitting position, she received Botox injections in the neck muscles. Patient receive the following doses: With the patient in sitting position, she received Botox injections in the neck muscles. Patient receive the following doses: 1. Right trapezius 50 units. 2. Left trapezius 40 units. 3. Right splenius capitis 50 units. 4. Left splenius capitis 60 units. 5. Right sternocleidomastoideus 70 units 6. Left sternocleidomastoideus 30 units. Total units injected 300 units. Units discarded 0 units. Comments: Patient reports that her cervical dystonia. To be well. patient have approximately 75% improvement in her cervical dystonia. Patient denied any side effect from medication. Her pain appeared to be well controlled. Patient denied any significant neck spasms in the posterior cervical muscles. [x] Pt tolerated procedure well. Pt advised to avoid exercise or strenuous physical activity for 24 hours. Post treatment expectations reviewed in detail. CYNTHIA PETERS MD Administrations This Visit onabotulinumtoxin A (BOTOX) injection 200 Units Admin Date 01/26/2023 Action Given Dose 300 Units Route IntraMUSCular Site Other Administered By [facility] Ordering Provider: Cynthia Peters [facility]:[id number] Lot#: [id number] Artist Mannequin Coloring: Allergan Patient Supplied?: NO, buy and bill documented in this encounter [facility] 01-01-2023 Note HNO ID: [id number] Author: Agustín Jay MD Service: ? Author Type: Physician Type: Progress Notes Filed: 01/01/2023 2:08 PM Note Text: Patient presents with: Rash: all over x 3 days HPI: Rash: Location: body, arms, neck; mostly on waist to thighs Duration: 4 days. Pruritis: Yes Pain: No Change: spreading Bleeding/ulceration/blister/pustule: red Contacts with rash: No Exposure: No new soaps, detergents, fabric softeners, lotions. Outdoor exposure: [place], thinks she used the bathroom after petting her dog. Change in medication: no. Recent illness: No. Treatment: benadryl cream, aloe MEDICATIONS: levothyroxine (SYNTHROID) 88 mcg tablet flaxseed oil-omega 3,6,9 1,300 mg-845 mg -117 mg-117 mg cap Take 3 tablets by mouth once daily. magnesium oxide 200 mg magnesium chew Take 200 mg by mouth once daily. FIBER-CAPS, PSYLLIUM HUSK, ORAL Take 1 tablet by mouth once daily. ubidecarenone(COQ-10 100 MG CAP) Take two (2) by mouth once daily. RED YEAST RICE EXTRACT 600 MG CAP One tablet twice daily CLONAZEPAM 1 MG TAB Take 2-3 tabs as needed. CALCIUM 500 MG TAB Take one(1) tablet three times daily. MULTIVITAMIN TAB Take one(1) tablet daily. ALLERGIES: ALLERGIES Allergen Reactions Hayfever [Homeopath* Macrobid [Nitrofura* Red Spots/Rash VITALS: BP 124/66 Pulse 84 Temp 36.9 ?C (98.4 ?F) Resp 16 Wt 60.3 kg (133 lb) SpO2 98% BMI 21.47 kg/m? PHYSICAL EXAM: GEN: pleasant, no acute distress, alert SKIN: faint patches of slightly raised erythema on the arms, 5cm faint erythematous slightly indurated patch at the thyroid cartilage. Confluent erythema from lower torso to upper thighs. ASSESSMENT/PLAN: 1. Rash - ICD9: 782.1, ICD10: R21 - PREDNISONE 10 MG TABLET taper. She reports normal sugar levels with routine medical care. She has tolerated prednisone in the past for poison iwona. Follow up with worsening rash or failure to improve. Agustín Jay MD [facility] 01-01-2023 History of Present illness Narrative Patient presents with: Rash: all over x 3 days HPI: Rash: Location: body, arms, neck; mostly on waist to thighs Duration: 4 days. Pruritis: Yes Pain: No Change: spreading Bleeding/ulceration/blister/pustule: red Contacts with rash: No Exposure: No new soaps, detergents, fabric softeners, lotions. Outdoor exposure[place], thinks she used the bathroom after petting her dog. Change in medication: no. Recent illness: No. Treatment: benadryl cream, aloe MEDICATIONS: levothyroxine (SYNTHROID) 88 mcg tablet flaxseed oil-omega 3,6,9 1,300 mg-845 mg -117 mg-117 mg cap Take 3 tablets by mouth once daily. magnesium oxide 200 mg magnesium chew Take 200 mg by mouth once daily. FIBER-CAPS, PSYLLIUM HUSK, ORAL Take 1 tablet by mouth once daily. ubidecarenone(COQ-10 100 MG CAP) Take two (2) by mouth once daily. RED YEAST RICE EXTRACT 600 MG CAP One tablet twice daily CLONAZEPAM 1 MG TAB Take 2-3 tabs as needed. CALCIUM 500 MG TAB Take one(1) tablet three times daily. MULTIVITAMIN TAB Take one(1) tablet daily. ALLERGIES: ALLERGIES Allergen Reactions Hayfever [Homeopath* Macrobid [Nitrofura* Red Spots/Rash VITALS: BP 124/66 Pulse 84 Temp 36.9 C (98.4 F) Resp 16 Wt 60.3 kg (133 lb) SpO2 98% BMI 21.47 kg/m PHYSICAL EXAM: GEN: pleasant, no acute distress, alert SKIN: faint patches of slightly raised erythema on the arms, 5cm faint erythematous slightly indurated patch at the thyroid cartilage. Confluent erythema from lower torso to upper thighs. ASSESSMENT/PLAN: 1. Rash - ICD9: 782.1, ICD10: R21 - PREDNISONE 10 MG TABLET taper. She reports normal sugar levels with routine medical care. She has tolerated prednisone in the past for poison iwona. Follow up with worsening rash or failure to improve. Agustín Jay MD documented in this encounter [facility] 11-07-2022 Note HNO ID: [id number] Author: Angely Gage PA-C Service: ? Author Type: Physician Police Chief Deputy Type: Progress Notes Filed: 11/07/2022 2:24 PM Note Text: HISTORY AND PHYSICAL Roderick Garcia Gui 1950 REFERRING PHYSICIAN: No ref. provider found CHIEF COMPLAINT: Consult (COLONOSCOPY) HPI: The patient is a 71 year old female referred for endoscopy. Roderick notes no colon complaints. Patient denies any change in bowel habits, weight changes, blood in stools, black tarry stools or abdominal pain. Denies family history of colon issues. The patient notes no upper GI complaints. Roderick has undergone prior endoscopy. Last colonoscopy was done by Dr. Lai 11/05/17 at [facility] under MAC with removal of polyp. Patient noted on previous colonoscopy procedures to have a very tortuous colon and had noted recall with conscious sedation. 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 Repeat in 5 years due to prior TVA and adenomatous polyps COLSC FLX W/RMVL OF TUMOR POLYP LESION SNARE TQ 09/19/05 COLSC FLX W/RMVL OF TUMOR POLYP LESION SNARE TQ 05/24/09 PAST SURGICAL HISTORY OF 1990 bladder tack THYROIDECTOMY TOTAL/COMPLETE US GUIDANCE NEEDLE PLACEMENT IMG LUZ MARIA 06/09/05 left- 10clock and 12oclock Current Outpatient Medications Medication Sig HYDROcodone-acetaminophen (NORCO) 5-325 mg per tablet Take 1 tablet by mouth. levothyroxine (LEVOXYL) 100 mcg tablet Take 1 tablet by mouth once daily. duloxetine hcl(CYMBALTA 60 MG CAP) Take one(1) capsule daily. HYDROCHLOROTHIAZIDE 25 MG TAB Take one(1) tablet daily. (Patient not taking: No sig reported) risedronate sodium(ACTONEL 35 MG TAB) take one tablet each week as directed (Patient not taking: No sig reported) VWHIXBFF-IGMJKNEWRB-IN GLYCN-C 500 MG-400 MG CAP Take one(1) tablet two(2) times daily. evening primrose oil(EVENING PRIMROSE 500 MG CAP) Take one(1) tablet two(2) times daily. oxycodone hcl/acetaminophen(PERCOCET 5 MG-325 MG TAB) as necessary SOY ISOFLAVONE 100 MG CAP Take one(1) tablet two(2) times daily. ubidecarenone(COQ-10 100 MG CAP) Take two (2) by mouth once daily. RED YEAST RICE EXTRACT 600 MG CAP One tablet twice daily CLONAZEPAM 1 MG TAB Take 2-3 tabs as needed. BLACK COHOSH 200 MG CAP Take one(1) tablet daily. CALCIUM 500 MG TAB Take one(1) tablet three times daily. FLAXSEED OIL 1,000 MG CAP Take one(1) tablet daily. MULTIVITAMIN TAB Take one(1) tablet daily. No current facility-administered medications for this visit. ALLERGIES: Hayfever [Homeopathic Products] and Macrobid [Nitrofurantoin Monohyd/M-Cryst] PERSONAL HISTORY: Social History Tobacco Use Smoking status: Former Smokeless tobacco: Never Vaping Use Vaping Use: Never used Substance Use Topics Alcohol use: Yes Comment: very rare Drug use: Never FAMILY HISTORY: FAMILY HISTORY Problem Relation Age of Onset Alzheimer's Disease Mother Cancer Father TESTICULAR Alzheimer's Disease Maternal Grandmother Diabetes Paternal Grandmother Colon Cancer Paternal Grandfather REVIEW OF SYMPTOMS: The review of systems data was entered by the nurse and reviewed by ga Nursing Notes: Laureen Zapata LPN 11/07/2022 2:07 PM Signed REVIEW OF SYSTEMS: General: The patient denies fatigue, denies weight loss, denies weight gain, denies feeling hot, and denies feelings of cold. Eyes: The patient denies glaucoma, denies eye injury/surgery, does not wear glasses or contacts. Ear/Nose/Throat: The patient NOTES allergies, denies hayfever, denies ear infections, and denies bloody noses. Cardiovascular: The patient denies chest pain, denies heart disease, denies high blood pressure,denies cardiac stent, denies prior heart attack, denies irregular heart beat, denies high cholesterol, denies poor circulation, denies heart failure, other cardiac issues, denies claudication, denies cold feet, denies peripheral arterial stent. Respiratory: The patient denies tuberculosis, denies pneumonia, denies frequent cough, denies pulmonary embolism, denies shortness of breath, and denies coughing up blood. Gastrointestinal: The patient denies difficulty swallowing, denies acid reflux, denies ulcers, denies vomiting, denies jaundice/hepatitis, denies gallbladder problems, denies black or tarry stools, NOTES hemorrhoids, denies bleedi (more content not included)... [facility] 07-28-2022 History of Present illness Narrative DEPARTMENT OF NEUROLOGY BOTOX PROCEDURE NOTE FOR CERVICAL DYSTONIA Date: 07/28/2022 Patient: Ava Messer : 1950 Diagnosis: Cervical dystonia [G24.3] Procedure: Botox injections into the cervical muscles. All the injections were performed under EMG monitoring. Prior to procedure risks, benefits, alternatives, and potential side effects were reviewed with patient. Specifically reviewed possible risk of temporary muscle weakness. All questions were answered, patient expressed understanding, verbal consent given for procedure. yes numbing spray applied/removed. Botox was injected with the parameters below: With the patient in sitting position, she received Botox injections in the neck muscles. Patient receive the following doses: With the patient in sitting position, she received Botox injections in the neck muscles. Patient receive the following doses: 1. Right trapezius 50 units. 2. Left trapezius 40 units. 3. Right splenius capitis 50 units. 4. Left splenius capitis 60 units. 5. Right sternocleidomastoideus 70 units 6. Left sternocleidomastoideus 30 units. Total units injected 300 units. Units discarded 0 units. Concussion and R clavicle fracture Comments: Patient reports that her cervical dystonia. To be well. patient have approximately 75% improvement in her cervical dystonia. Patient denied any side effect from medication. Her pain appeared to be well controlled. Patient denied any significant neck spasms in the posterior cervical muscles. [x] Pt tolerated procedure well. Pt advised to avoid exercise or strenuous physical activity for 24 hours. Post treatment expectations reviewed in detail. CYNTHIA PETERS MD Administrations This Visit onabotulinumtoxin A (BOTOX) injection 200 Units Admin Date 07-28-22 Action Given Dose 200 Units Route IntraMUSCular Site Other Administered By Cynthia Peters MD Ordering Provider: Cynthia Peters MD [facility]:[id number] Lot#: [id number] Artist Mannequin Coloring: [place]ergan Patient Supplied?: no documented in this encounter [facility] 04-28-2022 History of Present illness Narrative DEPARTMENT OF NEUROLOGY BOTOX PROCEDURE NOTE FOR CERVICAL DYSTONIA Date: 04/28/22 Patient: vAa Messer : 1950 Diagnosis: Cervical dystonia [G24.3] Procedure: Botox injections into the cervical muscles. All the injections were performed under EMG monitoring. Prior to procedure risks, benefits, alternatives, and potential side effects were reviewed with patient. Specifically reviewed possible risk of temporary muscle weakness. All questions were answered, patient expressed understanding, verbal consent given for procedure. yes numbing spray applied/removed. Botox was injected with the parameters below: With the patient in sitting position, she received Botox injections in the neck muscles. Patient receive the following doses: With the patient in sitting position, she received Botox injections in the neck muscles. Patient receive the following doses: 1. Right trapezius 50 units. 2. Left trapezius 40 units. 3. Right splenius capitis 50 units. 4. Left splenius capitis 60 units. 5. Right sternocleidomastoideus 70 units 6. Left sternocleidomastoideus 30 units. Total units injected 300 units. Units discarded 0 units. Concussion and R clavicle fracture Comments: Patient reports that her cervical dystonia. To be well. patient have approximately 75% improvement in her cervical dystonia. Especially important is seeing an increase in range of motion of the cervical spine. Her dystonia remains unchanged. Patient also has significant improvement of her muscle pain secondary to dystonia. [x] Pt tolerated procedure well. Pt advised to avoid exercise or strenuous physical activity for 24 hours. Post treatment expectations reviewed in detail. CYNTHIA PETERS MD Administrations This Visit onabotulinumtoxin A (BOTOX) injection 200 Units Admin Date 04/28/2022 Action Given Dose 200 Units Route IntraMUSCular Site Other Administered By Cynthia Peters MD Ordering Provider: Cynthia Peters MD [facility]:[id number] Lot#: [id number] Artist Mannequin Coloring: Allergan Patient Supplied?: No documented in this encounter [facility] 01-14-2022 Discharge summary Note Date/Time January 13, 2022 9:44pm [address] [address] HEALTH INFORMATION MANAGEMENT EMERGENCY DEPARTMENT : [id number] Signed Patient: AVA MESSER Acct:[id number] MRUN: [id number] : 1950 Sex: F Loc: ED AD M Date: 01/13/22 Room/Bed: DISC Date: History of Present Illness - General 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 PATIENT WAS WALKING AT [facility] AND TRIPPED AND FELLFRONTW[place]DS IN [place] AND HIT HEAD AND RIGHT SHOULDER. PATIENT DENIES LOC. A&OX3 Time Seen by Provider: 01/13/22 21:26 Source: Patient Mode of Transport: [facility] - History of Present Illness Initial Comments: Patient was walking at the [facility], she tripped on the pavement or gravel and fell face first into the ground. There were no prodromal symptoms. She was feeling fine prior to this. She hit her head, she is amnestic to a certain part of the event but no definite loss of consciousness. She also injured her right shoulder. Khqoq-ised-[id number]. No numbness or tingling or weakness in the right upper extremity, she denies injury or pain elsewhere. Last tetanus shot unknown, she did injure her right scalp and face. He is healthy she takes no prescriptions or anticoagulant/antiplatelet including zhim-txd-fyounyz medications. MD Complaint: fall Onset/Timin -: minutes(s) - Related Data Allergies Allergy/AdvReac Type Severity Reaction Status Date / Time No Known Allergies Allergy Unverified 01/13/22 20:54 Review of System - Recent travel Recent travel outside [place] No reported travel outside [place] - Constitutional Constitutional: Absent: chills, fever - Eyes Both Eyes (ROS): Present: no symptoms reported. Absent: blurred vision, drainage, foreign body sensation, vision change - Nose,Throat,Mouth Nose (ROS): Absent: congestion, pain Throat: Absent: pain, swelling, discharge Mouth: Present: other (Right scalp and forehead/facial pain, no other areas of facial pain). Absent: pain, swelling - Respiratory Respiratory: Absent: cough, short of breath, wheezing - CV Cardiology: Absent: chest pain, edema - GI Gastrointestinal/Abdominal: Absent: abdominal pain, diarrhea, nausea, vomiting - Genitourinary Symptoms: Absent: dysuria, hematuria - Neuro Neurological: Present: headache. Absent: numbness, paresthesia, weakness - Muskuloskeletal Musculoskeletal: Present: see HPI (Right shoulder pain). Absent: back pain, joint pain, joint swelling - Integumentary Skin: Absent: lesions, rash - Allergic/Immunologic Immunological/Allergic: Present: no symptoms reported - Hematologic Hematologic/Lymphatic: Absent: easy bleeding, easy bruising, swollen glands - Endocrine Endocrine: Present: no symptoms reported - Psychiatric Psychiatric: Absent: Depressed, Suicidal Thoughts - All Others/Exceptions All Other Systems: Reviewed and Negative Except Where Noted in Documentation ED PMH/Social HX/Family HX - Respiratory Hx Respiratory Disorders: No - Cardiovascular Hx Cardiac Disorders: No - Neurological Hx Neurological Disorder: Yes Other Neuro PMH: DYSTONIA - Gastrointestinal Hx Gastrointestinal Disorders: No - Genitourinary Hx Genitourinary Disorders: No - Musculoskeletal Hx Musculoskeletal Disorders: Yes Other MS PMH: RIGHT HIP SURGERY - Reproductive ?: No Hx Reproductive Disorders: No - Psychological Hx Psychosocial Problems: No - HEENT Hx Ear, Nose Throat Disorders: Yes Other HEENT PMH: THYROID AND PARATHYROID REMOVED - Social History Able to Read: Yes Able to Write: Yes Smoking Status: Never Smoked Hx Chewing Tobacco Use: No Alcohol Use: Never Any recreational drug use reported?: No Feels Threatened In Home Environment: No Feels Threatened In a Relationship: No - [place]/Gender ID What is your current Gender Identity? Choose all that Apply: Female Define your Sexual Orientation?: Straight/Heterosexual - [place]-Suicide Severity Rating Scale 1) Wish to be :: No 2) Suicidal Thoughts:: No 6) Suicidal Behavior Question (A): LIFETIME: No 6) Suicidal Behavior Question (B): PAST 3 MONTHS: No General Exam - General Limitations: Complains of: no limitations Constitutional: Present: Well developed, Well nourished, well hydrated, Non-toxic - Head Head exam: Present: normocephalic, other (Tenderness and abrasions/lacerations right parietal/temporal scalp in addition to the right superior orbital brim/temporal forehead. No crepitance, depression, hematoma.) - Eye Eye exam: Present: normal apperance, normal accomodation, EOMI Pupils: Present: PERRL - ENT ENT exam: Present: normal orophraynx, TMs clear w/ good light reflex, mucous membranes moist, No Nasal Discharge, normal external ear exam, Posterior PharynxNon-erethemetous, other (Other than the right forehead injuries, there is no other midface tenderness including the zygomatic arch, nor instability nor infraorbital hypoesthesia. No nasal tenderness or epistaxis.) - Expanded ENT Exam Ear exam: Present: normal external inspection Mouth exam: Present: normal external inspection Teeth exam: Present: normal inspection Throat exam: normal inspection - Neck Neck exam: Present: full ROM, Supple. Absent: tenderness, meningismus, Posterior Lymphadenopathy, Anterior Lymphadenopathy - Respiratory Respiratory exam: Present: lungs clear and equal bilaterally, chest wall tenderness (Right mid clavicle). Absent: respiratory distress, wheezes, rales, rhonchi, accessory muscle use - Cardiovascular Cardiovascular Exam: Present: regular rate, normal rhythm, normal heart sounds. Absent: tachycardia, murmur - GI/Abdominal GI/Abdominal exam: Present: soft, non tender, normal bowel sounds. Absent: distended, guarding, rebound, rigid - Extremities Exam Extremities exam: Present: normal inspection, neurovascularly intact, full ROM, tenderness (Right mid clavicle. Limited range of motion of the shoulder due to pain here, no proximal humerus or acromial tenderness. The rest of the right upper extremity and all the other extremities are nontender throughout.) - Back Exam Back exam: Present: normal inspection, full ROM. Absent: tenderness - Neurological Exam Neurological exam: Present: alert, oriented X3, CN II-XII intact, normal gait. Absent: motor sensory deficit - Expanded Neurological Exam Patient oriented to: Present: person, place, time Speech: Present: fluid speech - Psychiatric Psychiatric exam: Present: normal affect, normal mood - Skin Skin Color: Present: Normal, [place] Skin exam: Present: warm, dry, other (Lacerations right forehead and temporal scalp: 0.5 cm laceration right temporal scalp, 1 cm full-thickness linear clean laceration right forehead near the eyebrow.) - Expanded Skin Exam Type of lesion: Absent: rash - Vital Signs Vital Signs 01/13/22 01/13/22 01/13/22 20:45 22:54 23:58 Temperature 97.6 F Pulse Rate [ 86 86 85 Pulse Ox] Respiratory 16 15 14 Rate Blood Pressure 121/71 145/85 156/72 [LEFT ARM] O2 Sat by Pulse 99 99 99 Oximetry(%) Procedures - Laceration/Wound Repair R temp scalp Length: 0.5 Anesthetic Used: Lidocaine 1% (0.5cc) Skin Prep: Povidone-Iodine1%, Shur-Clens, Manual scrub Foreign Body: Not identified Layered Closure: 1 Wound closure layer 1: Skin, Closed With, Sukh (#1) Primary Dressing: Remains Open to Air (good hemostasis) R forehead Length: 1 Anesthetic Used: Lidocaine 1% (1cc) Skin Prep: Povidone-Iodine1%, Shur-Clens, Manual scrub Foreign Body: Not identified Layered Closure: 1 Wound closure layer 1: Skin, Closed With, Suture size/needle size (6-0), Nylon, Simple suture (#3) Primary Dressing: Gauze Pad, Bacitracin applied Fall MDM - Lab Data Orders: Medications Discontinued Medications Acetaminophen (Acetaminophen 500 Mg Tablet) 1,000 mg PO ONE ONE Stop: 01/13/22 21:40 Last Admin: 01/13/22 21:54 Dose: 1,000 mg Documented by: [email or web address] Labs 01/13/22 21:39 CT BRAIN WO [CT] Stat RIGHT SHOULDER MIN 2V [DIAG] Stat Acetaminophen [Tylenol Es 500 mg Tablet] 1,000 mg PO ONE ONE 01/13/22 21:40 Ice Pack [RC] QS LACERATION/WOUND REPAIR [RC] ONE 01/13/22 22:30 sling [SPLINT APPLICATION-ED] [RC] ONE - Radiology Data IMPRESSIONS Brain CT 01/13/22 21:39 IMPRESSION: No acute intracranial abnormality. Right parietal scalp hematoma. Shoulder X-Ray 01/13/22 21:39 IMPRESSION: Overlapping midclavicular fracture. - Medical Decision Making Right shoulder x-rays 3 views on interpretation show a displaced mid right clavicle fracture and nothing else acute. Radiology in agreement. CT head is negative. I repaired her lacerations of her scalp and face see the procedure note. Placed in a sling, given appropriate discharge instructions she is ambulatory with family at discharge. Of note, offered the patient analgesics, she wanted Tylenol only, at discharge I asked her again and she declined any prescription narcotics. Of note, the patient states she prefers to see her orthopod who is in [place], Dr. Boyd. ED Discharge Summary - Discharge Data Clinical Impression: Facial laceration, Scalp laceration, Closed head injury without loss of consciousness, Closed displaced fracture of right clavicle Disposition: 01 HOME / SELF CARE / HOMELESS Referrals: PHYSICIAN,UNASSIGNED [MEDICAL DOCTOR] - doctor, your [Other] (5 days for suture/staple removal) FERMÍN PERSAUD [DOCTOR OF OSTEOPATHY] - (within the next 1-2 weeks) Time Seen by Provider: 01/13/22 21:26 - Dictation Amendments/Documentation: [employer] Document Only Electronically Generated By:AVIS BOYCE MD Generated Date/Time: 01/13/222140 Electronically Signed By: AVIS BOYCE MD Signed Date/Time 01/14/22 0030 Co Signed Electronically By: Co Signed Date/Time: CC: ELODIA SEVILLA MD [facility] Work Phone: [phone]) 740-635609-30-2022 Discharge summary Author AVIS BOYCE [facility] January 14, 2022 12:30am Note Date/Time January 13, 2022 9:44pm 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 PATIENT WAS WALKING AT [facility] AND TRIPPED AND [place] AND HIT HEAD AND RIGHT SHOULDER. PATIENT DENIES LOC. A&OX3 Time Seen by Provider: 01/13/22 21:26 Source: Patient Mode of Transport: [facility] - History of Present Illness Initial Comments: Patient was walking at the [facility], she tripped on the pavement or gravel and fell face first into the ground. There were no prodromal symptoms. She was feeling fine prior to this. She hit her head, she is amnestic to a certain part of the event but no definite loss of consciousness. She also injured her right shoulder. Bywxs-logi-[id number]. No numbness or tingling or weakness in the right upper extremity, she denies injury or pain elsewhere. Last tetanus shot unknown, she did injure her right scalp and face. He is healthy she takes no prescriptions or anticoagulant/antiplatelet including xsbf-fzx-ebdqobs medications. Complaint: fall Onset/Timin -: minutes(s) - Related Data Allergies Allergy/AdvReac Type Severity Reaction Status Date / Time No Known Allergies Allergy Unverified 01/13/22 20:54 Review of System - Recent travel Recent travel outside [place] No reported travel outside [place] - Constitutional Constitutional: Absent: chills, fever - Eyes Both Eyes (ROS): Present: no symptoms reported. Absent: blurred vision, drainage, foreign body sensation, vision change - Nose,Throat,Mouth Nose (ROS): Absent: congestion, pain Throat: Absent: pain, swelling, discharge Mouth: Present: other (Right scalp and forehead/facial pain, no other areas of facial pain). Absent: pain, swelling - Respiratory Respiratory: Absent: cough, short of breath, wheezing - CV Cardiology: Absent: chest pain, edema - GI Gastrointestinal/Abdominal: Absent: abdominal pain, diarrhea, nausea, vomiting - Genitourinary Symptoms: Absent: dysuria, hematuria - Neuro Neurological: Present: headache. Absent: numbness, paresthesia, weakness - Muskuloskeletal Musculoskeletal: Present: see HPI (Right shoulder pain). Absent: back pain, joint pain, joint swelling - Integumentary Skin: Absent: lesions, rash - Allergic/Immunologic Immunological/Allergic: Present: no symptoms reported - Hematologic Hematologic/Lymphatic: Absent: easy bleeding, easy bruising, swollen glands - Endocrine Endocrine: Present: no symptoms reported - Psychiatric Psychiatric: Absent: Depressed, Suicidal Thoughts - All Others/Exceptions All Other Systems: Reviewed and Negative Except Where Noted in Documentation ED PMH/Social HX/Family HX - Respiratory Hx Respiratory Disorders: No - Cardiovascular Hx Cardiac Disorders: No - Neurological Hx Neurological Disorder: Yes Other Neuro PMH: DYSTONIA - Gastrointestinal Hx Gastrointestinal Disorders: No - Genitourinary Hx Genitourinary Disorders: No - Musculoskeletal Hx Musculoskeletal Disorders: Yes Other MS PMH: RIGHT HIP SURGERY - Reproductive ?: No Hx Reproductive Disorders: No - Psychological Hx Psychosocial Problems: No - HEENT Hx Ear, Nose Throat Disorders: Yes Other HEENT PMH: THYROID AND PARATHYROID REMOVED - Social History Able to Read: Yes Able to Write: Yes Smoking Status: Never Smoked Hx Chewing Tobacco Use: No Alcohol Use: Never Any recreational drug use reported?: No Feels Threatened In Home Environment: No Feels Threatened In a Relationship: No - [place]/Gender ID What is your current Gender Identity? Choose all that Apply: Female Define your Sexual Orientation?: Straight/Heterosexual - [place]-Suicide Severity Rating Scale 1) Wish to be :: No 2) Suicidal Thoughts:: No 6) Suicidal Behavior Question (A): LIFETIME: No 6) Suicidal Behavior Question (B): PAST 3 MONTHS: No General Exam - General Limitations: Complains of: no limitations Constitutional: Present: Well developed, Well nourished, well hydrated, Non- toxic - Head Head exam: Present: normocephalic, other (Tenderness and abrasions/lacerations right parietal/temporal scalp in addition to the right superior orbital brim/temporal forehead. No crepitance, depression, hematoma.) - Eye Eye exam: Present: normal apperance, normal accomodation, EOMI Pupils: Present: PERRL - ENT ENT exam: Present: normal orophraynx, TMs clear w/ good light reflex, mucous membranes moist, No Nasal Discharge, normal external ear exam, Posterior PharynxNon-erethemetous, other (Other than the right forehead injuries, there is no other midface tenderness including the zygomatic arch, nor instability nor infraorbital hypoesthesia. No nasal tenderness or epistaxis.) - Expanded ENT Exam Ear exam: Present: normal external inspection Mouth exam: Present: normal external inspection Teeth exam: Present: normal inspection Throat exam: normal inspection - Neck Neck exam: Present: full ROM, Supple. Absent: tenderness, meningismus, Posterior Lymphadenopathy, Anterior Lymphadenopathy - Respiratory Respiratory exam: Present: lungs clear and equal bilaterally, chest wall tenderness (Right mid clavicle). Absent: respiratory distress, wheezes, rales, rhonchi, accessory muscle use - Cardiovascular Cardiovascular Exam: Present: regular rate, normal rhythm, normal heart sounds. Absent: tachycardia, murmur - GI/Abdominal GI/Abdominal exam: Present: soft, non tender, normal bowel sounds. Absent: distended, guarding, rebound, rigid - Extremities Exam Extremities exam: Present: normal inspection, neurovascularly intact, full ROM, tenderness (Right mid clavicle. Limited range of motion of the shoulder due to pain here, no proximal humerus or acromial tenderness. The rest of the right upper extremity and all the other extremities are nontender throughout.) - Back Exam Back exam: Present: normal inspection, full ROM. Absent: tenderness - Neurological Exam Neurological exam: Present: alert, oriented X3, CN II-XII intact, normal gait. Absent: motor sensory deficit - Expanded Neurological Exam Patient oriented to: Present: person, place, time Speech: Present: fluid speech - Psychiatric Psychiatric exam: Present: normal affect, normal mood - Skin Skin Color: Present: Normal, [place] Skin exam: Present: warm, dry, other (Lacerations right forehead and temporal scalp: 0.5 cm laceration right temporal scalp, 1 cm full-thickness linear clean laceration right forehead near the eyebrow.) - Expanded Skin Exam Type of lesion: Absent: rash - Vital Signs Vital Signs 01/13/22 01/13/22 01/13/22 20:45 22:54 23:58 Temperature 97.6 F Pulse Rate [ 86 86 85 Pulse Ox] Respiratory 16 15 14 Rate Blood Pressure 121/71 145/85 156/72 [LEFT ARM] O2 Sat by Pulse 99 99 99 Oximetry(%) Procedures - Laceration/Wound Repair R temp scalp Length: 0.5 Anesthetic Used: Lidocaine 1% (0.5cc) Skin Prep: Povidone-Iodine1%, Shur-Clens, Manual scrub Foreign Body: Not identified Layered Closure: 1 Wound closure layer 1: Skin, Closed With, Harmony (#1) Primary Dressing: Remains Open to Air (good hemostasis) R forehead Length: 1 Anesthetic Used: Lidocaine 1% (1cc) Skin Prep: Povidone-Iodine1%, Shur-Clens, Manual scrub Foreign Body: Not identified Layered Closure: 1 Wound closure layer 1: Skin, Closed With, Suture size/needle size (6-0), Nylon, Simple suture (#3) Primary Dressing: Gauze Pad, Bacitracin applied Fall MDM - Lab Data Orders: Medications Discontinued Medications Acetaminophen (Acetaminophen 500 Mg Tablet) 1,000 mg PO ONE ONE Stop: 01/13/22 21:40 Last Admin: 01/13/22 21:54 Dose: 1,000 mg Documented by: [email or web address] Labs 01/13/22 21:39 CT BRAIN WO [CT] Stat RIGHT SHOULDER MIN 2V [DIAG] Stat Acetaminophen [Tylenol Es 500 mg Tablet] 1,000 mg PO ONE ONE 01/13/22 21:40 Ice Pack [RC] QS LACERATION/WOUND REPAIR [RC] ONE 01/13/22 22:30 sling [SPLINT APPLICATION-ED] [RC] ONE - Radiology Data IMPRESSIONS Brain CT 01/13/22 21:39 IMPRESSION: No acute intracranial abnormality. Right parietal scalp hematoma. Shoulder X-Ray 01/13/22 21:39 IMPRESSION: Overlapping midclavicular fracture. - Medical Decision Making Right shoulder x-rays 3 views on interpretation show a displaced mid right clavicle fracture and nothing else acute. Radiology in agreement. CT head is negative. I repaired her lacerations of her scalp and face see the procedure note. Placed in a sling, given appropriate discharge instructions she is ambulatory with family at discharge. Of note, offered the patient analgesics, she wanted Tylenol only, at discharge I asked her again and she declined any prescription narcotics. Of note, the patient states she prefers to see her orthopod who is in [place], Dr. Boyd. ED Discharge Summary - Discharge Data Clinical Impression: Facial laceration, Scalp laceration, Closed head injury without loss of consciousness, Closed displaced fracture of right clavicle Disposition: 01 HOME / SELF CARE / HOMELESS Referrals: PHYSICIAN,UNASSIGNED [MEDICAL DOCTOR] - doctor, your [Other] (5 days for suture/staple removal) FERMÍN PERSAUD [DOCTOR OF OSTEOPATHY] - (within the next 1-2 weeks) Time Seen by Provider: 01/13/22 21:26 - Dictation Amendments/Documentation: [employer] Document Only Electronically Generated By:AVIS BOYCE MD Generated Date/Time: 01/13/22 2141 Electronically Signed By: AVIS BOYCE MD Signed Date/Time 01/14/22 0030 Co Signed Electronically By: Co Signed Date/Time: CC: ELODIA SEVILLA MD [facility] Work Phone: Evaluation note* Diagnosis Onset Date Resolution Status Closed fracture of neck of left femur resolved Fall resolved Anemia due to blood loss, acute acute Closed left hip fracture acu te History of left hip hemiarthroplasty acute Physical debility acute Closed fracture of neck of left femur resolved Fall resolved Herpes dermatitis resolved Intertrigo resolved Abnormal mammogram of left breast acute [facility] Work Phone: Evaluation note* Diagnosis Onset Date Resolution Status Abnormal mammogram of left breast acute [facility] Work Phone: Evaluation noteNo assessment information available [facility] Work Phone: Evaluation note* Diagnosis Cervical dystonia- Primary Spasmodic torticollis documented [facility] [place] [facility]* Diagnosis Rash- Primary Rash and other nonspecific skin eruption documented in this encounter [facility] [place] [facility]* Diagnosis Cervical dystonia- Primary Spasmodic torticollis documented in [facility] [place] [facility]* Diagnosis Cervical dystonia Spasmodic torticollis documented in this encounter [facility] [place] [facility]* Diagnosis Cervical dystonia- Primary Spasmodic torticollis documented in this encounter [facility] note* Diagnosis Cervical dystonia- Primary Spasmodic torticollis documented in this [facility] [place] [facility]* Diagnosis Cervical dystonia Spasmodic torticollis documented in this encounter [facility] note* Diagnosis Cervical dystonia- Primary Spasmodic torticollis documented in this encounter [facility] note* Diagnosis Cervical dystonia Spasmodic torticollis documented in this encounter [facility] note* Diagnosis Cervical dystonia- Primary Spasmodic torticollis documented in this encounter [facility] note* Diagnosis Cervical dystonia Spasmodic torticollis documented in this encounter [facility] note* Diagnosis Cervical dystonia- Primary Spasmodic torticollis documented in this encounter [facility] [place] [facility]* Diagnosis Cervical dystonia- Primary Spasmodic torticollis documented in this encounter [facility] note* Diagnosis Cervical dystonia- Primary Spasmodic torticollis documented in this encounter [facility] Chief Complaint and Reason for Visit Chief Complaint LEFT HIP FRACTURE LEFT HIP FRACTURE LEFT HIP FRACTURE LEFT HIP FRACTURE LEFT HIP FRACTURE LEFT HIP FRACTURE LEFT HIP FRACTURE LEFT HIP FRACTURE LEFT HIP FRACTURE LEFT HIP FRACTURE LEFT HIP FRACTURE SCREENING, LT HI PFRACTURE LEFT ABD MAMM LEFT BREAST BIOPSY ABN MAMM, LT BREAST ABN MAMM, LT BREAST Reason for Visit Closed fracture of n jhonatan of left femur Fall Anemia due to blood loss, acute Closed left hip fracture History of left hip hemiarthroplasty Physical debility Closed fracture of neck of left femur Fall Herpes dermatitis Intertrigo Abnormal mammogram of left breast Chief Complaint SCREENING, LT HI PFR ACTURE LEFT ABD MAMM LEFT BREAST BIOPSY ABN MAMM, LT BREAST ABN MAMM, LT BREAST Reason for Visit Abnormal mammogram o f left breast Family History No Family History Records Found Relationship Condition Age at Onset Recorded Date/T abdiel father Malignant neoplasm Unknown Cerebrovascular accident (CVA) Unknown brother Malignant neoplasm Unknown mother Alzheimer's disease Unknown Advance Directives No Advanced Directives Records Found Advance Directive Response Recorded Date/ Time Living Will No May 17 12:35pm Power of Funeral Service Apprentice No May 17, 2021 12:35pm Summary Purpose Reason for Referral Specialty Diagnoses / Procedures Referred By Contac t Referred To Contact Diagnoses Cervical dystonia Elsy Garcia, BRIANA Celaya CNP [address] [place] [address] Referral ID Status Reason Start Date Expiration Date V isits Requested Visits Authorized [id number] Pending Review 07/28/2022 01/24/2023 1 1 Referral ID Status Reason Start Date Expiration Date V isits Requested Visits Authorized [id number] Pending Review 01/26/2023 07/25/2023 1 1 Referral ID Status Reason Start Date Expiration Date V isits Requested Visits Authorized [id number] Pending Review 05/02/2023 04/26/2024 1 1 Referral ID Status Reason Start Date Expiration Date V isits Requested Visits Authorized [id number] Pending Review 08/01/2023 07/26/2024 1 1 Referral ID Status Reason Start Date Expiration Date V isits Requested Visits Authorized [id number] Pending Review 11/02/2023 10/27/2024 1 1 Specialty Diagnoses / Procedures Referred By Contac t Referred To Contact Diagnoses Cervical dystonia Cynthia Peters MD [address] [place] [address] Referral ID Status Reason Start Date Expiration Date V isits Requested Visits Authorized [id number] Pending Review 02/01/2024 01/26/2025 1 1 Referral ID Status Reason Start Date Expiration Date V isits Requested Visits Authorized [id number] Pending Review 04/28/2022 10/25/2022 1 1 Additional Source Comments Goals (unrecognized section and content) Goals may be documented in a n alternate sectionGoals may be documented in an alternate sectionGoals may be documented in an alternate sectionGoals may be documented in an alternate sectionGoals may be documented in an alternate sectionGoals may be documented in an alternate sectionGoals may be documented in an alternate sectionGoals may be documented in an alternate sectionGoals may be documented in an alternate sectionGoals may be documented in an alternate section Care Teams (unrecognized sec tion and content) Team Status: Active Member Role Status Dates AVIS BOYCE MD Emergency Provider Active Start: January 13, 2022 ELODIA SEVILLA MD Primary Care Provider Active Start: January 13, 2022 TRENA GUI next of kin Active Rabbit Dresser Relationship Specialty Start Date End Date Elodia Sevilla MD [address] [place] [address] PCP - General 10/14/19 Team Status: Active Member Role Status Dates Dr. Elodia Sevilla MD Family Provider Active Dr. Elodia Sevilla MD Primary Care Provider Active Team Status: Inactive Member Role Status Dates Dr. Elodia Sevilla MD Primary Care Prov ider, Attending Provider, Referring Provider Active Rabbit Dresser Relationship Specialty Start Date End Date Elodia Sevilla MD [address] [place], [place] [id number] PCP - General Family Medicine 01/01/23 Rabbit Dresser Relationship Specialty Start Date End Date Elodia Sevilla MD [address] [place] [phone] PCP - General 10/14/19 Rabbit Dresser Relationship Specialty Start Date End Date Elodia Sevilla MD [address] [place] [address] PCP - General 10/14/19 Rabbit Dresser Relationship Specialty Start Date End Date Elodia Sevilla MD [address] [place] [phone] PCP - General 10/14/19 Rabbit Dresser Relationship Specialty Start Date End Date Elodia Sevilla MD [address] [place] [phone] PCP - General 10/14/19 Rabbit Dresser Relationship Specialty Start Date End Date Elodia Sevilla MD [address] [place] [phone] PCP - General 10/14/19 Rabbit Dresser Relationship Specialty Start Date End Date Elodia Sevilla MD [address] [place] [phone] PCP - General 10/14/19 Rabbit Dresser Relationship Specialty Start Date End Date Elodia Sevilla MD [address] [place] [phone] PCP - General 10/14/19 Rabbit Dresser Relationship Specialty Start Date End Date Elodia Sevilla MD [address] [place] [phone] PCP - General 10/14/19 Rabbit Dresser Relationship Specialty Start Date End Date Elodia Sevilla MD [address] [place] [phone] PCP - General 10/14/19 Rabbit Dresser Relationship Specialty Start Date End Date Elodia Sevilla MD [address] [place] [phone] PCP - General 10/14/19 Rabbit Dresser Relationship Specialty Start Date End Date Elodia Sevilla MD [address] [place] [phone] PCP - General 10/14/19 Rabbit Dresser Relationship Specialty Start Date End Date Elodia Sevilla MD [address] [place] [phone] PCP - General 10/14/19 INFORMATION SOURCE (unrecogn ized section and content) DATE CREATED AUTHOR 01/17/2022 [facility] DATE CREATED AUTHOR AUTHOR'S ORGANIZ ATION 01/03/2023 [facility] DATE CREATED AUTHOR AUTHOR'S ORGANIZ ATION 02/15/2024 [facility] DATE CREATED AUTHOR AUTHOR'S ORGANIZ ATION 11/02/2024 [facility] Reason for Visit (unrecogniz ed section and content) Reason Comments Procedure Botox Specialty Diagnoses / Procedures Referred By Contac t Referred To Contact Diagnoses Cervical dystonia Cynthia Peters MD [address] [facility] [place] [address] Phone: tel: fax: Referral ID Status Reason Start Date Expiration Date V isits Requested Visits Authorized [id number] Pending Review 10/29/2024 10/24/2025 1 1 Reason Comments Botulinum Toxin Injection Specialty Diagnoses / Procedures Referred By Contac t Referred To Contact Diagnoses Cervical dystonia Cynthia Peters MD [address] [place] [address] [place] [address] Referral ID Status Reason Start Date Expiration Date V isits Requested Visits Authorized [id number] Pending Review 04/28/2022 10/25/2022 1 1 Reason Comments Procedure Specialty Diagnoses / Procedures Referred By Contac t Referred To Contact Diagnoses Cervical dystonia Elsy Garcia, WILL CALL CLERK - DOM [address] [place] [address] Referral ID Status Reason Start Date Expiration Date V isits Requested Visits Authorized [id number] Pending Review 05/02/2023 04/26/2024 1 1 Reason Comments Procedure Botox- Spasticity Referral ID Status Reason Start Date Expiration Date V isits Requested Visits Authorized [id number] Pending Review 01/26/2023 07/25/2023 1 1 Reason Comments Procedure botox Referral ID Status Reason Start Date Expiration Date V isits Requested Visits Authorized [id number] Pending Review 07/28/2022 01/24/2023 1 1 Reason Comments Rash all over x 3 days Reason Comments Med Refill Referral ID Status Reason Start Date Expiration Date V isits Requested Visits Authorized [id number] Pending Review 08/01/2023 07/26/2024 1 1 Reason Onset Date Comments Med Refill 10/22/2023 Reason Onset Date Comments Reschedule 10/31/2023 Referral ID Status Reason Start Date Expiration Date V isits Requested Visits Authorized [id number] Pending Review 11/02/2023 10/27/2024 1 1 Reason Comments Procedure Botox - Cervical dys andria Referral ID Status Reason Start Date Expiration Date V isits Requested Visits Authorized [id number] Pending Review 02/01/2024 01/26/2025 1 1 Reason Onset Date Comments Med Refill 03/25/2024 Reason Onset Date Comments Med Refill 04/25/2024 Reason Comments Procedure Botox- cervical dyst onia Referral ID Status Reason Start Date Expiration Date V isits Requested Visits Authorized [id number] Pending Review 05/02/2024 04/27/2025 1 1 Reason Comments Procedure Botox - cervical dys andria Specialty Diagnoses / Procedures Referred By Brittany swartz Referred To Contact Diagnoses Cervical dystonia Elsy Garcia, WILL CALL CLERK - DIRECTOR [employer]ED INCOME [address] [place] [address] Phone: tel: fax: Referral ID Status Reason Start Date Expiration Date V isits Requested Visits Authorized [id number] Pending Review 07/30/2024 07/25/2025 1 1 Reason Onset Date Comments Med Refill 09/29/2024 Source Comments (unrecognize d section and content) In the event this informatio n is protected by the [facility] Confidentiality of Alcohol and Drug Abuse Patient Records regulations: The Federal rules restrict any use of the information to criminally investigate or prosecute any alcohol or drug abuse patient.[facility] FOR RECORDS PERTAINING TO PATIENTS WHO ARE OR HAVE BEEN ENROLLED IN A CHEMICAL DEPENDENCY/SUBSTANCEABUSE PROGRAM, SOME INFORMATION MAY BE OMITTED. This clinical summary was aggregated from multiple sources. Caution should be exercised in using it in the provision of clinical care. This summary normalizes information from multiple sources, and as a consequence, information in this document may materially change the coding, format and clinical context of patient data. In addition, data may be omitted in some cases. CLINICAL DECISIONS SHOULD BE BASED ON THE PRIMARY CLINICAL RECORDS. [facility]. provides no warranty or guarantee of the accuracy or completeness of information in this document.
== END | disposition home or self-care (01) ==
LOC: MTLAB 14:17
PROVIDERS: PCP Family Medicine; Referring Provider Family Medicine; Visit Provider Family Medicine
DX: E03.9 Hypothyroidism, unspecified (principal); E55.9 Vitamin D deficiency, unspecified; G24.9 Dystonia, unspecified
CPT/HCPCS: 36415; 80053; 82306; 84439; 84443; 85025

== ENCOUNTER → 2025-01-23 | Outpatient (CLI) | payer MEDICARE, OTHER, SELFPAY ==
--- NOTE | 2025-01-23 11:56 | BI_ITS ---
EXAM: SCRN MAMM (CAD)W/LUZ MARIA BILAT DATE: 01/23/2025 CLINICAL HISTORY: F, Age 74 y/o , SCREEN TECHNIQUE: Procedure Code: [id number] Modality: MG Procedure: SCRN MAMM (CAD)W/LUZ MARIA BILAT COMPARISON: Prior exam(s) dated 12/21/2023, 06/22/2021, 06/16/2021. FINDINGS: TISSUE DENSITY: The breasts are heterogeneously dense, which may obscure small masses. The mammogram demonstrates that the patient has dense breasts. Supplemental screening with whole breast ultrasound or MRI may be considered for further evaluation. Bilateral Breast Mammographic Findings: There is a focal asymmetry with probable associated architectural distortion in the upper-outer left breast at middle depth. No significant masses, calcifications or other abnormalities are identified in the right breast. BI/SCRN MAMM (CAD)W/LUZ MARIA BILAT IMPRESSION: The focal asymmetry with probable associated architectural distortion in the up per-outer left breast at middle depth requires further evaluation. Recommend diagnostic mammogram and ultrasound of the left breast. OVERALL FINAL ASSESSMENT BI-RADS 0: INCOMPLETE - NEED ADDITIONAL IMAGING EVALUATION. RECOMMENDATION: Additional Views obtained/call backs Additional Recommendation none A letter with findings and recommendations will be mailed to the patient. Reading Location: [id number]
== END | disposition home or self-care (01) ==
LOC: OPBI 11:54
PROVIDERS: PCP Family Medicine; Referring Provider Family Medicine; Visit Provider Family Medicine
DX: Z12.31 Encounter for screening mammogram for malignant neoplasm of breast (principal)
CPT/HCPCS: 77063; 77067

== ENCOUNTER → 2025-01-28 | Outpatient (CLI) | payer MEDICARE, OTHER, SELFPAY ==
--- NOTE | 2025-01-28 12:53 | US_ITS ---
PROCEDURE: BREAST LIMITED UNILATERAL 01/28/2025 REASON FOR EXAM: F, Age 74 y/o , ABN MAMM COMPARISON: Prior mammogram done earlier in the day as well as prior mammogram dated January 23, 2025.. TECHNIQUE: Procedure Code: USBRSTLIMIT Modality: US Procedure: BREAST LIMITED UNILATERAL. The upper-outer quadrant of the left breast was examined with ultrasound. FINDINGS: No sonographic abnormality is seen. US/Breast Limited Unilateral IMPRESSION: No sonographic abnormality is seen. BI-RADS 1: NEGATIVE RECOMMENDATION: Routine annual follow-up in 1 Year Reading Location: [place] [address]
--- NOTE | 2025-01-28 12:53 | BI_ITS ---
EXAM: DIAG MAMM W/CAD, UNILAT 01/28/2025 CLINICAL HISTORY: F, Age 74 y/o , ABN MAMM. Abnormal screening mammogram. TECHNIQUE: Procedure Code: [id number] Modality: MG Procedure: DIAG MAMM W/CAD, UNILAT.. Compression spot views of the left breast in the mediolateral oblique and craniocaudad projections were obtained. COMPARISON: Prior exam(s) dated January 23, 2025.. FINDINGS: TISSUE DENSITY: The breasts are heterogeneously dense, which may obscure small masses. Bilateral Breast Mammographic Findings: No significant masses, calcifications or other abnormalities are identified. A tissue clip marker is seen within a tiny nodule in the anterior upper lateral aspect of the left breast. No suspicious masses, areas of developing architectural distortion, or suspicious calcifications. There has been no significant interval change. BI/DIAG MAMM W/CAD, UNILAT IMPRESSION: No suspicious abnormality is seen. Targeted sonographic correlation recommende d. OVERALL FINAL ASSESSMENT BI-RADS 0: INCOMPLETE - NEED ADDITIONAL IMAGING EVALUATION. RECOMMENDATION: Ultrasound Recommended Additional Recommendation none A letter with findings and recommendations will be mailed to the patient. Reading Location: [place] [address]
== END | disposition home or self-care (01) ==
LOC: OPBI 12:50
PROVIDERS: PCP Family Medicine; Referring Provider Family Medicine; Visit Provider Family Medicine
DX: R92.8 Other abnormal and inconclusive findings on diagnostic imaging of breast (principal)
CPT/HCPCS: 76642; 77061; 77065; G0279